=== PATIENT | female | born 1975 | race Caucasian/White ===

== ENCOUNTER 2021-08-09 13:20 | Outpatient (REF) | payer OTHER, SELFPAY ==
--- NOTE | ~2021-08-09 | XR_ITS ---
EXAMINATION: XR HAND/WRIST, RIGHT CLINICAL INFORMATION: Pain. COMPARISON: None TECHNIQUE: 4 views of the right hand and wrist. FINDINGS: Bone alignment is normal. No fracture or dislocation is seen. The joint spaces are normal. Soft tissues are normal. XR/XR hand wrist RT IMPRESSION: Unremarkable exam.
== END 2021-08-09 13:21 | disposition home or self-care (01) ==
LOC: HO.XRAY 13:20
PROVIDERS: PCP Hospitalist; Visit Provider Psychiatry & Neurology Neurology
DX: M79.641 Pain in right hand (principal)
CPT/HCPCS: 73110; 73130

== ENCOUNTER 2022-10-08 11:28 | Emergency (ER) | payer OTHER, SELFPAY ==
--- NOTE | ~2022-10-08 | CT_ITS ---
EXAMINATION: CT LUMBAR SPINE WITHOUT CONTRAST CLINICAL INFORMATION: Metastatic disease. Difficulty walking. COMPARISON: Lumbar spine radiographs from 10/08/2022. TECHNIQUE: Multidetector helical imaging of the lumbar spine was obtained without intravenous contrast. Multiple axial reformats and coronal/sagittal reconstructions were created the technologist workstation for review. This CT examination was performed using dose optimization techniques as appropriate, variously including the following: *Automated exposure control. *Adjustment of mA and/or kV according to patient size (this includes techniques or standardized protocols for targeted exams where dose is matched to indication/reason for exam; i.e. extremities or head). *Use of iterative reconstruction technique. DLP: 710 mGy-cm FINDINGS: Mild degenerative retrolisthesis of L2 on L3. Otherwise, normal anatomic alignment. No evidence of acute fracture or traumatic subluxation. The vertebral body heights are maintained. Moderate degenerative disc disease at L2-L3. Mild degenerative disc disease at all additional lumbar levels. No suspicious lytic or sclerotic osseous lesions. Changes of L3 laminectomy. No significant abnormalities of the paraspinal musculature. Changes of prior sleeve gastrectomy. There is moderate dilation of the proximal duodenum. Otherwise, limited evaluation of the intra-abdominal structures without significant abnormalities. The abdominal aorta is of normal contour and caliber with mild calcific atherosclerotic disease. AXIAL SPINAL LEVELS: L1-L2: Normal annular contour. There is mild bilateral facet joint arthropathy. There is no neural foraminal stenosis. There is no demonstrated spinal canal stenosis. L2-L3: Moderate diffuse disc bulge with superimposed central disc extrusion with inferior migration. There is mild bilateral facet joint arthropathy. There is moderate diffuse disc bulge moderate to severe left and moderate right neural foraminal stenosis. Posterior decompression. L3-L4: Moderate diffuse disc bulge. There is moderate bilateral facet joint arthropathy. There is moderate left worse than right neural foraminal stenosis. Posterior decompression. L4-L5: Mild diffuse disc bulge. There is severe right and moderate left facet joint arthropathy. There is mild to moderate bilateral neural foraminal stenosis. There is stenoses of the subarticular zones with mild spinal canal stenosis centrally. L5-S1: Mild diffuse disc bulge with posterior osseous ridging. There is moderate bilateral facet joint arthropathy. There is mild bilateral neural foraminal stenosis. There is no demonstrated spinal canal stenosis. CT/CT lumbar spine wo IV con IMPRESSION: 1. No evidence of acute fracture or traumatic subluxation of the lumbar spine. No demonstrated suspicious lytic or sclerotic osseous lesions. 2. Moderate multilevel degenerative spondyloarthropathy of the lumbar spine as described in detail above. Most notably on this limited exam without intrathecal contrast, there appears to be mild spinal canal stenosis at L4-L5. Moderate to severe neural foraminal stenoses from L2-L5.
--- NOTE | ~2022-10-08 | CT_ITS ---
EXAMINATION: CT HIP WITHOUT CONTRAST, RIGHT CLINICAL INFORMATION: Evaluate for metastatic disease. History of breast cancer. COMPARISON: CT scan lumbar sacral spine performed same day. X-ray lumbar sacral spine performed same day TECHNIQUE: CT scan of the right hip is performed with reconstruction imaging performed at the acquisition workstation. This CT examination was performed using dose optimization techniques as appropriate, variously including the following: *Automated exposure control *Adjustment of mA and/or kV according to patient size (this includes techniques or standardized protocols for targeted exams where dose is matched to indication/reason for exam; i.e. extremities or head) *Use of iterative reconstruction technique DLP: 710 mGy-cm FINDINGS: There is a small os acetabuli anteriorly superiorly. Hip joint space is normal. No marginal osteophytes or evidence for arthrosis of. No effusion. No fracture. No bone lesion. Partially visualized right sacroiliac joint normal. No lymphadenopathy. Surrounding muscles and tendons unremarkable. Intrapelvic soft tissues unremarkable. Subcutaneous soft tissues: Minimal stranding compatible with minimal edema CT/CT hip RT wo IV con IMPRESSION: 1. No evidence for metastatic disease. 2. Small os acetabuli. 3. No acute abnormality detected
--- NOTE | ~2022-10-08 | XR_ITS ---
EXAMINATION: XR LUMBOSACRAL SPINE CLINICAL INFORMATION: Back pain. History of breast cancer. COMPARISON: None available. TECHNIQUE: Three views of the lumbosacral spine. FINDINGS: Bone alignment is normal. No fracture or dislocation. No focal bone lesion seen. Degenerative disc disease and spondylosis at L2-L3. Lower lumbar spine facet arthritis. XR/XR lumbar spine 2-3V IMPRESSION: Degenerative changes.
[2022-10-08 11:35] VITALS: BP 116/97; PULSE 95; RESP 16; TEMP 36.7; O2SAT 98; BMI 27.4
--- NOTE | 2022-10-08 11:49 | ED.GENADULT ---
HPI - General Adult General Chief complaint: Back Pain/Injury <JOSSE Cavazos - Last Filed: 10/08/22 20:38> Stated complaint: back pain <JOSSE Cavazos - Last Filed: 10/08/22 20:38> Time Seen by Provider: 10/08/22 12:10 <JOSSE Cavazos - Last Filed: 10/08/22 20:38> Source: patient and family <Shiloh Garg NP - Last Filed: 10/08/22 18:08> Mode of arrival: wheelchair <Shiloh Garg NP - Last Filed: 10/08/22 18:08> Limitations: no limitations <Shiloh Garg NP - Last Filed: 10/08/22 18:08> History of Present Illness HPI narrative: This is a 47-year-old female who has a history of breast cancer status post chemo and radiation who completed treatment in 2020 but is currently on tamoxifen oral, history of herniated discs requiring surgery in [address], urinary incontinence since 2016 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 Patient reports since having her back surgery she has had intermittent pain for many years. Typically it is mild. Since yesterday her pain has been much more severe right-sided with radiation down her right leg. Patient also reports some numbness and tingling in her right leg. No weakness in the left. No bowel incontinence, fevers, saddle anesthesia. Patient reports urinary incontinence which she has had for many years. This is not worsened. This usually occurs after coughing and sneezing. It has been recommended that she have Botox injections done but patient did not want to do this due to concern for pain. Patient reports she has taken oxycodone at home, tramadol, gabapentin with continued pain. Patient required wheelchair into the ER due to difficulty with ambulating due to pain <Shiloh Garg NP - Last Filed: 10/08/22 18:08> Related Data Allergies/adverse reactions: Allergies Allergy/AdvReac Type Severity Reaction Status Date / Time hydrocodone Allergy Swelling Verified 10/08/22 11:46 ibuprofen Allergy Swelling Verified 10/08/22 11:46 <Phi Galdamez PA - Last Filed: 10/08/22 20:38> Review of Systems Review of Systems: Yes all other systems are reviewed and are negative <Shiloh Garg NP - Last Filed: 10/08/22 18:08> Constitutional: Constitutional: Reports no additional constitutional complaints, Denies body ache(s), Denies chills, Denies fever(s), Denies headache(s) and Denies weakness <Shiloh Garg NP - Last Filed: 10/08/22 18:08> Eyes: Eyes: Reports no additional eye complaints and Denies change in vision <Shiloh Garg NP - Last Filed: 10/08/22 18:08> ENT: Reports system reviewed and no additional complaints, except as documented, Denies dizziness, Denies headache(s), Denies nasal congestion, Denies nasal discharge and Denies neck pain <Shiloh Garg NP - Last Filed: 10/08/22 18:08> Cardiovascular: Cardiovascular: Reports no additional cardiovascular complaints, Denies chest pain, Denies leg edema and Denies dyspnea <Shiloh Garg NP - Last Filed: 10/08/22 18:08> Respiratory: Respiratory: Reports no additional respiratory complaints, Denies cough and Denies dyspnea <Shiloh Garg NP - Last Filed: 10/08/22 18:08> Gastrointestinal: Gastrointestinal: Reports no additional gastrointestinal complaints, Denies abdominal pain, Denies diarrhea, Denies nausea and Denies vomiting <Shiloh Garg NP - Last Filed: 10/08/22 18:08> Genitourinary: Genitourinary: Reports no additional female genitourinary complaints and Denies urinary incontinence <Shiloh Garg NP - Last Filed: 10/08/22 18:08> Musculoskeletal: Musculoskeletal: Reports no additional musculoskeletal complaints, Reports back pain, Reports arthralgias, Denies joint swelling, Denies neck pain, Denies numbness and Denies tingling <Shiloh Garg NP - Last Filed: 10/08/22 18:08> Integumentary/Breasts: Skin/Breast: Reports system reviewed and no additional complaints, except as docu and Denies rash <Shiloh Garg NP - Last Filed: 10/08/22 18:08> Neurologic: Reports system reviewed and no additional complaints, except as documented, Denies dizziness, Denies headache(s), Denies numbness, Denies tingling and Denies weakness <Shiloh Garg NP - Last Filed: 10/08/22 18:08> [facility] Past Medical History Attestation statement: The following information was validated with the patient. <Shiloh Garg NP - Last Filed: 10/08/22 18:08> Source: old records reviewed and nursing notes reviewed <Shiloh Garg NP - Last Filed: 10/08/22 18:08> Social History Social History: Social History Advance Directives: No Advance Directives Information Provided: No <JOSSE Cavazos - Last Filed: 10/08/22 20:38> Physical Exam ED Vital Signs: Vital Signs - 24 hr 10/08/22 11:35 10/08/22 12:18 10/08/22 15:30 Temperature 98.1 F 97.8 F 97.8 F Pulse Rate 95 83 78 Respiratory Rate 16 18 14 Blood Pressure 116/97 H 101/69 117/71 Pulse Oximetry 98 97 99 Oxygen Delivery Method Room Air Room Air Room Air BMI result Body Mass Index 27.4 <JOSSE Cavazos - Last Filed: 10/08/22 20:38> Vital Signs - 24 hr 10/08/22 11:35 10/08/22 12:18 10/08/22 15:30 Temperature 98.1 F 97.8 F 97.8 F Pulse Rate 95 83 78 Respiratory Rate 16 18 14 Blood Pressure 116/97 H 101/69 117/71 Pulse Oximetry 98 97 99 Oxygen Delivery Method Room Air Room Air Room Air BMI result Body Mass Index 27.4 <Micah Morataya MD - Last Filed: 10/08/22 13:56> Vital Signs - 24 hr 10/08/22 11:35 10/08/22 12:18 10/08/22 15:30 Temperature 98.1 F 97.8 F 97.8 F Pulse Rate 95 83 78 Respiratory Rate 16 18 14 Blood Pressure 116/97 H 101/69 117/71 Pulse Oximetry 98 97 99 Oxygen Delivery Method Room Air Room Air Room Air BMI result Body Mass Index 27.4 <Shiloh Garg NP - Last Filed: 10/08/22 18:08> Const General: cooperative, healthy appearing, comfortable and no acute distress <Shiloh Garg [employer] HOUSE OPERATOR - Last Filed: 10/08/22 18:08> Orientation/consciousness: patient oriented x3 <Shiloh Garg [employer] HOUSE OPERATOR - Last Filed: 10/08/22 18:08> Limitations: no limitations <Shiloh Garg [employer] HOUSE OPERATOR - Last Filed: 10/08/22 18:08> HENMT Head: Yes normal to inspection <Shiloh Garg [employer] HOUSE OPERATOR - Last Filed: 10/08/22 18:08> Ears: hearing grossly normal bilaterally <Shiloh Garg [employer] HOUSE OPERATOR - Last Filed: 10/08/22 18:08> Eyes General: appearance normal, both eyes and all related structures <Shiloh Garg [employer] HOUSE OPERATOR - Last Filed: 10/08/22 18:08> Pupils: Equal, round and reactive pupils present <Shiloh Garg [employer] HOUSE OPERATOR - Last Filed: 10/08/22 18:08> Neck Neck: Yes normal visual inspection and Yes full ROM <Shiloh Garg [employer] HOUSE OPERATOR - Last Filed: 10/08/22 18:08> Chest Chest palpation & inspection: normal inspection of the chest <Shiloh Garg NP - Last Filed: 10/08/22 18:08> Resp Effort & Inspection: normal respiratory effort <Shiloh Garg [employer] HOUSE OPERATOR - Last Filed: 10/08/22 18:08> Auscultation: clear to auscultation bilaterally <Shiloh Garg NP - Last Filed: 10/08/22 18:08> Cardio Rate: regular rate <Shiloh Garg NP - Last Filed: 10/08/22 18:08> Rhythm: regular rhythm <Shiloh Garg NP - Last Filed: 10/08/22 18:08> Peripheral pulses: Peripheral pulses 2+ throughout <Shiloh Garg [employer] HOUSE OPERATOR - Last Filed: 10/08/22 18:08> Back/Spine/Pelvis Other: There is no tenderness of the lumbar spine. There is tenderness over the right SI joint on compression and over the right lateral hip. Patient has pain with abduction, adduction, rotation of the hip and is guarding the hip. Pain is worsened with right straight leg raise <Shiloh Garg [employer] HOUSE OPERATOR - Last Filed: 10/08/22 18:08> Thoracic/Lumbar Spine: thoracic and lumbar spine normal to inspection <Shiloh Garg [employer] HOUSE OPERATOR - Last Filed: 10/08/22 18:08> Neuro General: patient oriented x3, moves all extremities and Unable to assess gait <Shiloh Garg [employer] HOUSE OPERATOR - Last Filed: 10/08/22 18:08> Cranial nerves: Yes CN's II-XII intact bilaterally, Yes Equal, round and reactive pupils present, Yes Bilaterally intact EOM present, Yes Nystagmus not present, Yes Normal facial strength present and Yes Midline tongue present <Shiloh Garg [employer] HOUSE OPERATOR - Last Filed: 10/08/22 18:08> Cognition (Neuro): normal cognition <Shiloh Garg [employer] HOUSE OPERATOR - Last Filed: 10/08/22 18:08> Gait exam (Neuro): Unable to assess gait <Shiloh Garg [employer] HOUSE OPERATOR - Last Filed: 10/08/22 18:08> Motor exam (neuro): 5/5 motor strength present throughout <Shiloh Garg [employer]IL[employer] HOUSE OPERATOR - Last Filed: 10/08/22 18:08> Sensory Exam: Normal double simultaneous stimulation for sensation <Shiloh Garg [employer] HOUSE OPERATOR - Last Filed: 10/08/22 18:08> Extrem General: Yes normal to inspection, Yes no pedal edema and Yes no calf tenderness <Shiloh Garg [employer] HOUSE OPERATOR - Last Filed: 10/08/22 18:08> Course Course Course Narrative: RME: 47 yold female with pmh of Right Breast CA Ductal Cariconima presents to the ED for lower back pain radating spine with Urinary incontience. patient is due for Bladder Botox. Patient receiving chemo and radiation at the [facility]. Patient has range of motion on of lower extermites in wheel chair. Nurse Ariana made aware of case for patient to be brought into main ED when bed available. <JOSSE Cavazos - Last Filed: 10/08/22 20:38> Reevaluation(s) Reevaluation #1: Discussed history, physical and plan with JOSSE Matamoros <Micah Morataya MD - Last Filed: 10/08/22 13:56> Time: 13:56 <Micah Morataya MD - Last Filed: 10/08/22 13:56> Reevaluation #2: 1800-patient had to leave prior to her CT scan results being complete. Patient is aware that we are doing the CT scan to rule out bony mets. She says her pain is feeling improved. She would like to go home. She is aware that her recommendations would be to stay to wait for her CT scan resolved. She has an emergency home and needs to leave. Will leave AMA <Shiloh Garg NP - Last Filed: 10/08/22 18:08> Medications Administered Discontinued Medications Generic Name Dose Route Start Last Admin Trade Name Freq PRN Reason Stop Dose Admin Acetaminophen 975 mg 10/08/22 16:34 10/08/22 16:53 Acetaminophen 325 Mg Tablet PO 10/08/22 16:35 975 mg ONCE ONE Administration Diazepam 2 mg 10/08/22 13:26 10/08/22 13:41 Diazepam 2 Mg Tablet PO 10/08/22 13:27 2 mg ONCE ONE Administration Morphine Sulfate 4 mg 10/08/22 13:26 10/08/22 14:12 Morphine Sulfate 4 Mg/Ml Cartridge IVPUSH 10/08/22 13:27 4 mg ONCE ONE Administration Protocol Ondansetron HCl 4 mg 10/08/22 16:34 10/08/22 16:55 Ondansetron Hcl 4 Mg/2 Ml Vial IVPUSH 10/08/22 16:35 4 mg ONCE ONE Administration Oxycodone HCl 5 mg 10/08/22 16:34 10/08/22 16:54 Oxycodone Hcl Immed Release 5 Mg Tablet PO 10/08/22 16:35 5 mg ONCE ONE Administration <JOSSE Cavazos - Last Filed: 10/08/22 20:38> Medications Administered Discontinued Medications Generic Name Dose Route Start Last Admin Trade Name Freq PRN Reason Stop Dose Admin Acetaminophen 975 mg 10/08/22 16:34 10/08/22 16:53 Acetaminophen 325 Mg Tablet PO 10/08/22 16:35 975 mg ONCE ONE Administration Diazepam 2 mg 10/08/22 13:26 10/08/22 13:41 Diazepam 2 Mg Tablet PO 10/08/22 13:27 2 mg ONCE ONE Administration Morphine Sulfate 4 mg 10/08/22 13:26 10/08/22 14:12 Morphine Sulfate 4 Mg/Ml Cartridge IVPUSH 10/08/22 13:27 4 mg ONCE ONE Administration Protocol Ondansetron HCl 4 mg 10/08/22 16:34 10/08/22 16:55 Ondansetron Hcl 4 Mg/2 Ml Vial IVPUSH 10/08/22 16:35 4 mg ONCE ONE Administration Oxycodone HCl 5 mg 10/08/22 16:34 10/08/22 16:54 Oxycodone Hcl Immed Release 5 Mg Tablet PO 10/08/22 16:35 5 mg ONCE ONE Administration <Micah Morataya MD - Last Filed: 10/08/22 13:56> Medications Administered Discontinued Medications Generic Name Dose Route Start Last Admin Trade Name Sumanq PRN Reason Stop Dose Admin Acetaminophen 975 mg 10/08/22 16:34 10/08/22 16:53 Acetaminophen 325 Mg Tablet PO 10/08/22 16:35 975 mg ONCE ONE Administration Diazepam 2 mg 10/08/22 13:26 10/08/22 13:41 Diazepam 2 Mg Tablet PO 10/08/22 13:27 2 mg ONCE ONE Administration Morphine Sulfate 4 mg 10/08/22 13:26 10/08/22 14:12 Morphine Sulfate 4 Mg/Ml Cartridge IVPUSH 10/08/22 13:27 4 mg ONCE ONE Administration Protocol Ondansetron HCl 4 mg 10/08/22 16:34 10/08/22 16:55 Ondansetron Hcl 4 Mg/2 Ml Vial IVPUSH 10/08/22 16:35 4 mg ONCE ONE Administration Oxycodone HCl 5 mg 10/08/22 16:34 10/08/22 16:54 Oxycodone Hcl Immed Release 5 Mg Tablet PO 10/08/22 16:35 5 mg ONCE ONE Administration <Shiloh Garg NP - Last Filed: 10/08/22 18:08> Medical Decision Making Medical Decision Making [facility] Narrative: 47-year-old female with a history of breast cancer who received chemo and radiation and now is currently on oral tamoxifen, history of herniated disc with surgery in the past with intermittent chronic back pain since then, urinary incontinence for many years who presents to the ER with complaints of acute on chronic right lower back pain with radiation down the right leg since yesterday with no known injury or trauma. Patient also reports difficulty with ambulating due to pain, some numbness and tingling over the right thigh area with no reports of weakness, saddle anesthesia, fever, bowel incontinence. Her pain is been unrelieved with home oxycodone, tramadol and gabapentin On exam patient has tenderness over the right SI joint and right lateral hip which is worsened with any passive range of motion of the hip. She did require a wheelchair to arriving to the ER. She has no tenderness over the lumbar spine. She does have pain with right straight leg raise but her motor function and sensation are normal in the right side. Will obtain labs, UA, advanced imaging of right hip <Shiloh Garg NP - Last Filed: 10/08/22 18:08> Differential Diagnosis Differential Diagnoses: The differential diagnosis associated with the presentation includes <Shiloh Garg NP - Last Filed: 10/08/22 18:08> bony mets low concern for cord compression, caude equina, fracture, epidural abscess <Shiloh Garg NP - Last Filed: 10/08/22 18:08> Lab Data [facility] Lab Attestation statement: I reviewed the patient's lab results. <Shiloh Garg NP - Last Filed: 10/08/22 18:08> Result Diagrams: 10/08/22 12:12 10/08/22 12:12 <JOSSE Cavazos - Last Filed: 10/08/22 20:38> Labs: Lab Results 10/08/22 10/08/22 10/08/22 Range/Units 12:12 12:12 12:12 WBC 6.6 (4.8-10.8) X10*3/uL RBC 4.98 (4.20-5.50) X10*6/uL Hgb 14.3 (12.0-16.0) g/dl Hct 44.3 (37.0-47.0) % MCV 89.0 (80.0-98.0) fL MCH 28.7 (27.0-33.0) pg MCHC 32.3 (31.0-35.0) g/dl RDW 12.9 (11.0-16.0) % Plt Count 219 (160-400) X10*3/uL MPV 9.8 (9.4-12.3) fL Immature Gran % (Auto) 0.2 (0.0-0.4) % Neut % (Auto) 57.2 (45-73) % Lymph % (Auto) 33.2 (20-40) % Desha % (Auto) 7.0 (2-11) % Eos % (Auto) 1.8 (0-4) % Baso % (Auto) 0.6 (0-2) % Lymph # (Auto) 2.2 (1.2-4.9) X10*3/uL Desha # (Auto) 0.5 (0.1-1.2) X10*3/uL Eos # (Auto) 0.1 (0.0-0.4) X10*3/uL Baso # (Auto) 0.0 (0.0-0.2) X10*3/uL Abs Immat Gran (auto) 0.01 (0.00-0.03) X10*3/uL Absolute Neuts (auto) 3.8 (2.0-8.3) x10*3/uL Absolute Nucleated RBC 0.000 (0.0-0.012) X10*3/uL Nucleated RBC % (auto) 0.0 (0.0-0.2) /100WBC ESR (0-20) MM/HR PT 11.7 (10.0-13.1) SEC INR 1.0 (0.9-1.1) APTT 31.9 (26.0-36.4) SEC Sodium 143 (135-145) mmol/L Potassium 4.5 (3.3-5.1) mmol/L Chloride 109 H (96-108) mmol/L Carbon Dioxide 27 (22-29) mmol/L Anion Gap 12 (12-20) BUN 16 (9-16) mg/dL Creatinine 0.78 (0.5-1.4) mg/dL Estim Creat Clear Calc 85.2 Estimated GFR > 60 Random Glucose 87 (60-115) mg/dL Lactic Acid (0.5-2.0) mmol/L Calcium 9.7 (8.4-10.2) mg/dL Total Bilirubin 0.4 (0.0-1.0) mg/dL AST 34 H (5-31) U/L ALT 45 H (0-31) U/L Alkaline Phosphatase 73 (39-117) U/L C-Reactive Protein (< or = 0.50) mg/dL Total Protein 7.4 (6.5-8.0) g/dL Albumin 4.0 (3.5-5.0) g/dL Urine Color Urine Appearance Urine pH (5.0-9.0) Ur Specific [place] (1.005-1.025) Urine Protein (Neg-Trace) mg/dL Urine Glucose (UA) (Negative) mg/dL Urine Ketones (Negative) mg/dL Urine Blood (Negative) Urine Nitrite (Negative) Ur Leukocyte Esterase (Negative) Urine RBC (0-2) /HPF Urine WBC (0-5) /HPF Ur Squamous Epith Cells (0-2) /HPF Urine Bacteria (None Seen) Hyaline Casts (0-2) /LPF 10/08/22 10/08/22 10/08/22 Range/Units 14:08 14:08 14:08 WBC (4.8-10.8) X10*3/uL RBC (4.20-5.50) X10*6/uL Hgb (12.0-16.0) g/dl Hct (37.0-47.0) % MCV (80.0-98.0) fL MCH (27.0-33.0) pg MCHC (31.0-35.0) g/dl RDW (11.0-16.0) % Plt Count (160-400) X10*3/uL MPV (9.4-12.3) fL Immature Gran % (Auto) (0.0-0.4) % Neut % (Auto) (45-73) % Lymph % (Auto) (20-40) % Desha % (Auto) (2-11) % Eos % (Auto) (0-4) % Baso % (Auto) (0-2) % Lymph # (Auto) (1.2-4.9) X10*3/uL Desha # (Auto) (0.1-1.2) X10*3/uL Eos # (Auto) (0.0-0.4) X10*3/uL Baso # (Auto) (0.0-0.2) X10*3/uL Abs Immat Gran (auto) (0.00-0.03) X10*3/uL Absolute Neuts (auto) (2.0-8.3) x10*3/uL Absolute Nucleated RBC (0.0-0.012) X10*3/uL Nucleated RBC % (auto) (0.0-0.2) /100WBC ESR 10 (0-20) MM/HR PT (10.0-13.1) SEC INR (0.9-1.1) APTT (26.0-36.4) SEC Sodium (135-145) mmol/L Potassium (3.3-5.1) mmol/L Chloride (96-108) mmol/L Carbon Dioxide (22-29) mmol/L Anion Gap (12-20) BUN (9-16) mg/dL Creatinine (0.5-1.4) mg/dL Estim Creat Clear Calc Estimated GFR Random Glucose (60-115) mg/dL Lactic Acid 0.9 (0.5-2.0) mmol/L Calcium (8.4-10.2) mg/dL Total Bilirubin (0.0-1.0) mg/dL AST (5-31) U/L ALT (0-31) U/L Alkaline Phosphatase (39-117) U/L C-Reactive Protein 0.18 (< or = 0.50) mg/dL Total Protein (6.5-8.0) g/dL Albumin (3.5-5.0) g/dL Urine Color Urine Appearance Urine pH (5.0-9.0) Ur Specific [place] (1.005-1.025) Urine Protein (Neg-Trace) mg/dL Urine Glucose (UA) (Negative) mg/dL Urine Ketones (Negative) mg/dL Urine Blood (Negative) Urine Nitrite (Negative) Ur Leukocyte Esterase (Negative) Urine RBC (0-2) /HPF Urine WBC (0-5) /HPF Ur Squamous Epith Cells (0-2) /HPF Urine Bacteria (None Seen) Hyaline Casts (0-2) /LPF 10/08/22 Range/Units 16:21 WBC (4.8-10.8) X10*3/uL RBC (4.20-5.50) X10*6/uL Hgb (12.0-16.0) g/dl Hct (37.0-47.0) % MCV (80.0-98.0) fL MCH (27.0-33.0) pg MCHC (31.0-35.0) g/dl RDW (11.0-16.0) % Plt Count (160-400) X10*3/uL MPV (9.4-12.3) fL Immature Gran % (Auto) (0.0-0.4) % Neut % (Auto) (45-73) % Lymph % (Auto) (20-40) % Desha % (Auto) (2-11) % Eos % (Auto) (0-4) % Baso % (Auto) (0-2) % Lymph # (Auto) (1.2-4.9) X10*3/uL Desha # (Auto) (0.1-1.2) X10*3/uL Eos # (Auto) (0.0-0.4) X10*3/uL Baso # (Auto) (0.0-0.2) X10*3/uL Abs Immat Gran (auto) (0.00-0.03) X10*3/uL Absolute Neuts (auto) (2.0-8.3) x10*3/uL Absolute Nucleated RBC (0.0-0.012) X10*3/uL Nucleated RBC % (auto) (0.0-0.2) /100WBC ESR (0-20) MM/HR PT (10.0-13.1) SEC INR (0.9-1.1) APTT (26.0-36.4) SEC Sodium (135-145) mmol/L Potassium (3.3-5.1) mmol/L Chloride (96-108) mmol/L Carbon Dioxide (22-29) mmol/L Anion Gap (12-20) BUN (9-16) mg/dL Creatinine (0.5-1.4) mg/dL Estim Creat Clear Calc Estimated GFR Random Glucose (60-115) mg/dL Lactic Acid (0.5-2.0) mmol/L Calcium (8.4-10.2) mg/dL Total Bilirubin (0.0-1.0) mg/dL AST (5-31) U/L ALT (0-31) U/L Alkaline Phosphatase (39-117) U/L C-Reactive Protein (< or = 0.50) mg/dL Total Protein (6.5-8.0) g/dL Albumin (3.5-5.0) g/dL Urine Color Yellow Urine Appearance Clear Urine pH 6.0 (5.0-9.0) Ur Specific [place] 1.020 (1.005-1.025) Urine Protein Negative (Neg-Trace) mg/dL Urine Glucose (UA) Negative (Negative) mg/dL Urine Ketones Negative (Negative) mg/dL Urine Blood Negative (Negative) Urine Nitrite Negative (Negative) Ur Leukocyte Esterase Trace H (Negative) Urine RBC 0-2 (0-2) /HPF Urine WBC 0-5 (0-5) /HPF Ur Squamous Epith Cells 3-5 (0-2) /HPF Urine Bacteria None Seen (None Seen) Hyaline Casts 0-2 (0-2) /LPF <JOSSE Cavazos - Last Filed: 10/08/22 20:38> Lab Results 10/08/22 10/08/22 10/08/22 Range/Units 12:12 12:12 12:12 WBC 6.6 (4.8-10.8) X10*3/uL RBC 4.98 (4.20-5.50) X10*6/uL Hgb 14.3 (12.0-16.0) g/dl Hct 44.3 (37.0-47.0) % MCV 89.0 (80.0-98.0) fL MCH 28.7 (27.0-33.0) pg MCHC 32.3 (31.0-35.0) g/dl RDW 12.9 (11.0-16.0) % Plt Count 219 (160-400) X10*3/uL MPV 9.8 (9.4-12.3) fL Immature Gran % (Auto) 0.2 (0.0-0.4) % Neut % (Auto) 57.2 (45-73) % Lymph % (Auto) 33.2 (20-40) % Desha % (Auto) 7.0 (2-11) % Eos % (Auto) 1.8 (0-4) % Baso % (Auto) 0.6 (0-2) % Lymph # (Auto) 2.2 (1.2-4.9) X10*3/uL Desha # (Auto) 0.5 (0.1-1.2) X10*3/uL Eos # (Auto) 0.1 (0.0-0.4) X10*3/uL Baso # (Auto) 0.0 (0.0-0.2) X10*3/uL Abs Immat Gran (auto) 0.01 (0.00-0.03) X10*3/uL Absolute Neuts (auto) 3.8 (2.0-8.3) x10*3/uL Absolute Nucleated RBC 0.000 (0.0-0.012) X10*3/uL Nucleated RBC % (auto) 0.0 (0.0-0.2) /100WBC ESR (0-20) MM/HR PT 11.7 (10.0-13.1) SEC INR 1.0 (0.9-1.1) APTT 31.9 (26.0-36.4) SEC Sodium 143 (135-145) mmol/L Potassium 4.5 (3.3-5.1) mmol/L Chloride 109 H (96-108) mmol/L Carbon Dioxide 27 (22-29) mmol/L Anion Gap 12 (12-20) BUN 16 (9-16) mg/dL Creatinine 0.78 (0.5-1.4) mg/dL Estim Creat Clear Calc 85.2 Estimated GFR > 60 Random Glucose 87 (60-115) mg/dL Lactic Acid (0.5-2.0) mmol/L Calcium 9.7 (8.4-10.2) mg/dL Total Bilirubin 0.4 (0.0-1.0) mg/dL AST 34 H (5-31) U/L ALT 45 H (0-31) U/L Alkaline Phosphatase 73 (39-117) U/L C-Reactive Protein (< or = 0.50) mg/dL Total Protein 7.4 (6.5-8.0) g/dL Albumin 4.0 (3.5-5.0) g/dL Urine Color Urine Appearance Urine pH (5.0-9.0) Ur Specific [place] (1.005-1.025) Urine Protein (Neg-Trace) mg/dL Urine Glucose (UA) (Negative) mg/dL Urine Ketones (Negative) mg/dL Urine Blood (Negative) Urine Nitrite (Negative) Ur Leukocyte Esterase (Negative) Urine RBC (0-2) /HPF Urine WBC (0-5) /HPF Ur Squamous Epith Cells (0-2) /HPF Urine Bacteria (None Seen) Hyaline Casts (0-2) /LPF 10/08/22 10/08/22 10/08/22 Range/Units 14:08 14:08 14:08 WBC (4.8-10.8) X10*3/uL RBC (4.20-5.50) X10*6/uL Hgb (12.0-16.0) g/dl Hct (37.0-47.0) % MCV (80.0-98.0) fL MCH (27.0-33.0) pg MCHC (31.0-35.0) g/dl RDW (11.0-16.0) % Plt Count (160-400) X10*3/uL MPV (9.4-12.3) fL Immature Gran % (Auto) (0.0-0.4) % Neut % (Auto) (45-73) % Lymph % (Auto) (20-40) % Desha % (Auto) (2-11) % Eos % (Auto) (0-4) % Baso % (Auto) (0-2) % Lymph # (Auto) (1.2-4.9) X10*3/uL Desha # (Auto) (0.1-1.2) X10*3/uL Eos # (Auto) (0.0-0.4) X10*3/uL Baso # (Auto) (0.0-0.2) X10*3/uL Abs Immat Gran (auto) (0.00-0.03) X10*3/uL Absolute Neuts (auto) (2.0-8.3) x10*3/uL Absolute Nucleated RBC (0.0-0.012) X10*3/uL Nucleated RBC % (auto) (0.0-0.2) /100WBC ESR 10 (0-20) MM/HR PT (10.0-13.1) SEC INR (0.9-1.1) APTT (26.0-36.4) SEC Sodium (135-145) mmol/L Potassium (3.3-5.1) mmol/L Chloride (96-108) mmol/L Carbon Dioxide (22-29) mmol/L Anion Gap (12-20) BUN (9-16) mg/dL Creatinine (0.5-1.4) mg/dL Estim Creat Clear Calc Estimated GFR Random Glucose (60-115) mg/dL Lactic Acid 0.9 (0.5-2.0) mmol/L Calcium (8.4-10.2) mg/dL Total Bilirubin (0.0-1.0) mg/dL AST (5-31) U/L ALT (0-31) U/L Alkaline Phosphatase (39-117) U/L C-Reactive Protein 0.18 (< or = 0.50) mg/dL Total Protein (6.5-8.0) g/dL Albumin (3.5-5.0) g/dL Urine Color Urine Appearance Urine pH (5.0-9.0) Ur Specific [place] (1.005-1.025) Urine Protein (Neg-Trace) mg/dL Urine Glucose (UA) (Negative) mg/dL Urine Ketones (Negative) mg/dL Urine Blood (Negative) Urine Nitrite (Negative) Ur Leukocyte Esterase (Negative) Urine RBC (0-2) /HPF Urine WBC (0-5) /HPF Ur Squamous Epith Cells (0-2) /HPF Urine Bacteria (None Seen) Hyaline Casts (0-2) /LPF 10/08/22 Range/Units 16:21 WBC (4.8-10.8) X10*3/uL RBC (4.20-5.50) X10*6/uL Hgb (12.0-16.0) g/dl Hct (37.0-47.0) % MCV (80.0-98.0) fL MCH (27.0-33.0) pg MCHC (31.0-35.0) g/dl RDW (11.0-16.0) % Plt Count (160-400) X10*3/uL MPV (9.4-12.3) fL Immature Gran % (Auto) (0.0-0.4) % Neut % (Auto) (45-73) % Lymph % (Auto) (20-40) % Desha % (Auto) (2-11) % Eos % (Auto) (0-4) % Baso % (Auto) (0-2) % Lymph # (Auto) (1.2-4.9) X10*3/uL Desha # (Auto) (0.1-1.2) X10*3/uL Eos # (Auto) (0.0-0.4) X10*3/uL Baso # (Auto) (0.0-0.2) X10*3/uL Abs Immat Gran (auto) (0.00-0.03) X10*3/uL Absolute Neuts (auto) (2.0-8.3) x10*3/uL Absolute Nucleated RBC (0.0-0.012) X10*3/uL Nucleated RBC % (auto) (0.0-0.2) /100WBC ESR (0-20) MM/HR PT (10.0-13.1) SEC INR (0.9-1.1) APTT (26.0-36.4) SEC Sodium (135-145) mmol/L Potassium (3.3-5.1) mmol/L Chloride (96-108) mmol/L Carbon Dioxide (22-29) mmol/L Anion Gap (12-20) BUN (9-16) mg/dL Creatinine (0.5-1.4) mg/dL Estim Creat Clear Calc Estimated GFR Random Glucose (60-115) mg/dL Lactic Acid (0.5-2.0) mmol/L Calcium (8.4-10.2) mg/dL Total Bilirubin (0.0-1.0) mg/dL AST (5-31) U/L ALT (0-31) U/L Alkaline Phosphatase (39-117) U/L C-Reactive Protein (< or = 0.50) mg/dL Total Protein (6.5-8.0) g/dL Albumin (3.5-5.0) g/dL Urine Color Yellow Urine Appearance Clear Urine pH 6.0 (5.0-9.0) Ur Specific [place] 1.020 (1.005-1.025) Urine Protein Negative (Neg-Trace) mg/dL Urine Glucose (UA) Negative (Negative) mg/dL Urine Ketones Negative (Negative) mg/dL Urine Blood Negative (Negative) Urine Nitrite Negative (Negative) Ur Leukocyte Esterase Trace H (Negative) Urine RBC 0-2 (0-2) /HPF Urine WBC 0-5 (0-5) /HPF Ur Squamous Epith Cells 3-5 (0-2) /HPF Urine Bacteria None Seen (None Seen) Hyaline Casts 0-2 (0-2) /LPF <Micah Morataya MD - Last Filed: 10/08/22 13:56> Lab Results 10/08/22 10/08/22 10/08/22 Range/Units 12:12 12:12 12:12 WBC 6.6 (4.8-10.8) X10*3/uL RBC 4.98 (4.20-5.50) X10*6/uL Hgb 14.3 (12.0-16.0) g/dl Hct 44.3 (37.0-47.0) % MCV 89.0 (80.0-98.0) fL MCH 28.7 (27.0-33.0) pg MCHC 32.3 (31.0-35.0) g/dl RDW 12.9 (11.0-16.0) % Plt Count 219 (160-400) X10*3/uL MPV 9.8 (9.4-12.3) fL Immature Gran % (Auto) 0.2 (0.0-0.4) % Neut % (Auto) 57.2 (45-73) % Lymph % (Auto) 33.2 (20-40) % Desha % (Auto) 7.0 (2-11) % Eos % (Auto) 1.8 (0-4) % Baso % (Auto) 0.6 (0-2) % Lymph # (Auto) 2.2 (1.2-4.9) X10*3/uL Desha # (Auto) 0.5 (0.1-1.2) X10*3/uL Eos # (Auto) 0.1 (0.0-0.4) X10*3/uL Baso # (Auto) 0.0 (0.0-0.2) X10*3/uL Abs Immat Gran (auto) 0.01 (0.00-0.03) X10*3/uL Absolute Neuts (auto) 3.8 (2.0-8.3) x10*3/uL Absolute Nucleated RBC 0.000 (0.0-0.012) X10*3/uL Nucleated RBC % (auto) 0.0 (0.0-0.2) /100WBC ESR (0-20) MM/HR PT 11.7 (10.0-13.1) SEC INR 1.0 (0.9-1.1) APTT 31.9 (26.0-36.4) SEC Sodium 143 (135-145) mmol/L Potassium 4.5 (3.3-5.1) mmol/L Chloride 109 H (96-108) mmol/L Carbon Dioxide 27 (22-29) mmol/L Anion Gap 12 (12-20) BUN 16 (9-16) mg/dL Creatinine 0.78 (0.5-1.4) mg/dL Estim Creat Clear Calc 85.2 Estimated GFR > 60 Random Glucose 87 (60-115) mg/dL Lactic Acid (0.5-2.0) mmol/L Calcium 9.7 (8.4-10.2) mg/dL Total Bilirubin 0.4 (0.0-1.0) mg/dL AST 34 H (5-31) U/L ALT 45 H (0-31) U/L Alkaline Phosphatase 73 (39-117) U/L C-Reactive Protein (< or = 0.50) mg/dL Total Protein 7.4 (6.5-8.0) g/dL Albumin 4.0 (3.5-5.0) g/dL Urine Color Urine Appearance Urine pH (5.0-9.0) Ur Specific [place] (1.005-1.025) Urine Protein (Neg-Trace) mg/dL Urine Glucose (UA) (Negative) mg/dL Urine Ketones (Negative) mg/dL Urine Blood (Negative) Urine Nitrite (Negative) Ur Leukocyte Esterase (Negative) Urine RBC (0-2) /HPF Urine WBC (0-5) /HPF Ur Squamous Epith Cells (0-2) /HPF Urine Bacteria (None Seen) Hyaline Casts (0-2) /LPF 10/08/22 10/08/22 10/08/22 Range/Units 14:08 14:08 14:08 WBC (4.8-10.8) X10*3/uL RBC (4.20-5.50) X10*6/uL Hgb (12.0-16.0) g/dl Hct (37.0-47.0) % MCV (80.0-98.0) fL MCH (27.0-33.0) pg MCHC (31.0-35.0) g/dl RDW (11.0-16.0) % Plt Count (160-400) X10*3/uL MPV (9.4-12.3) fL Immature Gran % (Auto) (0.0-0.4) % Neut % (Auto) (45-73) % Lymph % (Auto) (20-40) % Desha % (Auto) (2-11) % Eos % (Auto) (0-4) % Baso % (Auto) (0-2) % Lymph # (Auto) (1.2-4.9) X10*3/uL Desha # (Auto) (0.1-1.2) X10*3/uL Eos # (Auto) (0.0-0.4) X10*3/uL Baso # (Auto) (0.0-0.2) X10*3/uL Abs Immat Gran (auto) (0.00-0.03) X10*3/uL Absolute Neuts (auto) (2.0-8.3) x10*3/uL Absolute Nucleated RBC (0.0-0.012) X10*3/uL Nucleated RBC % (auto) (0.0-0.2) /100WBC ESR 10 (0-20) MM/HR PT (10.0-13.1) SEC INR (0.9-1.1) APTT (26.0-36.4) SEC Sodium (135-145) mmol/L Potassium (3.3-5.1) mmol/L Chloride (96-108) mmol/L Carbon Dioxide (22-29) mmol/L Anion Gap (12-20) BUN (9-16) mg/dL Creatinine (0.5-1.4) mg/dL Estim Creat Clear Calc Estimated GFR Random Glucose (60-115) mg/dL Lactic Acid 0.9 (0.5-2.0) mmol/L Calcium (8.4-10.2) mg/dL Total Bilirubin (0.0-1.0) mg/dL AST (5-31) U/L ALT (0-31) U/L Alkaline Phosphatase (39-117) U/L C-Reactive Protein 0.18 (< or = 0.50) mg/dL Total Protein (6.5-8.0) g/dL Albumin (3.5-5.0) g/dL Urine Color Urine Appearance Urine pH (5.0-9.0) Ur Specific [place] (1.005-1.025) Urine Protein (Neg-Trace) mg/dL Urine Glucose (UA) (Negative) mg/dL Urine Ketones (Negative) mg/dL Urine Blood (Negative) Urine Nitrite (Negative) Ur Leukocyte Esterase (Negative) Urine RBC (0-2) /HPF Urine WBC (0-5) /HPF Ur Squamous Epith Cells (0-2) /HPF Urine Bacteria (None Seen) Hyaline Casts (0-2) /LPF 10/08/22 Range/Units 16:21 WBC (4.8-10.8) X10*3/uL RBC (4.20-5.50) X10*6/uL Hgb (12.0-16.0) g/dl Hct (37.0-47.0) % MCV (80.0-98.0) fL MCH (27.0-33.0) pg MCHC (31.0-35.0) g/dl RDW (11.0-16.0) % Plt Count (160-400) X10*3/uL MPV (9.4-12.3) fL Immature Gran % (Auto) (0.0-0.4) % Neut % (Auto) (45-73) % Lymph % (Auto) (20-40) % Desha % (Auto) (2-11) % Eos % (Auto) (0-4) % Baso % (Auto) (0-2) % Lymph # (Auto) (1.2-4.9) X10*3/uL Desha # (Auto) (0.1-1.2) X10*3/uL Eos # (Auto) (0.0-0.4) X10*3/uL Baso # (Auto) (0.0-0.2) X10*3/uL Abs Immat Gran (auto) (0.00-0.03) X10*3/uL Absolute Neuts (auto) (2.0-8.3) x10*3/uL Absolute Nucleated RBC (0.0-0.012) X10*3/uL Nucleated RBC % (auto) (0.0-0.2) /100WBC ESR (0-20) MM/HR PT (10.0-13.1) SEC INR (0.9-1.1) APTT (26.0-36.4) SEC Sodium (135-145) mmol/L Potassium (3.3-5.1) mmol/L Chloride (96-108) mmol/L Carbon Dioxide (22-29) mmol/L Anion Gap (12-20) BUN (9-16) mg/dL Creatinine (0.5-1.4) mg/dL Estim Creat Clear Calc Estimated GFR Random Glucose (60-115) mg/dL Lactic Acid (0.5-2.0) mmol/L Calcium (8.4-10.2) mg/dL Total Bilirubin (0.0-1.0) mg/dL AST (5-31) U/L ALT (0-31) U/L Alkaline Phosphatase (39-117) U/L C-Reactive Protein (< or = 0.50) mg/dL Total Protein (6.5-8.0) g/dL Albumin (3.5-5.0) g/dL Urine Color Yellow Urine Appearance Clear Urine pH 6.0 (5.0-9.0) Ur Specific [place] 1.020 (1.005-1.025) Urine Protein Negative (Neg-Trace) mg/dL Urine Glucose (UA) Negative (Negative) mg/dL Urine Ketones Negative (Negative) mg/dL Urine Blood Negative (Negative) Urine Nitrite Negative (Negative) Ur Leukocyte Esterase Trace H (Negative) Urine RBC 0-2 (0-2) /HPF Urine WBC 0-5 (0-5) /HPF Ur Squamous Epith Cells 3-5 (0-2) /HPF Urine Bacteria None Seen (None Seen) Hyaline Casts 0-2 (0-2) /LPF <Shiloh Garg NP - Last Filed: 10/08/22 18:08> Independent Interpretation I performed an independent interpretation of an: Plain X-Ray and CT Scan <Shiloh Garg NP - Last Filed: 10/08/22 18:08> Interpretation: I independently reviewed the lumbar x-ray and agree with radiologist's report I indepedentely reviewed the CT scan of the right hip and agree with the radiologist's report <Shiloh Garg NP - Last Filed: 10/08/22 18:08> Radiology Impression Discussion of test interpretation with radiology: I have reviewed the radiologist's reading. <ANNETTE Lake Last Filed: 10/08/22 18:08> Radiologist Impression: FINDINGS: There is a small os acetabuli anteriorly superiorly. Hip joint space is normal. No marginal osteophytes or evidence for arthrosis of. No effusion. No fracture. No bone lesion. Partially visualized right sacroiliac joint normal. No lymphadenopathy. Surrounding muscles and tendons unremarkable. Intrapelvic soft tissues unremarkable. Subcutaneous soft tissues: Minimal stranding compatible with minimal edema ? CT/CT hip RT wo IV con IMPRESSION: 1.? No evidence for metastatic disease. 2.? Small os acetabuli. 3. ? No acute abnormality detected ? <Shiloh Garg NP - Last Filed: 10/08/22 18:08> Discharge Plan Discharge Clinical Impression: Sacroiliitis <JOSSE Cavazos - Last Filed: 10/08/22 20:38> Patient Disposition: Left Against Medical Advice <JOSSE Cavazos - Last Filed: 10/08/22 20:38> Instructions: Sacroiliitis (ED) <JOSSE Cavazos - Last Filed: 10/08/22 20:38> Additional Instructions: Unfortunately we do not have the results of your CT scan. We did this CT scan to make there are no bony abnormalities such as cancer within the hip or back. Unfortunately we do not have these results and you wanted to leave before they are back. Please be aware that if there is an abnormality that you may need further testing and or to see a specialist. Take your home medications No heavy lifting or bending Heat or ice to the area <JOSSE Cavazos - Last Filed: 10/08/22 20:38> Referrals: Anh Johnson MD [Primary Care Provider] - 10 days (for continued symptoms ) <JOSSE Cavazos - Last Filed: 10/08/22 20:38> Stand Alone Forms: Against Medical Advice <JOSSE Cavazos - Last Filed: 10/08/22 20:38> Interventions: ED Discharge Assessment Last Done: 10/08/22 18:17 <JOSSE Cavazos - Last Filed: 10/08/22 20:38> Discharge Date/Time: 10/08/22 18:18 <JOSSE Cavazos - Last Filed: 10/08/22 20:38>
[2022-10-08 12:15] LABS: MANUAL DIFF FLAG NO
[2022-10-08 12:17] LABS: Basophils Percent Auto 0.6 % (0-2); Eosinophils Absolute Auto 0.1 X10*3/uL (0.0-0.4); Eosinophils Percent Auto 1.8 % (0-4); Hematocrit 44.3 % (37.0-47.0); Hemoglobin 14.3 g/dl (12.0-16.0); Imm Gran Abs Auto 0.01 X10*3/uL (0.00-0.03); Imm Gran Pct Auto 0.2 % (0.0-0.4); Lymphocytes Absolute Auto 2.2 X10*3/uL (1.2-4.9); Lymphocytes Percent Auto 33.2 % (20-40); Mean Corpuscular HGB Conc 32.3 g/dl (31.0-35.0); Mean Corpuscular Hemoglobin 28.7 pg (27.0-33.0); Mean Platelet Volume 9.8 fL (9.4-12.3); Monocytes Absolute Auto 0.5 X10*3/uL (0.1-1.2); Neutrophils Absolute Auto 3.8 x10*3/uL (2.0-8.3); Neutrophils Percent Auto 57.2 % (45-73); Platelet Count 219 X10*3/uL (160-400); Red Blood Count 4.98 X10*6/uL (4.20-5.50); Red Cell Distribution Width 12.9 % (11.0-16.0); White Blood Count 6.6 X10*3/uL (4.8-10.8)
[2022-10-08 12:18] VITALS: BP 101/69; PULSE 83; RESP 18; TEMP 36.6; O2SAT 97
[2022-10-08 12:23] LABS: Prothrombin Time 11.7 SEC (10.0-13.1)
[2022-10-08 12:25] LABS: Partial Thromboplastin Time 31.9 SEC (26.0-36.4)
[2022-10-08 12:30] LABS: Alanine Aminotransferase 45 U/L (0-31); Alkaline Phosphatase 73 U/L (39-117); Anion Gap 12 (12-20); Aspartate Amino Transferase 34 U/L (5-31); Bilirubin Total 0.4 mg/dL (0.0-1.0); Blood Urea Nitrogen 16 mg/dL (9-16); Calcium 9.7 mg/dL (8.4-10.2); Carbon Dioxide 27 mmol/L (22-29); Chloride 109 mmol/L (96-108); Creatinine Clr Calc Pharmacy 85.2; Estimated Glomerular Filt Rate > 60; Glucose Random 87 mg/dL (60-115); Potassium 4.5 mmol/L (3.3-5.1); Sodium 143 mmol/L (135-145); Total Protein 7.4 g/dL (6.5-8.0)
[2022-10-08] MEDS: diazePAM 2 MG TABLET PO (13:41)
[2022-10-08] MEDS: Morphine Sulfate 4 MG/ML CARTRIDGE IVPUSH (14:12)
[2022-10-08 14:29] LABS: Lactic Acid 0.9 mmol/L (0.5-2.0)
[2022-10-08 14:35] LABS: C Reactive Protein 0.18 mg/dL (< or = 0.50)
[2022-10-08 15:30] VITALS: BP 117/71; PULSE 78; RESP 14; TEMP 36.6; O2SAT 99
[2022-10-08] MEDS: Acetaminophen 325 MG TABLET 975 MG PO (16:53)
[2022-10-08] MEDS: oxyCODONE HCl Immed Release 5 MG TABLET PO (16:54)
[2022-10-08] MEDS: ondansetron HCL 4 MG/2 ML VIAL IVPUSH (16:55)
[2022-10-08 16:58] LABS: Erythrocyte Sedimentation Rate 10 MM/HR (0-20)
[2022-10-08 17:01] LABS: Appearance Urine Clear; Color Urine Yellow; Glucose Urine UA Negative (Negative); Leukocyte Esterase Urine Trace (Negative); Nitrite Urine Negative (Negative); UMIC TRIGGER UACC YES; Urine Blood Negative (Negative); Urine Ketones Negative (Negative); Urine Protein Negative (Neg-Trace)
[2022-10-08 17:06] LABS: Bacteria Urine None Seen (None Seen); Hyaline Casts Urine 0-2 /LPF (0-2); RBC Urine 0-2 /HPF (0-2); WBC Urine 0-5 /HPF (0-5)
== END 2022-10-08 18:18 | disposition left against medical advice (07) ==
PROVIDERS: Nurse Practitioner Family; Physician Assistant; Emergency Provider Emergency Medicine; PCP Hospitalist
DX: M46.1 Sacroiliitis, not elsewhere classified (principal); M54.50 Low back pain, unspecified; R26.2 Difficulty in walking, not elsewhere classified; Z79.899 Other long term (current) drug therapy
CPT/HCPCS: 36415; 72100; 72131; 73700; 80053; 81001; 81003; 83605; 85025; 85610; 85652; 85730; 86140; 87040; 96374; 96375; 99283; 99284; J2270; J2405

== ENCOUNTER 2023-03-12 13:28 | Outpatient (REF) | payer OTHER, SELFPAY ==
[2023-03-12 14:49] LABS: Hematocrit 41.1 % (37.0-47.0); Hemoglobin 13.6 g/dl (12.0-16.0); Mean Corpuscular HGB Conc 33.1 g/dl (31.0-35.0); Mean Corpuscular Hemoglobin 28.8 pg (27.0-33.0); Mean Corpuscular Volume 87.1 fL (80.0-98.0); Mean Platelet Volume 10.2 fL (9.4-12.3); Platelet Count 222 X10*3/uL (160-400); Red Blood Count 4.72 X10*6/uL (4.20-5.50); Red Cell Distribution Width 12.7 % (11.0-16.0); White Blood Count 7.4 X10*3/uL (4.8-10.8)
[2023-03-12 15:05] LABS: INTERNATIONAL NORM RATIO 1.1 (0.9-1.1); Prothrombin Time 12.8 SEC (11.1-13.3)
[2023-03-12 15:24] LABS: Alanine Aminotransferase 50 U/L (0-31); Albumin Level 4.2 g/dL (3.5-5.0); Alkaline Phosphatase 92 U/L (39-117); Anion Gap 10 (12-20); Aspartate Amino Transferase 39 U/L (5-31); Bilirubin Total 0.3 mg/dL (0.0-1.0); Blood Urea Nitrogen 14 mg/dL (9-16); Calcium 9.6 mg/dL (8.4-10.2); Carbon Dioxide 26 mmol/L (22-29); Chloride 109 mmol/L (96-108); Estimated Glomerular Filt Rate > 60; Glucose Random 87 mg/dL (60-115); Sodium 141 mmol/L (135-145); Total Protein 7.9 g/dL (6.5-8.0)
[2023-03-13 04:11] LABS: HBS Num1 14.65 mIU/mL (0-7.99); HBc Num1 0.09 S/CO (0.00-0.79); HBsAGNum1 0.32 S/CO (0.00-0.99); HIV AB/AG Nonreactive (Nonreactive); HIV Num 1 0.05 S/CO (0.00-0.99); Hepatitis B Core Antibody Nonreactive (Nonreactive); Hepatitis B Surface Antigen Negative (Negative); ~Hepatitis B Surface Antibody REACTIVE (Nonreactive)
[2023-03-13 04:23] LABS: Hepatitis A Antibody IgG REACTIVE (Nonreactive); ~Hepatitis A Antibody IgG 5.36 S/CO (0.00-0.99)
[2023-03-13 14:28] LABS: Hepatitis B Viral DNA Qn - cp NOT DETECTED Log IU/mL (NOT DETECTED); Hepatitis B Viral DNA Qn-IU/mL NOT DETECTED (NOT DETECTED)
[2023-03-13 17:24] LABS: HCV RNA PCR Qn 5.75 Log IU/mL (NOT DETECTED); HCV RNA PCR Qn 559000 IU/mL (NOT DETECTED)
[2023-03-18 00:42] LABS: FIB-ALT 44 U/L (6-29); FIB-Alpha-2-Macroglobulin 267 mg/dL (106-279); FIB-Apolipoprotein A1 125 mg/dL (101-198); FIB-GGT 21 U/L (3-55); FIB-Haptoglobin 68 mg/dL (43-212); FIB-Total Bilirubin 0.2 mg/dL (0.2-1.2); Liver Fibrosis Score 0.23; Liver Fibrosis Stage F0-F1; Nec Inflam Act Grade A0-A1; Nec Inflam Act Score 0.23
[2023-03-20 20:22] LABS: HCV Genotype LiPA 4
== END 2023-03-12 13:29 | disposition home or self-care (01) ==
LOC: HO.LAB 13:28
PROVIDERS: PCP Hospitalist; Visit Provider Internal Medicine
DX: Z11.4 Encounter for screening for human immunodeficiency virus [HIV] (principal); B19.20 Unspecified viral hepatitis C without hepatic coma
CPT/HCPCS: 36415; 80053; 81596; 85027; 85610; 86704; 86706; 86708; 87340; 87389; 87517; 87522; 87902; 99202

== ENCOUNTER 2023-03-12 13:28 | Outpatient (AMB) | payer OTHER, SELFPAY ==
--- NOTE | 2023-03-12 13:30 | A.OFFVIS_ITS ---
Intake Vital Signs 03/12/23 13:32 Height 5 ft 4 in Weight 158 lb 11.725 oz BMI 27.2 BP 105/67 Blood Pressure Location Lt brachial Position Sitting Pulse 87 Intake Visit Reasons: HEP C Intake Note: Sander presents in the office as a new patient for Hep C. CC: She states that she is very nauseous today. In general she is okay. Brilliandeer Looper Required: Yes Brilliandeer Looper Name: Son Allergies hydrocodone Allergy (Verified 03/12/23 13:32) Swelling ibuprofen Allergy (Verified 03/12/23 13:32) Swelling HPI HPI Comments History of Present Illness Details 47 y.o F with PMH of chronic HCV, hx of breast ca (unknown type - sees Dr Gill) who is here for second opinion. Pt is slovenian speaking - accompanied by her son who also helps interpret. Reports getting diagnosed with HCV initially in 2020 on routine screening per her report. Does not report any hx of IVDU, blood transfusions, fam hx of liver disease. Has a few tattoos which she got within the past 5 years. Since 2020 has undergone treatment twice, both through Dr Yang per their report. Most recently was on Vosevi x 12 weeks from September to December however most recent labs checked by PCP to document SVR 12 showed persistent viral load. Reports having an upcoming visit with Dr Yang to discuss further treatment with injection - ?? vosevi+ riba being considered. Information not available re genotype, coinfection, most recent labs and u nderlying liver function. Pt does report getting an EGD last month in [facility] but says it was for acid reflux and not related to liver/variceal screening. PFSH Medical History (Updated 03/12/23 @ 13:53 by Violeta Truong MD) HX: breast cancer Surgical History (Updated 03/12/23 @ 13:33 by STAN Betancourt) Hx of bariatric surgery Hx of eye surgery History of esophagogastroduodenoscopy (EGD) Social History (Updated 03/12/23 @ 13:34 by STAN Betancourt) Household Members: Family Alcohol intake: current Alcohol intake frequency: does not drink Patient Tobacco Use Status: Never used Tobacco Review of Systems Const All systems reviewed & are unremarkable except as noted in HPI and below Physical Exam Vital Signs: Last Vital Signs Pulse 87 03/12/23 13:32 BP 105/67 03/12/23 13:32 BMI result Body Mass Index 27.2 Gen appear: NAD HEENT: nonicteric, no cervical lymphadenopathy Chest: CTA CVS: Regular S1/S2 Abd: soft, nontender, nondistended, bowel sounds + Ext: no peripheral edema Neuro: A/Ox3, noted to move all extremities spontaneously Psych: interacting appropriately Assessment & Plan Assessment & Plan (1) Hepatitis C: Code(s): B19.20 - Unspecified viral hepatitis C without hepatic coma Plan Chronic HCV - Treatment experienced. Genotype and VL unknown. Conifection status unknown Underlying liver function unknown Plan: - Labs ordered as below - US Abd - Records release signed for [facility] as well as Dr Yang - Based on pt's description, appears being considered for vosevi+ribavirin tx through Dr Yang but will await records. Follow up in 3 weeks. Orders: Orders Hepatitis A IgG Today B19.20 - Unspecified viral hepatitis C without hepatic coma Hepatitis B Core Antibody Today B19.20 - Unspecified viral hepatitis C without hepatic coma Hepatitis B Surface Antibody Today B19.20 - Unspecified viral hepatitis C without hepatic coma Hepatitis B Viral DNA Qn Today B19.20 - Unspecified viral hepatitis C without hepatic coma Liver Fibrosis Pnl Today B19.20 - Unspecified viral hepatitis C without hepatic coma Complete Blood Count no Diff Today B19.20 - Unspecified viral hepatitis C without hepatic coma Hepatitis B Surface Antigen Today B19.20 - Unspecified viral hepatitis C without hepatic coma HCV RNA QN PROG TO GENOTYPE Today B19.20 - Unspecified viral hepatitis C without hepatic coma HIV Ab/Ag Today B19.20 - Unspecified viral hepatitis C without hepatic coma Comprehensive Met. Panel Today B19.20 - Unspecified viral hepatitis C without hepatic coma Prothrombin Time INR Today B19.20 - Unspecified viral hepatitis C without hepatic coma US abdomen complete Today B19.20 - Unspecified viral hepatitis C without hepatic coma Coding Level of Care Code New Pt Level 4 (44414) Diagnoses Hepatitis C B19.20
[2023-03-12 13:32] VITALS: BP 105/67; PULSE 87; BMI 27.2
== END 2023-03-12 14:12 | disposition home or self-care (01) ==
PROVIDERS: PCP Hospitalist; Visit Provider Internal Medicine
DX: B19.20 Unspecified viral hepatitis C without hepatic coma (principal)
CPT/HCPCS: 99204

== ENCOUNTER 2023-03-27 13:49 | Outpatient (REF) | payer OTHER, SELFPAY ==
--- NOTE | ~2023-03-27 | US_ITS ---
EXAMINATION: US ABDOMEN COMPLETE CLINICAL INFORMATION: Unspecified viral hepatitis C without hepatic coma. COMPARISON: CT lumbar spine 10/08/2022. TECHNIQUE: Real-time imaging of the abdominal viscera. FINDINGS: PANCREAS: Normal. ABDOMINAL AORTA: The proximal, mid, and distal segments are normal in caliber. INFERIOR VENA CAVA: Visualized portions are normal. LIVER: Normal. The liver is normal in size. The liver contour is normal. Parenchymal echogenicity is normal. No focal hepatic lesion. There is no intrahepatic biliary duct dilatation seen. GALLBLADDER: Normal. The gallbladder is physiologically distended without evidence of stones, sludge, polyps, wall thickening or pericholecystic fluid. COMMON BILE DUCT: Normal in caliber measuring 0.6 cm in diameter. RIGHT KIDNEY: Normal. No hydronephrosis. No renal calculi or focal parenchymal lesions. The kidney measures 11.6 cm in maximum dimension. LEFT KIDNEY: Tiny angiomyolipoma measuring 1.1 cm in the mid kidney which can be seen in retrospect on CT lumbar spine 10/08/2022 where it clearly measures macroscopic fat density. No follow-up imaging is recommended. No hydronephrosis. No renal calculi or focal parenchymal lesions. The kidney measures 11.2 cm in maximum dimension. SPLEEN: Normal. The spleen measures 9.0 cm in maximum dimension. FREE FLUID: None. US/US abdomen complete IMPRESSION: No morphologic cirrhosis. No discrete liver mass. Normal size spleen. No ascites.
== END 2023-03-27 13:50 | disposition home or self-care (01) ==
LOC: HO.US 13:49
PROVIDERS: PCP Hospitalist; Visit Provider Internal Medicine
DX: B19.20 Unspecified viral hepatitis C without hepatic coma (principal)
CPT/HCPCS: 76700

== ENCOUNTER 2023-04-02 10:39 | Outpatient (AMB) | payer OTHER, SELFPAY ==
--- NOTE | 2023-04-02 10:39 | MHC.OFFVIS ---
Intake Vital Signs 04/02/23 10:40 Height 5 ft 4 in Weight 158 lb 11.725 oz BMI 27.2 BP 80/52 L Blood Pressure Location Lt radial Position Sitting Pulse 93 Intake Visit Reasons: 3 week follow up Intake Note: Sander presents in the office as a 3 week follow up. CC: She states that she is not having any new concerns but she states that she is getting nausea, weak, headache. She feels like her whole body is tired. Manpower Development Advisor Required: Yes Manpower Development Advisor Name: [id number] Andre Allergies hydrocodone Allergy (Verified 04/02/23 10:48) Swelling ibuprofen Allergy (Verified 04/02/23 10:48) Swelling HPI HPI Comments History of Present Illness Details 47 y.o F with PMH of chronic HCV, hx of breast ca (unknown type - sees Dr Gill) who is here for follow up. 03/12/23: Reports getting diagnosed with HCV initially in 2020 on routine screening per her report. Does not report any hx of IVDU, blood transfusions, fam hx of liver disease. Has a few tattoos which she got within the past 5 years. Since 2020 has undergone treatment twice, both through Dr Yang per their report. Most recently was on Vosevi x 12 weeks from September to December however most recent labs checked by PCP to document SVR 12 showed persistent viral load. Reports having an upcoming visit with Dr Yang to discuss further treatment with injection - ?? vosevi+ riba being considered. Information not available re genotype, coinfection, most recent labs and underlying liver function. Pt does report getting an EGD last month in [facility] but says it was for acid reflux and not related to liver/variceal screening. 03/29/23 Addendum: Records from [facility] and Dr Yang's office reviewed: Was referred to Dr Yang by Kashmir Chan for HCV genotype 4 s/p failure of Epclusa and Vosevi. 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 Plan for Peg-INF 180mg S/C qw and Ribavirin 1000mg/day tx x [address] Yang's office. Pt has also had an EGD through [facility] (Dr Blue) 8/30/23: Mild erythema and G-J anastomosis, esophagitis. Path: H Pylori + . There is also plan for colo once her HCV tx is complete 04/02/23: Pt here for follow up with her uncle. Seen with [facility] sleeve baster. Labs and US results reviewed. Also reviewed records from ID and GI. Plan for Peg-INF +/- Ribavirin as above as pt unable to tolerate any PO tx and has poor gastric acidity for absorption after her RYGB surgery. PFSH Medical History (Updated 04/02/23 @ 11:16 by Violeta Truong MD) HX: breast cancer Surgical History (Updated 03/12/23 @ 13:33 by STAN Betancourt) Hx of bariatric surgery Hx of eye surgery History of esophagogastroduodenoscopy (EGD) Social History (Updated 03/12/23 @ 13:34 by STAN Betancourt) Household Members: Family Alcohol intake: current Alcohol intake frequency: does not drink Patient Tobacco Use Status: Never used Tobacco Review of Systems Const All systems reviewed & are unremarkable except as noted in HPI and below Physical Exam Vital Signs: Last Vital Signs Pulse 93 04/02/23 10:40 BP 80/52 L 04/02/23 10:40 BMI result Body Mass Index 27.2 Gen appear: NAD HEENT: nonicteric, no cervical lymphadenopathy Chest: CTA CVS: Regular S1/S2 Abd: soft, nontender, nondistended, bowel sounds + Ext: no peripheral edema Neuro: A/Ox3, noted to move all extremities spontaneously, using walker to ambulate Psych: interacting appropriately Results Reviewed Results Reviewed: Laboratory Tests 03/12/23 14:36 Total Bilirubin 0.3 AST 39 H ALT 50 H Alkaline Phosphatase 92 Liver Fibrosis Stage F0-F1 Necroinflammator Grade A0-A1 HCV RNA Genotype LiPA 4 HCV RNA (PCR) IUs/ml [id number] H HCV RNA PCR log IUs/ml 5.75 H Assessment & Plan Assessment & Plan (1) Hepatitis C: Code(s): B19.20 - Unspecified viral hepatitis C without hepatic coma (2) H. pylori infection: Code(s): A04.8 - Other specified bacterial intestinal infections Plan Chronic HCV genotype 4 - s/p failure of Epclusa and Vesovi No coinfection with HBV or HIV. As above, under care of Dr Yang and plan for S/C tx with PEG-INF and PO ribavirin x 48 weeks to bypass PO intolerance and poor absorption of DAAs. Other option could be mavyret based therapy which does not contain NS5A and therefore does not rely too much on gastric acidity for absorption. Pt was encouraged to cont follow up with her office for treatment as planned. She is also aware of H pylori gastritis and tells me tx is deferred as of now and will be pursued after HCV tx has been completed. She is also aware of pending colo this year through Dr Blue. Coding Level of Care Code Est Pt Level 4 (75383) Diagnoses Hepatitis C B19.20 H. pylori infection A04.8
[2023-04-02 10:40] VITALS: BP 80/52; PULSE 93; BMI 27.2
== END 2023-04-02 12:17 | disposition home or self-care (01) ==
PROVIDERS: PCP Hospitalist; Visit Provider Internal Medicine
DX: B19.20 Unspecified viral hepatitis C without hepatic coma (principal); A04.8 Other specified bacterial intestinal infections
CPT/HCPCS: 99214

== ENCOUNTER → 2023-04-02 10:39 | Outpatient (BNVA) | payer OTHER, SELFPAY | PROVIDERS: PCP Hospitalist; Visit Provider Internal Medicine | DX: A04.8 Other specified bacterial intestinal infections (principal); B18.2 Chronic viral hepatitis C | CPT/HCPCS: 99212 ==

== ENCOUNTER 2023-12-25 19:10 | Emergency (ER) | payer OTHER, SELFPAY ==
--- NOTE | 2023-12-25 | ECG_ITS ---
Test Reason : CP Blood Pressure : / mmHG Vent. Rate : 088 BPM Atrial Rate : 088 BPM P-R Int : 156 ms QRS Dur : 078 ms QT Int : 370 ms P-R-T Axes : 072 026 055 degrees QTc Int : 447 ms Normal sinus rhythm Normal ECG No previous ECGs available Referred By: Generic ED Physician Electronically Signed By:CHRIS MACHADO MD
--- NOTE | ~2023-12-25 | XR_ITS ---
EXAMINATION: XR CHEST CLINICAL INFORMATION: Left-sided chest pain COMPARISON: None available. TECHNIQUE: 2 views of the chest were obtained. FINDINGS: No significant abnormality is noted involving the heart, lungs, mediastinum, bony thorax or soft tissues. XR/XR chest 2V IMPRESSION: Unremarkable examination.
[2023-12-25 19:37] VITALS: BP 105/73; PULSE 83; RESP 16; TEMP 36.9; O2SAT 98; BMI 25.9
--- NOTE | 2023-12-25 19:40 | ED.CHESTPAIN ---
HPI - Chest Pain General Chief Complaint: Chest Pain Stated Complaint: Chest pain Time Seen by Provider: 12/25/23 22:46 Source: patient Mode of arrival: ambulatory Limitations: no limitations History of Present Illness ED Provider: wilfrido TARANGO narrative: Patient history of increased stress been having left-sided chest pain for last 3 months off and on specially for last [address] [facility] [place] workup was negative was seen at urgent care also was negative comes here for pain similar to that on Saturday is continuous pain no relation with movements or breathing or position change no fever no chills no upper respiratory symptoms no history of leg swelling or shortness a breath Related Data Home Medications ?Medication ?Instructions ?Recorded ?Confirmed acetaminophen 500 mg tablet (Pain mg PO 03/12/23 Relief Extra Strength (acetaminophen)) albuterol sulfate 90 mcg/actuation inhalation 03/12/23 aerosol inhaler (Ventolin HFA) bismuth subsalicylate 262 mg tab PO 03/12/23 chewable tablet cholecalciferol (vitamin D3) 25 25 mcg PO DAILY 03/12/23 mcg (1,000 unit) capsule (Vitamin D3) docusate sodium 100 mg capsule 100 mg PO DAILY 03/12/23 famotidine 20 mg tablet 20 mg PO DAILY 03/12/23 ketoconazole 2 % shampoo topical 03/12/23 melatonin 5 mg tablet mg PO 03/12/23 meloxicam 15 mg tablet 15 mg PO DAILY 03/12/23 miconazole nitrate 2 % topical 0 appl topical 03/12/23 cream ondansetron 4 mg disintegrating 4 mg PO DAILY 03/12/23 tablet oxybutynin chloride 10 mg 10 mg PO DAILY 03/12/23 tablet,extended release 24 hr pediatric multivitamin no.42 tab PO 03/12/23 (Children's Multivitamin chewable tablet) prazosin 2 mg capsule mg PO 03/12/23 prednisone 10 mg tablet 10 mg PO DAILY 03/12/23 pyridoxine (vitamin B6) 100 mg 100 mg PO DAILY 03/12/23 tablet (Vitamin B-6) simethicone 80 mg chewable tablet 160 mg PO BID 03/12/23 tamoxifen 20 mg tablet 20 mg PO DAILY 03/12/23 topiramate 50 mg tablet 50 mg PO BID 03/12/23 trazodone 100 mg tablet 200 mg PO BEDTIME PRN 03/12/23 venlafaxine 150 mg 300 mg PO DAILY 03/12/23 capsule,extended release 24 hr Previous Rx's ?Medication ?Instructions ?Recorded lorazepam 1 mg tablet (Ativan) 1 mg PO BEDTIME PRN anxiety/sleep 12/25/23 #14 tabs Allergies Allergy/AdvReac Type Severity Reaction Status Date / Time hydrocodone Allergy Swelling Verified 12/25/23 19:49 ibuprofen Allergy Swelling Verified 12/25/23 19:49 Review of Systems Review of Systems: Yes all other systems are reviewed and are negative [facility] Past Medical History Medical History HX: breast cancer Surgical History Hx of bariatric surgery Hx of eye surgery History of esophagogastroduodenoscopy (EGD) Social History Social History Household Members: Family Alcohol intake: current Alcohol intake frequency: does not drink Patient Tobacco Use Status: Never used Tobacco Smoked in Last 30 Days: No Use of substances other than those prescribed or required for medical reasons: No Advance Directives: No Advance Directives Information Provided: No Do you have a plan to hurt others: No Plan Patient : No Physical Exam Vital Signs: Vital Signs: Last Vital Signs Temp 98.2 F 12/25/23 23:08 Pulse 63 12/25/23 23:08 Resp 15 12/25/23 23:08 BP 115/80 12/25/23 23:08 Pulse Ox 98 12/25/23 23:08 O2 Del Method Room Air 12/25/23 23:08 BMI result Body Mass Index 25.9 Appearance: Alert. Oriented X3. No acute distress. Anxious Eyes: PERRLA, No Nystagmus ENT: Pharynx normal. Oral Mucosa moist Neck: Normal inspection. Neck supple. CVS: Normal heart rate and rhythm. Pulses normal. Respiratory: No respiratory distress. Equal air entry bilateral, no wheezing/rales/rhonchi Abdomen: Soft and nontender. Bowel sounds are present, no mass palpable, no CVA tenderness Skin: Skin warm and dry. Normal skin color. Normal skin turgor. Extremities: No lower extremity edema. No calf tenderness Neuro: Oriented X 3. No motor deficit. No sensory deficit.No cerebellar signs , cranial nerves II-XII intact Course Course Course Narrative: This is a Rapid Medical Examination (RME) performed by Opal Sim PA-C in triage. Full HPI, ROS, assessment and treatment plan per primary provider in the Main ED. 48 year old pashto speaking female w/ hx of right breast cancer requiring chemo/ radiation, currently on tamoxifen, presents to the ED today with left-sided chest pain x1 week. Pain is intermittent and lasts for seconds at a time. Worse with exertion. admits the pain takes her breath away. Pain radiates into left arm. reports assoc diaphoresis. Seen at urgent care on Saturday, given aspirin with relief. They told her my heart is okay but I need to follow up with vascular surgeon for my heart vessels . since this time reports worsening chest pain with more frequent episodes. she has not taken OTC meds for this at home. rrr. lungs cta b/l. no reproducible chest wall tenderness. Plan: labs, trop, cxr, ekg ordered Medications Administered Discontinued Medications Generic Name Dose Route Start Last Admin Trade Name Sumanq PRN Reason Stop Dose Admin Lorazepam 1 mg 12/25/23 22:54 12/25/23 23:02 Lorazepam 1 Mg Tablet PO 12/25/23 22:55 1 mg ONCE ONE Administration Medical Decision Making Medical Decision Making [facility] Narrative: Patient with atypical chest pain for last 4 days continuously high sensitive troponin negative was seen at [facility] [place] also with similar results pain is going on for last 3 months likely stress-induced pain/microvascular angina. 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 12/25/23 20:05 12/25/23 20:05 Labs: Lab Results 12/25/23 Range/Units 20:05 WBC 8.0 (4.8-10.8) X10*3/uL RBC 4.90 (4.20-5.50) X10*6/uL Hgb 14.2 (12.0-16.0) g/dl Hct 42.6 (37.0-47.0) % MCV 86.9 (80.0-98.0) fL MCH 29.0 (27.0-33.0) pg MCHC 33.3 (31.0-35.0) g/dl RDW 13.9 (11.0-16.0) % Plt Count 248 (160-400) X10*3/uL MPV 9.9 (9.4-12.3) fL Immature Gran % (Auto) 0.1 (0.0-0.4) % Neut % (Auto) 50.9 (45-73) % Lymph % (Auto) 39.0 (20-40) % Austin % (Auto) 7.4 (2-11) % Eos % (Auto) 2.1 (0-4) % Baso % (Auto) 0.5 (0-2) % Lymph # (Auto) 3.1 (1.2-4.9) X10*3/uL Austin # (Auto) 0.6 (0.1-1.2) X10*3/uL Eos # (Auto) 0.2 (0.0-0.4) X10*3/uL Baso # (Auto) 0.0 (0.0-0.2) X10*3/uL Abs Immat Gran (auto) 0.01 (0.00-0.03) X10*3/uL Absolute Neuts (auto) 4.1 (2.0-8.3) x10*3/uL Absolute Nucleated RBC 0.000 (0.0-0.012) X10*3/uL Nucleated RBC % (auto) 0.0 (0.0-0.2) /100WBC PT 11.6 (11.1-13.3) SEC INR 1.0 (0.9-1.1) D-Dimer High Sensitivty 240 NG/ML Sodium 140 (135-145) mmol/L Potassium 4.4 (3.3-5.1) mmol/L Chloride 109 H (96-108) mmol/L Carbon Dioxide 25 (22-29) mmol/L Anion Gap 10 L (12-20) BUN 12 (9-16) mg/dL Creatinine 0.72 (0.5-1.4) mg/dL Estim Creat Clear Calc 85.4 Estimated GFR > 60 Random Glucose 67 (60-115) mg/dL Calcium 9.3 (8.4-10.2) mg/dL Magnesium 2.2 (1.6-2.6) mg/dL Total Bilirubin 0.2 (0.0-1.0) mg/dL AST 30 (5-31) U/L ALT 32 H (0-31) U/L Alkaline Phosphatase 88 (39-117) U/L Troponin I High Sens < 2.7 (<3.5-17.0) ng/L Total Protein 8.2 H (6.5-8.0) g/dL Albumin 4.3 (3.5-5.0) g/dL Lipase 48 (8-78) U/L Independent Interpretation I performed an independent interpretation of an: EKG Interpretation: Normal sinus rhythm heart rate 88 beats per minute normal interval normal axis no acute ST T wave changes Discharge Plan Discharge Clinical Impression: Chest pain Patient Disposition: Home, Self-Care Instructions: Chest Pain (ED) Additional Instructions: Chest pain is unlikely from the heart Take medication to relax and sleep Chest pain could be anxiety-induced Follow with auto mechanics instructor Prescriptions: New lorazepam [Ativan] 1 mg tablet 1 mg PO BEDTIME PRN (Reason: anxiety/sleep) Qty: 14 0RF No Action Children's Multivitamin Tablet,Chewable PO albuterol sulfate [Ventolin HFA] 90 mcg/actuation HFA aerosol inhaler inhalation melatonin 5 mg tablet PO cholecalciferol (vitamin D3) [Vitamin D3] 25 mcg (1,000 unit) capsule 25 mcg PO DAILY prazosin 2 mg capsule PO tamoxifen 20 mg tablet 20 mg PO DAILY docusate sodium 100 mg capsule 100 mg PO DAILY ondansetron 4 mg tablet,disintegrating 4 mg PO DAILY topiramate 50 mg tablet 50 mg PO BID simethicone 80 mg tablet,chewable 160 mg PO BID famotidine 20 mg tablet 20 mg PO DAILY venlafaxine 150 mg capsule,extended release 24hr 300 mg PO DAILY ketoconazole 2 % shampoo topical miconazole nitrate 2 % cream 0 appl topical prednisone 10 mg tablet 10 mg PO DAILY bismuth subsalicylate 262 mg tablet,chewable PO oxybutynin chloride 10 mg tablet extended release 24hr 10 mg PO DAILY acetaminophen [Pain Relief ES (acetaminophen)] 500 mg tablet PO trazodone 100 mg tablet 200 mg PO BEDTIME PRN meloxicam 15 mg tablet 15 mg PO DAILY pyridoxine (vitamin B6) [Vitamin B-6] 100 mg tablet 100 mg PO DAILY Referrals: Levi Stiles MD [Physician] - 2 weeks Interventions: ED Discharge Assessment Last Done: 12/25/23 23:08 Discharge Date/Time: 12/25/23 23:09 Print Language: Sinhala
[2023-12-25 20:09] LABS: MANUAL DIFF FLAG NO
[2023-12-25 20:17] LABS: Basophils Percent Auto 0.5 % (0-2); Eosinophils Absolute Auto 0.2 X10*3/uL (0.0-0.4); Eosinophils Percent Auto 2.1 % (0-4); Hematocrit 42.6 % (37.0-47.0); Hemoglobin 14.2 g/dl (12.0-16.0); Imm Gran Abs Auto 0.01 X10*3/uL (0.00-0.03); Imm Gran Pct Auto 0.1 % (0.0-0.4); Lymphocytes Absolute Auto 3.1 X10*3/uL (1.2-4.9); Mean Corpuscular HGB Conc 33.3 g/dl (31.0-35.0); Mean Corpuscular Volume 86.9 fL (80.0-98.0); Mean Platelet Volume 9.9 fL (9.4-12.3); Monocytes Absolute Auto 0.6 X10*3/uL (0.1-1.2); Monocytes Percent Auto 7.4 % (2-11); Neutrophils Absolute Auto 4.1 x10*3/uL (2.0-8.3); Neutrophils Percent Auto 50.9 % (45-73); Platelet Count 248 X10*3/uL (160-400); Red Cell Distribution Width 13.9 % (11.0-16.0)
[2023-12-25 20:22] LABS: Prothrombin Time 11.6 SEC (11.1-13.3)
[2023-12-25 20:29] LABS: Alanine Aminotransferase 32 U/L (0-31); Albumin Level 4.3 g/dL (3.5-5.0); Alkaline Phosphatase 88 U/L (39-117); Anion Gap 10 (12-20); Aspartate Amino Transferase 30 U/L (5-31); Bilirubin Total 0.2 mg/dL (0.0-1.0); Blood Urea Nitrogen 12 mg/dL (9-16); Calcium 9.3 mg/dL (8.4-10.2); Carbon Dioxide 25 mmol/L (22-29); Chloride 109 mmol/L (96-108); Creatinine Clr Calc Pharmacy 85.4; Estimated Glomerular Filt Rate > 60; Glucose Random 67 mg/dL (60-115); Lipase 48 U/L (8-78); Magnesium 2.2 mg/dL (1.6-2.6); Potassium 4.4 mmol/L (3.3-5.1); Sodium 140 mmol/L (135-145); Total Protein 8.2 g/dL (6.5-8.0)
[2023-12-25 20:38] LABS: Troponin-I High Sensitivity < 2.7 ng/L (<3.5-17.0)
[2023-12-25 20:49] VITALS: BP 110/79; PULSE 62; RESP 19; TEMP 37.2; O2SAT 98
[2023-12-25 21:54] VITALS: BP 115/80; PULSE 63; RESP 15; TEMP 36.8; O2SAT 98
[2023-12-25] MEDS: LORazepam 1 MG TABLET PO (23:02)
[2023-12-25 23:04] LABS: D Dimer High Sensitivity 240 NG/ML
[2023-12-25 23:08] VITALS: BP 115/80; PULSE 63; RESP 15; TEMP 36.8; O2SAT 98
--- OUTSIDE RECORDS SUMMARY | 2023-12-26 08:37 | XMS_ITS | Continuity of Care Document ---
Author Organization [facility] Address [address] [place] [address]- Care Team Providers Care Secondary Set Up Man Name Role Phone Lakia Johnson MD Primary Care Physician Encounter [facility] Date(s): 08/02/23 - 09/01/23 [facility] [address] [place] [address] Allergies, Adverse Reactions, Alerts Substance Reaction Severity Status ibuprofen Rash, low heart rate Active hydrocortisone Low heart rate rash Active cortisone 1, 2 Rash, low heart rate Activ e SOLU-Medrol 3 Rash, low heart rate Persistent Severe A ctive 1Pt also stated with IV she gets swollen all over and HR goes low 2pt stated she can take the oral tablets, but when given IV gets itchy 3Patient with allergic reaction to medication today 12/02/2018 Immunizations Given and Recorded Vaccine Date Status Refusal Reason SARS-CoV-2 (COVID-19) mRNA BNT-162b2 vac 11/17/20 Recorded SARS-CoV-2 (COVID-19) mRNA BNT-162b2 vac 10/27/20 Recorded influenza virus vaccine, inactivated 03/21/17 Daniel rded influenza virus vaccine, inactivated 05/07/14 Daniel rded influenza virus vaccine, inactivated 10/13/13 Daniel rded pneumococcal 23-valent vaccine 06/25/14 Recorded pneumococcal 23-valent vaccine 05/20/14 Recorded Measles/Mumps/Rubella Virus Vaccine 02/17/14 Recor ded Measles/Mumps/Rubella Virus Vaccine 01/04/14 Recor ded hepatitis B adult vaccine 02/09/14 Recorded hepatitis B adult vaccine 01/04/14 Recorded hepatitis B adult vaccine 10/13/13 Recorded tetanus/diphtheria/pertussis, acel(Tdap) 02/09/14 Recorded tetanus/diphtheria/pertussis, acel(Tdap) 01/04/14 Recorded Medications acetaminophen 325 mg oral tablet 650 mg, 2, tablet, By Mouth, Every 6 hours, PRN, # 24 tablet, Refills 0, Tot. Refills 0, Maintenance, Pain , Moderate, 08/07/21 21:37:00 EST, Route to Pharmacy Electronically, [facility] - [place], [place] - [phone], Partial fill upon patient r... Start Date: 08/07/21 Status: Ordered baclofen 10 mg oral tablet 10 mg, 1, tablet, By Mouth, 2 times a day, Refills 0, Maintenance, 01/04/20 15:07:00 EDT Start Date: 01/04/20 Status: Ordered Melatonin 5 mg oral tablet 1 tablet = 5 mg, By Mouth, Daily at bedtime, PRN for insomnia, # 60 tablet, 0 Refills, Maintenance,01/12/21 16:01:00 EDT, Tablet, Partial fill upon patient request if the prescription is for a schedule II opioid drug. Start Date: 01/12/21 Status: Ordered montelukast 10 mg oral tablet 1, tablet, By Mouth, Daily, # 30 tablet, Refills 2, Maintenance, 03/25/22 19:20:00 EDT, Route to Pharmacy Electronically, [facility], 163, cm, 02/11/22 19:38:00 EDT, Height, 69.7, kg, 02/11/22 19:38:00 EDT, Dry Weight Start Date: 03/25/22 Status: Ordered Nizoral 2% topical shampoo See Instructions, Apply twice a week for 8 weeks, # 120 mL, 1 Refills, Soft Stop, 06/08/19 12:52:56EST, Apply twice a week for 8 weeks, 163, cm, 06/08/19 12:22:44 EST, Height, 94, kg, 05/13/19 16:32:18 EST, Dry Weight Start Date: 06/08/19 Status: Ordered omeprazole 20 mg oral enteric coated capsule 1 capsule = 20 mg, By Mouth, Daily, # 30 capsule, 0 Refills, Maintenance, 01/12/21 16:01:00 EDT, ECCapsule, Partial fill upon patient request if the prescription is for a schedule II opioid drug. Start Date: 01/12/21 Status: Ordered omeprazole 40 mg oral enteric coated capsule 1 capsule = 40 mg, By Mouth, Daily, # 30 capsule, 0 Refills, Maintenance, 04/07/22 16:47:00 EDT, ECCapsule, [facility] [id number], Partial fill upon patient request if the prescription is for a schedule II opioid drug., 163,... Start Date: 04/07/22 Status: Ordered ondansetron 4 mg oral tablet, disintegrating 1 tablet = 4 mg, By Mouth, Every 8 hours, PRN as needed for nausea/vomiting, # 14 tablet, 0 Refills, Maintenance, 08/07/21 21:37:00 EST, DIS Tablet, [facility] [id number], Partial fill upon patient request if the prescription... Start Date: 08/07/21 Status: Ordered oxyCODONE 5 mg oral tablet 10 mg, 2, tablet, By Mouth, Every 6 hours, PRN, Refills 0, Tot. Refills 0, Maintenance, Pain , Moderate, 01/12/21 16:01:00 EDT, Partial fill upon patient request if the prescription is for a scheduleII opioid drug. Start Date: 01/12/21 Status: Ordered prazosin 1 mg oral capsule 1 mg, 1, capsule, By Mouth, 3 times a day, Refills 0, Maintenance, 04/30/19 13:39:06 EDT Start Date: 04/30/19 Status: Ordered predniSONE 20 mg oral tablet 2 tablet = 40 mg, By Mouth, 2 times a day, # 10 tablet, 0 Refills, Acute 09/27/23 1:33:00 EDT, 08/29/23 1:32:00 EST, Tablet, [facility] [id number], Partial fill upon patient request if the prescription is for a schedule II opi... Start Date: 08/29/23 Stop Date: 09/27/23 Status: Ordered predniSONE 50 mg oral tablet 1 tablet = 50 mg, By Mouth, Daily, # 5 tablet, 0 Refills, Maintenance, 08/23/21 3:53:00 EST, [facility] [id number], Partial fill upon patient request if the prescription is for a schedule II opioid drug., 160, cm, 08/23/21 1:3... Start Date: 08/23/21 Stop Date: 08/28/21 Status: Ordered ProAir HFA 90 mcg/inh inhalation aerosol with adapter 2, puffs, Inhalation, 4 times a day, PRN, # 8.5 Gm, Refills 0, Tot. Refills 0, Maintenance, 01/26/22 22:54:00 EDT, Aerosol, Route to Pharmacy Electronically, [id number], [place], [place] - [phone], 163, cm... Start Date: 01/26/22 Status: Ordered pyridoxine 100 mg oral tablet TAKE ONE TABLET BY MOUTH DAILY Start Date: 01/04/20 Status: Ordered Spiriva HandiHaler 18 mcg Inhalation Capsule = 18 mcg, Inhalation, Daily, 0 Refills, Maintenance, 04/30/19 13:38:16 EDT Start Date: 04/30/19 Status: Ordered Symbicort 160mcg/4.5mcg Inhaler 2, puffs, Inhalation, 2 times a day, # 10.2 Gm, Refills 2, Route to Pharmacy Electronically, [id number], [facility], 160, cm, 05/08/21 12:35:00 EST, Height, 81, kg, 05/08/21 12:35:00 EST, Dry Weight Start Date: 06/26/21 Status: Ordered tamoxifen 20 mg oral tablet 1 tablet = 20 mg, By Mouth, 2 times a day, # 60 tablet, 0 Refills, Maintenance, 01/17/20 11:54:00 EDT, Tablet, [place], [place] -, 163, cm, 12/31/19 11:31:00 EDT, Height, 94, kg, 05/13/19 16:32:00 EST, Dry Weight Start Date: 01/17/20 Stop Date: 02/16/20 Status: Ordered Theophylline 300 mg tablet SR 1 tablet = 300 mg, By Mouth, Every 12 hours, # 60 tablet, 6 Refills, Maintenance, 08/30/17 13:39:00, ER Tablet Start Date: 08/30/17 Stop Date: 03/28/18 Status: Ordered topiramate 25 mg oral tablet 1 tablet = 25 mg, By Mouth, 2 times a day, 0 Refills, Maintenance, 04/30/19 13:38:48 EDT Start Date: 04/30/19 Status: Ordered traZODone 100 mg oral tablet 100 mg, 1, tablet, By Mouth, Daily at bedtime, Refills 0, Maintenance, 04/30/19 12:29:11 EDT Start Date: 04/30/19 Status: Ordered venlafaxine 150 mg oral capsule, extended release 150 mg, 1, capsule, By Mouth, Daily, # 30 capsule, Refills 2, Tot. Refills 2, Maintenance, 01/16/2011:54:00 EDT, Route to Pharmacy Electronically, [place], [place] -, 163, cm, 12/31/19 11:31:00 EDT, Height, 94, kg, 05/13/19 16:32:00... Start Date: 01/17/20 Stop Date: 04/16/20 Status: Ordered Ventolin HFA 108 mcg/inh inhalation aerosol with adapter 2 puffs, Inhalation, Every 4 hours, PRN for wheezing, # 2 each, 6 Refills, Maintenance, 01/17/20 11:54:00 EDT, Aerosol, [place], [place] - , 163, cm, 12/31/19 11:31:00 EDT, Height, 94, kg, 05/13/19 16:32:00 EST, Dry Weight Start Date: 01/17/20 Stop Date: 08/14/20 Status: Ordered Vosevi oral tablet 1 tablet, By Mouth, Daily, with food, # 28 tablet, 0 Refills, Maintenance, 08/28/23 19:08:00 EST, Tablet, Partial fill upon patient request if the prescription is for a schedule II opioid drug. Start Date: 08/28/23 Stop Date: 11/20/23 Status: Ordered Zofran 4 mg oral tablet 1 tablet = 4 mg, By Mouth, Every 8 hours, PRN as needed for nausea/vomiting, # 6 tablet, 0 Refills,Maintenance, 03/06/19 19:02:44 EDT, Tablet Start Date: 03/06/19 Status: Ordered zolpidem 10 mg oral tablet 1 tablet = 10 mg, By Mouth, Daily at bedtime, PRN as needed for insomnia, 0 Refills, Maintenance, 01/04/20 15:06:00 EDT, Tablet Start Date: 01/04/20 Status: Ordered Problem List Condition Confirmation Course Effective Dates Status H ealth Status Informant Asthma Confirmed Active BMI 39.0-39.9,adult Confirmed Active Chronic back pain Confirmed Active COVID-19 1 Confirmed 01/31/22 Active Depression Confirmed Active Elevated BP without diagnosis of hypertension Confirmed Active GERD (gastroesophageal reflux disease) Confirmed 10/06/15 Active Infiltrating ductal carcinoma of right breast Confirmed Active Low back pain Confirmed Active Missed Confirmed Active Polyarthralgia Confirmed Active Seborrheic dermatitis of scalp Confirmed Active Asthma, severe persistent Confirmed Active 1Problem added by Discern Expert Social History Social History Type Response Tobacco Use: pt denies. Sex Patient Care team information Care Team Personnel Name: Ida Majano Position: [facility] Onco RN Member Role: Primary Care Nurse Name: Lakia Johnson MD Position: [facility] Physician - Primary Care Member Role: PCP Address: Address: [address] [place] [id number]- Care Team Related Persons Name: ZANE MORRISON Name: LITO BAKER Address: home [address] [place] [address] Name: JANES DUMONT Address: home [address] [place] [id number]
--- OUTSIDE RECORDS SUMMARY | 2023-12-26 08:37 | XMS_ITS | Continuity of Care Document ---
Author Organization [facility] Address [address] [place] [address]- Care Team Providers Care Counter Weigher Name Role Phone Jeimy Ortiz MD Primary Care Physician Encounter [facility] Date(s): 03/28/20 - 04/27/20 [facility] [address] [place] [address]- [facility] Allergies, Adverse Reactions, Alerts Substance Reaction Severity Status ibuprofen Active hydrocortisone rash Active SOLU-Medrol 1 Persistent Severe Active 1Patient with allergic reaction to medication today 12/02/2018 Medications baclofen 10 mg oral tablet 10 mg, 1, tablet, By Mouth, 2 times a day, Refills 0, Maintenance, 01/04/20 15:07:00 EDT Start Date: 01/04/20 Status: Ordered Compression Stockings Maintenance, 04/30/19 12:29:40 EDT, Compound Start Date: 04/30/19 Status: Ordered epinephrine 0.3 mg injectable solution Intramuscular, Once, 0 Refills, Maintenance, 04/30/19 12:30:00 EDT Start Date: 04/30/19 Status: Ordered Herceptin = 2 mg/kg, IV Infusion, Chemo To Be Scheduled, 0 Refills, Maintenance, 02/28/19 22:05:14 EDT Start Date: 02/28/19 Status: Ordered Lidoderm 5% film 1 patch, Topically, Daily, remove patches after 12 hours and leave off for 12 hours before replacing. You may apply 1-2 patches to the area., # 7 patch, 0 Refills, Maintenance, 02/28/19 23:13:50 EDT Start Date: 02/28/19 Stop Date: 03/07/19 Status: Ordered montelukast 10 mg oral tablet 10 mg, 1, tablet, By Mouth, Daily, # 30 tablet, Refills 2, Tot. Refills 2, Maintenance, 01/17/20 11:54:00 EDT, Route to Pharmacy Electronically, [place], [place] -, 163, cm, 12/30/2010:31:00 EDT, Height, 94, kg, 05/13/19 16:32:00 EST... Start Date: 01/17/20 Stop Date: 04/16/20 Status: Ordered Nizoral 2% topical shampoo See Instructions, Apply twice a week for 8 weeks, # 120 mL, 1 Refills, Soft Stop, 06/08/19 12:52:56EST, Apply twice a week for 8 weeks, 163, cm, 06/08/19 12:22:44 EST, Height, 94, kg, 05/13/19 16:32:18 EST, Dry Weight Start Date: 06/08/19 Status: Ordered prazosin 1 mg oral capsule 1 mg, 1, capsule, By Mouth, 3 times a day, Refills 0, Maintenance, 04/30/19 13:39:06 EDT Start Date: 04/30/19 Status: Ordered pyridoxine 100 mg oral tablet TAKE ONE TABLET BY MOUTH DAILY Start Date: 01/04/20 Status: Ordered Spiriva HandiHaler 18 mcg Inhalation Capsule = 18 mcg, Inhalation, Daily, 0 Refills, Maintenance, 04/30/19 13:38:16 EDT Start Date: 04/30/19 Status: Ordered Symbicort 160mcg/4.5mcg Inhaler 2, puffs, Inhalation, 2 times a day, # 1 each, Refills 6, Tot. Refills 6, Maintenance, 02/25/20 17:53:00 EDT, Aerosol, Route to Pharmacy Electronically, [id number], [place], [place] - [phone], 163, cm, ... Start Date: 02/25/20 Stop Date: 09/22/20 Status: Ordered tamoxifen 20 mg oral tablet 1 tablet = 20 mg, By Mouth, 2 times a day, # 60 tablet, 0 Refills, Maintenance, 01/17/20 11:54:00 EDT, Tablet, [place], [place] -, 163, cm, 12/31/19 11:31:00 EDT, [...] Maintenance, 01/16/2011:54:00 EDT, Route to Pharmacy Electronically, [place], [place] -, 163, cm, 12/31/19 11:31:00 EDT, Height, 94, kg, 05/13/19 16:32:00... Start Date: 01/17/20 Stop Date: 04/16/20 Status: Ordered Ventolin HFA 108 mcg/inh inhalation aerosol with adapter 2 puffs, Inhalation, Every 4 hours, PRN for wheezing, # 2 each, 6 Refills, Maintenance, 01/17/20 11:54:00 EDT, Aerosol, [place], [place] - , 163, cm, 12/31/19 11:31:00 EDT, Height, 94, kg, 05/13/19 16:32:00 EST, Dry Weight Start Date: 01/17/20 Stop Date: 08/14/20 Status: Ordered Zofran 4 mg oral tablet [...] Date: 01/04/20 Status: Ordered Problem List Condition Effective Dates Status Health Status Inform ant Chronic back pain(Confirmed) Active Depression(Confirmed) Active GERD (gastroesophageal reflu x disease)(Confirmed) 10/06/15 Active Infiltrating ductal carcinom a of right breast(Confirmed) Active Low back pain(Confirmed) Active Missed (Confirmed) Active Seborrheic dermatitis of scalp(Confirmed) Active Asthma, severe persistent(Confirmed) Active Social History Social History Type Response Smoking Status Former smoker, quit more than 30 days ago; Use: Quit 4 months ago; Other: 11/2018; entered on: 12/31/19 Sex
--- OUTSIDE RECORDS SUMMARY | 2023-12-26 08:37 | XMS_ITS | Continuity of Care Document ---
Author Organization [facility] ter Address [address] [place] [id number]- Care Team Providers Care Marketing Professional Name Role Phone Lakia Johnson MD Primary Care Physician Encounter [facility] [place] Date(s): 03/20/22 - 05/25/[address] [id number] Attending Physician: Edilson Arias MD Admitting Physician: Edilson Arias MD Allergies, Adverse Reactions, Alerts Substance Reaction Severity Status ibuprofen Active hydrocortisone rash Active cortisone 1, 2 Active SOLU-Medrol 3 Persistent Severe Active 1Pt also stated with IV she gets [...] 08/07/21 21:37:00 EST, Route to Pharmacy Electronically, [facility] - [place], [place] - [id number], Partial fill upon patient r... Start Date: [...] 03/25/22 19:20:00 EDT, Route to Pharmacy Electronically, [facility], 163, cm, 02/11/22 19:38:00 EDT, Height, [...] 0 Refills, Maintenance, 04/07/22 16:47:00 EDT, ECCapsule, [facility] [id number], Partial fill upon patient request if the prescription is for a schedule II opioid drug., 163,... Start Date: 04/07/22 Status: Ordered ondansetron 4 mg oral tablet, disintegrating 1 tablet = 4 mg, By Mouth, Every 8 hours, PRN as needed for nausea/vomiting, # 14 tablet, 0 Refills, Maintenance, 08/07/21 21:37:00 EST, DIS Tablet, [facility] [id number], Partial fill upon patient request if the [...] EDT Start Date: 04/30/19 Status: Ordered predniSONE 50 mg oral tablet 1 tablet = 50 mg, By Mouth, Daily, # 5 tablet, 0 Refills, Maintenance, 08/23/21 3:53:00 EST, [facility] [id number], Partial fill upon patient request if the prescription is for a schedule II opioid drug., 160, cm, 08/23/21 1:3... Start Date: 08/23/21 Stop Date: 08/28/21 Status: Ordered ProAir HFA 90 mcg/inh inhalation aerosol with adapter 2, puffs, Inhalation, 4 times a day, PRN, # 8.5 Gm, Refills 0, Tot. Refills 0, Maintenance, 01/26/22 22:54:00 EDT, Aerosol, Route to Pharmacy Electronically, [id number], [place], [place] - [id number], 163, cm... Start Date: 01/26/22 Status: Ordered [...] Gm, Refills 2, Route to Pharmacy Electronically, [id number], [facility], 160, cm, 05/08/21 12:35:00 EST, Height, 81, kg, 05/08/21 12:35:00 EST, Dry Weight Start Date: 06/26/21 Status: Ordered tamoxifen 20 mg oral tablet 1 tablet = 20 mg, By Mouth, 2 times a day, # 60 tablet, 0 Refills, Maintenance, 01/17/20 11:54:00 EDT, Tablet, [place], [place] -, 163, cm, 12/31/19 11:31:00 EDT, [...] Maintenance, 01/16/2011:54:00 EDT, Route to Pharmacy Electronically, [place], [place] -, 163, cm, 12/31/19 11:31:00 EDT, Height, 94, kg, 05/13/19 16:32:00... Start Date: 01/17/20 Stop Date: 04/16/20 Status: Ordered Ventolin HFA 108 mcg/inh inhalation aerosol with adapter 2 puffs, Inhalation, Every 4 hours, PRN for wheezing, # 2 each, 6 Refills, Maintenance, 01/17/20 11:54:00 EDT, Aerosol, [place], [place] - , 163, cm, 12/31/19 11:31:00 [...] Care Team Personnel Name: Ida Majano Position: [facility] Onco RN Member Role: Primary Care Nurse Name: Lakia Johnson MD Position: [facility] Physician (General Medicine) Member Role: PCP Address: Address: [address] [place] [address]- Care Team Related Persons Name: ZANE MORRISON Name: LITO BAKER Address: home [address] [place] [address] Name: JANES DUMONT Address: home [address] [place] [id number]
--- OUTSIDE RECORDS SUMMARY | 2023-12-26 08:37 | XMS_ITS | Patient Health Record ---
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 Name Role Phone PRATIBHA BARROW Primary Care Provider Miya Comer Unavailable [phone] ALLERGIES Allergen (clinical drug ingredient) Drug/Non Drug Allergy documented on EMR Reaction Allergy Type Onset Date Status cortisone Cortisone Unknown Drug Allergy Active hydrocortisone Hydrocortisone swelling Drug Allergy Active RESULTS Component Value Reference Range Notes ALBUMIN Reviewed date:12/28/2022 11:52:06 AM Interpretation: Performing Lab: Notes/Report: ALBUMIN 3.5 3.2-5.0 G/dL BUN Reviewed date:12/28/2022 11:51:39 AM Interpretation: Performing Lab: Notes/Report: BUN 14 5-25 mg/dL CBC Reviewed date:12/28/2022 11:51:28 AM Interpretation: Performing Lab: Notes/Report: WBC 7.5 4.8-10.8 x10-3/uL RBC 4.9 3.8-4.8 x10-6/uL HEMOGLOBIN 14.3 11.5-16.0 g/dL HEMATOCRIT 43.3 35-47 % MCV 89.3 79-98 fL MCH 29.5 27-32 pg MCHC 33.0 32-37 g/dL RDW 12.9 11-15 % PLT COUNT 218 130-400 x10-3/uL MEAN PLATELET VOLUME 10.2 7-11 fL NRBC % AUTO 0.0 <1 % NRBC # AUTO 0.00 <0.1 x10-3/uL CREATININE WITH GFR Reviewed date:12/28/2022 11:51:52 AM Interpretation: Performing Lab: Notes/Report: CREAT 0.70 0.5-1.1 mg/dL GLOMERULAR FILTRATION RATE 106 >60 This eGFR result was calculated using the CKD-EPI 2020 Creatinine Equation ELECTROLYTES Reviewed date:12/28/2022 11:52:03 AM Interpretation: Performing Lab: Notes/Report: SODIUM 142 135-145 mEq/L POTASSIUM 4.0 3.5-5.5 mmol/L CHLORIDE 110 96-110 mmol/L CO2 27 21-32 mmol/L ANION GAP 5 3-11 PT/INR Reviewed date:12/28/2022 11:51:35 AM Interpretation: Performing Lab: Notes/Report: PATIENT - N/A PROTHROMBIN TIME 11.6 10.6-13.9 SEC INR 0.94 TYPE AND SCREEN Reviewed date:12/28/2022 12:01:14 PM Interpretation: Performing Lab: Notes/Report: URINALYSIS Reviewed date:12/28/2022 11:52:22 AM Interpretation: Performing Lab: Notes/Report: GLUCOSE, (UA) NEGATIVE NEGATIVE mg/dL BILIRUBIN, URINE NEGATIVE NEGATIVE KETONE, URINE NEGATIVE NEGATIVE mg/dL SPECIFIC GRAVITY, URINE 1.023 1.003-1.030 BLOOD, URINE NEGATIVE NEGATIVE PH, URINE 6.0 5.0-8.0 PROTEIN, URINE NEGATIVE <= TRACE mg/dl UROBILINOGEN, URINE 0.2 0.2-1.0 E.U./dL NITRITE, URINE NEGATIVE NEGATIVE LEUKOCYTE ESTERASE, URINE TRACE NEGATIVE RBC, URINE 4 0-4 /HPF WBC, URINE 3 0-4 /HPF EPITH CELLS, URINE 8 0-60 /LPF BACTERIA, URINE NEGATIVE NEGATIVE CBC WITH AUTO DIFF Reviewed date:01/22/2023 02:50:21 PM Interpretation: Performing Lab: Notes/Report: WBC 7.0 4.8-10.8 x10-3/uL RBC 4.8 3.8-4.8 x10-6/uL HEMOGLOBIN 14.0 11.5-16.0 g/dL HEMATOCRIT 42.8 35-47 % MCV 89.7 79-98 fL MCH 29.4 27-32 pg MCHC 32.7 32-37 g/dL RDW 13.4 11-15 % PLT COUNT 288 130-400 x10-3/uL MEAN PLATELET VOLUME 10.5 7-11 fL NRBC % AUTO 0.0 <1 % NEUT % 60.1 LYMPH % 30.4 MONO % 7.3 EOS % 1.8 BASO % 0.3 IMMATURE GRANULOCYTES % 0.1 NRBC # AUTO 0.00 <0.1 x10-3/uL ABSOLUTE NEUT 4.22 1.5-7.0 x10-3/uL LYMPH # 2.14 1-5.0 x10-3/uL MONO # 0.51 0.2-1.0 x10-3/uL EOS # 0.13 0-0.5 x10-3/uL BASO # 0.02 0-0.2 x10-3/uL IMMATURE GRANULOCYTES # 0.01 0-0.03 x10-3/uL CREATININE WITH GFR Reviewed date:01/22/2023 04:59:16 PM Interpretation: Performing Lab: Notes/Report: CREAT 0.76 0.5-1.1 mg/dL GLOMERULAR FILTRATION RATE 96 >60 This eGFR result was calculated using the CKD-EPI 2020 Creatinine Equation HCV VIRAL LOAD Reviewed date:01/23/2023 11:59:03 AM Interpretation: Performing Lab: Notes/Report: HCV VIRAL LOAD QUAL DETECTED NOT DETECT. HCV VIRAL LOAD QUANT 072353 <12 HCV VIRAL LOAD LOG 5.28 <1.08 LIVER PANEL Reviewed date:01/22/2023 04:59:18 PM Interpretation: Performing Lab: Notes/Report: TOTAL PROTEIN 8.0 6.0-8.0 G/dL ALBUMIN 3.8 3.2-5.0 G/dL BILI,TOTAL 0.5 0.0-1.4 mg/dL BILI,DIRECT 0.1 0.0-0.3 mg/dL BILI,INDIRECT 0.4 0.0-1.1 mg/dL SGOT 23 10-42 U/L SGPT 20 10-60 U/L ALK PHOS 89 42-121 U/L SGPT Reviewed date:01/28/2023 07:48:34 PM Interpretation: Performing Lab: Notes/Report: SGPT 55 10-60 U/L SGOT Reviewed date:01/28/2023 07:48:30 PM Interpretation: Performing Lab: Notes/Report: SGOT 42 10-42 U/L VITAMIN B12 Reviewed date:01/28/2023 07:49:30 PM Interpretation: Performing Lab: Notes/Report: VITAMIN B12 572 250-900 pg/mL CBC WITH AUTO DIFF Reviewed date:01/28/2023 03:22:48 PM Interpretation: Performing Lab: Notes/Report: WBC 6.5 4.8-10.8 x10-3/uL RBC 4.8 3.8-4.8 x10-6/uL HEMOGLOBIN 14.0 11.5-16.0 g/dL HEMATOCRIT 43.1 35-47 % MCV 89.2 79-98 fL MCH 29.0 27-32 pg MCHC 32.5 32-37 g/dL RDW 13.3 11-15 % PLT COUNT 249 130-400 x10-3/uL MEAN PLATELET VOLUME 10.7 7-11 fL NRBC % AUTO 0.0 <1 % NEUT % 50.7 LYMPH % 38.2 MONO % 7.4 EOS % 2.9 BASO % 0.5 IMMATURE GRANULOCYTES % 0.3 NRBC # AUTO 0.00 <0.1 x10-3/uL ABSOLUTE NEUT 3.30 1.5-7.0 x10-3/uL LYMPH # 2.48 1-5.0 x10-3/uL MONO # 0.48 0.2-1.0 x10-3/uL EOS # 0.19 0-0.5 x10-3/uL BASO # 0.03 0-0.2 x10-3/uL IMMATURE GRANULOCYTES # 0.02 0-0.03 x10-3/uL CREATININE WITH GFR Reviewed date:01/28/2023 07:48:25 PM Interpretation: Performing Lab: Notes/Report: CREAT 0.72 0.5-1.1 mg/dL GLOMERULAR FILTRATION RATE 102 >60 This eGFR result was calculated using the CKD-EPI 2020 Creatinine Equation HCV VIRAL LOAD Reviewed date:01/30/2023 01:06:09 PM Interpretation: Performing Lab: Notes/Report: HCV VIRAL LOAD QUAL DETECTED NOT DETECT. HCV VIRAL LOAD QUANT 309953 <12 HCV VIRAL LOAD LOG 5.59 <1.08 TOTAL IRON BINDING CAPACITY Reviewed date:01/28/2023 07:48:38 PM Interpretation: Performing Lab: Notes/Report: TOTAL IRON BINDING CAPACITY 404 250-450 ug/dL IRON (FE) 144 40-150 ug/dL % FE SATURATION 36 15-50 % COMPREHENSIVE METABOLIC PANE L Reviewed date:02/18/2023 05:11:30 PM Interpretation: Performing Lab: Notes/Report: GLUCOSE 85 70-100 mg/dL Reference range applicable to fasting specimens only BUN 11 5-25 mg/dL CREAT 0.71 0.5-1.1 mg/dL GLOMERULAR FILTRATION RATE 104 >60 This eGFR result was calculated using the CKD-EPI 2021 Creatinine Equation SODIUM 141 135-145 mEq/L POTASSIUM 3.8 3.5-5.5 mmol/L CHLORIDE 110 96-110 mmol/L CO2 28 21-32 mmol/L ANION GAP 3 3-11 CALCIUM 9.1 8.5-10.5 mg/dL TOTAL PROTEIN 7.4 6.0-8.0 G/dL ALBUMIN 3.7 3.2-5.0 G/dL BILI,TOTAL 0.3 0.0-1.4 mg/dL SGOT 37 10-42 U/L SGPT 51 10-60 U/L ALK PHOS 92 42-121 U/L ALBUMIN Reviewed date:04/05/2023 07:12:37 PM Interpretation: Performing Lab: Notes/Report: ALBUMIN 3.6 3.2-5.0 G/dL VITAMIN B12 Reviewed date:04/05/2023 07:13:39 PM Interpretation: Performing Lab: Notes/Report: VITAMIN B12 568 250-900 pg/mL BASIC METABOLIC PANEL (BMP) Reviewed date:04/05/2023 07:12:32 PM Interpretation: Performing Lab: Notes/Report: GLUCOSE 80 70-100 mg/dL Reference range applicable to fasting specimens only BUN 13 5-25 mg/dL CREAT 0.80 0.5-1.1 mg/dL GLOMERULAR FILTRATION RATE 90 >60 This eGFR result was calculated using the CKD-EPI 2021 Creatinine Equation SODIUM 140 135-145 mEq/L POTASSIUM 4.0 3.5-5.5 mmol/L CHLORIDE 110 96-110 mmol/L CO2 25 21-32 mmol/L ANION GAP 5 3-11 CALCIUM 9.2 8.5-10.5 mg/dL COPPER, SERUM Reviewed date:04/11/2023 10:31:40 AM Interpretation: Performing Lab: Notes/Report: COPPER LEVEL 4831 415-5617 ug/L Copper values may be elevated to twice the normal levels in . Elevated results may be due to sample collected in a non-certified trace element-free tube. This test was developed and the performance characteristics determined by [facility]. It has not been cleared or approved by the FDA. The laboratory is regulated under CLIA as qualified to perform high-complexity testing. This test is used for patient testing purposes. It should not be regarded as investigational or for research. Test performed at [facility], [address], [place] [address] Rosa M Llanes MD, PhD - Severity Of Illness Coordinator FOLATE Reviewed date:04/05/2023 07:13:32 PM Interpretation: Performing Lab: Notes/Report: FOLATE 10.8 2.8-17.0 ng/ml SELENIUM LEVEL,WHOLE BLOOD Reviewed date:04/11/2023 10:31:35 AM Interpretation: Performing Lab: Notes/Report: SELENIUM LEVEL,WHOLE BLOOD 113 63-160 mcg/L This test was developed and its analytical performance characteristics have been determined by [facility]. It has not been cleared or approved by the FDA. This assay has been validated pursuant to the CLIA regulations and is used for clinical purposes. TEST PERFORMED AT: [facility] [address] [address] EFE TEAGUE MD TOTAL IRON BINDING CAPACITY Reviewed date:04/05/2023 07:12:43 PM Interpretation: Performing Lab: Notes/Report: TOTAL IRON BINDING CAPACITY 422 250-450 ug/dL IRON (FE) 150 40-150 ug/dL % FE SATURATION 36 15-50 % VITAMIN A RETINOL Reviewed date:04/11/2023 10:31:47 AM Interpretation: Performing Lab: Notes/Report: VITAMIN A LEVEL (RETINOL) 37 38-106 ug/dL This test was developed and the performance characteristics determined by [facility]. It has not been cleared or approved by the FDA. The laboratory is regulated under CLIA as qualified to perform high-complexity testing. This test is used for patient testing purposes. It should not be regarded as investigational or for research. Test performed at [facility], [address] , [place] [address] Rosa M Llanes MD, PhD - Severity Of Illness Coordinator VITAMIN D, 25-HYDROXY Reviewed date:04/05/2023 07:12:52 PM Interpretation: Performing Lab: Notes/Report: VITAMIN D, 25-HYDROXY 18 30-80 ng/mL VITAMIN B1 PLASMA Reviewed date:04/11/2023 10:31:37 AM Interpretation: Performing Lab: Notes/Report: VITAMIN B1 LEVEL 47 38-122 ug/L This test was developed and the performance characteristics determined by [facility]. It has not been cleared or approved by the FDA. The laboratory is regulated under CLIA as qualified to perform high-complexity testing. This test is used for patient testing purposes. It should not be regarded as investigational or for research. Test performed at [facility], [address] [place] [address] Rosa M Llanes MD, PhD - Severity Of Illness Coordinator VITAMIN B6 LEVEL Reviewed date:04/11/2023 10:31:43 AM Interpretation: Performing Lab: Notes/Report: VITAMIN B6 LEVEL 9 5-50 ug/L This test was developed and the performance characteristics determined by [facility]. It has not been cleared or approved by the FDA. The laboratory is regulated under CLIA as qualified to perform high-complexity testing. This test is used for patient testing purposes. It should not be regarded as investigational or for research. Test performed at [facility], [address] [place] [address] Rosa M Llanes MD, PhD - Severity Of Illness Coordinator ZINC, PLASMA OR SERUM Reviewed date:04/11/2023 10:31:53 AM Interpretation: Performing Lab: Notes/Report: ZINC, PLASMA 66 60-130 ug/dL Elevated results may be due to sample collected in a non-certified trace element-free tube. This test was developed and the performance characteristics determined by [facility]. It has not been cleared or approved by the FDA. The laboratory is regulated under CLIA as qualified to perform high-complexity testing. This test is used for patient testing purposes. It should not be regarded as investigational or for research. Test performed at [facility], [address] [place] [address] Rosa M Llanes MD, PhD - Severity Of Illness Coordinator CA 27.29 BREAST TUMOR MARKER Reviewed date:05/05/2023 09:05:58 AM Interpretation: Performing Lab: Notes/Report: CA 27.29 <17.5 <38.6 U/mL The Siemens AdvPlanspotaur [id number] Chemiluminescent Immunoassay is used. Results obtained with different assay methods or kits cannot be used interchangeably. Results cannot be interpreted as absolute evidence of the presence or absence of malignant disease. Test performed at [facility], [address] , [place] [address] Rosa M Llanes MD, PhD - Severity Of Illness Coordinator CBC WITH AUTO DIFF Reviewed date:2023 05:12:00 PM Interpretation: Performing Lab: Notes/Report: WBC 6.8 4.8-10.8 x10-3/uL RBC 5.2 3.8-4.8 x10-6/uL HEMOGLOBIN 14.6 11.5-16.0 g/dL HEMATOCRIT 45.9 35-47 % MCV 89.1 79-98 fL MCH 28.3 27-32 pg MCHC 31.8 32-37 g/dL RDW 13.8 11-15 % PLT COUNT 245 130-400 x10-3/uL MEAN PLATELET VOLUME 10.6 7-11 fL NRBC % AUTO 0.0 <1 % NEUT % 48.6 LYMPH % 39.5 MONO % 7.8 EOS % 3.1 BASO % 0.7 IMMATURE GRANULOCYTES % 0.3 NRBC # AUTO 0.00 <0.1 x10-3/uL ABSOLUTE NEUT 3.29 1.5-7.0 x10-3/uL LYMPH # 2.68 1-5.0 x10-3/uL MONO # 0.53 0.2-1.0 x10-3/uL EOS # 0.21 0-0.5 x10-3/uL BASO # 0.05 0-0.2 x10-3/uL IMMATURE GRANULOCYTES # 0.02 0-0.03 x10-3/uL COMPREHENSIVE METABOLIC PANE L Reviewed date:2023 05:26:10 PM Interpretation: Performing Lab: Notes/Report: GLUCOSE 85 70-100 mg/dL Reference range applicable to fasting specimens only BUN 12 5-25 mg/dL CREAT 0.70 0.5-1.1 mg/dL GLOMERULAR FILTRATION RATE 105 >60 This eGFR result was calculated using the CKD-EPI 2020 Creatinine Equation SODIUM 144 135-145 mEq/L POTASSIUM 4.2 3.5-5.5 mmol/L CHLORIDE 110 96-110 mmol/L CO2 29 21-32 mmol/L ANION GAP 5 3-11 CALCIUM 9.4 8.5-10.5 mg/dL TOTAL PROTEIN 7.7 6.0-8.0 G/dL ALBUMIN 3.7 3.2-5.0 G/dL BILI,TOTAL 0.3 0.0-1.4 mg/dL SGOT 41 10-42 U/L SGPT 42 10-60 U/L ALK PHOS 106 42-121 U/L VITAMIN B12 Reviewed date:05/09/2023 04:52:06 PM Interpretation: Performing Lab: Notes/Report: VITAMIN B12 531 250-900 pg/mL COMPREHENSIVE METABOLIC PANE L Reviewed date:05/09/2023 04:52:13 PM Interpretation: Performing Lab: Notes/Report: GLUCOSE 87 70-100 mg/dL Reference range applicable to fasting specimens only BUN 11 5-25 mg/dL CREAT 0.79 0.5-1.1 mg/dL GLOMERULAR FILTRATION RATE 91 >60 This eGFR result was calculated using the CKD-EPI 2020 Creatinine Equation SODIUM 141 135-145 mEq/L POTASSIUM 4.2 3.5-5.5 mmol/L CHLORIDE 108 96-110 mmol/L CO2 28 21-32 mmol/L ANION GAP 5 3-11 CALCIUM 9.5 8.5-10.5 mg/dL TOTAL PROTEIN 8.0 6.0-8.0 G/dL ALBUMIN 3.8 3.2-5.0 G/dL BILI,TOTAL 0.4 0.0-1.4 mg/dL SGOT 34 10-42 U/L SGPT 46 10-60 U/L ALK PHOS 105 42-121 U/L FOLATE Reviewed date:05/09/2023 04:52:09 PM Interpretation: Performing Lab: Notes/Report: FOLATE 11.3 2.8-17.0 ng/ml SELENIUM LEVEL,WHOLE BLOOD Reviewed date:05/19/2023 07:28:28 AM Interpretation: Performing Lab: Notes/Report: SELENIUM LEVEL,WHOLE BLOOD 122 63-160 mcg/L This test was developed and its analytical performance characteristics have been determined by [facility]. It has not been cleared or approved by the FDA. This assay has been validated pursuant to the CLIA regulations and is used for clinical purposes. TEST PERFORMED AT: [facility] [address] [place] [address] EEF TEAGUE MD TOTAL IRON BINDING CAPACITY Reviewed date:05/09/2023 04:52:11 PM Interpretation: Performing Lab: Notes/Report: TOTAL IRON BINDING CAPACITY 422 250-450 ug/dL IRON (FE) 157 40-150 ug/dL % FE SATURATION 37 15-50 % VITAMIN D, 25-HYDROXY Reviewed date:05/09/2023 04:52:03 PM Interpretation: Performing Lab: Notes/Report: VITAMIN D, 25-HYDROXY 14 30-80 ng/mL VITAMIN B1 PLASMA Reviewed date:05/19/2023 07:28:54 AM Interpretation: Performing Lab: Notes/Report: VITAMIN B1 LEVEL 49 38-122 ug/L This test was developed and the performance characteristics determined by [facility]. It has not been cleared or approved by the FDA. The laboratory is regulated under CLIA as qualified to perform high-complexity testing. This test is used for patient testing purposes. It should not be regarded as investigational or for research. Test performed at [facility], [address] [place] [address] Rosa M Llanes MD, PhD - Severity Of Illness Coordinator VITAMIN B6 LEVEL Reviewed date:05/19/2023 07:28:32 AM Interpretation: Performing Lab: Notes/Report: VITAMIN B6 LEVEL 8 5-50 ug/L This test was developed and the performance characteristics determined by [facility]. It has not been cleared or approved by the FDA. The laboratory is regulated under CLIA as qualified to perform high-complexity testing. This test is used for patient testing purposes. It should not be regarded as investigational or for research. Test performed at [facility], [address] [place] [address] Rosa M Llanes MD, PhD - Severity Of Illness Coordinator ZINC, PLASMA OR SERUM Reviewed date:05/19/2023 07:29:03 AM Interpretation: Performing Lab: Notes/Report: ZINC, PLASMA 94 60-130 ug/dL Elevated results may be due to sample collected in a non-certified trace element-free tube. This test was developed and the performance characteristics determined by [facility]. It has not been cleared or approved by the FDA. The laboratory is regulated under CLIA as qualified to perform high-complexity testing. This test is used for patient testing purposes. It should not be regarded as investigational or for research. Test performed at [facility], [address] [place] [address] Rosa M Llanes MD, PhD - Severity Of Illness Coordinator ALBUMIN Reviewed date:08/27/2023 04:55:18 PM Interpretation: Performing Lab: Notes/Report: ALBUMIN 3.5 3.2-5.0 G/dL VITAMIN B12 Reviewed date:08/27/2023 04:55:05 PM Interpretation: Performing Lab: Notes/Report: VITAMIN B12 517 250-900 pg/mL COPPER, SERUM Reviewed date:09/04/2023 07:50:00 AM Interpretation: Performing Lab: Notes/Report: COPPER LEVEL 0227 585-8053 ug/L Copper values may be elevated to twice the normal levels in . Elevated results may be due to sample collected in a non-certified trace element-free tube. This test was developed and the performance characteristics determined by [facility]. It has not been cleared or approved by the FDA. The laboratory is regulated under CLIA as qualified to perform high-complexity testing. This test is used for patient testing purposes. It should not be regarded as investigational or for research. Test performed at [facility], [address] [place] [address] Rosa M Llanes MD, PhD - Severity Of Illness Coordinator FOLATE Reviewed date:08/27/2023 04:55:08 PM Interpretation: Performing Lab: Notes/Report: FOLATE > 20.0 2.8-17.0 ng/ml MAGNESIUM Reviewed date:08/27/2023 04:55:21 PM Interpretation: Performing Lab: Notes/Report: MAGNESIUM 2.1 1.9-2.6 mg/dL SELENIUM LEVEL,WHOLE BLOOD Reviewed date:09/04/2023 07:49:49 AM Interpretation: Performing Lab: Notes/Report: SELENIUM LEVEL,WHOLE BLOOD 103 63-160 mcg/L This test was developed and its analytical performance characteristics have been determined by [facility]. It has not been cleared or approved by the FDA. This assay has been validated pursuant to the CLIA regulations and is used for clinical purposes. TEST PERFORMED AT: [facility] [address] [place] [address] EFE TEAGUE MD TOTAL IRON BINDING CAPACITY Reviewed date:08/27/2023 04:55:12 PM Interpretation: Performing Lab: Notes/Report: TOTAL IRON BINDING CAPACITY 437 250-450 ug/dL IRON (FE) 137 40-150 ug/dL % FE SATURATION 31 15-50 % VITAMIN A RETINOL Reviewed date:09/04/2023 07:49:56 AM Interpretation: Performing Lab: Notes/Report: VITAMIN A LEVEL (RETINOL) 36 38-106 ug/dL This test was developed and the performance characteristics determined by [facility]. It has not been cleared or approved by the FDA. The laboratory is regulated under CLIA as qualified to perform high-complexity testing. This test is used for patient testing purposes. It should not be regarded as investigational or for research. Test performed at [facility], [address] [place] [address] Rosa M Llanes MD, PhD - Severity Of Illness Coordinator VITAMIN D, 25-HYDROXY Reviewed date:08/27/2023 04:55:14 PM Interpretation: Performing Lab: Notes/Report: VITAMIN D, 25-HYDROXY 19 30-80 ng/mL VITAMIN B1 PLASMA Reviewed date:09/04/2023 07:49:52 AM Interpretation: Performing Lab: Notes/Report: VITAMIN B1 LEVEL 66 38-122 ug/L This test was developed and the performance characteristics determined by [facility]. It has not been cleared or approved by the FDA. The laboratory is regulated under CLIA as qualified to perform high-complexity testing. This test is used for patient testing purposes. It should not be regarded as investigational or for research. Test performed at [facility], [address] [place] [address] Rosa M Llanes MD, PhD - Severity Of Illness Coordinator ZINC, PLASMA OR SERUM Reviewed date:09/04/2023 07:50:06 AM Interpretation: Performing Lab: Notes/Report: ZINC, PLASMA 65 60-130 ug/dL Elevated results may be due to sample collected in a non-certified trace element-free tube. This test was developed and the performance characteristics determined by [facility]. It has not been cleared or approved by the FDA. The laboratory is regulated under CLIA as qualified to perform high-complexity testing. This test is used for patient testing purposes. It should not be regarded as investigational or for research. Test performed at [facility], [address] , [place] [address] Rosa M Llanes MD, PhD - Severity Of Illness Coordinator ALBUMIN Reviewed date:11/27/2023 07:54:41 AM Interpretation: Performing Lab: Notes/Report: ALBUMIN 3.9 3.2-5.0 G/dL VITAMIN A RETINOL Reviewed date:12/02/2023 07:50:44 AM Interpretation: Performing Lab: Notes/Report: VITAMIN A LEVEL (RETINOL) 45 38-106 ug/dL This test was developed and the performance characteristics determined by [facility]. It has not been cleared or approved by the FDA. The laboratory is regulated under CLIA as qualified to perform high-complexity testing. This test is used for patient testing purposes. It should not be regarded as investigational or for research. Test performed at [facility], [address] , [place] [address] Rosa M Llanes MD, PhD - Severity Of Illness Coordinator VITAMIN D, 25-HYDROXY Reviewed date:11/27/2023 07:54:38 AM Interpretation: Performing Lab: Notes/Report: VITAMIN D, 25-HYDROXY 17 30-80 ng/mL [facility] Reviewed date:12/24/2023 07:37:36 AM Interpretation: Performing Lab: Notes/Report: Original Ordering Provider: PRATIBHA BARROW MD [facility] REASON FOR REFERRAL Reason hepatitis C carrier Dr. Violeta Romeo Diagnosis 1 Hepatitis C carrier (B18.2) Referral Organization [facility] Referring Provider First Name PRATIBHA Referring Provider Last Name PUSHPA Referring Provider Speciality Internal M edicine Referred Provider Specialty Gastroentero logy General Notes Referral sent to [facility] Gastro Dept-Dr. Dr. Violeta Truong fax#[phone] phone#[phone]., Sterling Deshpande 02/18/2023 03:46:48 PM > Clinical Notes called [facility] Gastro Dept. pt. is scheduled on 03/12/2023 10am at [address] [place] [address] Dr [place], [place] [address] [address] Spoke to pt. and pt. is aware., Sterling Deshpande 02/26/2023 11:08:50 AM > Referral Priority Routine Reason Paronychia Dr. Dawson [facility] Diagnosis 1 Cellulitis of right finger (L03.011) Referral Organization [facility] Referring Provider First Name PRATIBHA Referring Provider Last Name PUSHPA Referring Provider Speciality Internal M edicine Referred Provider Specialty Hand Surgery General Notes [facility] From & Refe rral sent to [facility] phone# [phone]., Sterling Deshpande 02/18/2023 03:27:02 PM > Clinical Notes received a fax from [facility]. A message was sent to their Clinical staff for review, Once reviewed a clinical member will reach out to the pt. to schedule., Sterling Deshpande 02/21/2023 10:57:29 AM >, pt son calling questioning the status of this appt, Jemima Howell 02/25/2023 04:31:09 PM >, called [facility] was advised on recent notes on 02/21/2023. Dr. Martinez do not see pt. with this diagnosis, recommended Urgent care or ER same recommendation from [facility]. Spoke to pt. provided recommendations of Providers and will try to go to an Urgent care Clinic., Sterling Deshpande 02/26/2023 10:54:50 AM > Referral Priority Routine MEDICATIONS Medication SIG (Take, Route, Frequency, Duration) Notes Start Date End Date Status Ketoconazole 2 % APPLY TO THE AFFECTE D AREA TOPICALLY TWICE A WEEK. APPLY TO damp SKIN, lather, LEAVE ON 5 MINUTES AND RINSE for 30 Active Famotidine 40 MG 1 tablet at bedtime Orally Once a day for 30 days 08/05/2023 Active Polyethylene Glycol 3350 17 GM/SCOOP DISSOLVE 1 capful (17gm) powder IN 8ounces OF IN FLUID AND DRINK ONCE A DAY for 30 Active D3-1000 25 MCG (1000 UT) TAKE ONE CAPSUL E BY MOUTH ONCE A DAY for 30 Active Ventolin HFA 108 (90 Base) MCG/ACT 1 puff as needed Inhalation every 4 hrs for 30 days Active Acetaminophen 325 MG 2 capsules as neede d Orally every 6 hrs Active Lyrica 25 MG 1 capsule Orally BID for 30 days 07/20/2021 Active oxyBUTYnin Chloride ER 10 mg TAKE 1 TABLET BY MOUTH ONCE DAILY for 30 Active Docusate Sodium 100 mg TAKE 1 CAPSULE BY MOUTH ONCE A DAY NEEDED for 30 Active Ondansetron [address] 1 TABLET UNDER THE TONGUE TO DISSOLVE EVERY 6 HOURS NEEDED for 30 Active Symbicort 160-4.5 MCG/ACT 2 puffs Inhala tion Twice a day Active Vosevi 400-100-100 MG 1 tablet with food Orally Once a day Active Theophylline ER 300 MG 1 tablet Orally e very 12 hrs Active Tamoxifen Citrate 20 MG 1 tablet Orally Once a day Active Topiramate 50 mg TAKE 1 TABLET BY MALENA TH two (2) times a day for 30 days Active traZODone HCl 100 MG 1 tablet at bedtime Orally Once a day Active Hydrocortisone 2.5 % 1 application Externally Twice a day for 30 days 08/05/2023 Not-Taking Spiriva HandiHaler 18 MCG 1 capsule by i nhaling the contents of the capsule using the HandiHaler device Inhalation Once a day Active Protonix 20 MG 1 tablet Orally Once a day for 30 days 08/05/2023 Active Zolpidem Tartrate 10 MG 1 tablet at bedt chandrika as needed Orally Once a day Active Baclofen 10 MG 1 tablet as needed Orally Twice a day Active Venlafaxine HCl ER 150 MG 1 capsule with food Orally Once a day Active Pyridoxine HCl 100 MG 1 tablet Orally On ce a day Active Prazosin HCl 1 MG 1 capsule Orally thr ee times a day Active GNP Vitamin B-6 100 mg TAKE ONE TABLET B Y MOUTH DAILY for 30 Active Montelukast Sodium 10 mg TAKE 1 TABLET B Y MOUTH ONCE DAILY AT BEDTIME for 90 Active IMMUNIZATIONS Vaccine Route Administration Date Status Comme nts Tdap Unknown 01/04/2014 Administered Tdap Unknown 02/09/2014 Administered Pneumococcal polysaccharide PPV23 Unknown 05/20/2014 Ad ministered MMR Unknown 01/04/2014 Administered MMR Unknown 02/17/2014 Administered Hep B, adult dosage, for intramuscular use Unknown 10/13/2013 Administered Hep B, adult dosage, for intramuscular use Unknown 01/04/2014 Administered Hep B, adult dosage, for intramuscular use Unknown 02/09/2014 Administered COVID 19 Pfizer Unknown 10/27/2020 Administered COVID 19 Pfizer Unknown 11/17/2020 Administered SOCIAL HISTORY Tobacco Use: Social History Observation Description Date Details (start date - stop date) Former Smoker NA - NA Sex Assigned At : Social History Observation Description Sex Assigned At Unknown Tobacco Use/Smoking Question Answer Notes Are you a former smoker How long has it been since you last smoked? 1-5 years Alcohol Screen (Audit-C) Question Answer Notes Did you have a drink containing alcohol in the p ast year? No Points 0 Interpretation Negative Tobacco use other than smoking: Question Answer Notes Are you an other tobacco user? s he vapes 4-5 puffs a day PROBLEMS Problem Type ICD Code Onset Dates Problem Status W/U Status Risk SNOMED Code Notes Problem Nicotine dependence, cigarettes, uncomplicated (F17.210) Active confirmed Tobacco user (904019918) Problem Major depressive disorder, recurrent, mild (F33.0) Active confirmed Mild recurrent major depression (32486461) Problem Generalized anxiety disorder (F41.1) Active confirmed Generalized anxiety disorder (36566412) Problem Obstructive sleep apnea (adult) (pediatric) (G47.33) Active confirmed Obstructive sle ep apnea syndrome (disorder) (84725754) Problem Polyneuropathy, unspecified (G62.9) Active confirmed Polyneuropathy (46551536) Problem Unspecified amblyopia, unspecified eye (H53.009) Active confirmed Amblyopia (988620282) Problem Chronic obstructive pulmonary disease, unspecified (J44.9) Active confirmed Chronic obstructive pulmonary disease (24994217) Problem Moderate persistent asthma, uncomplicated (J45.40) Active confirmed Uncomplicated moderate persistent asthma (782058366) Problem Gastro-esophageal reflux disease without esophagitis (K21.9) Active confirmed Gastro-esophage al reflux disease without esophagitis (432774260) Problem Constipation, unspecified (K59.00) Active confirmed Constipation (64802795) Problem Other intervertebral disc degeneration, 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) Active confirmed Degeneration of thoracolumbar intervertebral disc (98808718) Problem Overactive bladder (N32.81) Active confirmed Overactive bladder (653041515) Problem Personal history of malignant neoplasm of breast (Z85.3) Active confirmed Personal hist ory of primary malignant neoplasm of breast (844472791) Problem Bariatric surgery status (Z98.84) Active confirmed History of bariatric surgical procedure (747200783) Problem Hepatitis C carrier (B18.2) Active confirmed Hepatitis C carrier (787300992) VITAL SIGNS Heart Rate 78 /min 12/25/2023 Temperature 97.6 degrees Fahrenheit 12/25/2023 Oximetry 99 % 12/25/2023 Blood pressure diastolic 76` mm Hg 12/25/2023 Height 62 in 12/25/2023 Blood pressure systolic 100 mm Hg 12/25/2023 Weight 146.1 lbs 12/25/2023 BMI 26.72 kg/m2 12/25/2023 Encounters Encounter Location Date Provider Diagnosis [address] [place] [address] 07/03/[address] [place] [address] 07/25/[address] [place] [address] 12/25/2023 Ghadeer Mazloum Atypical chest pain R07.89 and Shortness of breath R06.[address] [place] [address] 12/31/2022 [facility] Lower abdominal pain , unspecified R10.[address] [place] [address] 02/18/2023 [facility] Hepatitis C carrier B18.2 ; Bariatric surgery status Z98.84 ; Other intervertebral disc degeneration, thoracolumbar region M51.35 and Chronic obstructive pulmonary disease, unspecified J44.[address] [place] [address] 04/03/2023 [facility] Hepatitis C carrier B18.2 ; Generalized anxiety disorder F41.1 ; Major depressive disorder, recurrent, mild F33.0 and Chronic obstructive pulmonary disease, unspecified J44.[address] [address] 08/05/2023 [facility]TI[facility] BARROW Gastro-esophageal reflux disease without esophagitis K21.9 ; Bariatric surgery status Z98.84 ; Hepatitis C carrier B18.2 ; Obstructive sleep apnea (adult) (pediatric) G47.33 ; Chronic obstructive pulmonary disease, unspecified J44.9 and Dermatitis, unspecified L30.[address] [place] [address] 12/31/[address] [place] [address] 03/01/[address] [place] [address] 03/12/[address] [place] [address] 04/03/[address] [place] [address] 10/01/[address] [place] [address] 10/24/[address] [place] [address] 11/15/[address] [place] [address] 12/25/2023 [facility] Encounter Date Diagnosis Assessment Notes Treatment Notes Treatment Clinical Notes 12/31/2022 Lower abdominal pain , unspecified (ICD-10 - R10.30) 02/18/2023 Bariatric surgery status (ICD-10 - Z98.84) 02/18/2023 Hepatitis C carrier (ICD-10 - B18.2) 04/03/2023 Hepatitis C carrier (ICD-10 - B18.2) 08/05/2023 Gastro-esophageal reflux disease without esophagitis (ICD-10 - K21.9) 08/05/2023 Bariatric surgery status (ICD-10 - Z98.84) 12/25/2023 Shortness of breath (ICD-10 - R06.02) 12/25/2023 Atypical chest pain (ICD-10 - R07.89) 08/05/2023 Hepatitis C carrier (ICD-10 - B18.2) 04/03/2023 Generalized anxiety disorder (ICD-10 - F41.1) 02/18/2023 Other intervertebral disc degeneration, thoracolumbar region (ICD-10 - M51.35) 04/03/2023 Major depressive disorder, recurrent, mild (ICD-10 - F33.0) 02/18/2023 Chronic obstructive pulmonary disease, unspecified (ICD-10 - J44.9) 08/05/2023 Obstructive sleep apnea (adult) (pediatric) (ICD-10 - G47.33) 08/05/2023 Chronic obstructive pulmonary disease, unspecified (ICD-10 - J44.9) 04/03/2023 Chronic obstructive pulmonary disease, unspecified (ICD-10 - J44.9) 08/05/2023 Dermatitis, unspecified (ICD-10 - L30.9) PLAN OF TREATMENT Pending Test Test Name Order Date Echocardiogram 12/25/2023 GGTP 10/10/2022 Next Appt Details Provider Name:PRATIBHA BARROW , 02/03/2024 01:00:00 PM, [address] [place] [address], [phone], Insurance Providers Payer Name Payer Address Payer Phone Subscriber Number Group Number Insured Name Patient Relationship to Insured Coverage Start Date Coverage End Date [facility] [address] [place] [address] [id number] Sander Morris Self - patient is the insured MEDICAL (GENERAL) HISTORY Medical History History ICD Code right-sided breast cancer, s /p chemo, radiation and lumpectomy to remove lymphadenopathy by Dr. Jarvis at [facility] Severe persistent asthma and she follows up with Dr. 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 Hensley recurrent UTIs abdominal pain/discomfort nausea anxiety and depression and sees Dr. Chetna sauceda COPD and see Dr Kim trigger finger third and fourth right di gits glaucoma hepatitis C, goes to [facility] KE[facility] Personal history of COVID-19 Surgical History Surgery Date(Month/Year) benign lumpectomy, left breast 2019 back surgery 1998 bariatric surgery, Dr. Barnes 12/2020 glaucoma surgery hiatal hernia repair, Dr. Barnes 12/2022
--- OUTSIDE RECORDS SUMMARY | 2023-12-26 08:37 | XMS_ITS | Continuity of Care Document ---
Author Organization 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 Start Date: [...] 03/25/22 19:20:00 EDT, Route to Pharmacy Electronically, [facility], 163, cm, 02/11/22 19:38:00 EDT, Height, 69.7, [...] 0 Refills, Maintenance, 04/07/22 16:47:00 EDT, ECCapsule, [facility] [phone], Partial fill upon patient request if the prescription is for a schedule II opioid drug., 163,... Start Date: 04/07/22 Status: Ordered ondansetron 4 mg oral tablet, disintegrating 1 tablet = 4 mg, By Mouth, Every 8 hours, PRN as needed for nausea/vomiting, # 14 tablet, 0 Refills, Maintenance, 08/07/21 21:37:00 EST, DIS Tablet, [facility] [phone], Partial fill upon patient request if the [...] tablet, 0 Refills, Maintenance, 08/23/21 3:53:00 EST, [facility] [id number], Partial fill upon patient request if the prescription is for a schedule II opioid drug., 160, cm, 08/23/21 1:3... Start Date: 08/23/21 Stop Date: 08/28/21 Status: Ordered ProAir HFA 90 mcg/inh inhalation aerosol with adapter 2, puffs, Inhalation, 4 times a day, PRN, # 8.5 Gm, Refills 0, Tot. Refills 0, Maintenance, 01/26/22 22:54:00 EDT, Aerosol, Route to Pharmacy Electronically, [id number], [place], [place] - [phone], 163, cm... Start Date: 01/26/22 Status: Ordered [...] Gm, Refills 2, Route to Pharmacy Electronically, [id number], [facility], 160, cm, 05/08/21 12:35:00 EST, Height, 81, kg, 05/08/21 12:35:00 EST, Dry Weight Start Date: 06/26/21 Status: Ordered tamoxifen 20 mg oral tablet 1 tablet = 20 mg, By Mouth, 2 times a day, # 60 tablet, 0 Refills, Maintenance, 01/17/20 11:54:00 EDT, Tablet, [place], [place] -, 163, cm, 12/31/19 11:31:00 EDT, [...] Maintenance, 01/16/2011:54:00 EDT, Route to Pharmacy Electronically, [place], [place] -, 163, cm, 12/31/19 11:31:00 EDT, Height, 94, kg, 05/13/19 16:32:00... Start Date: 01/17/20 Stop Date: 04/16/20 Status: Ordered Ventolin HFA 108 mcg/inh inhalation aerosol with adapter 2 puffs, Inhalation, Every 4 hours, PRN for wheezing, # 2 each, 6 Refills, Maintenance, 01/17/20 11:54:00 EDT, Aerosol, [place], [place] - , 163, cm, 12/31/19 11:31:00 [...] Care Team Personnel Name: Ida Majano Position: [facility] Onco RN Member Role: Primary Care Nurse Name: Lakia Johnson MD Position: [facility] Physician - Primary Care Member Role: PCP Address: Address: [address] [place] [address]- Care Team Related Persons Name: ZANE MORRISON Name: LITO BAKER Address: home [address] [place] [address] Name: JANES DUMONT Address: home [address] [place] [id number]
== END 2023-12-25 23:09 | disposition home or self-care (01) ==
PROVIDERS: Physician Assistant Medical; Emergency Provider Internal Medicine; PCP Hospitalist
DX: R07.9 Chest pain, unspecified (principal); C50.919 Malignant neoplasm of unspecified site of unspecified female breast; Z79.60 Long term (current) use of unspecified immunomodulators and immunosuppressants
CPT/HCPCS: 36415; 71046; 80053; 83690; 83735; 84484; 85025; 85379; 85610; 93005; 99283; 99285

== ENCOUNTER → 2023-12-25 19:14 | Outpatient (BNV) | payer OTHER, SELFPAY | PROVIDERS: Emergency Provider Internal Medicine; PCP Hospitalist; Visit Provider Internal Medicine Cardiovascular Disease | DX: R07.9 Chest pain, unspecified (principal) | CPT/HCPCS: 93010 ==

== ENCOUNTER 2024-03-03 08:25 | Outpatient (REF) | payer OTHER, SELFPAY ==
--- NOTE | ~2024-03-03 | XR_ITS ---
EXAMINATION: XR SHOULDER, LEFT CLINICAL INFORMATION: Left shoulder pain. COMPARISON: None available. TECHNIQUE: AP external rotation, Grashey, scapular Y, and axillary views of the left shoulder. FINDINGS: No acute fracture or dislocation. Moderate acromioclavicular osteoarthritis. Moderate glenohumeral joint space narrowing with small marginal osteophytes. Calcification adjacent to the infraspinatus tendon insertion measuring up to 0.5 cm as well as the subscapularis tendon insertion measuring up to 1.0 cm, consistent with calcific tendinitis. No concerning lytic or blastic osseous lesion. XR/XR shoulder LT min 2V IMPRESSION: 1. Moderate acromioclavicular and mild glenohumeral osteoarthritis. 2. Calcific tendinitis at the subscapularis and infraspinatus tendons insertion. Electronically signed by: Ravi Cuellar MD 03/09/2024 09:29 PM EDT
== END 2024-03-03 08:26 | disposition home or self-care (01) ==
LOC: HO.HOSX 08:25
PROVIDERS: PCP Hospitalist
DX: M25.512 Pain in left shoulder (principal); M75.42 Impingement syndrome of left shoulder; M19.012 Primary osteoarthritis, left shoulder
CPT/HCPCS: 73030; 99202

== ENCOUNTER 2024-03-03 14:37 | Outpatient (AMB) | payer OTHER, SELFPAY ==
--- NOTE | 2024-03-03 14:52 | MHC.OFFVIS ---
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 Patient reports this has been going on for several years and each year it increases in pain and worsens. She expresses different kinds of pain such as sharp, burning, stabbing, it is always different. She has constant pain daily, difficulty with raising her arms above head, reaching behind her back. At night there has been a few times her pains made her wake up. She has tried Tylenol and oxycodone but does not find much relief, the oxycodone made her feel more sick. She has a history of injections in left shoulder, her last being about a month and week ago. She has tried PT but says this did not benefit her. 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 The patient reports that her pain has increased with time. Patient reports pain has several different qualities, including stabbing, aching, burning, and throbbing. The patient also reports significant limitations to her shoulder range of motion, and subsequent loss of functional capacity. The patient does report that she previously had an MRI performed at [facility], although she is unsure of the results. Patient reports that she has tried physical therapy, with minimal relief. Patient denies any numbness or tingling in the left upper extremity. No other acute complaints or concerns at this time. [facility] Medical History HX: breast cancer Surgical History Hx of bariatric surgery Hx of eye surgery History of esophagogastroduodenoscopy (EGD) Social History (Updated 03/03/24 @ 15:26 by CLARISSE Arreaga) Household Members: Family Alcohol intake: never Patient Tobacco Use Status: Never used Tobacco Current occupational status: unemployed Physical Exam Vital Signs: BMI result Body Mass Index 26.6 Extrem Other: On inspection, there is no visible deformity of the left shoulder No erythema, edema, ecchymosis noted No lacerations, abrasions, open areas No evidence of infection Patient reports diffuse tenderness to palpation to the left shoulder, worst on the anterior aspect Patient is able to forward flex the left shoulder to 90 degrees with encouragement, but experiences significant discomfort with this motion Patient is able to externally rotate the left shoulder to approximately 40 degrees, and again experiences significant discomfort with this Negative empty can Negative belly press Negative lift-off Positive Wu on the left Distal sensation intact Capillary refill brisk Results Reviewed Results Reviewed: MRI taken at [facility] and independently reviewed by me, Matt Oconnor PA-C, as well as Dr. Cortez, demonstrates bony changes of the left acromion consistent with impingement syndrome. No fracture or acute bony abnormality noted. No rotator cuff tear noted. Assessment & Plan Assessment & Plan (1) Impingement syndrome of left shoulder: Code(s): M75.42 - Impingement syndrome of left shoulder Category: Medical Plan 1. Impingement syndrome of left shoulder Ongoing for many years Patient was discussed with Dr. Cortez, who was not available to see the patient in clinic with me today, and a collaborative treatment plan was formed: Patient is educated about this condition Patient is educated about the typical recovery course At this time, the patient will be referred to Dr. Cortez for discussion of treatment options for impingement syndrome of left shoulder, namely shoulder arthroscopy Patient is amenable to this plan In the meantime, the patient is advised to continue with conservative pain management measures, such as rest, ice, elevation, and [id number] pain medication as needed Patient will follow-up Dr. Cortez for follow-up of impingement of left shoulder, sooner with any acute concerns Orders: Orders XR shoulder LT min 2V 03/03/24 M25.512 - Pain in left shoulder Coding Level of Care Code New Pt Level 3 (16922) Diagnoses Impingement syndrome of left shoulder M75.42
[2024-03-03 15:21] VITALS: BMI 26.6
== END 2024-03-03 16:07 | disposition home or self-care (01) ==
PROVIDERS: PCP Hospitalist
DX: M75.42 Impingement syndrome of left shoulder (principal)
CPT/HCPCS: 99203

== ENCOUNTER 2024-04-01 14:24 | Outpatient (AMB) | payer OTHER, SELFPAY ==
[2024-04-01 14:25] VITALS: BMI 26.6
--- NOTE | 2024-04-01 14:25 | MHC.OFFVIS ---
Vital Signs 04/01/24 14:25 Height 5 ft 3 in Weight 150 lb BMI 26.6 Intake Visit Reasons: OV-left shoulder pain-Follow up Intake Note: Sander is a 48 year old female who presents with complaints of progressively worsening left shoulder pain as well as neck pain which radiates down her left arm. The patient did have an MRI of her left shoulder at [facility]. The patient states that she also had an MRI of her cervical spine but she is not sure at which facility. The patient describes her neck pain as sharp in nature. At times her pain will radiate down to her left hand. She also reports intermittent weakness in her left arm. She describes her shoulder pain as sharp in nature. Her shoulder pain and neck pain have gotten worse over the last year in spite of continued non operative treatments. She has taken Tylenol, anti-inflammatory medicines and oxycodone which gave her minimal relief. She has also done physical therapy exercises which aggravated her pain. Allergies hydrocodone Allergy (Verified 04/01/24 14:26) Swelling ibuprofen Allergy (Verified 04/01/24 14:26) Swelling Medication List - Last Reconciled 04/01/24 by Dilan Cortez MD acetaminophen (Pain Relief Extra Strength (acetaminophen)) mg PO albuterol sulfate 90 mcg/actuation (Ventolin HFA) inhalation bismuth subsalicylate tabs PO cholecalciferol (vitamin D3) (Vitamin D3) 25 mcg PO DAILY ketoconazole 2% topical lorazepam (Ativan) 1 mg PO BEDTIME PRN melatonin mg PO meloxicam 15 mg PO DAILY ondansetron 4 mg PO DAILY oxybutynin chloride ER 10 mg PO DAILY pediatric multivitamin no.42 (Children's Multivitamin chewable tablet) tabs PO prazosin mg PO prednisone 10 mg PO DAILY simethicone 160 mg PO BID tamoxifen 20 mg PO DAILY topiramate 50 mg PO BID trazodone 200 mg PO BEDTIME PRN venlafaxine ER 300 mg PO DAILY PFSH Medical History HX: breast cancer Surgical History Hx of bariatric surgery Hx of eye surgery History of esophagogastroduodenoscopy (EGD) Social History (Updated 03/03/24 @ 15:26 by CLARISSE Arreaga) Household Members: Family Alcohol intake: never Patient Tobacco Use Status: Never used Tobacco Current occupational status: unemployed Physical Exam Vital Signs: BMI result Body Mass Index 26.6 Const Other: Well-nourished well-developed very friendly female awake alert and oriented x3 in no acute distress Extrem Other: Bilateral upper extremity examination shows good capillary refill, no skin lesions noted, normal sensation light touch Left shoulder examination shows decreased active and passive range of motion when compared to her right shoulder, 4+ out of 5 strength with supraspinatus testing, positive impingement signs, tenderness over her acromioclavicular joint, no instability Results Reviewed Results Reviewed: MRI of the patient's left shoulder show severe acromioclavicular joint narrowing, a type 2 acromion, signal change within the supraspinatus tendon most likely due to adhesive capsulitis Assessment & Plan Assessment & Plan (1) Impingement syndrome of left shoulder: Code(s): M75.42 - Impingement syndrome of left shoulder Category: Medical Plan Ms. Morris presents with progressively worsening neck pain which radiates down her left arm most likely due to cervical stenosis. She also has progressively worsening left shoulder pain due to impingement syndrome, acromioclavicular joint arthritis and adhesive capsulitis. I would like for the patient to get the results of her cervical spine MRI for my review. If she does have significant stenosis or a disc herniation I will refer her to the neurosurgery department for further evaluation. Following that appointment we will further discuss the treatment options for her left shoulder. She will continue with the [id number] exercises in the meantime to prevent stiffness. Feel free to call me at any time should questions regarding her orthopedic management arise. I spent 22 minutes in reviewing the patient's records and imaging studies, seeing the patient and documenting in the medical record. Coding Level of Care Code Est Pt Level 3 (08681) Complex EM visit Add On G2211 Diagnoses Impingement syndrome of left shoulder M75.42
== END 2024-04-01 14:48 | disposition home or self-care (01) ==
PROVIDERS: PCP Hospitalist; Visit Provider Orthopaedic Surgery
DX: M75.42 Impingement syndrome of left shoulder (principal)
CPT/HCPCS: 99213; G2211

== ENCOUNTER → 2024-04-01 14:24 | Outpatient (BNVA) | payer OTHER, SELFPAY | PROVIDERS: PCP Hospitalist; Visit Provider Orthopaedic Surgery | DX: M75.42 Impingement syndrome of left shoulder (principal) | CPT/HCPCS: 99212 ==

== ENCOUNTER 2025-01-27 16:29 | Emergency (ER) | payer OTHER, SELFPAY ==
--- NOTE | ~2025-01-27 | XR_ITS ---
CLINICAL HISTORY: pain Abdomen X-ray, 1 View COMPARISON: None provided FINDINGS: Nonobstructive bowel gas pattern. No visible free air. No acute fracture. IMPRESSION: No acute findings. This document has been electronically signed by: Tolu Lundberg MD on 01/27/2025 20:58:36
--- NOTE | ~2025-01-27 | US_ITS ---
CLINICAL HISTORY: RUQ pain --- Additional Notes or Special Instructions: GB and CBD please US Abdomen Limited, Right Upper Quadrant COMPARISON: None provided FINDINGS: Contracted gallbladder. No cholelithiasis. No gallbladder wall thickening. No pericholecystic fluid. No bile duct dilation. Common bile duct measures 4 mm in diameter. IMPRESSION: No acute findings. This document has been electronically signed by: Tolu Lundberg MD on 01/27/2025 19:13:02
--- NOTE | ~2025-01-27 | XR_ITS ---
CLINICAL HISTORY: cough Chest X-ray, 2 Views COMPARISON: None provided FINDINGS: No consolidation. Mild right lower lung atelectasis. No pleural effusion. No pneumothorax. No cardiomegaly. No acute fracture. IMPRESSION: No acute findings. This document has been electronically signed by: Tolu Lundberg MD on 01/27/2025 18:52:56
[2025-01-27 17:25] VITALS: BP 116/68; PULSE 77; RESP 16; TEMP 36.7; O2SAT 99; BMI 26.7
--- NOTE | 2025-01-27 17:25 | ED.GENADULT ---
HPI - General Adult General Chief complaint: Abdominal Pain Stated complaint: sick for 2 days, unable to eat/drink Time Seen by Provider: 01/27/25 19:55 Source: patient Limitations: language barrier History of Present Illness ED Provider: Vanessa Wayne PA-C HPI narrative: 49-year-old female with a history of prior H pylori, hepatitis-C, presents with right upper quadrant pain nausea vomiting x2 days. Denies sick contacts with similar symptoms. Denies postprandial symptoms. She states she has been unable to tolerate any oral intake, including water. No fevers. No diarrhea. Related Data Home Medications ?Medication ?Instructions ?Recorded ?Confirmed acetaminophen 500 mg tablet (Pain mg PO 03/12/23 04/01/24 Relief Extra Strength (acetaminophen)) albuterol sulfate 90 mcg/actuation inhalation 03/12/23 04/01/24 aerosol inhaler (Ventolin HFA) bismuth subsalicylate 262 mg tab PO 03/12/23 04/01/24 chewable tablet cholecalciferol (vitamin D3) 25 25 mcg PO DAILY 03/12/23 04/01/24 mcg (1,000 unit) capsule (Vitamin D3) ketoconazole 2 % shampoo topical 03/12/23 04/01/24 melatonin 5 mg tablet mg PO 03/12/23 04/01/24 meloxicam 15 mg tablet 15 mg PO DAILY 03/12/23 04/01/24 ondansetron 4 mg disintegrating 4 mg PO DAILY 03/12/23 04/01/24 tablet oxybutynin chloride 10 mg 10 mg PO DAILY 03/12/23 04/01/24 tablet,extended release 24 hr pediatric multivitamin no.42 tab PO 03/12/23 04/01/24 (Children's Multivitamin chewable tablet) prazosin 2 mg capsule mg PO 03/12/23 04/01/24 prednisone 10 mg tablet 10 mg PO DAILY 03/12/23 04/01/24 simethicone 80 mg chewable tablet 160 mg PO BID 03/12/23 04/01/24 tamoxifen 20 mg tablet 20 mg PO DAILY 03/12/23 04/01/24 topiramate 50 mg tablet 50 mg PO BID 03/12/23 04/01/24 trazodone 100 mg tablet 200 mg PO BEDTIME PRN 03/12/23 04/01/24 venlafaxine 150 mg 300 mg PO DAILY 03/12/23 04/01/24 capsule,extended release 24 hr Previous Rx's ?Medication ?Instructions ?Recorded lorazepam 1 mg tablet (Ativan) 1 mg PO BEDTIME PRN anxiety/sleep 12/25/23 #14 tabs sucralfate 100 mg/mL oral 10 ml PO QID PRN dyspepsia #300 mL 01/27/25 suspension (Carafate) Allergies Allergy/AdvReac Type Severity Reaction Status Date / Time hydrocodone Allergy Swelling Verified 01/27/25 17:30 ibuprofen Allergy Swelling Verified 01/27/25 17:30 Review of Systems Review of Systems: Yes all other systems are reviewed and are negative Constitutional: Constitutional: Denies fatigue and Denies fever(s) Cardiovascular: Cardiovascular: Denies chest pain and Denies dyspnea Respiratory: Respiratory: Denies dyspnea Gastrointestinal: Gastrointestinal: Reports abdominal pain, Denies diarrhea, Reports nausea and Reports vomiting Endocrine: Endocrine: Denies fatigue PMF Past Medical History Attestation statement: The following information was validated with the patient. Medical History HX: breast cancer Surgical History Hx of bariatric surgery Hx of eye surgery History of esophagogastroduodenoscopy (EGD) Social History Social History (Updated 03/03/24 @ 15:26 by CLARISSE Arreaga) Household Members: Family Alcohol intake: never Patient Tobacco Use Status: Never used Tobacco Advance Directives: No Advance Directives Information Provided: Yes Current occupational status: unemployed Physical Exam ED Vital Signs: Vital Signs - 24 hr 01/27/25 17:25 01/27/25 19:38 Temperature 98.1 F 98.3 F Pulse Rate 77 63 Respiratory Rate 16 16 Blood Pressure 116/68 100/66 Pulse Oximetry 99 99 Oxygen Delivery Method Room Air Room Air BMI result Body Mass Index 26.7 Const Other: Alert well-appearing, sitting up in bed eating chips Orientation/consciousness: patient oriented x3 Resp Effort & Inspection: normal respiratory effort Cardio Other: Normal peripheral perfusion GI Other: With distraction, abdomen is soft, nontender no guarding nondistended Skin Other: Warm dry no rash Neuro General: patient oriented x3, gait normal, no focal motor deficits and CN's II-XI intact bilaterally Psych Other: Cooperative Course Course Course Narrative: RME, this is a rapid medical exam performed by Kyaw Corbett please refer to primary provider for complete H&P- 49 year old female presents for evaluation of right upper abdominal pain, cough, weakness, and comiting for the last 2 days. She reports a history of hepatitis c. She also complains of shortness of breath and palpitations. Plan for labs, viral swabs, ultrasound of the gallbladder and chest x-ray Medications Administered Discontinued Medications Generic Name Dose Route Start Last Admin Trade Name Freq PRN Reason Stop Dose Admin Sodium Chloride 1,000 mls @ 999 mls/hr 01/27/25 22:00 01/27/25 22:16 Ns IV 01/27/25 23:00 Not Given .Q1H1M KIA Ondansetron HCl 4 mg 01/27/25 21:46 01/27/25 22:15 Ondansetron Hcl 4 Mg/2 Ml Vial IVPUSH 01/27/25 21:47 Not Given ONCE ONE Sucralfate 1 gm 01/27/25 21:46 01/27/25 22:13 Sucralfate Oral Suspension 1 Gm/10 Ml Oral.Susp PO 01/27/25 21:47 1 gm ONCE ONE Administration Medical Decision Making Medical Decision Making [facility] Narrative: 49-year-old female with a history of prior H pylori, hepatitis-C, presents with right upper quadrant pain nausea vomiting x2 days. Denies sick contacts with similar symptoms. Denies postprandial symptoms. She states she has been unable to tolerate any oral intake, including water. No fevers. No diarrhea. Is ago problem: Hep C, H pylori History: Per patient I have considered the following differential diagnoses: Biliary colic, cholecystitis, gastritis, recurrence of H pylori, viral gastroenteritis Plan: Screening labs including an ultrasound of the right upper quadrant were already obtained from triage, everything is negative. I had ordered a KUB, that was normal as well there was no constipation. When I walked into the exam room, the patient was actively eating a bag of chips. I told her I guess her symptoms had improved, she still insists that she is having discomfort and cannot tolerate oral intake. I reviewed all findings with the patient, I again brought up the fact that she is actively eating, and that her assessment was essentially negative. I also discussed with her that she may have recurrence of her H pylori, that this can happen, that she may require additional diagnostics by her box feeder, and further medications. The patient now relays that she has a follow up appointment this morning with her box feeder. I am discharging now. I have independently reviewed the following tests: Labs: No leukocytosis, not anemic, no electrolyte abnormality, not KUB: FINDINGS: Nonobstructive bowel gas pattern. No visible free air. No acute fracture. IMPRESSION: No acute findings. Ultrasound right upper quadrant:FINDINGS: Contracted gallbladder. No cholelithiasis. No gallbladder wall thickening. No pericholecystic fluid. No bile duct dilation. Common bile duct measures 4 mm in diameter. IMPRESSION: No acute findings. Lab Data 01/27/25 17:50 01/27/25 17:50 Labs: Lab Results 01/27/25 01/27/25 Range/Units 17:50 18:37 WBC 7.6 (4.8-10.8) X10*3/uL RBC 4.50 (4.20-5.50) X10*6/uL Hgb 12.2 (12.0-16.0) g/dl Hct 36.8 L (37.0-47.0) % MCV 81.8 (80.0-98.0) fL MCH 27.1 (27.0-33.0) pg MCHC 33.2 (31.0-35.0) g/dl RDW 13.9 (11.0-16.0) % Plt Count 224 (160-400) X10*3/uL MPV 9.8 (9.4-12.3) fL Immature Gran % (Auto) 0.1 (0.0-0.4) % Neut % (Auto) 48.4 (45-73) % Lymph % (Auto) 40.1 H (20-40) % [place] % (Auto) 6.5 (2-11) % Eos % (Auto) 4.5 H (0-4) % Baso % (Auto) 0.4 (0-2) % Lymph # (Auto) 3.0 (1.2-4.9) X10*3/uL [place] # (Auto) 0.5 (0.1-1.2) X10*3/uL Eos # (Auto) 0.3 (0.0-0.4) X10*3/uL Baso # (Auto) 0.0 (0.0-0.2) X10*3/uL Abs Immat Gran (auto) 0.01 (0.00-0.03) X10*3/uL Absolute Neuts (auto) 3.7 (2.0-8.3) x10*3/uL Absolute Nucleated RBC 0.000 (0.0-0.012) X10*3/uL Nucleated RBC % (auto) 0.0 (0.0-0.2) /100WBC Sodium 141 (135-145) mmol/L Potassium 4.3 (3.3-5.1) mmol/L Chloride 109 H (96-108) mmol/L Carbon Dioxide 25 (22-29) mmol/L Anion Gap 11 L (12-20) BUN 14 (9-16) mg/dL Creatinine 0.69 (0.5-1.4) mg/dL Estim Creat Clear Calc 89.4 Estimated GFR > 60 Random Glucose 98 (60-115) mg/dL Calcium 8.9 (8.4-10.2) mg/dL Total Bilirubin 0.1 (0.0-1.0) mg/dL AST 21 (5-31) U/L ALT 17 (0-31) U/L Alkaline Phosphatase 117 (39-117) U/L Total Protein 7.4 (6.5-8.0) g/dL Albumin 4.0 (3.5-5.0) g/dL Lipase 59 (8-78) U/L Beta HCG, Quant < 2 mIU/mL Urine Color Yellow Urine Appearance Clear Urine pH 7.5 (5.0-9.0) Ur Specific Notus 1.020 (1.005-1.025) Urine Protein Negative (Neg-Trace) mg/dL Urine Glucose (UA) Negative (Negative) mg/dL Urine Ketones Negative (Negative) mg/dL Urine Blood Negative (Negative) Urine Nitrite Negative (Negative) Ur Leukocyte Esterase Negative (Negative) Urine RBC 0-2 (0-2) /HPF Urine WBC 0-5 (0-5) /HPF Ur Squamous Epith Cells 0-2 (0-2) /HPF Urine Bacteria None Seen (None Seen) Hyaline Casts 0-2 (0-2) /LPF Influenza Type A (PCR) NEGATIVE (Negative) Influenza Type B (PCR) NEGATIVE (Negative) RSV RNA Qual (PCR) NEGATIVE (Negative) SARS-CoV-2 RNA (RT-PCR) NEGATIVE (Negative) S. pyogenes GrpA ALYCE Negative (Negative) Discharge Plan Discharge Clinical Impression: Acute epigastric pain Patient Disposition: Home, Self-Care Instructions: GERD (Gastroesophageal Reflux Disease) (ED), Epigastric Pain (ED) Additional Instructions: All of your screening labs were completely normal. The ultrasound of your upper abdomen was normal as well. There were no acute findings on the x-ray. Keep your pending follow up with your box feeder for tomorrow. Use the Carafate as needed for upper abdominal discomfort. Prescriptions: New sucralfate [Carafate] 100 mg/mL suspension 10 ml PO QID PRN (Reason: dyspepsia) Qty: 300 0RF Rx Instructions: swish in mouth and swallow; use after food/drink No Action lorazepam [Ativan] 1 mg tablet 1 mg PO BEDTIME PRN (Reason: anxiety/sleep) Qty: 14 0RF Children's Multivitamin Tablet,Chewable PO albuterol sulfate [Ventolin HFA] 90 mcg/actuation HFA aerosol inhaler inhalation melatonin 5 mg tablet PO cholecalciferol (vitamin D3) [Vitamin D3] 25 mcg (1,000 unit) capsule 25 mcg PO DAILY prazosin 2 mg capsule PO tamoxifen 20 mg tablet 20 mg PO DAILY ondansetron 4 mg tablet,disintegrating 4 mg PO DAILY topiramate 50 mg tablet 50 mg PO BID simethicone 80 mg tablet,chewable 160 mg PO BID venlafaxine 150 mg capsule,extended release 24hr 300 mg PO DAILY ketoconazole 2 % shampoo topical prednisone 10 mg tablet 10 mg PO DAILY bismuth subsalicylate 262 mg tablet,chewable PO oxybutynin chloride 10 mg tablet extended release 24hr 10 mg PO DAILY acetaminophen [Pain Relief ES (acetaminophen)] 500 mg tablet PO trazodone 100 mg tablet 200 mg PO BEDTIME PRN meloxicam 15 mg tablet 15 mg PO DAILY Interventions: ED Discharge Assessment Last Done: 01/27/25 22:28 Discharge Date/Time: 01/27/25 22:29 Print Language: Setswana
--- NOTE | 2025-01-27 17:28 | ECG_ITS ---
Test Reason : palpitations Blood Pressure : */* mmHG Vent. Rate : 70 BPM Atrial Rate : 70 BPM P-R Int : 150 ms QRS Dur : 74 ms QT Int : 390 ms P-R-T Axes : 60 38 52 degrees QTcB Int : 421 ms Normal sinus rhythm Normal ECG When compared with ECG of 25-Dec-2023 19:14, No significant change was found Referred By: Todd Corbett Electronically Signed By: CHRIS MACHADO MD
[2025-01-27 17:55] LABS: Hematocrit 36.8 % (37.0-47.0); Hemoglobin 12.2 g/dl (12.0-16.0); Imm Gran Abs Auto 0.01 X10*3/uL (0.00-0.03); Imm Gran Pct Auto 0.1 % (0.0-0.4); Lymphocytes Absolute Auto 3.0 X10*3/uL (1.2-4.9); MANUAL DIFF FLAG NO; Mean Corpuscular HGB Conc 33.2 g/dl (31.0-35.0); Mean Corpuscular Hemoglobin 27.1 pg (27.0-33.0); Mean Corpuscular Volume 81.8 fL (80.0-98.0); NRBC Abs Auto 0.000 X10*3/uL (0.0-0.012); NRBC Pct Auto 0.0 /100WBC (0.0-0.2); Platelet Count 224 X10*3/uL (160-400); Red Blood Count 4.50 X10*6/uL (4.20-5.50); White Blood Count 7.6 X10*3/uL (4.8-10.8)
[2025-01-27 18:03] LABS: IDNOW Serial# 55D5AD1C; Strep A Nucleic Acid Negative (Negative)
[2025-01-27 18:15] LABS: Alanine Aminotransferase 17 U/L (0-31); Albumin Level 4.0 g/dL (3.5-5.0); Alkaline Phosphatase 117 U/L (39-117); Anion Gap 11 (12-20); Aspartate Amino Transferase 21 U/L (5-31); Blood Urea Nitrogen 14 mg/dL (9-16); Calcium 8.9 mg/dL (8.4-10.2); Carbon Dioxide 25 mmol/L (22-29); Chloride 109 mmol/L (96-108); Creatinine Clr Calc Pharmacy 89.4; Estimated Glomerular Filt Rate > 60; Lipase 59 U/L (8-78); Potassium 4.3 mmol/L (3.3-5.1); Sodium 141 mmol/L (135-145); Total Protein 7.4 g/dL (6.5-8.0)
--- OUTSIDE RECORDS SUMMARY | 2025-01-27 18:18 | XMS_ITS | Clinical Summary ---
Author Organization [facility] Address [address] [place] [phone] Phone Care Team Providers Care Metal Painter Name Role Phone Self-Referred, Patient Unavailable Unavailab Elma Perez MD, MPH Unavailable [phone] Carmella Pizarro MD Unavailable Rafita Henson PATIENT COORDINATOR FRONT DESK Unavailable Lakia Johnson MD Primary Care Provider Allergies Active Allergy Reactions Criticality Noted Date Comments Cortisone Unknown 02/12/2023 Pt also stated with IV she gets swollen all over and HR goes lowpt stated she can take the oral tablets, but when given IV gets itchy Hydrocortisone Rash,Swelling Low 02/12/2023 Ibuprofen Shortness Of Breath High 04/30/2019 Methylprednisolone Rash,Itching Medium 01/14/2017 Allergy to injected solumedrol. Allergy to injected solumedrol. Allergy to injected solumedrol. Patient with allergic reaction to medication today 12/02/2018 Nsaids (Non-Steroidal Anti-Inflammatory Drug) 03/17/2014 Voltaren, per pt rec this med, and got significantly worse requiring hospitalization Voltaren, per pt rec this med, and got significantly worse requiring hospitalization Medications PROAIR HFA 90 mcg/actuation inhaler Inhale 2 puffs into the lungs every 4 (four) hours as needed. 5 04/21/2019 Active gabapentin (NEURONTIN) 300 MG capsule Take 300-600 mg by mouth 3 (three) times a day. 2 04/27/2019 Active meloxicam (MOBIC) 7.5 MG tablet Take 7.5 mg by mouth daily. 1 03/17/2019 Active montelukast (SINGULAIR) 10 mg tablet Take 10 mg by mouth nightly at bedtime. 5 04/27/2019 Active prazosin (MINIPRESS) 1 MG capsule Take 1 mg by mouth nightly at bedtime. 1 03/31/2019 Active theophylline (THEODUR) 300 mg 12 hr tablet Take 300 mg by mouth 2 (two) times a day. 2 04/21/2019 Active topiramate (TOPAMAX) 25 MG tablet Take 25 mg by mouth 2 (two) times a day. 2 04/27/2019 Active traZODone (DESYREL) 100 MG tablet Take 100 mg by mouth nightly at bedtime. 1 03/31/2019 Active venlafaxine (EFFEXOR-XR) 150 MG 24 hr capsule Take 150 mg by mouth daily. 1 03/31/2019 Active budesonide-form oterol (SYMBICORT) 80-4.5 mcg/actuation inhaler Inhale 2 puffs into the lungs 2 (two) times a day. Active tiotropium (SPIRIVA HANDIHALER) 18 mcg inhalation capsule Inhale 18 mcg into the lungs daily. Active tamoxifen (NOLVADEX) 20 MG tablet Take 20 mg by mouth 2 (two) times a day. Active zolpidem (AMBIEN) 10 mg tablet Take 10 mg by mouth nightly at bedtime as needed for sleep. Active ondansetron (ZOFRAN) 4 MG tablet Take 4 mg by mouth every 8 (eight) hours as needed for nausea. Active acetaminophen (TYLENOL) 500 MG tablet Take 500 mg by mouth every 6 (six) hours as needed for pain (specific location in comments). Active pantoprazole (PROTONIX) 40 MG tablet Take 40 mg by mouth daily. Active predniSONE (DELTASONE) 10 MG tablet Take 10 mg by mouth daily with breakfast. Active sucralfate (CARAFATE) 1 gram tablet 1 g 4 (four) times a day. Active simethicone (MYLICON) 80 mg chewable tablet Take 80 mg by mouth every 6 (six) hours as needed for flatulence. Active VITAMIN D3 25 mcg (1,000 unit) capsule Take 1 capsule by mouth every morning. 11/28/2022 Active oxyBUTYnin (DITROPAN-XL) 10 MG 24 hr tablet Take 1 tablet by mouth every morning. 01/16/2023 Active oxyCODONE HCl 10 mg Tab Take 1 tablet by mouth every morning. 01/31/2023 Active polyethylene glycol (MIRALAX) 17 gram packet 01/04/2023 Active ursodioL (ACTIGALL) 300 mg capsule Take 600 mg by mouth daily. 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 Not on justina e 10/26/2022 Are you concerned about learning? Not on file 10/26/2022 No 10/26/2022 No 10/26/2022 Digital Access Answer Date Recorded No 11/24/2022 No 11/24/2022 Reliable internet access at home? Not on file 11/24/2022 Device with a working camera? Not on file Comments Unknown Sex and Gender Information Value Date Recorded Sex Assigned at Not on file Legal Sex Female 5:14 PM EDT Gender Identity Not on file Sexual Orientation Not on file Last Filed Vital Signs Vital Sign Reading Time Taken Comments Blood Pressure 104/70 02/12/2023 1:30 PM EDT Pulse 82 02/12/2023 1:30 PM EDT Temperature 37.3 C (99.1 F) 05/18/2020 1:48 PM EST Respiratory Rate 16 05/18/2020 1:48 PM EST Oxygen Saturation 96% 05/18/2020 1:48 PM EST Inhaled Oxygen Concentration - - Weight 74 kg (163 lb 3.2 oz) 02/12/2023 1:30 PM EDT Height 156.2 cm (5' 1.5 ) 02/12/2023 1:30 PM EDT Body Mass Index 30.34 02/12/2023 1:30 PM EDT Plan of Treatment Health Maintenance Due Date Last Done Comments LIPID PANEL 1973 DEPRESSION SCREENING 1985 SMOKING Hx and SMOKELESS TOBACCO SCREENING 1986 HEPATITIS C SCREENING 1991 HIV ONE-TIME SCREENING (18-65 YEARS) 1991 ZOSTER VACCINES (1 of 2) 1992 PAP SMEAR 1994 SCREENING FOR DIABETES 2008 PNEUMOCOCCAL VACCINES (50+ years) (3 of 3 - PCV) 06/25/2015 06/25/2014, 05/20/2014 COLOGUARD 2018 COLONOSCOPY 2018 COLORECTAL CANCER SCREENING 2018 FIT TEST 2018 FOBT 2018 SIGMOIDOSCOPY 2018 VIRTUAL COLONOSCOPY 2018 MAMMOGRAM 07/28/2021 07/28/2019, 05/03, 04/29/2018, Additional history exists Adult Td,Tdap Booster 02/10/2024 02/09/2014, 014 COVID-19 VACCINE ( season) 2024 11/17/2020, 10/27/2020 HEPATITIS A VACCINES Aged Out No long er eligible based on patient's age to complete this topic HIB VACCINES Aged Out No longer eligi ble based on patient's age to complete this topic MENINGOCOCCAL VACCINES (ACWY) Aged Out No longer eligible based on patient's age to complete this topic MENINGOCOCCAL VACCINES (B) Aged Out N o longer eligible based on patient's age to complete this topic Medical Devices Not on file Procedures Procedure Name Priority Date/Time Associated Diagnosis Comments BI MAMMOGRAM OUTSIDE (NO INTERPRETATION) Routine 05/30/2018 12:00 AM EST from Last 3 Months or Most Recently Relevant to Health Maintenance Results * Mammogram Outside (No Interpretation) (05/30/2018 12:00 AM EST) Other Narrative ABBY - 04/29/2019 4:25 PM EDT This study is for PACS storage only and not for interpretation. us Elma Kim MD, MPH IMG OUTSIDE IMAGING W/OUT I NTERPRETATION Final Result ROJAS_TOANH from Last 3 Months or Most Recently Relevant to Health Maintenance Insurance [employer] [facility] [employer]HER [employer] [place] [address] [place] [address] MCO Care Teams Metal Painter Relationship Specialty Start Date End Date Lakia Johnson MD [address] [place] [phone] PCP - General Internal Medicine 02/12/23 Self-Referred, Patient 03/10/19 Elma Kim MD, MPH [address] [place] [address] [email or web address] 04/29/19 Carmella Pizarro MD [address] [place] [id number] [email or web address] Medicine 04/30/19 Rafita Henson NP [address] [place] [phone] [email or web address] Oncology 05/18/20 Additional Source Comments The information contained in this document represents components of the legal health record. It is not the complete legal health record.[facility]
--- OUTSIDE RECORDS SUMMARY | 2025-01-27 18:18 | XMS_ITS | Encounter Summary ---
Author Organization [facility] Address [address] [place] [address] Care Team Providers Care Manager Pricing Name Role Phone No, Pcp (Do Not Change Name) Primary Care Provid er Unavailable Encounter Details Date Type Department Care Team (Late st Contact Info) Description 12/28/2014 Transcribed Orders [facility] [address] [place], [place] [id number] Graham Gallardo MD [address] [place] [phone] Asthma, severe (Primary Dx) Social History Tobacco Use Types Packs/Day Years Used Date Smoking Tobacco: Former Cigarettes 1 20 0 12/28/1993 - 12/28/2013 Alcohol Use Standard Drinks/Week Comments Not Asked 0 (1 standard drink = 0.6 oz pur e alcohol) Comments Unknown Sex and Gender Information Value Date Recorded Sex Assigned at Not on file Legal Sex Female 1:10 PM EDT Gender Identity Not on file Sexual Orientation Not on file documented as of this encounter Plan of Treatment Not on file documented as of this encounter Results * ANCA screen, with reflex to titer (GH Q YH) (12/28/2014 4:39 PM EDT) ANCA Screen Negative Negative [facility] Comment: ANCA Screen includes evaluation for p-ANCA, c-ANCA, and atypical p-ANCA. Blood specimen (specimen) 12/28/2014 4:39 PM EDT us Graham Gallardo MD LAB BLOOD ORDERABLES Final R esult [facility] [address] [place] [phone] documented in this encounter Visit Diagnoses Diagnosis Asthma, severe (HC CODE)- Primary Unspecified asthma documented in this encounter Care Teams Manager Pricing Relationship Specialty Start Date End Date No, Pcp (Do Not Change Name) PCP - General 04/12/17 documented as of this encounter
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
--- OUTSIDE RECORDS SUMMARY | 2025-01-27 18:18 | XMS_ITS | Clinical Summary ---
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 HEMETOLOGY METHOD 12/08/2024 2:15 PM EDT [facility] Hematocrit 38.9 35.0 - 47.0 % LAB HEMETOLOGY METHOD 12/08/2024 2:15 PM EDT [facility] MCV 86.3 79.0 - 98.0 FL LAB HEMETOLOGY METHOD 12/08/2024 2:15 PM T [facility] MCH 27.1 27.0 - 32.0 pcg LAB HEMETOLOGY METHOD 12/08/2024 2:15 PM [facility] MCHC 31.4(L) 32.0 - 37.0 g/dL LAB HEMETOLOGY METHOD 12/08/2024 2:15 PM [facility] RDW 14.6 11.0 - 15.0 % LAB HEMETOLOGY METHOD 12/08/2024 2:15 PM [facility] Platelets 235 130 - 400 K/mcL LAB HEMETOLOGY METHOD 12/08/2024 2:15 PM [facility] MPV 10.9 7.0 - 11.0 FL LAB HEMETOLOGY METHOD 12/08/2024 2:15 PM [facility] NRBC 0.0 <1.0 % LAB HEMETOLOGY METHOD 12/08/2024 2:15 PM T [facility] NRBC Absolute 0.00 <0.10 K/mcL LAB HEMETOLOGY METHOD 12/08/2024 2:15 PM [facility] Neutrophils Relative 41.0 % LAB HEMETOLOGY METHOD 12/08/2024 2:15 PM [facility] Lymphocytes Relative 45.4 % LAB HEMETOLOGY METHOD 12/08/2024 2:15 PM [facility] Monocytes Relative 8.1 % LAB HEMETOLOGY METHOD 12/08/2024 2:15 PM EDT [facility] Eosinophils Relative 4.8 % LAB HEMETOLOGY METHOD 12/08/2024 2:15 PM EDT [facility] Basophils Relative 0.5 % LAB HEMETOLOGY METHOD 12/08/2024 2:15 PM EDT [facility] Immature Granulocytes Relative 0.2 % LAB HEMETOLOGY METHOD 12/08/2024 2:15 PM EDT [facility] Neutrophils Absolute 2.29 1.50 - 7.00 K/mcL LAB HEMETOLOGY METHOD 12/08/2024 2:15 PM EDT [facility] Lymphocytes Absolute 2.54 1.00 - 5.00 K/mcL LAB HEMETOLOGY METHOD 12/08/2024 2:15 PM EDT [facility] Monocytes Absolute 0.45 0.20 - 1.00 K/mcL LAB HEMETOLOGY METHOD 12/08/2024 2:15 PM EDT [facility] Eosinophils Absolute 0.27 0.00 - 0.50 K/mcL LAB HEMETOLOGY METHOD 12/08/2024 2:15 PM EDT [facility] Basophils Absolute 0.03 0.00 - 0.20 K/mcL LAB HEMETOLOGY METHOD 12/08/2024 2:15 PM EDT [facility] Immature Granulocytes Absolute 0.01 0.00 - 0.03 K/mcL LAB HEMETOLOGY METHOD 12/08/2024 2:15 PM EDT [facility] Blood Venous blood specimen / Unknown Venipuncture / Unknown 12/08/2024 1:01 PM EDT 12/08/2024 1:01 PM EDT us Soco Yang MD LAB BLOOD ORDERABLES Dinah winn Result [facility] [address] [place] [address], * Copper, serum (12/03/2024 2:13 PM EDT) Copper 1395 810 - 1990 ug/L 12/08/2024 1:49 PM EDT [facility] Comment: Copper values may be elevated to twice the normal levels in . Elevated results may be due to sample collected in a non-certified trace element-free tube. This test was developed and the performance characteristics determined by [facility]. It has not been cleared or approved by the FDA. The laboratory is regulated under CLIA as qualified to perform high-complexity testing. This test is used for patient testing purposes. It should not be regarded as investigational or for research. Test performed at [facility], [address] , [place] [address] Rosa M Llanes MD, PhD - Auto Striper Blood Venous blood specimen / Unknown Venipuncture / Unknown 12/03/2024 2:13 PM EDT 12/03/2024 2:13 PM EDT Shahla Barnes MD LAB BLOOD ORDERABLES Final R esult [facility] [address], [place] [phone] * (ABNORMAL) Zinc (12/03/2024 2:13 PM EDT) Zinc 53(L) 60 - 130 ug/dL 12/07/2024 10:42 AM EDT [facility] Comment: Elevated results may be due to sample collected in a non-certified trace element-free tube. This test was developed and the performance characteristics determined by [facility]. It has not been cleared or approved by the FDA. The laboratory is regulated under CLIA as qualified to perform high-complexity testing. This test is used for patient testing purposes. It should not be regarded as investigational or for research. Test performed at [facility], [address] , [place], [place] [id number] Rosa M Llanes MD, PhD - Auto Striper Blood Venous blood specimen / Unknown Venipuncture / Unknown 12/03/2024 2:13 PM EDT 12/03/2024 2:13 PM EDT Shahla Barnes MD LAB BLOOD ORDERABLES Final R esult Performing Organization Address [facility] Co de Phone Number [facility] [address] [place] [address] * Vitamin A (12/03/2024 2:13 PM EDT) Vitamin A 38 38 - 106 ug/dL 12/09/2024 6:18 AM EDT [facility] Comment: This test was developed and the performance characteristics determined by [facility]. It has not been cleared or approved by the FDA. The laboratory is regulated under CLIA as qualified to perform high-complexity testing. This test is used for patient testing purposes. It should not be regarded as investigational or for research. Test performed at [facility], [address] , [place] [address] Rosa M Llanes MD, PhD - Auto Striper Blood Venous blood specimen / Unknown Venipuncture / Unknown 12/03/2024 2:13 PM EDT 12/03/2024 2:13 PM EDT Shahla Barnes MD LAB BLOOD ORDERABLES Final R esult Performing Organization Address [facility] Co de Phone Number [facility] [address] [place] [address] * Selenium serum (12/03/2024 2:13 PM EDT) Selenium 118 63 - 160 mcg/L 12/09/2024 8:22 PM EDT [facility] Comment: This test was developed and its analytical performance characteristics have been determined by [facility] [place], [place]. It has not been cleared or approved by the U.S. Food and Drug Administration. This assay has been validated pursuant to the CLIA regulations and is used for clinical purposes. Test Performed by [facility], [address] [place], [place] Reilly Martinez M.D., Ph.D., Director of Laboratories , CLIA [id number] Blood Venous blood specimen / Unknown Venipuncture / Unknown 12/03/2024 2:13 PM EDT 12/03/2024 2:13 PM EDT us Shahla Barnes MD LAB BLOOD ORDERABLES Final R esult [facility] [address] [place] [address] * Vitamin B1 (12/03/2024 2:13 PM EDT) Vitamin B1 Whole Blood 48 38 - 122 ug/L 12/09/2024 12:02 PM EDT [facility] Comment: This test was developed and the performance characteristics determined by [facility]. It has not been cleared or approved by the FDA. The laboratory is regulated under CLIA as qualified to perform high-complexity testing. This test is used for patient testing purposes. It should not be regarded as investigational or for research. Test performed at [facility], [address] [place] [address] Rosa M Llanes MD, PhD - Auto Striper Blood Venous blood specimen / Unknown Venipuncture / Unknown 12/03/2024 2:13 PM EDT 12/03/2024 2:13 PM EDT us Shahla Barnes MD LAB BLOOD ORDERABLES Final R esult [facility] [address] [place] [address] * Vitamin B6 (12/03/2024 2:13 PM EDT) Vitamin B6 (Pyridoxine) Level 7 5 - 50 ug/L 12/08/2024 12:15 PM EDT [facility] Comment: This test was developed and the performance characteristics determined by [facility]. It has not been cleared or approved by the FDA. The laboratory is regulated under CLIA as qualified to perform high-complexity testing. This test is used for patient testing purposes. It should not be regarded as investigational or for research. Test performed at [facility], [address] , [place] [address] Rosa M Llanes MD, PhD - Auto Striper Blood Venous blood specimen / Unknown Venipuncture / Unknown 12/03/2024 2:13 PM EDT 12/03/2024 2:13 PM EDT Shahla Barnes MD LAB BLOOD ORDERABLES Final R esult Performing Organization Address City/[facility]/ZIP Co de Phone Number [facility] [address] [place] [address] * Parathyroid hormone intact (12/03/2024 2:13 PM EDT) PTH 63.0 18.5 - 88.0 pcg/mL LAB CHEMISTRY METHOD 12/03/2024 7:20 PM EDT [facility] Blood Venous blood specimen / Unknown Venipuncture / Unknown 12/03/2024 2:13 PM EDT 12/03/2024 2:13 PM EDT Shahla Barnes MD LAB BLOOD ORDERABLES Final R esult [facility] [address] [place] [address], * Calcium (12/03/2024 2:13 PM EDT) Calcium 8.7 8.5 - 10.5 mg/dL LAB CHEMISTRY METHOD 12/03/2024 6:56 PM EDT [facility] Blood Venous blood specimen / Unknown Venipuncture / Unknown 12/03/2024 2:13 PM EDT 12/03/2024 2:13 PM EDT Shahla Barnes MD LAB BLOOD ORDERABLES Final R esult [facility] [address] [place] [address], [place] [phone] * AST, ALT, Bilirubin ELR state reportables (11/24/2024 10:36 AM EDT) ALT (SGPT) 11/26/2024 8:15 AM EDT [facility] Comment:No results available Blood Venous blood specimen / Unknown Venipuncture / Unknown 11/24/2024 10:36 AM EDT 11/24/2024 10:36 AM EDT Soco Yang MD LAB BLOOD ORDERABLES Dinah l Result Performing Organization Address [facility] Co de Phone Number [facility] [address] [place] [address], [place] [phone] * Thyroid stimulating hormone with reflex to free t4 and free t3 (11/24/2024 10:36 AM EDT) Only the most recent of2 resultswithin the time period is included. TSH 2.64 0.40 - 4.00 mcIU/mL LAB CHEMISTRY METHOD 11/24/2024 5:28 PM EDT [facility] Blood Venous blood specimen / Unknown Venipuncture / Unknown 11/24/2024 10:36 AM EDT 11/24/2024 10:36 AM EDT Miya LOAIZA LAB BLOOD ORDERABLES Final Result Performing Organization Address City/[facility]/ZIP Co de Phone Number [facility] [address] [place] [address], [place] [phone] * (ABNORMAL) Liver fibrosis, fibrotest-actitest panel (11/24/2024 10:36 AM EDT) Fibrosis Score 0.30 12/02/2024 4:35 PM EDT [facility] Fibrosis Stage F1 12/02/2024 4:35 PM EDT [facility] Fibrosis Interpretation SEE NOTE 12/02/2024 4:35 PM EDT [facility] Comment: minimal fibrosis Fibro Test Score (f) Metavir Score f>=0 and f<=0.21 : F0 (no fibrosis) f>0.21 and f<=0.27 : F0-F1 (no fibrosis) f>0.27 and f<=0.31 : F1 (minimal fibrosis) f>0.31 and f<=0.48 : F1-F2 (minimal fibrosis) f>0.48 and f<=0.58 : F2 (moderate fibrosis) f>0.58 and f<=0.72 : F3 (advanced fibrosis) f>0.72 and f<=0.74 : F3-F4 (advanced fibrosis) f>0.74 and f<=1.00 : F4 (severe fibrosis) Necroinflammat Activity Score 0.03 12/02/2024 4:35 PM EDT [facility] Necroinflammat Activity Grade A0 12/02/2024 4:35 PM EDT [facility] Necroinflammat Interpretation SEE NOTE 12/02/2024 4:35 PM EDT [facility] Comment: no activity ActiTest Score (a) Metavir Score a>=0 and a<=0.17 : A0 (no activity) a>0.17 and a<=0.29 : A0-A1 (no activity) a>0.29 and a<=0.36 : A1 (minimal activity) a>0.36 and a<=0.52 : A1-A2 (minimal activity) a>0.52 and a<=0.60 : A2 (significant activity) a>0.60 and a<=0.62 : A2-A3 (significant activity) a>0.62 and a<=1.00 : A3 (severe activity) Bilirubin Total 0.3 0.2 - 1.2 mg/dL 12/02/2024 4:35 PM EDT [facility] Gamma Glutamyl Transferase (GGT) 22 3 - 70 U/L 12/02/2024 4:35 PM EDT [facility] Alanine Aminotransferase (ALT) 10 6 - 29 U/L 12/02/2024 4:35 PM EDT [facility] Mayiq-8-Lsoloplngqxo n 310(H) 106 - 279 mg/dL 12/02/2024 4:35 PM EDT [facility] Haptoglobin 78 43 - 212 mg/dL 12/02/2024 4:35 PM EDT [facility] Apolipoprotein A1 143 101 - 198 mg/dL 12/02/2024 4:35 PM EDT [facility] Reference ID [id number] 12/02/2024 4:35 PM EDT [facility] Footnote SEE NOTE 12/02/2024 4:35 PM EDT [facility] Comment: The reliability of results is dependent on compliance with the preanalytical and analytical conditions recommended by [employer]. The tests have to be deferred for: acute hemolysis, acute hepatitis, acute inflammation, extra hepatic cholestasis. The advice of a specialist should be sought for interpretation in chronic hemolysis and Gilbert's syndrome. The test interpretation is not validated in liver transplant patients. Isolated extreme values of one of the components should lead to caution in interpreting the results. In case of discordance between a biopsy result and a test, it is recommended to seek the advice of a specialist. The causes of these discordances could be due to a flaw of the test or to a flaw in the biopsy: i.e. a liver biopsy has a 33% variability rate for one fibrosis stage. FibroTest is interpretable for chronic hepatitis B and C, alcoholic and non alcoholic steatosis. ActiTest is interpretable for chronic hepatitis B and C. The performance characteristics have been determined by [facility] [place]. It has not been cleared or approved by the U.S. Food and Drug Administration. Performance characteristics refer to the analytical performance of the test. [employer], the associated logo, [employer] and all associated [employer] are the registered trademarks of [employer]. All third constitution party pérez - (R) and (TM) - are the property of their respective owners. (C) [id number] [employer]. All rights reserved. Test Performed at: [facility] [id number] [place] [address] Alie Gomez MD, PhD, JAMES Blood Venous blood specimen / Unknown Venipuncture / Unknown 11/24/2024 10:36 AM EDT 11/24/2024 10:36 AM EDT Soco Yang MD LAB BLOOD ORDERABLES Dinah l Result [facility] [address] [place] [address] * Cyclic citrullinated peptide, IgG and IgA (11/24/2024 10:36 AM EDT) [facility] CCP AB Quant 8 <20 Units LAB CHEMISTRY METHOD 12/01/2024 12:45 PM EDT [facility] Cyclic Citrullinated Peptide (CCP) Antibody Negative Negative LAB CHEMISTRY METHOD 12/01/2024 12:45 PM EDT [facility] Blood Venous blood specimen / Unknown Venipuncture / Unknown 11/24/2024 10:36 AM EDT 11/24/2024 10:36 AM EDT Miya LOAIZA LAB BLOOD ORDERABLES Final Result Performing Organization Address [facility] de Phone Number [facility] [address] [place] [address], * (ABNORMAL) RAOUL IFA with titer and pattern (11/24/2024 10:36 AM EDT) Pathologist [facility] RAOUL Positive(A) Negative 11/25/2024 2:32 PM EDT [facility] RAOUL Pattern Nuclear Membrane(A) (none) 11/25/2024 2:32 PM EDT [facility] Comment:May be associated wi th chronic hepatitis, vasculitis, thrombocytopenia, Raynaud's phenomenon, with some features of SLE. Titer >=1:2560(A) <1:160 11/25/2024 2:32 PM EDT [facility] Blood Venous blood specimen / Unknown Venipuncture / Unknown 11/24/2024 10:36 AM EDT 11/24/2024 10:36 AM EDT Miya LOAIZA LAB BLOOD ORDERABLES Final Result Performing Organization Address [facility] de Phone Number [facility] [address] [place] [address], * Borrelia burgdorferi antibody (11/24/2024 10:36 AM EDT) Lyme Ab Negative Negative LAB CHEMISTRY METHOD 11/25/2024 11:33 AM EDT [facility] Comment: No laboratory evidence of infection with B. burgdorferi (Lyme disease). Negative results may occur in patients recently infected (<=14 days) with B. burgdorferi. If recent infection is suspected, repeat testing on a new sample collected in 7- 14 days is recommended. Blood Venous blood specimen / Unknown Venipuncture / Unknown 11/24/2024 10:36 AM EDT 11/24/2024 10:36 AM EDT Miya LOAIZA LAB BLOOD ORDERABLES Final Result Performing Organization Address [facility]/ZIP Co de Phone Number [facility] [address] [place] [address], [place] [phone] * DNA antibody, double-stranded (11/24/2024 10:36 AM EDT) Anti-DNA Double Stranded Antibody Negative Negative LAB CHEMISTRY METHOD 11/29/2024 10:20 AM EDT [facility] ds DNA Ab 26 <=200 I Unit/mL LAB CHEMISTRY METHOD 11/29/2024 10:20 AM EDT [facility] Blood Venous blood specimen / Unknown Venipuncture / Unknown 11/24/2024 10:36 AM EDT 11/24/2024 10:36 AM EDT Miya LOAIZA LAB BLOOD ORDERABLES Final Result Performing Organization Address [facility] de Phone Number [facility] [address] [place] [address], * Creatinine (11/24/2024 10:36 AM EDT) Creatinine 0.68 0.50 - 1.10 mg/dL LAB CHEMISTRY METHOD 11/24/2024 2:54 PM EDT [facility] eGFR 106 >=60 mL/min/1. 73m2 LAB CHEMISTRY METHOD 11/24/2024 2:54 PM EDT [facility] Comment:Calculation based on the Chronic Kidney Disease Epidemiology Collaboration (CKD-EPI) equation refit without adjustment for race. Blood Venous blood specimen / Unknown Venipuncture / Unknown 11/24/2024 10:36 AM EDT 11/24/2024 10:36 AM EDT Soco Yang MD LAB BLOOD ORDERABLES Dinah l Result Performing Organization Address [facility] Co de Phone Number [facility] [address] [place] [address], * Sedimentation rate (11/24/2024 10:36 AM EDT) Sed Rate 29 0 - 30 mm/hr LAB HEMETOLOGY METHOD 11/24/2024 2:24 PM EDT [facility] Blood Venous blood specimen / Unknown Venipuncture / Unknown 11/24/2024 10:36 AM EDT 11/24/2024 10:36 AM EDT Miya LOAIZA LAB BLOOD ORDERABLES Final Result [facility] [address] [place] [address], [place] [phone] * Rheumatoid factor (11/24/2024 10:36 AM EDT) Pathologist [facility] Rheumatoid Factor <10.0 <15.0 I Unit/mL LAB CHEMISTRY METHOD 11/24/2024 2:54 PM EDT [facility] Blood Venous blood specimen / Unknown Venipuncture / Unknown 11/24/2024 10:36 AM EDT 11/24/2024 10:36 AM EDT Miya LOAIZA LAB BLOOD ORDERABLES Final Result Performing Organization Address City/[facility]/ZIP Co de Phone Number [facility] [address] [place] [address], [place] [phone] * C-reactive protein (11/24/2024 10:36 AM EDT) [facility] C-Reactive Protein <0.29 <=0.50 mg/dL LAB CHEMISTRY METHOD 11/24/2024 2:54 PM EDT [facility] Blood Venous blood specimen / Unknown Venipuncture / Unknown 11/24/2024 10:36 AM EDT 11/24/2024 10:36 AM EDT Miya LOAIZA LAB BLOOD ORDERABLES Final Result [facility] [address] [place] [address], * (ABNORMAL) Ferritin (11/24/2024 10:36 AM EDT) Only the most recent of2 resultswithin the time period is included. [facility] Ferritin 7(L) 8 - 252 ng/mL LAB CHEMISTRY METHOD 11/24/2024 3:00 PM EDT [facility] Blood Venous blood specimen / Unknown Venipuncture / Unknown 11/24/2024 10:36 AM EDT 11/24/2024 10:36 AM EDT Soco Yang MD LAB BLOOD ORDERABLES Dinah l Result Performing Organization Address [facility]/ZIP Co de Phone Number [facility] [address] [place] [address], [place] [phone] * Creatine kinase (11/24/2024 10:36 AM EDT) Pathologist [facility] Total CK 69 22 - 269 unit/L LAB CHEMISTRY METHOD 11/24/2024 2:58 PM EDT [facility] Blood Venous blood specimen / Unknown Venipuncture / Unknown 11/24/2024 10:36 AM EDT 11/24/2024 10:36 AM EDT Miya LOAIZA LAB BLOOD ORDERABLES Final Result Performing Organization Address [facility] de Phone Number [facility] [address] [place] [address], [place] [phone] * Methylmalonic acid, serum (11/16/2024 10:18 AM EDT) Pathologist [facility] Methylmalonic Acid 0.10 <0.40 umol/L 11/20/2024 7:23 AM EDT [facility] Comment: If applicable, any drug confirmation testing reported here was developed and the performance characteristics determined by [facility]. This confirmation testing has not been cleared or approved by the FDA. The laboratory is regulated under CLIA as qualified to perform high-complexity testing. This test is used for patient testing purposes. It should not be regarded as investigational or for research. Test performed at [facility], [address], [place] [address] Rosa M Llanes MD, PhD - Auto Striper Blood Venous blood specimen / Unknown Venipuncture / Unknown 11/16/2024 10:18 AM EDT 11/16/2024 10:18 AM EDT Miya LOAIZA LAB BLOOD ORDERABLES Final Result [facility] [address] [place] [address] * (ABNORMAL) Iron and TIBC (11/16/2024 10:18 AM EDT) Iron 74 40 - 150 mcg/dL LAB CHEMISTRY METHOD 11/16/2024 2:59 PM EDT [facility] TIBC 452(H) 250 - 450 mcg/dL LAB CHEMISTRY METHOD 11/16/2024 2:59 PM EDT [facility] Iron Saturation 16 15 - 50 % LAB CHEMISTRY METHOD 11/16/2024 2:59 PM EDT [facility] Blood Venous blood specimen / Unknown Venipuncture / Unknown 11/16/2024 10:18 AM EDT 11/16/2024 10:18 AM EDT Miya LOAIZA LAB BLOOD ORDERABLES Final Result [facility] [address] [place] [address], * (ABNORMAL) Vitamin D 25 hydroxy (11/16/2024 10:18 AM EDT) Vit D, 25-Hydroxy 6.6(L) 30.0 - 80.0 ng/mL LAB CHEMISTRY METHOD 11/16/2024 4:30 PM EDT [facility] Blood Venous blood specimen / Unknown Venipuncture / Unknown 11/16/2024 10:18 AM EDT 11/16/2024 10:18 AM EDT Miya LOAIZA LAB BLOOD ORDERABLES Final Result Performing Organization Address [facility]/ZIP Co de Phone Number [facility] [address] [place] [address], [place] [phone] * Homocysteine, total (11/16/2024 10:18 AM EDT) Pathologist [facility] Homocysteine 8.2 3.2 - 10.7 mcmol/L LAB CHEMISTRY METHOD 11/16/2024 3:32 PM EDT [facility] Blood Venous blood specimen / Unknown Venipuncture / Unknown 11/16/2024 10:18 AM EDT 11/16/2024 10:18 AM EDT Miya LOAIZA LAB BLOOD ORDERABLES Final Result Performing Organization Address [facility] Co de Phone Number [facility] [address] [place] [address], [place] [phone] * Vitamin B12 (11/16/2024 10:18 AM EDT) [facility] Vitamin B-12 652 250 - 900 pcg/mL LAB CHEMISTRY METHOD 11/16/2024 3:32 PM EDT [facility] Blood Venous blood specimen / Unknown Venipuncture / Unknown 11/16/2024 10:18 AM EDT 11/16/2024 10:18 AM EDT Miya LOAIZA LAB BLOOD ORDERABLES Final Result Performing Organization Address [facility]/ZIP Co de Phone Number [facility] [address] [place] [address], [place] [phone] * COLONOSCOPY Anesthesia - MAC; [facility] ENDOSCOPY (07/31/2024 12:24 PM EST) Anatomical Region Laterality Modality Endoscopy 07/31/2024 12:0 3 PM EST Impressions 07/31/2024 12:29 PM EST - Internal hemorrhoids. - The examination was otherwise normal. - No specimens collected. Recommendation: - Discharge patient to home. - Repeat colonoscopy in 10 years for screening purposes. Narrative 07/31/2024 12:29 PM EST [facility] GI Patient Name: Jonas Morris Procedure Date: 07/31/2024 12:03 PM Date of : 1975 Age: 49 Gender: Female Note Status: Finalized Attending MD: Nicola Blue MD, Procedure Date No Time: 07/31/2024 Procedure: Colonoscopy Indications: Screening for colorectal malignant neoplasm Providers: Nicola Blue MD Referring MD: Nicola Blue MD Medicines: Monitored Anesthesia Care Complications: No immediate complications. Estimated Blood Loss: Estimated blood loss: none. Procedure: Pre-Anesthesia Assessment: - Prior to the procedure, a History and Physical was performed, and patient medications and allergies were reviewed. The patient is competent. The risks and benefits of the procedure and the sedation options and risks were discussed with the patient. All questions were answered and informed consent was obtained. Patient identification and proposed procedure were verified by the physician, the nurse, the superintendent production and the environmental field services technician in the pre-procedure area in the endoscopy suite. Mental Status Examination: alert and oriented. Airway Examination: normal oropharyngeal airway and neck mobility. Respiratory Examination: clear to auscultation. CV Examination: normal. Prophylactic Antibiotics: The patient does not require prophylactic antibiotics. Prior Anticoagulants: The patient has taken no anticoagulant or antiplatelet agents. ASA Grade Assessment: II - A patient with mild systemic disease. After reviewing the risks and benefits, the patient was deemed in satisfactory condition to undergo the procedure. The anesthesia plan was to use monitored anesthesia care (MAC). Immediately prior to administration of medications, the patient was re-assessed for adequacy to receive sedatives. The heart rate, respiratory rate, oxygen saturations, blood pressure, adequacy of pulmonary ventilation, and response to care were monitored throughout the procedure. The physical status of the patient was re-assessed after the procedure. After I obtained informed consent, the scope was passed under direct vision. Throughout the procedure, the patient's blood pressure, pulse, and oxygen saturations were monitored continuously.The Colonoscope was introduced through the anus and advanced to the cecum, identified by appendiceal orifice and ileocecal valve. The colonoscopy was performed without difficulty. The patient tolerated the procedure well. The quality of the bowel preparation was good. Findings: The perianal and digital rectal examinations were normal. Internal hemorrhoids were found during retroflexion. The hemorrhoids were Grade I (internal hemorrhoids that do not prolapse) and Grade II (internal hemorrhoids that prolapse but reduce spontaneously). The exam was otherwise without abnormality. Procedure Code(s): --- Professional --- G0121, Colorectal cancer screening; colonoscopy on individual not meeting criteria for high risk Diagnosis Code(s): --- Professional --- Z12.11, Encounter for screening for malignant neoplasm of colon CPT copyright 2020 [employer]. All rights reserved. The codes documented in this report are preliminary and upon rn surgical pcu review may be revised to meet current compliance requirements. Nicola Blue MD 07/31/2024 12:29:40 PM This report has been signed electronically.Nicola Blue MD Number of Addenda: 0 Note Initiated On: 07/31/2024 12:03 PM Scope Withdrawal Time: 0 hours 6 minutes 8 seconds Scope In: 12:08:11 PM Scope Out: 12:16:52 PM Endoscopy Department at [facility] - [address] [place] [id number] Procedure Note Nicola Blue MD - 07/31/2024 [facility] GI Patient Name: Jonas Morris Procedure Date: 07/31/2024 12:03 PM Date of : 1975 Age: 49 Gender: Female Note Status: Finalized Attending MD: Nicola Blue MD, Procedure Date No Time: 07/31/2024 Procedure: Colonoscopy Indications: Screening for colorectal malignant neoplasm Providers: Nicola Blue MD Referring MD: Nicola Blue MD Medicines: Monitored Anesthesia Care Complications: No immediate complications. Estimated Blood Loss: Estimated blood loss: none. Procedure: Pre-Anesthesia Assessment: - Prior to the procedure, a History and Physicalwas performed, and patient medications and allergieswere reviewed. The patient is competent. The risks and benefits of the procedure and the sedation optionsand risks were discussed with the patient. Allquestions were answered and informed consent was obtained. Patient identification and proposed procedure were verified by the physician, the nurse, theanesthetist and the environmental field services technician in the pre-procedure area in the endoscopy suite. Mental Status Examination: alertand oriented. Airway Examination: normal oropharyngeal airway and neck mobility. Respiratory Examination: clear to auscultation. CV Examination: normal. Prophylactic Antibiotics: The patient does notrequire prophylactic antibiotics. Prior Anticoagulants: The patient has taken no anticoagulant or antiplatelet agents. ASA Grade Assessment: II - A patient withmild systemic disease. After reviewing the risks and benefits, the patient was deemed in satisfactory condition to undergo the procedure. The anesthesia plan was to use monitored anesthesia care (MAC). Immediately prior to administration of medications, the patient was re-assessed for adequacy to receive sedatives. The heart rate, respiratory rate, oxygen saturations, blood pressure, adequacy of pulmonary ventilation, and response to care were monitored throughout the procedure. The physical status ofthe patient was re-assessed after the procedure. After I obtained informed consent, the scope was passed under direct vision. Throughout theprocedure, the patient's blood pressure, pulse, and oxygen saturations were monitored continuously.The Colonoscope was introduced through the anus and advanced to the cecum, identified by appendiceal orifice and ileocecal valve. The colonoscopy was performed without difficulty. The patient tolerated the procedure well. The quality of the bowel preparation was good. Findings: The perianal and digital rectal examinations were normal. Internal hemorrhoids were found duringretroflexion. The hemorrhoids were Grade I (internal hemorrhoids that do not prolapse) and Grade II (internal hemorrhoids that prolapse but reducespontaneously). The exam was otherwise without abnormality. Procedure Code(s): --- Professional --- G0121, Colorectal cancer screening; colonoscopy on individual not meeting criteria for high risk Diagnosis Code(s): --- Professional --- Z12.11, Encounter for screening for malignantneoplasm of colon CPT copyright 2020 [employer]. All rights reserved. The codes documented in this report are preliminary and upon rn surgical pcu reviewmay be revised to meet current compliance requirements. Nicola Blue MD 07/31/2024 12:29:40 PM This report has been signed electronically.Nicola Blue MD Number of Addenda: 0 Note Initiated On: 07/31/2024 12:03 PM Scope Withdrawal Time: 0 hours 6 minutes 8 seconds Scope In: 12:08:11 PM Scope Out: 12:16:52 PM Endoscopy Department at [address] [id number] IMPRESSION: - Internal hemorrhoids. - The examination was otherwise normal. - No specimens collected. Recommendation: - Discharge patient to home. - Repeat colonoscopy in 10 years for screening purposes. us Nicola Blue MD GI~PROCEDURE ORDERABLES Fin al Result * MG Mammo Digital Diagnostic w Kaden bilat (07/16/2024 2:14 PM EST) Anatomical Region Laterality Modality Breast Bilateral Mammography 07/16/2024 1:33 PM EST Impressions 07/16/2024 1:38 PM EST No mammographic evidence of new or recurrent malignancy. No suspicious interval change. A negative mammogram in the presence of a clinically suspicious palpable abnormality does not preclude the possibility of malignancy or alter the indications for biopsy. Ultrasound was not performed, since the patient was unable to localize any areas of symptoms or palpable concern ASSESSMENT: BI-RADS 2: BENIGN RECOMMENDATION(S): 1: Clinical correlation recommended LEFT Continue annual mammographic screening -------- FINAL REPORT -------- Dictated By: Teo Maher Dictated Date: 07/16/2024 13:33 ET Assigned Physician: Teo Maher Reviewed and Electronically Signed By: Teo Maher Signed Date: 07/16/2024 13:38 ET Workstation ID: [id number] Transcribed By: Self Edit Transcribed Date: 07/16/2024 13:33 ET Narrative 07/16/2024 1:38 PM EST EXAM: DIAGNOSTIC MAMMOGRAPHY, BILATERAL HISTORY: Personal history of right breast cancer. Patient reports generalized lumpiness in left breast. Right lumpectomy 2018. The patient is unable to palpate a suspicious finding. The patient was unable to localize any symptoms or areas of palpable concern on the day of the exam COMPARISON: 12/23/2023, 03/19/2022, 04/28/2021, 11/09/2020, 07/28/2019 TECHNIQUE: Synthesized CC and MLO projections of each breast. Tomosynthesis of each breast in the CC and MLO projections. ADDITIONAL IMAGING: None Computer-aided detection was employed with the [employer] AI 3-D. TISSUE DENSITY: There are scattered areas of fibroglandular density. (BI-RADS category B) FINDINGS: RIGHT BREAST: The right breast is smaller than the left. Evidence of remote right lumpectomy. There is a clip in the right upper breast close to the chest wall. No additional suspicious right breast findings LEFT BREAST: There is no nipple retraction. There is a stable global asymmetry in the upper outer left breast. There is no suspicious mass. There is no change in the breast architecture. There are no suspicious calcifications. The patient is unable to localize any areas of palpable concern Procedure Note Teo Maher MD - 07/16/2024 EXAM: DIAGNOSTIC MAMMOGRAPHY, BILATERAL HISTORY: Personal history of right breast cancer. Patient reportsgeneralized lumpiness in left breast. Right lumpectomy 2018. The patient is unable to palpate a suspicious finding. The patient wasunable to localize any symptoms or areas of palpable concern on the day ofthe exam COMPARISON: 12/23/2023, 03/19/2022, 04/28/2021, 11/09/2020, 07/28/2019 TECHNIQUE: Synthesized CC and MLO projections of each breast.Tomosynthesis of each breast in the CC and MLO projections. ADDITIONAL IMAGING: None Computer-aided detection was employed with the [employer]ig AI 3-D. TISSUE DENSITY: There are scattered areas of fibroglandular density.(BI-RADS category B) FINDINGS: RIGHT BREAST: The right breast is smaller than the left. Evidence of remote rightlumpectomy. There is a clip in the right upper breast close to the chestwall. No additional suspicious right breast findings LEFT BREAST: There is no nipple retraction. There is a stable global asymmetry in the upper outer left breast. There is no suspicious mass. There is no change in the breastarchitecture. There are no suspicious calcifications. The patient isunable to localize any areas of palpable concern IMPRESSION: No mammographic evidence of new or recurrent malignancy. No suspicious interval change. A negative mammogram in the presence of a clinically suspicious palpableabnormality does not preclude the possibility of malignancy or alter theindications for biopsy. Ultrasound was not performed, since the patient was unable to localize anyareas of symptoms or palpable concern ASSESSMENT: BI-RADS 2: BENIGN RECOMMENDATION(S): 1: Clinical correlation recommended LEFT Continue annual mammographic screening -------- FINAL REPORT -------- Dictated By: Teo Maher Dictated Date: 07/16/2024 13:33 ET Assigned Physician: Teo Maher Reviewed and Electronically Signed By: Teo Maher Signed Date: 07/16/2024 13:38 ET Workstation ID: [id number] Transcribed By: Self Edit Transcribed Date: 07/16/2024 13:33 ET Jasmin Gill MD IMG BI PROCEDURES Final Resu lt from Last 3 Months or Most Recently Relevant to Health Maintenance Insurance [facility] [employer] Care Teams Director Product Safety Relationship Specialty Start Date End Date Lakia Johnson MD [address] [place] [id number] PCP - General Internal Medicine 03/20/21
--- OUTSIDE RECORDS SUMMARY | 2025-01-27 18:18 | XMS_ITS | Patient Health Record ---
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 Name Role Phone PRATIBHA BARROW Primary Care Provider Miya Comer Unavailable [phone] Allergies Allergen (clinical drug ingredient) Drug/Non Drug Allergy documented on EMR Reaction Allergy Type Onset Date Status cortisone Cortisone Unknown Drug Allergy Active hydrocortisone Hydrocortisone swelling Drug Allergy Active Results Component Value Reference Range Notes HEPATIC FUNCTION PANEL Reviewed date:07/24/2024 07:45:31 AM Interpretation: Performing Lab: Notes/Report: Total Protein 7.5 6.0-8.0 g/dL Albumin 3.7 3.2-5.0 g/dL Total Bilirubin 0.2 0.0-1.4 mg/dL Bilirubin, Direct <0.1 0.0-0.3 mg/dL Bilirubin, Indirect See Report Unable t o calculate Indirect Bilirubin. ALT (SGPT) 82 10-60 unit/L AST (SGOT) 57 10-42 unit/L Alkaline Phosphatase 112 42-121 unit/L HEPATITIS C VIRUS QUANTITATI VE MOLECULAR STUDY Reviewed date:01/21/2025 05:55:53 PM Interpretation: Performing Lab: Notes/Report: HCV Qual Interp Not Detected Not Detected HCV RNA not detected, unable to report quantitative results. HOMOCYSTEINE, TOTAL Reviewed date:11/16/2024 05:55:26 PM Interpretation: Performing Lab: Notes/Report: Homocysteine 8.2 3.2-10.7 mcmol/L METHYLMALONIC ACID, SERUM Reviewed date:11/20/2024 07:51:23 AM Interpretation: Performing Lab: Notes/Report: Methylmalonic Acid 0.10 <0.40 umol/L If applicable, any drug confirmation testing reported here was developed and the performance characteristics determined by [facility]. This confirmation testing has not been cleared or approved by the FDA. The laboratory is regulated under CLIA as qualified to perform high-complexity testing. This test is used for patient testing purposes. It should not be regarded as investigational or for research. Test performed at [facility], [address] , [place] [address] Rosa M Llanes MD, PhD - Refiner Operator CREATINE KINASE Reviewed date:11/24/2024 03:15:21 PM Interpretation: Performing Lab: Notes/Report: Total CK 69 22-269 unit/L CBC WITH AUTO DIFFERENTIAL Reviewed date:07/24/2024 07:45:39 AM Interpretation: Performing Lab: Notes/Report: WBC 6.6 4.8-10.8 K/mcL RBC 4.60 3.80-4.80 M/mcL Hemoglobin 13.0 11.5-16.0 g/dL Hematocrit 41.6 35.0-47.0 % MCV 90.2 79.0-98.0 FL MCH 28.2 27.0-32.0 pcg MCHC 31.3 32.0-37.0 g/dL RDW 13.7 11.0-15.0 % Platelets 233 130-400 K/mcL MPV 10.7 7.0-11.0 FL NRBC 0.0 <1.0 % NRBC Absolute 0.00 <0.10 K/mcL Neutrophils Relative 51.1 Lymphocytes Relative 38.5 Monocytes Relative 7.1 Eosinophils Relative 2.4 Basophils Relative 0.6 Immature Granulocytes Relative 0.3 Neutrophils Absolute 3.38 1.50-7.00 K/mcL Lymphocytes Absolute 2.55 1.00-5.00 K/mcL Monocytes Absolute 0.47 0.20-1.00 K/mcL Eosinophils Absolute 0.16 0.00-0.50 K/mcL Basophils Absolute 0.04 0.00-0.20 K/mcL Immature Granulocytes Absolute 0.02 0.00-0.03 K/mcL RHEUMATOID FACTOR Reviewed date:11/24/2024 03:15:28 PM Interpretation: Performing Lab: Notes/Report: Rheumatoid Factor <10.0 <15.0 I Unit/mL RAOUL IFA WITH TITER AND CONRAD DEL RIO Reviewed date:11/25/2024 04:59:29 PM Interpretation: Performing Lab: Notes/Report: May be associated with chronic hepatitis, vasculitis, thrombocytopenia, Raynaud's phenomenon, with some features of SLE. RAOUL Positive Negative RAOUL Pattern Nuclear Membrane (none) Titer >=1:2560 <1:160 BORRELIA BURGDORFERI ANTIBOD Y Reviewed date:11/25/2024 12:09:05 PM Interpretation: Performing Lab: Notes/Report: Lyme Ab Negative Negative Negative results may occur in patients recently infected (<=14 days) with B. burgdorferi. If recent infection is suspected, repeat testing on a new sample collected in 7-14 days is recommended. No laboratory evidence of infection with B. burgdorferi (Lyme disease). COPPER, SERUM Reviewed date:12/09/2024 09:02:58 AM Interpretation: Performing Lab: Notes/Report: Copper 9731 298-3573 ug/L Copper values may be elevated to twice the normal levels in . Elevated results may be due to sample collected in a non-certified trace element-free tube. This test was developed and the performance characteristics determined by [facility]. It has not been cleared or approved by the FDA. The laboratory is regulated under CLIA as qualified to perform high-complexity testing. This test is used for patient testing purposes. It should not be regarded as investigational or for research. Test performed at [facility], [facility] [place] [address] Rosa M Llanes MD, PhD - Refiner Operator VITAMIN B1 Reviewed date:12/15/2024 11:19:28 AM Interpretation: Performing Lab: Notes/Report: Vitamin B1 Whole Blood 48 38-122 ug/L This test was developed and the performance characteristics determined by [facility]. It has not been cleared or approved by the FDA. The laboratory is regulated under CLIA as qualified to perform high-complexity testing. This test is used for patient testing purposes. It should not be regarded as investigational or for research. Test performed at [facility], [facility] [place] [address] Rosa M Llanes MD, PhD - Refiner Operator VITAMIN B6 Reviewed date:12/09/2024 09:02:50 AM Interpretation: Performing Lab: Notes/Report: Vitamin B6 (Pyridoxine) Level 7 5-50 ug/L This test was developed and the performance characteristics determined by [facility]. It has not been cleared or approved by the FDA. The laboratory is regulated under CLIA as qualified to perform high-complexity testing. This test is used for patient testing purposes. It should not be regarded as investigational or for research. Test performed at [facility], [address] , [place] [address] Rosa M Llanes MD, PhD - Refiner Operator HEPATITIS C VIRUS QUANTITATI VE MOLECULAR STUDY Reviewed date:11/25/2024 07:55:07 AM Interpretation: Performing Lab: Notes/Report: HCV Qual Interp Detected Not Detected HCV RNA Quantitative <12 <12 I Unit/mL HCV RN A detected but below the limit of quantitation. Unable to report quantitative results <12 IU/mL. HCV RNA Quantitative Log <1.08 <1.08 Log IU/mL HEPATITIS C VIRUS QUANTITATI VE MOLECULAR STUDY Reviewed date:07/24/2024 10:51:17 AM Interpretation: Performing Lab: Notes/Report: HCV Qual Interp Detected Not Detected HCV RNA Quantitative [id number] <12 I Unit/mL HCV RNA Quantitative Log 5.51 <1.08 Log IU/mL AST, ALT, BILIRUBIN ELR STAT E REPORTABLES Reviewed date:07/24/2024 10:51:14 AM Interpretation: Performing Lab: Notes/Report: ALT (SGPT) 82 10-60 unit/L AST (SGOT) 57 10-42 unit/L Bilirubin, Direct <0.1 0.0-0.3 mg/dL Total Bilirubin 0.2 0.0-1.4 mg/dL AST, ALT, BILIRUBIN ELR STAT E REPORTABLES Reviewed date:11/26/2024 11:56:02 AM Interpretation: Performing Lab: Notes/Report: ALT (SGPT) See Report No results avai lable HEPATITIS A ANTIBODY TOTAL W ITH REFLEX IGM Reviewed date:07/27/2024 04:57:31 PM Interpretation: Performing Lab: Notes/Report: Over the counter supplements containing high doses of biotin may interfere with this assay. If interference is suspected, patients shoud be retested after refraining from biotin supplements for 72 hours. Hep A Total Ab Positive Negative HEPATITIS B SCREENING PANEL Reviewed date:07/27/2024 04:57:28 PM Interpretation: Performing Lab: Notes/Report: Hepatitis B Surface Ag Negative Negative Hep B Core Total Ab Negative Negative Hepatitis B Surface Ab Negative Negative SELENIUM SERUM Reviewed date:12/15/2024 11:19:35 AM Interpretation: Performing Lab: Notes/Report: Selenium 118 63-160 mcg/L This test was developed and its analytical performance characteristics have been determined by [facility] [place] [place]. It has not been cleared or approved by the U.S. Food and Drug Administration. This assay has been validated pursuant to the CLIA regulations and is used for clinical purposes. Test Performed by [facility], [facility] [employer] [facility], [address] [place] [address] Reilly Martinez M.D., Ph.D., Director of Laboratories , CLIA [id number] US ABDOMEN LIMITED Reviewed date:07/29/2024 12:15:36 PM Interpretation: Performing Lab: Notes/Report: Note See Note [facility], a member of [employer] Patient Name: JONAS MORRIS Date of : 1975 Reason for Exam: Elevated liver enzymes. Chronic Hepatitis C Exam Date: 07/29/2024 [id number] EST Report Status: Final Ordering Provider: TREMAINE BARR PCP: PRATIBHA BARROW EXAM: US ABDOMEN LIMITED TECHNIQUE: US Abdominal limited right upper quadrant. HISTORY: Elevated liver enzymes. Chronic Hepatitis C COMPARISON: Ultrasou nd on April 14, 2020 FINDINGS: Pancreas: Visualized portions of the pancreas appear unremarkable. Liver: Liver length of 15.8 cm. Homogeneous and unremarkable echogenicity. No focal lesions demonstrated. Main Portal Vein: Patent with normal direction of flow. Gallbladder: No gallstones or gallbladder wall thickening. Biliary: No biliary ductal dilatation. The common bile duct measures 0.4 cm. Right Kidney: Size: 11.6 cm. No renal stones or hydronephrosis. IVC: The visualized portion is unremarkable. IMPRESSION: 1. Mild hepatomegaly measuring 15.8 cm. 2. Unremarkable sonographic appearance of the liver parenchyma. -------- FINAL REPOR T -------- Dictated By: Erum Lester Dictated Date: 07/29/2024 11:04 ET Assigned Physician: Erum Lester Reviewed and Electronically Signed By: Erum Lester Signed Date: 07/29/2024 11:07 ET Workstation ID: [id number] Transcribed By: Self Edit Transcribed Date: 07/29/2024 11:04 ET PARATHYROID HORMONE INTACT Reviewed date:12/04/2024 07:54:04 AM Interpretation: Performing Lab: Notes/Report: PTH 63.0 18.5-88.0 pcg/mL HEPATITIS C GENOTYPE Reviewed date:08/03/2024 05:02:14 PM Interpretation: Performing Lab: Notes/Report: Hepatitis C Viral RNA, Genotype, LiPA 4 The method used in this test is RT-PCR and reverse hybridization (Line Probe) of the 5' UTR and core region of the HCV genome. The analytical performance characteristics of this assay have been determined by [facility] [employer]. The modifications have not been cleared or approved by the FDA. This assay has been validated pursuant to the CLIA regulations and is used for clinical purposes. For additional information, please refer to [email or web address].[facility] /faq/HCVGenotyping (This link id being provided for informational/ educational purposes only.) Test Performed at: [employer] [address] [address] Alie Gomez MD, PhD VITAMIN A Reviewed date:12/09/2024 09:02:41 AM Interpretation: Performing Lab: Notes/Report: Vitamin A 38 38-106 ug/dL This test was developed and the performance characteristics determined by [facility]. It has not been cleared or approved by the FDA. The laboratory is regulated under CLIA as qualified to perform high-complexity testing. This test is used for patient testing purposes. It should not be regarded as investigational or for research. Test performed at [facility], [facility] [address] , [place] [address] Rosa M Llanes MD, PhD - Refiner Operator LIVER FIBROSIS, FIBROTEST-AC TITEST PANEL Reviewed date:12/02/2024 05:16:04 PM Interpretation: Performing Lab: Notes/Report: Fibrosis Score 0.30 Fibrosis Stage F1 Fibrosis Interpretation SEE NOTE minimal fibrosis Fibro Test Score (f) Metavir [...] F4 (severe fibrosis) Necroinflammat Activity Score 0.03 Necroinflammat Activity Grade A0 Necroinflammat Interpretation SEE NOTE no activity ActiTest Score (a) Metavir Score a>=0 and a<=0.17 : A0 (no activity) a>0.17 and a<=0.29 : A0-A1 (no activity) a>0.29 and a<=0.36 : A1 (minimal activity) a>0.36 and a<=0.52 : A1-A2 (minimal activity) a>0.52 and a<=0.60 : A2 (significant activity) a>0.60 and a<=0.62 : A2-A3 (significant activity) a>0.62 and a<=1.00 : A3 (severe activity) Bilirubin Total 0.3 0.2-1.2 mg/dL Gamma Glutamyl Transferase (GGT) 22 3-70 U/L Alanine Aminotransferase (ALT) 10 6-29 U/L Mynvi-3-Tpbxryfgbigso 310 106-279 mg/dL Haptoglobin 78 43-212 mg/dL Apolipoprotein A1 143 101-198 mg/dL Reference ID [id number] Footnote SEE NOTE and non alcoholic steatosis. ActiTest is interpretable for chronic hepatitis B and C. The performance characteristics have been determined by [facility]. It has not been cleared or approved by the U.S. Food and Drug Administration. Performance characteristics refer to the analytical performance of the test. FRAMED, the associated logo, [employer] and all associated [employer] pérez are the registered trademarks of [employer]. All third constitution party pérez - (R) and (TM) - are the property of their respective owners. (C) 1855-2220 [employer]. All rights reserved. Test Performed at: [employer] [facility] [address] [place] [address] Alie Gomez MD, PhD, JAMES to seek the advice of a specialist. The causes of these discordances could be due to a flaw of the test or to a flaw in the biopsy: i.e. a liver biopsy has a 33% variability rate for one fibrosis stage. FibroTest is interpretable for chronic hepatitis B and C, alcoholic The reliability of results is dependent on compliance with the preanalytical and analytical conditions recommended by [employer]. The tests have to be deferred for: [...] result and a test, it is recommended LIVER FIBROSIS, FIBROTEST-AC TITEST PANEL Reviewed date:08/05/2024 07:59:13 AM Interpretation: Performing Lab: Notes/Report: Fibrosis Score 0.25 Fibrosis Stage F0-F1 Fibrosis Interpretation SEE NOTE no fibrosis Fibro Test Score (f) Metavir Score [...] : F4 (severe fibrosis) Necroinflammat Activity Score 0.23 Necroinflammat Activity Grade A0-A1 Necroinflammat Interpretation SEE NOTE no activity ActiTest Score (a) Metavir Score a>=0 and a<=0.17 : A0 (no activity) a>0.17 and a<=0.29 : A0-A1 (no activity) a>0.29 and a<=0.36 : A1 (minimal activity) a>0.36 and a<=0.52 : A1-A2 (minimal activity) a>0.52 and a<=0.60 : A2 (significant activity) a>0.60 and a<=0.62 : A2-A3 (significant activity) a>0.62 and a<=1.00 : A3 (severe activity) Bilirubin Total 0.2 0.2-1.2 mg/dL Gamma Glutamyl Transferase (GGT) 23 3-70 U/L Alanine Aminotransferase (ALT) 43 6-29 U/L Wusxg-8-Ixbxogzpdajtr 333 106-279 mg/dL Haptoglobin 76 43-212 mg/dL Apolipoprotein A1 151 101-198 mg/dL Reference ID [id number] Footnote SEE NOTE The reliability of results is dependent on compliance with the preanalytical and analytical conditions recommended by [employer]. The tests have to be deferred for: [...] The performance characteristics have been determined by [facility]. It has not been cleared or approved by the U.S. Food and Drug Administration. Performance characteristics refer to the analytical performance of the test. FRAMED, the associated logo, [employer] and all associated [employer] pérez are the registered trademarks of [employer]. All third constitution party pérez - (R) and (TM) - are the property of their respective owners. (C) 7219-7581 [employer]. All rights reserved. Test Performed at: [facility] [address] [place] [address] Alie Gomez MD, PhD, JAMES ANTI-DNA ANTIBODY, DOUBLE-ST RANDED Reviewed date:11/29/2024 11:37:16 AM Interpretation: Performing Lab: Notes/Report: Anti-DNA Double Stranded Antibody Negative Negative ds DNA Ab 26 <=200 I Unit/mL CYCLIC CITRULLINATED PEPTIDE , IGG AND IGA Reviewed date:12/01/2024 03:12:17 PM Interpretation: Performing Lab: Notes/Report: CCP AB Quant 8 <20 Units Cyclic Citrullinated Peptide (CCP) Antibody Negative Negative CALCIUM Reviewed date:12/04/2024 07:54:12 AM Interpretation: Performing Lab: Notes/Report: Calcium 8.7 8.5-10.5 mg/dL [id number] Reviewed date:02/05/2024 12:22:56 PM Interpretation: Performing Lab:[facility], [address] [facility], Phone - [phone], Director - MDJodry Notes/Report: GGT 19 0-60 IU/L Lipid Panel-[id number] Reviewed date:02/05/2024 07:56:30 AM Interpretation: Performing Lab:[facility], [address] [facility], Phone - [phone], Director - MDJodry Notes/Report: Cholesterol, Total 163 100-199 mg/dL Triglycerides 130 0-149 mg/dL HDL Cholesterol 39 >39 mg/dL VLDL Cholesterol Ankur 23 5-40 mg/dL LDL Chol Calc (NIH) 101 0-99 mg/dL Comp. Metabolic Panel (14)-3 [id number] Reviewed date:02/05/2024 07:56:23 AM Interpretation: Performing Lab:[facility], [address] [facility], Phone - [phone], Director - MDJodry Notes/Report: Glucose 85 70-99 mg/dL BUN 13 6-24 mg/dL Creatinine 0.74 0.57-1.00 mg/dL eGFR 99 >59 mL/min/1.73 BUN/Creatinine Ratio 18 9-23 Sodium 142 134-144 mmol/L Potassium 4.2 3.5-5.2 mmol/L Chloride 105 96-106 mmol/L Carbon Dioxide, Total 23 20-29 mmol/L Calcium 9.0 8.7-10.2 mg/dL Protein, Total 7.3 6.0-8.5 g/dL Albumin 4.1 3.9-4.9 g/dL Globulin, Total 3.2 1.5-4.5 g/dL Bilirubin, Total 0.2 0.0-1.2 mg/dL Alkaline Phosphatase 103 44-121 IU/L AST (SGOT) 35 0-40 IU/L ALT (SGPT) 39 0-32 IU/L CBC WITH AUTO DIFFERENTIAL Reviewed date:11/16/2024 05:55:44 PM Interpretation: Performing Lab: Notes/Report: WBC 6.2 4.8-10.8 K/mcL RBC 4.60 3.80-4.80 M/mcL Hemoglobin 12.4 11.5-16.0 g/dL Hematocrit 40.2 35.0-47.0 % MCV 87.2 79.0-98.0 FL MCH 26.9 27.0-32.0 pcg MCHC 30.8 32.0-37.0 g/dL RDW 15.6 11.0-15.0 % Platelets 201 130-400 K/mcL MPV 10.8 7.0-11.0 FL NRBC 0.0 <1.0 % NRBC Absolute 0.00 <0.10 K/mcL Neutrophils Relative 46.3 Lymphocytes Relative 40.3 Monocytes Relative 7.8 Eosinophils Relative 4.4 Basophils Relative 0.7 Immature Granulocytes Relative 0.5 Neutrophils Absolute 2.85 1.50-7.00 K/mcL Lymphocytes Absolute 2.48 1.00-5.00 K/mcL Monocytes Absolute 0.48 0.20-1.00 K/mcL Eosinophils Absolute 0.27 0.00-0.50 K/mcL Basophils Absolute 0.04 0.00-0.20 K/mcL Immature Granulocytes Absolute 0.03 0.00-0.03 K/mcL CBC WITH AUTO DIFFERENTIAL Reviewed date:12/09/2024 09:04:36 AM Interpretation: Performing Lab: Notes/Report: WBC 5.6 4.8-10.8 K/mcL RBC 4.50 3.80-4.80 M/mcL Hemoglobin 12.2 11.5-16.0 g/dL Hematocrit 38.9 35.0-47.0 % MCV 86.3 79.0-98.0 FL MCH 27.1 27.0-32.0 pcg MCHC 31.4 32.0-37.0 g/dL RDW 14.6 11.0-15.0 % Platelets 235 130-400 K/mcL MPV 10.9 7.0-11.0 FL NRBC 0.0 <1.0 % NRBC Absolute 0.00 <0.10 K/mcL Neutrophils Relative 41.0 Lymphocytes Relative 45.4 Monocytes Relative 8.1 Eosinophils Relative 4.8 Basophils Relative 0.5 Immature Granulocytes Relative 0.2 Neutrophils Absolute 2.29 1.50-7.00 K/mcL Lymphocytes Absolute 2.54 1.00-5.00 K/mcL Monocytes Absolute 0.45 0.20-1.00 K/mcL Eosinophils Absolute 0.27 0.00-0.50 K/mcL Basophils Absolute 0.03 0.00-0.20 K/mcL Immature Granulocytes Absolute 0.01 0.00-0.03 K/mcL CREATININE Reviewed date:11/24/2024 03:15:24 PM Interpretation: Performing Lab: Notes/Report: Creatinine 0.68 0.50-1.10 mg/dL eGFR 106 >=60 mL/min/1.73m2 Calculation based on the Chronic Kidney Disease Epidemiology Collaboration (CKD-EPI) equation refit without adjustment for race. VITAMIN B12 Reviewed date:11/16/2024 05:55:06 PM Interpretation: Performing Lab: Notes/Report: Vitamin B-12 652 250-900 pcg/mL FERRITIN Reviewed date:11/16/2024 05:55:35 PM Interpretation: Performing Lab: Notes/Report: Ferritin 8 8-252 ng/mL FERRITIN Reviewed date:11/24/2024 03:15:18 PM Interpretation: Performing Lab: Notes/Report: Ferritin 7 8-252 ng/mL PROTHROMBIN TIME WITH INR Reviewed date:07/27/2024 04:57:36 PM Interpretation: Performing Lab: Notes/Report: Protime 11.9 10.6-13.9 sec INR 1.0 VITAMIN D 25 HYDROXY Reviewed date:11/17/2024 11:42:49 AM Interpretation: Performing Lab: Notes/Report: Vit D, 25-Hydroxy 6.6 30.0-80.0 ng/mL THYROID STIMULATING HORMONE WITH REFLEX TO FREE T4 AND FREE T3 Reviewed date:11/16/2024 06:12:56 PM Interpretation: Performing Lab: Notes/Report: TSH 2.40 0.40-4.00 mcIU/mL THYROID STIMULATING HORMONE WITH REFLEX TO FREE T4 AND FREE T3 Reviewed date:11/25/2024 07:55:03 AM Interpretation: Performing Lab: Notes/Report: TSH 2.64 0.40-4.00 mcIU/mL IRON AND TIBC Reviewed date:11/16/2024 05:55:20 PM Interpretation: Performing Lab: Notes/Report: Iron 74 40-150 mcg/dL TIBC 452 250-450 mcg/dL Iron Saturation 16 15-50 % SEDIMENTATION RATE Reviewed date:11/24/2024 03:15:35 PM Interpretation: Performing Lab: Notes/Report: Sed Rate 29 0-30 mm/hr C-REACTIVE PROTEIN Reviewed date:11/24/2024 03:15:32 PM Interpretation: Performing Lab: Notes/Report: C-Reactive Protein <0.29 <=0.50 mg/dL MG MAMMO DIGITAL DIAGNOSTIC W MORENITA BILAT Reviewed date:07/16/2024 04:36:23 PM Interpretation: Performing Lab: Notes/Report: Note See Note [facility], a member of [employer] Patient Name: JONAS MORRIS Date of : 1975 Reason for Exam: Invasive breast cancer, stage I/II/III, initial workup Exam Date: 07/16/2024 [id number] EST Report Status: Final Ordering Provider: IRASEMA OLEARY PCP: PRATIBHA BARROW EXAM: DIAGNOSTIC MAMMOGRAPHY, BILATERAL HISTORY: Personal history of right breast cancer. Patient reports generalized lumpiness in left breast. Right lumpectomy 2018. The patient is unabl e to palpate a suspicious finding. The patient was unable to localize any symptoms or areas of palpable concern on the day of the exam COMPARISON: 12/23/2023, 03/19/2022, 04/28/2021, 11/09/2020, 07/28/2019 TECHNIQUE: Synthesiz ed CC and MLO projections of each breast. Tomosynthesis of each breast in the CC and MLO projections. ADDITIONAL IMAGING: None Computer-aided detection was employed with the iCAD profound AI 3-D. TISSUE DENSITY: Ther e are scattered areas of fibroglandular density. (BI-RADS [...] upper outer left breast. There is no suspicio us mass. There is no change in the breast architecture. There are no suspicious calcifications. The patient is unable to localize any areas of palpable concern IMPRESSION: No mammographic evidence of new or recurrent malignancy. No suspicious interv al change. A negative mammogram in the presence of a clinically suspicious palpable abnormality does not preclude the possibility of malignancy or alter the indications for biopsy. Ultrasound was not performed, since the patient was unable to localize any areas of symptoms or palpable concern ASSESSMENT: BI-RADS 2: BENIGN RECOMMENDATION(S): 1: Clinical correlation recommended LEFT Continue annual mammographic screening -------- FINAL REPOR T -------- Dictated By: Teo Galarza Dictated Date: 07/16/2024 13:33 ET Assigned Physician: Teo Maher Reviewed and Electronically Signed By: Teo Maher Signed Date: 07/16/2024 13:38 ET Workstation ID: [id number] Transcribed By: Self Edit Transcribed Date: 07/16/2024 13:33 ET ALPHA FETOPROTEIN TUMOR MICHELLE ER Reviewed date:07/27/2024 04:57:33 PM Interpretation: Performing Lab: Notes/Report: The Siemens Advia Centaur Chemiluminescent Immunoassay is used. Results obtained with different assay methods or kits cannot be used interchangeably. Results cannot be interpreted as absolute evidence of the presence or absence of malignant disease. AFP 5.1 0.0-8.0 ng/mL ZINC Reviewed date:12/07/2024 12:34:58 PM Interpretation: Performing Lab: Notes/Report: Zinc 53 60-130 ug/dL Elevated results may be due to sample collected in a non-certified trace element-free tube. This test was developed and the performance characteristics determined by [facility]. It has not been cleared or approved by the FDA. The laboratory is regulated under CLIA as qualified to perform high-complexity testing. This test is used for patient testing purposes. It should not be regarded as investigational or for research. Test performed at [facility], [address] , [place] [address] Rosa M Llanes MD, PhD - Refiner Operator Reason For Referral Reason Evaluation and manag ement Diagnosis 1 Encounter for screen ing for malignant neoplasm of colon (Z12.11) Referral Organization [facility] Referring Provider First Name MCKINNON Referring Provider Last Name [facility] Referring Provider Speciality Internal edicine Referred Provider Specialty Gastroentero logy General Notes Referral sent TO [facility] Gastroenterology - Dept will call patient for scheduling., Jenni Sherman 02/05/2024 08:47:43 AM > Referral Priority Routine Reason Evaluation and manag ement Diagnosis 1 Pain in left shoulde r (M25.512) Referral Organization [facility] Referring Provider First Name MCKINNON Referring Provider Last Name [facility] Referring Provider Speciality Internal edicine Referred Provider Specialty Orthopedic S urgery General Notes Referral sent [facility] Orthopedics - Dept will call patient for scheduling., Jenni Sherman 02/05/2024 11:20:36 AM > Referral Priority Routine Reason mild cognitive impai rment Referral Organization [facility] Referring Provider First Name MCKINNON Referring Provider Last Name [facility] Referring Provider Speciality Internal edicine Referred Provider Specialty Neurology Referral Priority Routine Reason Please evaluate and treat Diagnosis 1 Dermatitis (L30.9) Referral Organization [facility] Referring Provider First Name Miya Referring Provider Last Name Barber Referred Provider Specialty Dermatology General Notes Faxed referral. Referral Priority Routine Reason please evaluate and treat, MMSE 27 please evaluate and treat Diagnosis 1 Complaints of memory disturbance (R41.3) Referral Organization [facility] Referring Provider First Name Miya Referring Provider Last Name [facility] Referred Provider Specialty Neuropsychia try General Notes Referral was faxed t o [facility] behavioral health Neuropsychology. Please contact patient for scheduling., Izabel Garza 11/16/2024 02:45:00 PM > Referral Priority Routine Reason Hep- C- Dr Regino Mcfarlane inity Please evaluate and treat Diagnosis 1 Hepatitis C carrier (B18.2) Referral Organization [facility] Referring Provider First Name MCKINNON Referring Provider Last Name [facility] Referring Provider Speciality Internal edicine Referred Provider Specialty Gastroentero logy General Notes Please call the chris ent to schedule the appointment, Encounter created and SMS sent to the pt., Olga Mcbridein 01/22/2025 02:27:23 PM > Referral Priority Routine Medications Medication SIG (Take, Route, Frequency, Duration) Notes Start Date End Date Status Hydrocortisone 2.5 % 1 application Externally Twice a day; Duration: 30 days 08/05/2023 Not-Takin g Acetaminophen 325 MG 2 capsules as neede d Orally every 6 hrs Active D3-1000 25 MCG (1000 UT) TAKE ONE CAPSUL E BY MOUTH ONCE A DAY; Duration: 30 Active Polyethylene Glycol 3350 17 GM/SCOOP DISSOLVE 1 capful (17gm) powder IN 8ounces OF IN FLUID AND DRINK ONCE A DAY; Duration: 30 Active GNP Vitamin B-6 100 mg TAKE ONE TABLET B Y MOUTH DAILY; Duration: 30 Active Docusate Sodium 100 mg TAKE 1 CAPSULE BY MOUTH ONCE A DAY NEEDED; Duration: 30 Active Famotidine 40 MG 1 tablet at bedtime Orally Once a day; Duration: 30 days 08/05/2023 Active Montelukast Sodium 10 mg TAKE 1 TABLET B Y MOUTH ONCE DAILY AT BEDTIME; Duration: 90 Active Spiriva HandiHaler 18 MCG 1 capsule by i nhaling the contents of the capsule using the HandiHaler device Inhalation Once a day; Duration: 30 days Active Ondansetron [address] 1 TABLET UNDER THE TONGUE TO DISSOLVE EVERY 6 HOURS NEEDED; Duration: 30 Active Symbicort 160-4.5 MCG/ACT 2 puffs Inhala tion Twice a day; Duration: 30 days Active oxyBUTYnin Chloride ER 10 mg TAKE 1 TABLET BY MOUTH ONCE DAILY; Duration: 30 Active Ketoconazole 2 % APPLY TO THE AFFECTE D AREA TOPICALLY TWICE A WEEK. APPLY TO damp SKIN, lather, LEAVE ON 5 MINUTES AND RINSE; Duration: 30 Active Ribavirin 200 MG as directed Orally Twice a day Active Lyrica 25 MG 1 capsule Orally twi ce daily; Duration: 30 days 08/12/2024 Active Pantoprazole Sodium 20 mg TAKE 1 TABLET BY MOUTH ONCE DAILY; Duration: 30 Active Zolpidem Tartrate 10 MG 1 tablet at bedt chandrika as needed Orally Once a day Active Ventolin HFA 108 (90 Base) MCG/ACT 1 puff as needed Inhalation every 4 hrs; Duration: 30 days Active Vosevi 400-100-100 MG 1 tablet with food Orally Once a day Active Topiramate 50 mg TAKE 1 TABLET BY MALENA TH two (2) times a day; Duration: 30 days Active Pyridoxine HCl 100 MG 1 tablet Orally On ce a day Active Vitamin D (Ergocalciferol) 1.25 MG (25946 UT) 1 capsule Orally; Duration: 90 days 11/17/2024 Active traZODone HCl 100 MG 1 tablet at bedtime Orally Once a day Active Theophylline ER 300 mg TAKE 1 TABLET BY MOUTH EVERY TWELVE HOURS; Duration: 30 Active Baclofen 10 MG 1 tablet as needed Orally Twice a day Active Doxycycline Hyclate 100 MG 1 capsule Ora lly Twice a day; Duration: 7 days 02/03/2024 Not-Taking Prazosin HCl 1 MG 1 capsule Orally thr ee times a day Active Tamsulosin HCl 0.4 MG 1 capsule Orally O nce a day Not-Taking Tamoxifen Citrate 20 MG 1 tablet Orally Once a day Active Venlafaxine HCl ER 150 MG 1 capsule with food Orally Once a day Active Immunizations Vaccine Route Administration Date Status Comme nts COVID 19 Pfizer Unknown 10/27/2020 Administered COVID 19 Pfizer Unknown 11/17/2020 Administered Hep B, adult dosage, for intramuscular use Unknown 10/13/2013 Administered Hep B, adult dosage, for intramuscular use Unknown 01/04/2014 Administered Hep B, adult dosage, for intramuscular use Unknown 02/09/2014 Administered MMR Unknown 01/04/2014 Administered MMR Unknown 02/17/2014 Administered Pneumococcal polysaccharide PPV23 Unknown 05/20/2014 Ad ministered Tdap Unknown 01/04/2014 Administered Tdap Unknown 02/09/2014 Administered Social History Tobacco Use: Social History Observation Description Date Details (start date - stop date) Former Smoker NA - NA Tobacco Use/Smoking Question Answer Notes Are you [...] s he vapes 4-5 puffs a day Section Notes: smoker for 30 years smoker for 30 years smoker for 30 years smoker for 30 years smoker for 30 years smoker for 30 years smoker for 30 years smoker for 30 years smoker for 30 years smoker for 30 years smoker for 30 years smoker for 30 years smoker for 30 years smoker for 30 years smoker for 30 years smoker for 30 years Problems Problem Type SNOMED Code ICD Code Onset Dates Problem Status W/U Status Risk Notes Problem Tobacco user (169444173) Nicotine dependence, cigarettes, uncomplicated (F17.210) Active confirmed Problem Mild recurrent major depression (97141636) Major depressive disorder, recurrent, mild (F33.0) Active confirmed Problem Generalized anxiety disorder (61348500) Generalized anxiety disorder (F41.1) Active confirmed Problem Obstructive sleep apnea syndrome (disorder) (38706166) Obstructive sleep apnea (adult) (pediatric) (G47.33) Active confirmed Problem Polyneuropathy (26758249) Polyneuropathy, unspecified (G62.9) Active confirmed Problem Amblyopia (019430030) Unspecified amblyopia, unspecified eye (H53.009) Active confirmed Problem Chronic obstructive pulmonary disease (50984258) Chronic obstructive pulmonary disease, unspecified (J44.9) Active confirmed Problem Uncomplicated moderate persistent asthma (577941684) Moderate persistent asthma, uncomplicated (J45.40) Active confirmed Problem Gastro-esophageal reflux disease without esophagitis (008547507) Gastro-esophageal reflux disease without esophagitis (K21.9) Active confirmed Problem Constipation (22065055) Constipation, unspecified (K59.00) Active confirmed Problem Degeneration of thoracolumbar intervertebral disc (80329435) Other intervertebral disc degeneration, 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) Active confirmed Problem Cervical radiculopathy (67160112) Radiculopathy, cervical region (M54.12) Active confirmed Problem Overactive bladder (431235976) Overactive bladder (N32.81) Active confirmed Problem Personal history of primary malignant neoplasm of breast (939137169) Personal history of malignant neoplasm of breast (Z85.3) Active confirmed Problem History of bariatric surgical procedure (606589501) Bariatric surgery status (Z98.84) Active confirmed Problem Hepatitis C carrier (412137588) Hepatitis C carrier (B18.2) Active confirmed Problem Amnesia (01066433) Complaints of memory disturbance (R41.3) Active confirmed Problem Vitamin D deficiency (79691967) Vitamin D deficiency (E55.9) Active confirmed Problem Mild cognitive impairment (415796085) Mild cognitive impairment (G31.84) Active confirmed Vital Signs Heart Rate 101 /min 01/20/2025 Temperature 96.5 degrees Fahrenheit 01/20/2025 Oximetry 98 % 01/20/2025 Blood pressure diastolic 70 mm Hg 01/20/2025 Height 62 in 01/20/2025 Blood pressure systolic 110 mm Hg 01/20/2025 Weight 145.7 lbs 01/20/2025 BMI 26.65 kg/m2 01/20/2025 Encounters Encounter Location Date Provider Diagnosis [facility] [address] [place] [address] 03/10/2024 [facility] [address] [place] [address] 03/17/2024 [facility] [address] [place] [address] 05/22/2024 [facility] [address] [place] [address] 08/18/2024 [facility] [address] [place] [address] 09/02/2024 [facility] [address] [place] [address] 11/06/2024 [facility] [address] [place] [address] 11/17/2024 [facility] Vitamin D deficiency E55.9 [facility] [address] [place] [address] 11/18/2024 [facility] [address] [place] [address] 11/20/2024 [facility] [address] [place] [address] 11/20/2024 [facility] [address] [place] [address] 11/26/2024 [facility] Headache, unspecifie d R51.9 [address] [place] [address] 11/26/2024 [facility] [address] [place] [address] 01/04/2025 [facility] [place] [address] 01/22/2025 MCKINNON GUL [address] [place] [address] 02/03/2024 MCKINNON GUL Encounter for genera l adult medical examination without abnormal findings Z00.00 ; Generalized anxiety disorder F41.1 ; Chronic obstructive pulmonary disease, unspecified J44.9 ; Hepatitis C carrier B18.2 ; Overactive bladder N32.81 and Obstructive sleep apnea (adult) (pediatric) G47.[address] [place] [address] 07/24/2024 [facility] Fritzjanette Hepatitis C carrier B18.[address] [place] [address] 08/12/2024 Miya Comer Hepatitis C carrier B18.2 ; Gastro-esophageal reflux disease without esophagitis K21.9 ; Chronic obstructive pulmonary disease, unspecified J44.9 ; Generalized anxiety disorder F41.1 ; Nicotine dependence, cigarettes, uncomplicated F17.210 ; Overactive bladder N32.81 ; Obstructive sleep apnea (adult) (pediatric) G47.33 ; Polyneuropathy, unspecified G62.9 and Personal history of malignant neoplasm of breast Z85.[address] [place] [address] 01/20/2025 PRATIBHA BARROW Hepatitis C carrier B18.2 ; Generalized anxiety disorder F41.1 ; Obstructive sleep apnea (adult) (pediatric) G47.33 ; Chronic obstructive pulmonary disease, unspecified J44.9 and Gastro-esophageal reflux disease without esophagitis K21.[address] [place] [address] 11/12/2024 Ghadeer Mazloum Complaints of memory disturbance R41.3 [facility] [address] [place] [address] 11/20/2024 Ghadeer Mazloum Headache, unspecifie d R51.9 and Fatigue, unspecified type R53.83 [facility] [address] [place] [address] 05/27/2024 MCKINNON GUL Radiculopathy, cervical region M54.12 ; Hypotension, unspecified I95.9 and Mild cognitive impairment G31.84 Assessments Encounter Date Diagnosis (ICD Code) Assessment Notes Treatment Notes Treatment Clinical Notes Section Notes 05/27/2024 Hypotension, unspecified (ICD-10 - I95.9) Kashmir Gonzalezritesh CISNEROS, right-sided breast cancer followed by Dr. Jarvis at [facility], asthma/COPD followed by Dr. Kim, neuropathy, osteoarthritis followed by Dr. Hensley and anxiety/depression here complaining of neck pain. She also complains of left shoulder pain at this point. Plan is as follows: Hypotension. Blood pressure was low in the hospital but today her blood pressure is within reasonable limits. Most likely secondary to dehydration. Advised appropriate hydration. Radiculopathy. Encouraed stretching exercise. She will touchbase with Dr Hensley regarding her back pain. Mild cognitive impairment. We will give her a referral for a Neurologist. General health concerns discussed with patient. Scribe services used to formulate this note under HIPAA compliance and under [place] law mandated for scribe services. Patient aware of service. Verbal consent and written consent taken from the patient. Patient understands and verbalizes understanding of the scribes services and all questions answered regarding scribes services. Patient agrees to use of scribes services. 05/27/2024 Radiculopathy, cervical region (ICD-10 - M54.12) Kashmir Coonsriram CISNEROS, right-sided breast cancer followed by Dr. Jarvis at [facility], asthma/COPD followed by Dr. Kim, neuropathy, osteoarthritis followed by Dr. Hensley and anxiety/depression here complaining of neck pain. She also complains of left shoulder pain at this point. Plan is as follows: Hypotension. Blood pressure was low in the hospital but today her blood pressure is within reasonable limits. Most likely secondary to dehydration. Advised appropriate hydration. Radiculopathy. Encouraed stretching exercise. She will touchbase with Dr Hensley regarding her back pain. Mild cognitive impairment. We will give her a referral for a Neurologist. General health concerns discussed with patient. Scribe services used to formulate this note under HIPAA compliance and under [place] law mandated for scribe services. Patient aware of service. Verbal consent and written consent taken from the patient. Patient understands and verbalizes understanding of the scribes services and all questions answered regarding scribes services. Patient agrees to use of scribes services. 07/24/2024 Hepatitis C carrier (ICD-10 - B18.2) Mrs. Morris is a 49-year-old lady with hepatitis C and sees Kashmir Chan PA-C, right-sided breast cancer followed by Dr. Jarvis at [facility], asthma/COPD followed by Dr. Kim, neuropathy, osteoarthritis followed by Dr. Hensley and anxiety/depression here to discuss her recent Bloodwork. Plan as follows: Hep C carrier: - Recent Bloodwork shows abnormal Hep C panel. She is currently on DAA and persistent on discontinuing the medication. Advised against discontinuing the medication before consulting with her provider on further directions. Advised on contacting her provider to further discuss management and if she can be referred to a different practice for second opinion. Patient agrees with the plan. I have rendered the services for this patient under direct supervision of Dr. Barrow, who did not see the patient but was available upon request 08/12/2024 Hepatitis C carrier (ICD-10 - B18.2) Mrs. Morris is a 49-year-old lady with hepatitis C and sees Kashmir Chan PA-C, right-sided breast cancer followed by Dr. Jarvis at [facility], asthma/COPD followed by Dr. Kim, neuropathy, osteoarthritis followed by Dr. Hensley and anxiety/depression here for follow-up. Plan is as follows: Hepatitis C. - She follows Dr. Scoo Yang for her treatment. She is considering a consultation with different provider. Recent U/S of the liver showed hepatomegaly otherwise unremarkable. GERD. - Stable. Continue Protonix 20 MG along with Famotidine 40 MG at bedtime. Generalized anxiety/Major depressive disorder. -Mood stable on current regimen. Follows with Psychiatry COPD. -She uses her inhalers as directed. She sees Dr. Kim. Dermatitis. -Continue Hydrocortisone cream twice a day. Referred to Derm. significant osteoarthritis of the left shoulder joint and degenerative disc disease. - She sees physiatry for intra-articular injections. Nicotine dependence: - She continues to smoke. Different smoking cessation modalities have been discussed. Overactive bladder: - Stable. Continue same regimen. KELLY: - Stable on CPAP. History of malignant neoplasm of breast: - She is currently on Tamoxifen. Follows with heme/onc Screening blood work before next appointment. General health concerns discussed with patient. I have rendered the services for this patient under direct supervision of Dr. Barrow, who did not see the patient but was available upon request 11/12/2024 Complaints of memory disturbance (ICD-10 - R41.3) Mrs. Morris is a 49-year-old lady with hepatitis C and sees Kashmir Chan PA-C, right-sided breast cancer followed by Dr. Jarvis at [facility], asthma/COPD followed by Dr. Kim, neuropathy, osteoarthritis followed by Dr. Hensley and anxiety/depression follows with N is here for Memory testing. Plan As follows Complains of memory disturbance - MMSE score of 27. Patient is alert and oriented. No focal neuro deficit. We will check blood work for vitamin D, CBC, TSH B12 and folate especially with past medical history of bariatric surgery. I have also referred patient to neuropsychiatry. Advised on increasing activity for brain stimulation. General concerns have been discussed I have rendered the services for this patient under direct supervision of Dr. Barrow, who did not see the patient but was available upon request 11/17/2024 Vitamin D deficiency (ICD-10 - E55.9) 11/26/2024 Headache, unspecified (ICD-10 - R51.9) 08/12/2024 Gastro-esophageal reflux disease without esophagitis (ICD-10 - K21.9) Mrs. Morris is a 49-year-old lady with hepatitis C and sees Kashmir Chan PA-C, right-sided breast cancer followed by Dr. Jarvis at [facility], asthma/COPD followed by Dr. Kim, neuropathy, osteoarthritis followed by Dr. Hensley and anxiety/depression here for follow-up. Plan is as follows: Hepatitis C. - She follows Dr. Soco Yang for her treatment. She is considering a consultation with different provider. Recent U/S of the liver showed hepatomegaly otherwise unremarkable. GERD. - Stable. Continue Protonix 20 MG along with Famotidine 40 MG at bedtime. Generalized anxiety/Major depressive disorder. -Mood stable on current regimen. Follows with Psychiatry COPD. -She uses her inhalers as directed. She sees Dr. Kim. Dermatitis. -Continue Hydrocortisone cream twice a day. Referred to Derm. significant osteoarthritis of the left shoulder joint and degenerative disc disease. - She sees physiatry for intra-articular injections. Nicotine dependence: - She continues to smoke. Different smoking cessation modalities have been discussed. Overactive bladder: - Stable. Continue same regimen. KELLY: - Stable on CPAP. History of malignant neoplasm of breast: - She is currently on Tamoxifen. Follows with heme/onc Screening blood work before next appointment. General health concerns discussed with patient. I have rendered the services for this patient under direct supervision of Dr. Barrow, who did not see the patient but was available upon request 01/20/2025 Hepatitis C carrier (ICD-10 - B18.2) Mrs. Morris is a 49-year-old lady with hepatitis C and sees Kashmir Chan PA-C, right-sided breast cancer followed by Dr. Jarvis at [facility], asthma/COPD followed by Dr. Kim, neuropathy, osteoarthritis followed by Dr. Hensley and anxiety/depression follows with N is here Symptoms of fatigue. Fatigue/tiredness and abdominal pain. This is multifactorial considering her history of breast cancer, polypharmacy, anxiety/depression . Recently seen at [facility] and workup was negative. Advised to increase physical activity, inappropriate hydration. Hepatitis C. She had recent hepatitis C test done which was detectable. According to patient she completed antiviral therapy. She is given referral to Dr. Blue at [place] for further workup. She also follows up with infectious disease physician Dr. Wan. Acid reflux. She is on famotidine and her symptoms are well controlled. COPD. She is stable on current regimen. She has quit smoking but she is having passive smoking from her son. Obstructive sleep apnea. She uses CPAP machine on a regular basis Generalized anxiety disorder. She is on multiple medications and she is stable 11/20/2024 Headache, unspecified (ICD-10 - R51.9) Mrs. Morris is a 49-year-old lady with hepatitis C and sees Kashmir Chan PA-C, right-sided breast cancer followed by Dr. Jarvis at [facility], asthma/COPD followed by Dr. Kim, neuropathy, osteoarthritis followed by Dr. Hensley and anxiety/depression follows with N is here Symptoms of fatigue. Plan as follows Headache - Given ongoing headache, lightheadedness and memory disturbance. Given also history of breast cancer. We will get a CAT scan with and without contrast of the brain to rule out any metastasis at this point. She has finished the course of the tamoxifen therapy. Advised patient to discuss her symptoms as well with the oncologist. Fatigue - Her recent blood work did show a vitamin D deficiency with a level of 6.6. We have started her on vitamin D supplements 1 tablet once a week for 12 weeks and then we will repeat lab again to ensure that vitamin D has returned to its normal limit. B12 and folate, CBC are within normal limits. It is also possible secondary to her active hep C which she is also currently in treatment. I will still rule out other causes of CK, ESR, CRP, rheumatoid rule out any rheumatological factor. General concerns have been discussed I have rendered the services for this patient under direct supervision of Dr. Barrow, who did not see the patient but was available upon request 11/20/2024 Fatigue, unspecified type (ICD-10 - R53.83) Mrs. Morris is a 49-year-old lady with hepatitis C and sees Kashmir Chan PA-C, right-sided breast cancer followed by Dr. Matheus boss [facility], asthma/COPD followed by Dr. Kim, neuropathy, osteoarthritis followed by Dr. Hensley and anxiety/depression follows with [facility] is here Symptoms of fatigue. Plan as follows Headache - Given ongoing headache, lightheadedness and memory disturbance. Given also history of breast cancer. We will get a CAT scan with and without contrast of the brain to rule out any metastasis at this point. She has finished the course of the tamoxifen therapy. Advised patient to discuss her symptoms as well with the oncologist. Fatigue - Her recent blood work did show a vitamin D deficiency with a level of 6.6. We have started her on vitamin D supplements 1 tablet once a week for 12 weeks and then we will repeat lab again to ensure that vitamin D has returned to its normal limit. B12 and folate, CBC are within normal limits. It is also possible secondary to her active hep C which she is also currently in treatment. I will still rule out other causes of CK, ESR, CRP, rheumatoid rule out any rheumatological factor. General concerns have been discussed I have rendered the services for this patient under direct supervision of Dr. Barrow, who did not see the patient but was available upon request 02/03/2024 Encounter for general adult medical examination without abnormal findings (ICD-10 - Z00.00) Mrs. Morris is a 48-year-old lady with hepatitis C and sees Kashmir Chan PA-C, right-sided breast cancer followed by Dr. Jarvis at [facility], asthma/COPD followed by Dr. Kim, neuropathy, osteoarthritis followed by Dr. Hensley and anxiety/depression here for annual wellness visit. Plan is as follows: Hepatitis C. She sees Kashmir Chan PA-C. She recently saw Dr. Truong who recommended she follow up with Dr. Soco Yang for her treatment. GERD. Continue Protonix 20 MG along with Famotidine 40 MG at bedtime. Generalized anxiety/Major depressive disorder. Mood stable on current regimen. COPD. She uses her inhalers as directed. She sees Dr. Kim. Dermatitis. Continue Hydrocortisone cream twice a day. Left shoulder pain. Referred to [facility]. Chronic obstructive pulmonary disease. Start Doxycycline 100 MG BID for 7 days and continue inhalers and follow up with Dr. Kim EKG is normal sinus rhythm at [address]pm with no acute [address] or T wave changes, no bundle branch blocks, normal intervals. Left shoulder joint pain. Referral to [facility] she has multiple comorbidities and significant osteoarthritis of the left shoulder joint and degenerative disc disease. She sees physiatry for intra-articular injections. She needs help with activities of daily living like dressing, toileting, lifting, ambulation and she uses a cane or a walker to walk and transportation. Eye screening. She sees her bottling line attendant regularly. Dental screening. She sees dentist regularly. Breast cancer screening. She is up-to-date on her mammogram. Immunizations. Declines vaccinations. Screening blood work before next appointment. General health concerns discussed with patient. Scribe services used to formulate this note under HIPAA compliance and under [place] law mandated for scribe services. Patient aware of service. Verbal consent and written consent taken from the patient. Patient understands and verbalizes understanding of the scribes services and all questions answered regarding scribes services. Patient agrees to use of scribes services. 02/03/2024 Generalized anxiety disorder (ICD-10 - F41.1) Mrs. Morris is a 48-year-old lady with hepatitis C and sees Kashmir Chan PA-C, right-sided breast cancer followed by Dr. Jarvis at [facility], asthma/COPD followed by Dr. Kim, neuropathy, osteoarthritis followed by Dr. Hensley and anxiety/depression here for annual wellness visit. Plan is as follows: Hepatitis C. She sees Kashmir Chan PA-C. She recently saw Dr. Truong who recommended she follow up with Dr. Soco Yang for her treatment. GERD. Continue Protonix 20 MG along with Famotidine 40 MG at bedtime. Generalized anxiety/Major depressive disorder. Mood stable on current regimen. COPD. She uses her inhalers as directed. She sees Dr. Kim. Dermatitis. Continue Hydrocortisone cream twice a day. Left shoulder pain. Referred to [facility]. Chronic obstructive pulmonary disease. Start Doxycycline 100 MG BID for 7 days and continue inhalers and follow up with Dr. Kim EKG is normal sinus rhythm at 70 bpm with no acute ST or T wave changes, no bundle branch blocks, normal intervals. Left shoulder joint pain. Referral to [facility] she has multiple comorbidities and significant osteoarthritis of the left shoulder joint and degenerative disc disease. She sees physiatry for intra-articular injections. She needs help with activities of daily living like dressing, toileting, lifting, ambulation and she uses a cane or a walker to walk and transportation. Eye screening. She sees her bottling line attendant regularly. Dental screening. She sees dentist regularly. Breast cancer screening. She is up-to-date on her mammogram. Immunizations. Declines vaccinations. Screening blood work before next appointment. General health concerns discussed with patient. Scribe services used to formulate this note under HIPAA compliance and under [place] law mandated for scribe services. Patient aware of service. Verbal consent and written consent taken from the patient. Patient understands and verbalizes understanding of the scribes services and all questions answered regarding scribes services. Patient agrees to use of scribes services. 08/12/2024 Chronic obstructive pulmonary disease, unspecified (ICD-10 - J44.9) Mrs. Morris is a 49-year-old lady with hepatitis C and sees Kashmir Chan PA-C, right-sided breast cancer followed by Dr. Jarvis at [facility], asthma/COPD followed by Dr. Kim, neuropathy, osteoarthritis followed by Dr. Hensley and anxiety/depression here for follow-up. Plan is as follows: Hepatitis C. - She follows Dr. Soco Yang for her treatment. She is considering a consultation with different provider. Recent U/S of the liver showed hepatomegaly otherwise unremarkable. GERD. - Stable. Continue Protonix 20 MG along with Famotidine 40 MG at bedtime. Generalized anxiety/Major depressive disorder. -Mood stable on current regimen. Follows with Psychiatry COPD. -She uses her inhalers as directed. She sees Dr. Kim. Dermatitis. -Continue Hydrocortisone cream twice a day. Referred to Derm. significant osteoarthritis of the left shoulder joint and degenerative disc disease. - She sees physiatry for intra-articular injections. Nicotine dependence: - She continues to smoke. Different smoking cessation modalities have been discussed. Overactive bladder: - Stable. Continue same regimen. KELLY: - Stable on CPAP. History of malignant neoplasm of breast: - She is currently on Tamoxifen. Follows with heme/onc Screening blood work before next appointment. General health concerns discussed with patient. I have rendered the services for this patient under direct supervision of Dr. Barrow, who did not see the patient but was available upon request 01/20/2025 Generalized anxiety disorder (ICD-10 - F41.1) Mrs. Morris is a 49-year-old lady with hepatitis C and sees Kashmir Chan PA-C, right-sided breast cancer followed by Dr. Jarvis at [facility], asthma/COPD followed by Dr. Kim, neuropathy, osteoarthritis followed by Dr. Hensley and anxiety/depression follows with N is here Symptoms of fatigue. Fatigue/tiredness and abdominal pain. This is multifactorial considering her history of breast cancer, polypharmacy, anxiety/depression . Recently seen at [facility] and workup was negative. Advised to increase physical activity, inappropriate hydration. Hepatitis C. She had recent hepatitis C test done which was detectable. According to patient she completed antiviral therapy. She is given referral to Dr. Blue at [place] for further workup. She also follows up with infectious disease physician Dr. Wan. Acid reflux. She is on famotidine and her symptoms are well controlled. COPD. She is stable on current regimen. She has quit smoking but she is having passive smoking from her son. Obstructive sleep apnea. She uses CPAP machine on a regular basis Generalized anxiety disorder. She is on multiple medications and she is stable 05/27/2024 Mild cognitive impairment (ICD-10 - G31.84) Kashmir Chan PA-C, right-sided breast cancer followed by Dr. Jarvis at [facility], asthma/COPD followed by Dr. Kim, neuropathy, osteoarthritis followed by Dr. Hensley and anxiety/depression here complaining of neck pain. She also complains of left shoulder pain at this point. Plan is as follows: Hypotension. Blood pressure was low in the hospital but today her blood pressure is within reasonable limits. Most likely secondary to dehydration. Advised appropriate hydration. Radiculopathy. Encouraed stretching exercise. She will touchbase with Dr Hensley regarding her back pain. Mild cognitive impairment. We will give her a referral for a Neurologist. General health concerns discussed with patient. Scribe services used to formulate this note under HIPAA compliance and under [place] law mandated for scribe services. Patient aware of service. Verbal consent and written consent taken from the patient. Patient understands and verbalizes understanding of the scribes services and all questions answered regarding scribes services. Patient agrees to use of scribes services. 01/20/2025 Obstructive sleep apnea (adult) (pediatric) (ICD-10 - G47.33) Mrs. Morris is a 49-year-old lady with hepatitis C and sees Kashmir Chan PA-C, right-sided breast cancer followed by Dr. Jarvis at [facility], asthma/COPD followed by Dr. Kim, neuropathy, osteoarthritis followed by Dr. Hensley and anxiety/depression follows with N is here Symptoms of fatigue. Fatigue/tiredness and abdominal pain. This is multifactorial considering her history of breast cancer, polypharmacy, anxiety/depression . Recently seen at [facility] and workup was negative. Advised to increase physical activity, inappropriate hydration. Hepatitis C. She had recent hepatitis C test done which was detectable. According to patient she completed antiviral therapy. She is given referral to Dr. Blue at [place] for further workup. She also follows up with infectious disease physician Dr. Wan. Acid reflux. She is on famotidine and her symptoms are well controlled. COPD. She is stable on current regimen. She has quit smoking but she is having passive smoking from her son. Obstructive sleep apnea. She uses CPAP machine on a regular basis Generalized anxiety disorder. She is on multiple medications and she is stable 08/12/2024 Generalized anxiety disorder (ICD-10 - F41.1) Mrs. Morris is a 49-year-old lady with hepatitis C and sees Kashmir Chan PA-C, right-sided breast cancer followed by Dr. Jarvis at [facility], asthma/COPD followed by Dr. Kim, neuropathy, osteoarthritis followed by Dr. Hensley and anxiety/depression here for follow-up. Plan is as follows: Hepatitis C. - She follows Dr. Soco Yang for her treatment. She is considering a consultation with different provider. Recent U/S of the liver showed hepatomegaly otherwise unremarkable. GERD. - Stable. Continue Protonix 20 MG along with Famotidine 40 MG at bedtime. Generalized anxiety/Major depressive disorder. -Mood stable on current regimen. Follows with Psychiatry COPD. -She uses her inhalers as directed. She sees Dr. Kim. Dermatitis. -Continue Hydrocortisone cream twice a day. Referred to Derm. significant osteoarthritis of the left shoulder joint and degenerative disc disease. - She sees physiatry for intra-articular injections. Nicotine dependence: - She continues to smoke. Different smoking cessation modalities have been discussed. Overactive bladder: - Stable. Continue same regimen. KELLY: - Stable on CPAP. History of malignant neoplasm of breast: - She is currently on Tamoxifen. Follows with heme/onc Screening blood work before next appointment. General health concerns discussed with patient. I have rendered the services for this patient under direct supervision of Dr. Barrow, who did not see the patient but was available upon request 02/03/2024 Chronic obstructive pulmonary disease, unspecified (ICD-10 - J44.9) Mrs. Morris is a 48-year-old lady with hepatitis C and sees Kashmir Chan PA-C, right-sided breast cancer followed by Dr. Jarvis at [facility], asthma/COPD followed by Dr. Kim, neuropathy, osteoarthritis followed by Dr. Hensley and anxiety/depression here for annual wellness visit. Plan is as follows: Hepatitis C. She sees Kashmir Chan PA-C. She recently saw Dr. Truong who recommended she follow up with Dr. Soco Yang for her treatment. GERD. Continue Protonix 20 MG along with Famotidine 40 MG at bedtime. Generalized anxiety/Major depressive disorder. Mood stable on current regimen. COPD. She uses her inhalers as directed. She sees Dr. Kim. Dermatitis. Continue Hydrocortisone cream twice a day. Left shoulder pain. Referred to [facility]. Chronic obstructive pulmonary disease. Start Doxycycline 100 MG BID for 7 days and continue inhalers and follow up with Dr. Kim EKG is normal sinus rhythm at 70 bpm with no acute ST or T wave changes, no bundle branch blocks, normal intervals. Left shoulder joint pain. Referral to [facility] she has multiple comorbidities and significant osteoarthritis of the left shoulder joint and degenerative disc disease. She sees physiatry for intra-articular injections. She needs help with activities of daily living like dressing, toileting, lifting, ambulation and she uses a cane or a walker to walk and transportation. Eye screening. She sees her bottling line attendant regularly. Dental screening. She sees dentist regularly. Breast cancer screening. She is up-to-date on her mammogram. Immunizations. Declines vaccinations. Screening blood work before next appointment. General health concerns discussed with patient. Scribe services used to formulate this note under HIPAA compliance and under [place] law mandated for scribe services. Patient aware of service. Verbal consent and written consent taken from the patient. Patient understands and verbalizes understanding of the scribes services and all questions answered regarding scribes services. Patient agrees to use of scribes services. 02/03/2024 Hepatitis C carrier (ICD-10 - B18.2) Mrs. Morris is a 48-year-old lady with hepatitis C and sees Kashmir Chan PA-C, right-sided breast cancer followed by Dr. Jarvis at [facility], asthma/COPD followed by Dr. Kim, neuropathy, osteoarthritis followed by Dr. Hensley and anxiety/depression here for annual wellness visit. Plan is as follows: Hepatitis C. She sees Kashmir Chan PA-C. She recently saw Dr. Truong who recommended she follow up with Dr. Soco Yang for her treatment. GERD. Continue Protonix 20 MG along with Famotidine 40 MG at bedtime. Generalized anxiety/Major depressive disorder. Mood stable on current regimen. COPD. She uses her inhalers as directed. She sees Dr. Kim. Dermatitis. Continue Hydrocortisone cream twice a day. Left shoulder pain. Referred to [facility]. Chronic obstructive pulmonary disease. Start Doxycycline 100 MG BID for 7 days and continue inhalers and follow up with Dr. Kim EKG is normal sinus rhythm at 70 bpm with no acute ST or T wave changes, no bundle branch blocks, normal intervals. Left shoulder joint pain. Referral to [facility] she has multiple comorbidities and significant osteoarthritis of the left shoulder joint and degenerative disc disease. She sees physiatry for intra-articular injections. She needs help with activities of daily living like dressing, toileting, lifting, ambulation and she uses a cane or a walker to walk and transportation. Eye screening. She sees her bottling line attendant regularly. Dental screening. She sees dentist regularly. Breast cancer screening. She is up-to-date on her mammogram. Immunizations. Declines vaccinations. Screening blood work before next appointment. General health concerns discussed with patient. Scribe services used to formulate this note under HIPAA compliance and under [place] law mandated for scribe services. Patient aware of service. Verbal consent and written consent taken from the patient. Patient understands and verbalizes understanding of the scribes services and all questions answered regarding scribes services. Patient agrees to use of scribes services. 01/20/2025 Chronic obstructive pulmonary disease, unspecified (ICD-10 - J44.9) Mrs. Morris is a 49-year-old lady with hepatitis C and sees Kashmir Chan PA-C, right-sided breast cancer followed by Dr. Jarvis at [facility], asthma/COPD followed by Dr. Kim, neuropathy, osteoarthritis followed by Dr. Hensley and anxiety/depression follows with N is here Symptoms of fatigue. Fatigue/tiredness and abdominal pain. This is multifactorial considering her history of breast cancer, polypharmacy, anxiety/depression . Recently seen at [facility] and workup was negative. Advised to increase physical activity, inappropriate hydration. Hepatitis C. She had recent hepatitis C test done which was detectable. According to patient she completed antiviral therapy. She is given referral to Dr. Blue at [place] for further workup. She also follows up with infectious disease physician Dr. Wan. Acid reflux. She is on famotidine and her symptoms are well controlled. COPD. She is stable on current regimen. She has quit smoking but she is having passive smoking from her son. Obstructive sleep apnea. She uses CPAP machine on a regular basis Generalized anxiety disorder. She is on multiple medications and she is stable 08/12/2024 Nicotine dependence, cigarettes, uncomplicated (ICD-10 - F17.210) Mrs. Morris is a 49-year-old lady with hepatitis C and sees Kashmir Chan PA-C, right-sided breast cancer followed by Dr. Jarvis at [facility], asthma/COPD followed by Dr. Kim, neuropathy, osteoarthritis followed by Dr. Hensley and anxiety/depression here for follow-up. Plan is as follows: Hepatitis C. - She follows Dr. Soco Yang for her treatment. She is considering a consultation with different provider. Recent U/S of the liver showed hepatomegaly otherwise unremarkable. GERD. - Stable. Continue Protonix 20 MG along with Famotidine 40 MG at bedtime. Generalized anxiety/Major depressive disorder. -Mood stable on current regimen. Follows with Psychiatry COPD. -She uses her inhalers as directed. She sees Dr. Kim. Dermatitis. -Continue Hydrocortisone cream twice a day. Referred to Derm. significant osteoarthritis of the left shoulder joint and degenerative disc disease. - She sees physiatry for intra-articular injections. Nicotine dependence: - She continues to smoke. Different smoking cessation modalities have been discussed. Overactive bladder: - Stable. Continue same regimen. KELLY: - Stable on CPAP. History of malignant neoplasm of breast: - She is currently on Tamoxifen. Follows with heme/onc Screening blood work before next appointment. General health concerns discussed with patient. I have rendered the services for this patient under direct supervision of Dr. Barrow, who did not see the patient but was available upon request 01/20/2025 Gastro-esophageal reflux disease without esophagitis (ICD-10 - K21.9) Mrs. Morris is a 49-year-old lady with hepatitis C and sees Kashmir Chan PA-C, right-sided breast cancer followed by Dr. Jarvis at [facility], asthma/COPD followed by Dr. Kim, neuropathy, osteoarthritis followed by Dr. Hensley and anxiety/depression follows with N is here Symptoms of fatigue. Fatigue/tiredness and abdominal pain. This is multifactorial considering her history of breast cancer, polypharmacy, anxiety/depression . Recently seen at [facility] and workup was negative. Advised to increase physical activity, inappropriate hydration. Hepatitis C. She had recent hepatitis C test done which was detectable. According to patient she completed antiviral therapy. She is given referral to Dr. Blue at [place] for further workup. She also follows up with infectious disease physician Dr. Wan. Acid reflux. She is on famotidine and her symptoms are well controlled. COPD. She is stable on current regimen. She has quit smoking but she is having passive smoking from her son. Obstructive sleep apnea. She uses CPAP machine on a regular basis Generalized anxiety disorder. She is on multiple medications and she is stable 08/12/2024 Overactive bladder (ICD-10 - N32.81) Mrs. Morris is a 49-year-old lady with hepatitis C and sees Kashmir Chan PA-C, right-sided breast cancer followed by Dr. Jarvis at [facility], asthma/COPD followed by Dr. Kim, neuropathy, osteoarthritis followed by Dr. Hensley and anxiety/depression here for follow-up. Plan is as follows: Hepatitis C. - She follows Dr. Soco Yang for her treatment. She is considering a consultation with different provider. Recent U/S of the liver showed hepatomegaly otherwise unremarkable. GERD. - Stable. Continue Protonix 20 MG along with Famotidine 40 MG at bedtime. Generalized anxiety/Major depressive disorder. -Mood stable on current regimen. Follows with Psychiatry COPD. -She uses her inhalers as directed. She sees Dr. Kim. Dermatitis. -Continue Hydrocortisone cream twice a day. Referred to Derm. significant osteoarthritis of the left shoulder joint and degenerative disc disease. - She sees physiatry for intra-articular injections. Nicotine dependence: - She continues to smoke. Different smoking cessation modalities have been discussed. Overactive bladder: - Stable. Continue same regimen. KELLY: - Stable on CPAP. History of malignant neoplasm of breast: - She is currently on Tamoxifen. Follows with heme/onc Screening blood work before next appointment. General health concerns discussed with patient. I have rendered the services for this patient under direct supervision of Dr. Barorw, who did not see the patient but was available upon request 02/03/2024 Overactive bladder (ICD-10 - N32.81) Mrs. Morris is a 48-year-old lady with hepatitis C and sees Kashmir Chan PA-C, right-sided breast cancer followed by Dr. Jarvis at [facility], asthma/COPD followed by Dr. Kim, neuropathy, osteoarthritis followed by Dr. Hensley and anxiety/depression here for annual wellness visit. Plan is as follows: Hepatitis C. She sees Kashmir Chan PA-C. She recently saw Dr. Truong who recommended she follow up with Dr. Soco Yang for her treatment. GERD. Continue Protonix 20 MG along with Famotidine 40 MG at bedtime. Generalized anxiety/Major depressive disorder. Mood stable on current regimen. COPD. She uses her inhalers as directed. She sees Dr. Kim. Dermatitis. Continue Hydrocortisone cream twice a day. Left shoulder pain. Referred to [facility]. Chronic obstructive pulmonary disease. Start Doxycycline 100 MG BID for 7 days and continue inhalers and follow up with Dr. Kim EKG is normal sinus rhythm at 70 bpm with no acute ST or T wave changes, no bundle branch blocks, normal intervals. Left shoulder joint pain. Referral to [facility] she has multiple comorbidities and significant osteoarthritis of the left shoulder joint and degenerative disc disease. She sees physiatry for intra-articular injections. She needs help with activities of daily living like dressing, toileting, lifting, ambulation and she uses a cane or a walker to walk and transportation. Eye screening. She sees her bottling line attendant regularly. Dental screening. She sees dentist regularly. Breast cancer screening. She is up-to-date on her mammogram. Immunizations. Declines vaccinations. Screening blood work before next appointment. General health concerns discussed with patient. Scribe services used to formulate this note under HIPAA compliance and under [place] law mandated for scribe services. Patient aware of service. Verbal consent and written consent taken from the patient. Patient understands and verbalizes understanding of the scribes services and all questions answered regarding scribes services. Patient agrees to use of scribes services. 02/03/2024 Obstructive sleep apnea (adult) (pediatric) (ICD-10 - G47.33) Mrs. Morris is a 48-year-old lady with hepatitis C and sees Kashmir Chan PA-C, right-sided breast cancer followed by Dr. Jarvis at [facility], asthma/COPD followed by Dr. Kim, neuropathy, osteoarthritis followed by Dr. Hensley and anxiety/depression here for annual wellness visit. Plan is as follows: Hepatitis C. She sees Kashmir Chan PA-C. She recently saw Dr. Truong who recommended she follow up with Dr. Soco Yang for her treatment. GERD. Continue Protonix 20 MG along with Famotidine 40 MG at bedtime. Generalized anxiety/Major depressive disorder. Mood stable on current regimen. COPD. She uses her inhalers as directed. She sees Dr. Kim. Dermatitis. Continue Hydrocortisone cream twice a day. Left shoulder pain. Referred to [facility]. Chronic obstructive pulmonary disease. Start Doxycycline 100 MG BID for 7 days and continue inhalers and follow up with Dr. Kim EKG is normal sinus rhythm at 70 bpm with no acute ST or T wave changes, no bundle branch blocks, normal intervals. Left shoulder joint pain. Referral to [facility] she has multiple comorbidities and significant osteoarthritis of the left shoulder joint and degenerative disc disease. She sees physiatry for intra-articular injections. She needs help with activities of daily living like dressing, toileting, lifting, ambulation and she uses a cane or a walker to walk and transportation. Eye screening. She sees her bottling line attendant regularly. Dental screening. She sees dentist regularly. Breast cancer screening. She is up-to-date on her mammogram. Immunizations. Declines vaccinations. Screening blood work before next appointment. General health concerns discussed with patient. Scribe services used to formulate this note under HIPAA compliance and under [place] law mandated for scribe services. Patient aware of service. Verbal consent and written consent taken from the patient. Patient understands and verbalizes understanding of the scribes services and all questions answered regarding scribes services. Patient agrees to use of scribes services. 08/12/2024 Obstructive sleep apnea (adult) (pediatric) (ICD-10 - G47.33) Mrs. Morris is a 49-year-old lady with hepatitis C and sees Kashmir Chan PA-C, right-sided breast cancer followed by Dr. Jarvis at [facility], asthma/COPD followed by Dr. Kim, neuropathy, osteoarthritis followed by Dr. Hensley and anxiety/depression here for follow-up. Plan is as follows: Hepatitis C. - She follows Dr. Soco Yang for her treatment. She is considering a consultation with different provider. Recent U/S of the liver showed hepatomegaly otherwise unremarkable. GERD. - Stable. Continue Protonix 20 MG along with Famotidine 40 MG at bedtime. Generalized anxiety/Major depressive disorder. -Mood stable on current regimen. Follows with Psychiatry COPD. -She uses her inhalers as directed. She sees Dr. Kim. Dermatitis. -Continue Hydrocortisone cream twice a day. Referred to Derm. significant osteoarthritis of the left shoulder joint and degenerative disc disease. - She sees physiatry for intra-articular injections. Nicotine dependence: - She continues to smoke. Different smoking cessation modalities have been discussed. Overactive bladder: - Stable. Continue same regimen. KELYL: - Stable on CPAP. History of malignant neoplasm of breast: - She is currently on Tamoxifen. Follows with heme/onc Screening blood work before next appointment. General health concerns discussed with patient. I have rendered the services for this patient under direct supervision of Dr. Barrow, who did not see the patient but was available upon request 08/12/2024 Polyneuropathy, unspecified (ICD-10 - G62.9) Mrs. Morris is a 49-year-old lady with hepatitis C and sees Kashmir Chan PA-C, right-sided breast cancer followed by Dr. Jarvis at [facility], asthma/COPD followed by Dr. Kim, neuropathy, osteoarthritis followed by Dr. Hensley and anxiety/depression here for follow-up. Plan is as follows: Hepatitis C. - She follows Dr. Soco Yang for her treatment. She is considering a consultation with different provider. Recent U/S of the liver showed hepatomegaly otherwise unremarkable. GERD. - Stable. Continue Protonix 20 MG along with Famotidine 40 MG at bedtime. Generalized anxiety/Major depressive disorder. -Mood stable on current regimen. Follows with Psychiatry COPD. -She uses her inhalers as directed. She sees Dr. Kim. Dermatitis. -Continue Hydrocortisone cream twice a day. Referred to Derm. significant osteoarthritis of the left shoulder joint and degenerative disc disease. - She sees physiatry for intra-articular injections. Nicotine dependence: - She continues to smoke. Different smoking cessation modalities have been discussed. Overactive bladder: - Stable. Continue same regimen. KELLY: - Stable on CPAP. History of malignant neoplasm of breast: - She is currently on Tamoxifen. Follows with heme/onc Screening blood work before next appointment. General health concerns discussed with patient. I have rendered the services for this patient under direct supervision of Dr. Barrow, who did not see the patient but was available upon request 08/12/2024 Personal history of malignant neoplasm of breast (ICD-10 - Z85.3) Mrs. Morris is a 49-year-old lady with hepatitis C and sees Kashmir Chan PA-C, right-sided breast cancer followed by Dr. Jarvis at [facility], asthma/COPD followed by Dr. Kim, neuropathy, osteoarthritis followed by Dr. Hensley and anxiety/depression here for follow-up. Plan is as follows: Hepatitis C. - She follows Dr. Soco Yang for her treatment. She is considering a consultation with different provider. Recent U/S of the liver showed hepatomegaly otherwise unremarkable. GERD. - Stable. Continue Protonix 20 MG along with Famotidine 40 MG at bedtime. Generalized anxiety/Major depressive disorder. -Mood stable on current regimen. Follows with Psychiatry COPD. -She uses her inhalers as directed. She sees Dr. Kim. Dermatitis. -Continue Hydrocortisone cream twice a day. Referred to Derm. significant osteoarthritis of the left shoulder joint and degenerative disc disease. - She sees physiatry for intra-articular injections. Nicotine dependence: - She continues to smoke. Different smoking cessation modalities have been discussed. Overactive bladder: - Stable. Continue same regimen. KELLY: - Stable on CPAP. History of malignant neoplasm of breast: - She is currently on Tamoxifen. Follows with heme/onc Screening blood work before next appointment. General health concerns discussed with patient. I have rendered the services for this patient under direct supervision of Dr. Barrow, who did not see the patient but was available upon request Plan Of Treatment Pending Test Test Name Order Date Echocardiogram 12/25/2023 GGTP 10/10/2022 CT Brain W WO 11/20/2024 CT Brain WO 11/26/2024 Vitamin B12 and Folate-[id number] 11/12/2024 Iron and TIBC-793778 11/12/2024 Creatine Kinase,Total-670418 11/20/2024 Ferritin-[id number] 11/12/2024 CBC with Diff, Platelet, NLR-[id number] 10/29 Sedimentation Nbjr-Uaumhthxcb-[id number] Rheumatoid Factor (RF)-719202 11/20/2024 C-Reactive Protein, Quant-[id number] 025 Vitamin D, 35-Alcybnn-[id number] 11/12/2024 Vitamin D, 80-Yxjktrt-022184 11/17/2024 Anti-dsDNA Antibodies-[id number] 11/20/2024 Lyme (B. burgdorferi) PCR-[id number] Anti-CCP Ab, IgG/IgA-544524 11/20/2024 TSH+Free [id number] 11/20/2024 TSH+Free T4-880827 11/12/2024 RAOUL Profile 12 (RDL)-[id number] 11/20/2024 HCV RNA Qn (Graph) Rfx NS3/4A-993149 Methylmalonic Acid, Serum-494055 025 Homocyst(e)ine-792968 11/12/2024 Next Appt Details Provider Name:Myia james, 02/10/2025 01:00:00 PM, [address] [place] [address], [phone], Insurance Providers Payer Name Payer Address Payer Phone Subscriber Number Group Number Insured Name Patient Relationship to Insured Coverage Start Date Coverage End Date [facility] [address] [place] [phone] [id number] Jonas Morris Self - patient is the insured Medical (General) History Medical History History ICD Code right-sided breast cancer, s /p chemo, radiation and lumpectomy to remove lymphadenopathy by Dr. Jarvis at [facility] Severe persistent asthma and she follows up with Dr. 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 Hensley recurrent UTIs abdominal pain/discomfort nausea anxiety and depression and sees Dr. Caty marcos COPD and see Dr Kim trigger finger third and fourth right di gits glaucoma hepatitis C, goes to [facility], Kashmir Nuñez ppas PA-C KELLY Personal history of COVID-19 Surgical History Surgery Date(Month/Year) benign lumpectomy, left breast 2019 back surgery 1998 bariatric surgery, Dr. Barnes 12/2020 glaucoma surgery hiatal hernia repair, Dr. Barnes 12/2022
[2025-01-27 18:32] LABS: Resp Syncy Virus RNA Qual PCR NEGATIVE (Negative); SARS COV2 PCR INHOUSE NEGATIVE (Negative)
[2025-01-27 18:47] LABS: Appearance Urine Clear; Glucose Urine UA Negative (Negative); PH 7.5 (5.0-9.0); Specific Gravity - Urine 1.020 (1.005-1.025)
[2025-01-27 19:38] VITALS: BP 100/66; PULSE 63; RESP 16; TEMP 36.8; O2SAT 99
[2025-01-27] MEDS: Sucralfate Oral Suspension 1 GM/10 ML ORAL.SUSP PO (22:13)
--- NOTE | 2025-01-27 22:16 | PC.NURSE ---
Pt declined getting an IV for IVF and zofran, pt states why can't I just take zofran at home? I don't want an IV, I'd like to just leave. RN informed pt of benefits from recommended treatment, but pt is still requesting discharge. PA aware, awaiting dispo. Pt aaox4, ambulatory w/steady gait.
[2025-01-27 22:28] VITALS: BP 100/66; PULSE 63; RESP 16; TEMP 36.8; O2SAT 99
== END 2025-01-27 22:29 | disposition home or self-care (01) ==
PROVIDERS: Physician Assistant; Emergency Provider Emergency Medicine; PCP Hospitalist
DX: R10.13 Epigastric pain (principal); R10.11 Right upper quadrant pain; R11.2 Nausea with vomiting, unspecified
CPT/HCPCS: 71046; 74018; 76705; 80053; 81001; 83690; 84702; 85025; 87637; 87651; 93005; 99284

== ENCOUNTER → 2025-01-27 17:26 | Outpatient (BNV) | payer OTHER, SELFPAY | PROVIDERS: PCP Hospitalist; Visit Provider Radiology Diagnostic Radiology | DX: R10.11 Right upper quadrant pain (principal); J98.11 Atelectasis; R10.9 Unspecified abdominal pain | CPT/HCPCS: 71046; 74018; 76705 ==

== ENCOUNTER → 2025-01-27 17:28 | Outpatient (BNV) | payer OTHER, SELFPAY | PROVIDERS: Emergency Provider Emergency Medicine; PCP Hospitalist; Visit Provider Internal Medicine Cardiovascular Disease | DX: R00.2 Palpitations (principal) | CPT/HCPCS: 93010 ==

== ENCOUNTER 2025-03-30 11:08 | Outpatient (AMB) | payer OTHER, SELFPAY ==
--- NOTE | 2025-03-30 11:13 | A.OFFVIS_ITS ---
Vital Signs 03/30/25 11:26 Height 5 ft 3 in Weight 142 lb BMI 25.2 BP 118/82 Blood Pressure Location Lt brachial Position Sitting Respiration 16 Pulse 85 Pulse Oximetry (%) 100 Intake Visit Reasons: E-HOME AGENT: Ongoing headaches Aircraft Ordnance Technician Required: Yes Aircraft Ordnance Technician Services: Aircraft Ordnance Technician Present Aircraft Ordnance Technician Name: Himanshu ID [id number] Information Interpreted: non-clinical & clinical Accompanied by: Nephew or Niece Allergies hydrocodone Allergy (Verified 01/27/25 17:30) Swelling ibuprofen Allergy (Verified 01/27/25 17:30) Swelling Medication List - Last Reconciled 03/30/25 by Gerri Benjamin CNP acetaminophen (Pain Relief Extra Strength (acetaminophen)) mg PO albuterol sulfate 90 mcg/actuation (Ventolin HFA) inhalation bismuth subsalicylate tabs PO cholecalciferol (vitamin D3) (Vitamin D3) 25 mcg PO DAILY ketoconazole 2% topical lorazepam (Ativan) 1 mg PO BEDTIME PRN melatonin mg PO meloxicam 15 mg PO DAILY ondansetron 4 mg PO DAILY oxybutynin chloride ER 10 mg PO DAILY pediatric multivitamin no.42 (Children's Multivitamin chewable tablet) tabs PO prazosin mg PO prednisone 10 mg PO DAILY simethicone 160 mg PO BID sucralfate (Carafate) 10 mL PO QID PRN tamoxifen 20 mg PO DAILY trazodone 200 mg PO BEDTIME PRN venlafaxine ER 300 mg PO DAILY HPI Comments Details: Sander is a 49-year-old female patient with a past medical history of hepatitis- C, right-sided breast cancer, asthma, COPD, neuropathy, osteoarthritis, and anxiety/depression who is referred to neurology for ?ongoing headaches?. The patient today tells me that she has been experiencing headaches for 5-6 years. She has been recieving Botox therapy through a private headache clinic in [place] which was helpful though she notes that over time she is having less benefit from the injections. She is currently experiencing head pain 5 times per week lasting at least 12hours per day. Her pain is typically bitemporal, retroorbital, and bioccipital. She feels as though the pain is strong and as if her blood is boiling , and also has a pulsating sensation. Headaches tend to be worse in the morning. When she has a headache, she also experiences inability to concentrate, light sensitivity, nausea, vomiting, and sensitively to sound. LEading up to many of her headaches she has a feeling of double vision. This symptom resolves within an hour of onset. She is currently taking Tylenol as needed for acute therapy (1,000mg-2,000mg per dose). This can help minimally for acute measures. Caffeine intake can also provide some benefit. She did try topiramate for prevention which she had no benefit with. She cannot recall ever having tried other therapies for her headaches. She rells me that the provider she is seeing for Botox therapy is not a neur ologist but works with joints he has only been giving her botox therapy in the back of her head and along the back of her neck and trapzius muscles. Headache characteristics: Time of onset:5-6 years ago Location: Bitemporal, retroorbital, and bioccipital Radiation: Neck Positional component: No Character: The pain is strong and as if her blood is boiling , and also has a pulsating sensation Severity:Can reach 10/10 Duration:12hrs or more Frequency: 5-7 days per week Acute aggravating factors: Unable to identify Acute relieving factors: Unable to identify Associated symptoms: Inability to concentrate, light sensitivity, nausea, vomiting, and sensitively to sound Aura: No Headache triggers: Unknown Relation to menses: No longer has her menses. Other related background information: Sleep: Reports 4-5 hrs per day. She does not snore that she is aware of. Hydration:Drinks very little water Caffeine intake:Drinks exclusively coffee and caffinated tea Alcohol intake:No Substance use:No Tobacco use:No Last eye exam: 4-5 years ago Last dental visit: 6 months ago History of head injury:No Past medication trials: Riboflavin 200 mg daily-no benefit Venlafaxine 150 mg-taken for moods, no benefit with headaches Topiramate 50 mg twice daily- No benefit Prior workup: MRI brain without contrast performed at [facility] 02/17/2025 CONCLUSION: Scattered cerebral white matter changes, nonspecific but unusual in extent for age. Accelerated chronic microvascular ischemia to be chiefly considered, inflammatory white matter conditions not excludable, and traumatic sequela disfavored. Empty sella turcica. Although such pituitary morphology often a normal variant it is seen with higher frequency in idiopathic intracranial hypertension. Please correlate with nature of headaches and visual disturbance. [facility] Medical History (Updated 03/30/25 @ 12:28 by Gerri Benjamin CNP) GERD (gastroesophageal reflux disease) Chronic obstructive pulmonary disease Hepatitis C Headache HX: breast cancer Surgical History Hx of bariatric surgery Hx of eye surgery History of esophagogastroduodenoscopy (EGD) Social History (Updated 03/03/24 @ 15:26 by CLARISSE Arreaga) Household Members: Family Alcohol intake: never Patient Tobacco Use Status: Never used Tobacco Current occupational status: unemployed Review of Systems Const All systems reviewed & are unremarkable except as noted in HPI and below Physical Exam Const General: cooperative, healthy appearing, comfortable and no acute distress Nutritional Appearance: well nourished Orientation/consciousness: patient oriented x3 Limitations: no limitations HEENT Head: Yes normal to inspection and Yes normocephalic Eyes General: appearance normal, both eyes and all related structures Visual Petersen: normal visual petersen by confrontation Alignment and Position: alignment normal Periorbital: periorbital findings normal Eyelids: Yes eyelids normal Conjunctivae: conjunctivae normal Sclerae: sclerae normal Direct Ophthalmoscopy: other (Unable to clearly seen the back of the eye due to poor patient toleration) Back/Spine/Pelvis Other: Bilateral upper trapesius tightness and R>L trigger points to the lower trap ezius muscles. Some bi-temporal tenderness. Neuro General: patient oriented x3 and deep tendon reflexes 2+ bilaterally Cranial nerves: Yes CN's II-XII intact bilaterally and Yes Facial sensation intact/muscles of mastication intact Cognition (Neuro): normal cognition Gait exam (Neuro): Normal gait present Motor exam (neuro): 5/5 motor strength present throughout and no tremor noted Sensory Exam: double simultaneous stimulation for sensation normal Romberg Test: Negative Pupils: Normal pupillary reactivity/response: bilateral Psych Appearance: grossly normal Mental Status: mental status grossly normal Speech and movement: Normal speech and movement present and Clear speech present Affect: normal affect Attitude: cooperative Thought process: Normal thought process present Thought content: Normal thought content present Insight: Good insight present (Psych) Judgement: Good judgement present (Psych) Assessment & Plan Assessment & Plan (1) Headache, worsening: Onset Date: ~03/30/25 Code(s): R51.9 - Headache, unspecified Category: Medical (2) Chronic migraine without aura without status migrainosus, not intractable: Code(s): G43.709 - Chronic migraine without aura, not intractable, without status migrainosus Category: Medical Plan Sander is a 49-year-old female patient with a past medical history of hepatitis- C, right-sided breast cancer, asthma, COPD, neuropathy, osteoarthritis, and anxiety/depression who is referred to neurology for ?ongoing headaches?. Headaches are likely chronic migraine with component of chronic tension-type headache especially given findings of trigger points to trapezius areas. Given past medication trials and current medication list/comorbidities, I would like to try her on an anti CGRP therapy for the best safety and interaction profile. She has a strong aversion to needles therefore would like to try an oral agent. I will send for a trial of Qulipta 60 mg daily. We could also consider nightly Depakote for preventive. Because she does have some temporal tenderness I we will order inflammatory markers. MRI brain in January showing advanced white matter disease for age and an empty sella. R/o IIH. I had difficulty visualizing the back of the eye today. I will have her see Ophthalmology urgently for a dilated exam. If indicated, could perform a lumbar puncture. Overall however there was low suspicion for IIH. Medication overuse headache could certainly be a component provided her regular use of Tylenol at high doses as well as increased caffeine intake. She was counseled on reduction of caffeine intake and Tylenol intake and how medication overuse/caffeine overuse contributes to chronic headache. She verbally understands this. - urgent opthalmology exam - esr and crp - reduce caffine and tylenol intake- pt educated on MOH headaches - trial of qulipta 60mg daily for migriane prevention given favorable safety and interaction profile - also could consider depakote 250mg nightly for preventive - re-visit acute therapy once migraines are better controlled A total of 65 minutes was spent with this patient with use of a medical pathologist. We reviewed past history, imaging, performed a detailed physical exam, and I did an extensive amount of education with a medical pathologist. With Orders: Orders CRP High Sensitivity Today G43.709 - Chronic migraine without aura, not intractable, without status migrainosus, R51.9 - Headache, unspecified Erythrocyte Sedimentation Rate Today R51.9 - Headache, unspecified Referrals Ophthalmology Referral G43.709 - Chronic migraine without aura, not intractable, without status migrainosus, R51.9 - Headache, unspecified Medications: New atogepant (Qulipta) 60 mg PO DAILY 30 tabs 5RF Coding Level of Care Code New Pt Level 5 (41869) Diagnoses Headache, worsening R51.9 Chronic migraine without aura without status migrainosus, not intractable G43.708
[2025-03-30 11:26] VITALS: BP 118/82; PULSE 85; RESP 16; O2SAT 100; BMI 25.2
--- OUTSIDE RECORDS SUMMARY | 2025-03-30 12:35 | XMS_ITS | Clinical Summary ---
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 Relevant to Health Maintenance Insurance [facility] [employer] PLANS Care Teams Manager Net Relationship Specialty Start Date End Date Lakia Johnson MD [address] [place] [address] PCP - General Internal Medicine 03/20/21
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
--- OUTSIDE RECORDS SUMMARY | 2025-03-30 12:35 | XMS_ITS | Encounter Summary ---
Author Organization [facility] Address [address] [place] [address] Care Team Providers Care Bear Keeper Name Role Phone Xiomara Sanchez PA-C Primary Care Provider [phone] Encounter Details Date Type Department Care Team (Late st Contact Info) Description 06/15/2015 Interim Notes [facility] [address] [place] [address] Mila Viramontes [address] [place] [address] Social History Tobacco Use Types Packs/Day Years Used Date Smoking Tobacco: Former Cigarettes Q uit: 01/16/2014 Smokeless Tobacco: Never Alcohol Use Standard Drinks/Week Comments No 0 (1 standard drink = 0.6 oz pur e alcohol) Comments No Sex and Gender Information Value Date Recorded Sex Assigned at Female 04/19/2017 10:32 AM PDT Legal Sex Female 11:10 AM PDT Gender Identity Female 04/19/2017 10:32 AM PDT Sexual Orientation Straight 04/19/2017 10 :32 AM PDT documented as of this encounter Plan of Treatment Not on file documented as of this encounter Visit Diagnoses Not on filedocumented in this encounter Care Teams Bear Keeper Relationship Specialty Start Date End Date Xiomara Sanchez PA-C [facility] [place] [address] PCP - General Internal Medicine 01/13/19 documented as of this encounter
--- OUTSIDE RECORDS SUMMARY | 2025-03-30 12:35 | XMS_ITS | Clinical Summary ---
Author Organization [facility] Address [address] [place] [address] Phone Care Team Providers Care Superintendent Communications Name Role Phone Self-Referred, Patient Unavailable Unavailab Elma Perez MD, MPH Unavailable [phone] Carmella Pizarro MD Unavailable Rafita Henson ASSEMBLED WOOD PRODUCTS REPAIRER Unavailable Lakia Johnson MD Primary Care Provider [phone] Allergies Active Allergy Reactions Criticality Noted Date [...] exists Adult Td,Tdap Booster 02/10/2024 02/09/2014, 014 INFLUENZA VACCINE (#1) 2025 7, 05/07/2014, 10/13/2013 COVID-19 VACCINE ( season) 2025 11/17/2020, 10/27/2020 HEPATITIS A VACCINES Aged Out [...] PACS storage only and not for interpretation. Elma Kim MD, MPH IMG OUTSIDE IMAGING W/OUT I NTERPRETATION Final Result ROJAS_VIVIANA from Last 3 Months or Most Recently Relevant to Health Maintenance Insurance [employer] [facility] AlbireoSELECT [facility] TOGETHER MCO TOGETHER MCO TOGETHER MCO [place] [address] [place] [address] TOGETHER MCO MCO Care Teams Superintendent Communications Relationship Specialty Start Date End Date Lakia Johnson MD [address] [place] [address] PCP - General Internal Medicine 02/12/23 Self-Referred, Patient 03/10/19 Elma Kim MD, MPH [address] [place] [id number] [email or web address] Medical Oncology 04/29/19 Carmella Pizarro MD [address] [place] [id number] [email or web address] 04/30/19 Rafita Henson NP [address] [place] [address] [place] [address] [email or web address] Oncology 05/18/20 Additional Source Comments The information contained in this document represents components of the legal health record. It is not the complete legal health record.[facility]
--- OUTSIDE RECORDS SUMMARY | 2025-03-30 12:35 | XMS_ITS | Encounter Summary ---
Author Organization [facility] Address [address] [place] [address] Care Team Providers Care Senior Training Specialist Name Role Phone Xiomara Sanchez PA-C Primary Care Provider [phone] Encounter Details Date Type Department Care Team (Late st Contact Info) Description 10/22/2017 Interim Notes [facility] [address] [place] [phone] Michel Carballo MD [phone] [place] [phone] Social History Tobacco Use Types Packs/Day Years Used Date Smoking Tobacco: Former Cigarettes Q uit: 01/16/2014 Smokeless Tobacco: Never Comments:den Alcohol Use Standard Drinks/Week Comments No 0 (1 standard drink = 0.6 oz pur e alcohol) none Comments No Sex and Gender Information Value Date Recorded Sex Assigned at Female 04/19/2017 10:32 AM PDT Legal Sex Female 11:10 AM PDT Gender Identity Female 04/19/2017 10:32 AM PDT Sexual Orientation Straight 04/19/2017 10 :32 AM PDT documented as of this encounter Plan of Treatment Not on file documented as of this encounter Visit Diagnoses Not on filedocumented in this encounter Additional Health Concerns Assessment Noted Time PHQ-9 Depression Total Score: 24 017 7:00 AM PDT documented as of this encounter Care Teams Senior Training Specialist Relationship Specialty Start Date End Date Xiomara Sanchez PA-C [address] [place] [address] PCP - General Internal Medicine 01/13/19 documented as of this encounter
--- OUTSIDE RECORDS SUMMARY | 2025-03-30 12:35 | XMS_ITS | Encounter Summary ---
Author Organization [facility] Address [address] [place] [address] Care Team Providers Care Diamond Cleaver Name Role Phone Xiomara Sanchez PA-C Primary Care Provider [phone] Encounter Details Date Type Department Care Team (Late st Contact Info) Description 06/21/2015 Interim Notes [facility] [address] [place] [phone] Use, Do Not, [facility] [address] [place] [address] Social History Tobacco Use Types Packs/Day Years [...] on filedocumented in this encounter Care Teams Diamond Cleaver Relationship Specialty Start Date End Date Xiomara Sanchez PA-C [address] [place] [address] PCP - General Internal Medicine 01/13/19 documented as of this encounter
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
--- OUTSIDE RECORDS SUMMARY | 2025-03-30 12:36 | XMS_ITS | Clinical Summary ---
Author Organization [facility] [address] [address] Address [address] [place] [address] Care Team Providers Care Robotype Operator Name Role Phone No, Pcp (Do Not Change Name) Primary Care Provid er Unavailable Allergies Active Allergy Reactions Criticality Noted Date Comments Diclofenac Sodium Shortness Of Breath High 03/19/2014 Methylprednisolone Itching Low 01/14/2017 Allergy to injected solumedrol. Nsaids (Non-Steroidal Anti-Inflammatory Drug) 03/17/2014 [facility] pt rec this med, and got significantly worse requiring hospitalization Medications VITAMIN D3 2,000 unit Cap 0 5 Active EPIPEN 2-NORMAN 0.3 mg/0.3 mL (1:1,000) AtIn 0 5 Active fluticasone (FLONASE) 50 mcg/actuation nasal spray 1 spray daily. 0 5 Active ipratropium-alb uterol (DUO-NEB) 0.5 mg-3 mg(2.5 mg base)/3 mL nebulizer solution 0 5 Active ranitidine (ZANTAC) 150 MG tablet 0 5 Active oxyCODONE-aceta minophen (PERCOCET) 5-325 mg per tablet 0 5 Active inhalational spacing device (AEROCHAMBER PLUS FLOW-VU) inhaler Use with MDI. 4 Active nebulizer and compressor Lay Diagnosis 493.3 quantity: 1 for a lifetime. 5 Active nicotine (NICODERM CQ) [address] 1 patch onto the skin. 6 Active OMALIzumab (XOLAIR) 150 mg SolR Inject 375 mg under the skin. 5 Active citalopram (CELEXA) 10 MG tablet Take 10 mg by mouth nightly. 0 6 Active pantoprazole (PROTONIX) 40 MG tablet take 1 tablet by mouth once daily 1 6 Active buPROPion (WELLBUTRIN XL) 300 MG Tb24 Take 300 mg by mouth. Active calcium-vitamin D 250-100 mg-unit per tablet Take by mouth. 6 Active desogestrel-eth inyl estradiol (APRI) 0.15-0.03 mg per tablet Take by mouth. Acti ve Miscellaneous Medical Supply Misc by miscellaneous route nightly at bedtime. Wrist splint disp 2 life time needs cts bilat. G56.0 6 Active prazosin (MINIPRESS) 1 MG capsule Take 1 mg by mouth. Active ALPRAZolam (XANAX) 0.5 MG tablet take 1 tablet by mouth once daily if needed for anxiety for 10 days 0 6 Active HYDROcodone-jonathan taminophen (NORCO) 5-325 mg per tablet Take by mouth every 6 (six) hours as needed. for pain 0 6 Active gabapentin (NEURONTIN) 300 MG capsule Take 300 mg by mouth 2 (two) times daily with breakfast and dinner.. Active predniSONE (DELTASONE) 10 MG tablet Take 1 tablet (10 mg total) by mouth daily.. 70 tablet 7 Active predniSONE (DELTASONE) 10 MG tablet take 6 tablets by mouth daily for 3 days then 5 tablets daily for 3 days then 4 tablets daily for 3 days then 3 tablets daily for 3 days the 70 tablet 7 Active amitriptyline (ELAVIL) 10 MG tablet Take 10 mg by mouth.. 8 Active traZODone (DESYREL) 100 MG tablet Take 100 mg by mouth.. 8 Active albuterol (PROAIR HFA) 90 mcg/actuation HFA inhaler Inhale 2 puffs into the lungs every 4 (four) hours as needed for Wheezing.. 1 Inhaler 11 8 Active budesonide-form oterol (SYMBICORT) 160-4.5 mcg/actuation inhaler Inhale 2 puffs into the lungs 2 (two) times daily.. 1 Inhaler 8 Active omeprazole (PRILOSEC) 20 MG capsule Take 1 capsule (20 mg total) by mouth daily.. 60 capsule 8 Active theophylline (THEODUR) 300 MG 12 hr tablet Take 1 tablet (300 mg total) by mouth 2 (two) times daily.. 60 tablet 8 Active tiotropium (SPIRIVA WITH HANDIHALER) 18 mcg capsule for inhaler Inhale 1 capsule (18 mcg total) into the lungs daily.. 30 capsule 8 Active montelukast (SINGULAIR) 10 mg tablet Take 1 tablet (10 mg total) by mouth nightly.. 30 tablet 8 Active Active Problems Problem Noted Date Diagnosed Date Asthma, severe 12/28/2014 Social History Tobacco Use Types Packs/Day Years Used Date Smoking Tobacco: Every Day Cigarettes 1 20 Started: 12/28/1993; Last attempted to quit: 12/28/2013 Smokeless Tobacco: Current Alcohol Use Standard Drinks/Week Comments Not Asked 0 (1 standard drink = 0.6 oz pur e alcohol) Comments Unknown Sex and Gender Information Value Date Recorded Sex Assigned at Not on file Legal Sex Female 1:10 PM EDT Gender Identity Not on file Sexual Orientation Not on file Last Filed Vital Signs Vital Sign Reading Time Taken Comments Blood Pressure 111/76 07/29/2018 1:02 PM EST Pulse 98 07/29/2018 1:02 PM EST Temperature 36.4 C (97.6 F) 07/29/2018 1:02 PM EST Respiratory Rate 20 07/29/2018 1:02 PM EST Oxygen Saturation 98% 07/29/2018 1:02 PM EST ra Inhaled Oxygen Concentration - - Weight 92.8 kg (204 lb 8 oz) 07/29/2018 1:02 PM EST Height 161.4 cm (5' 3.54 ) 07/29/2018 1:02 PM ES T Body Mass Index 35.61 07/29/2018 1:02 PM EST Plan of Treatment Health Maintenance Due Date Last Done Comments Osteoporosis screening (bone density) 1973 Hepatitis C screening 1991 Cervical cancer screening 1994 Breast cancer screening 2013 Lipid disorder screening 2013 Colon cancer screening, Colonoscopy 2018 Diabetes screening 2018 Pneumococcal Vaccine (50+ years) (2 of 2 - PCV) 2023 06/25/2014, 05/20/2014 Shingles vaccine (Shingrix) (1 of 2 - Shingrix (RZV) 2 Dose Standard Series) 2023 Tetanus adult (Td q 10,TDAP once) 02/10/2024 02/09/2014, 01/04/2014 Influenza vaccine 01/29/2025 03/21/2017, 05/07/2014 Covid-19 vaccine series ( - season) 2025 RSV Immunization (1 - 1-dose 75+ series) 2048 Pneumococcal Vaccine (2 - 49 years) Discontinued 06/25/2014, 05/20/2014 HIV screening Completed 04/07/2018 Meningococcal B Vaccine Aged Out No l onger eligible based on patient's age to complete this topic Meningococcal Vaccine Aged Out No norbert kathy eligible based on patient's age to complete this topic Insurance [id number] MEDICAID [id number] MEDICAID [id number] MEDICAID [id number] MEDICAID Care Teams Robotype Operator Relationship Specialty Start Date End Date No, Pcp (Do Not Change Name) PCP - General 04/12/17
--- OUTSIDE RECORDS SUMMARY | 2025-03-30 12:36 | XMS_ITS | Encounter Summary ---
Author Organization [facility] Address [address] [place] [phone] Care Team Providers Care Options Trader Name Role Phone No, Pcp (Do Not Change Name) Primary Care Provid er Unavailable Reason for Referral * Consultation (Routine) - Closed Specialty Diagnoses / Procedures Referred By Contburke t Referred To Contact Pulmonary Disease Diagnoses Asthma Bernard Reed MD Phone: tel: fax: [facility] [address] [place] [address], 2nd floor [facility], [address] [place] [address] Phone: tel: fax: Referral ID Status Reason Start Date Expiration Date V isits Requested Visits Authorized [id number] Closed Specialty Services Required 11/04/2014 11/04/2015 1 1 Encounter Details Date Type Department Care Team (Latest Contact Info) Description 11/04/2014 Transcribed Orders Referral Link Providers [address] [place] [id number] Bernard Reed MD [address] [place] [phone] Asthma (Primary Dx) Social History Tobacco Use Types Packs/Day Years Used Date Smoking Tobacco: Never Assessed Comments Unknown Sex and Gender Information Value Date Recorded Sex Assigned at Not on file Legal Sex Female 1:10 PM EDT Gender Identity Not on file Sexual Orientation Not on file documented as of this encounter Plan of Treatment Scheduled Referrals Name Type Priority Associated Diagnoses Order Schedule Ambulatory referral to Pulmonology Outpatient Referral Routine Asthma Ordered: 11/04/2014 documented as of this encounter Visit Diagnoses Diagnosis Asthma- Primary Unspecified asthma documented in this encounter Care Teams Options Trader Relationship Specialty Start Date End Date No, Pcp (Do Not Change Name) PCP - General 04/12/17 documented as of this encounter
--- OUTSIDE RECORDS SUMMARY | 2025-03-30 12:36 | XMS_ITS | Encounter Summary ---
Author Organization [facility] Address [address] [place] [address] Care Team Providers Care Route Service Manager Name Role Phone No, Pcp (Do Not Change Name) Primary Care Provid er Unavailable Encounter Details Date Type Department Care Team (Late st Contact Info) Description 12/28/2014 Documentation [facility] Language Services [address] [place] [id number] Saba Bundy Social History Tobacco Use Types Packs/Day Years [...] on filedocumented in this encounter Care Teams Route Service Manager Relationship Specialty Start Date End Date No, Pcp (Do Not Change Name) PCP - General 04/12/17 documented as of this encounter
--- OUTSIDE RECORDS SUMMARY | 2025-03-30 12:36 | XMS_ITS | Encounter Summary ---
Author Organization [facility] Address [address] [place] [address] Care Team Providers Care Assembly Instructions Writer Name Role Phone No, Pcp (Do Not Change Name) Primary Care Provid er Unavailable Encounter Details Date Type Department Care Team (Late st Contact Info) Description 12/28/2014 Transcribed Orders [facility] [address] [place], [place] [id number] Graham Gallardo MD [address] [place] [phone] Asthma, severe (Primary Dx) Social History [...] 4:39 PM EDT) ANCA Screen Negative Negative [facility] Comment: ANCA Screen includes evaluation for p-ANCA, c-ANCA, and atypical p-ANCA. Blood specimen (specimen) 12/28/2014 4:39 PM EDT us Graham Gallardo MD LAB BLOOD ORDERABLES Final R esult [facility] [address] [place] [phone] documented in this encounter Visit Diagnoses Diagnosis Asthma, severe- Primary Unspecified asthma documented in this encounter Care Teams Assembly Instructions Writer Relationship Specialty Start Date End Date No, Pcp (Do Not Change Name) PCP - General 04/12/17 documented as of this encounter
--- OUTSIDE RECORDS SUMMARY | 2025-03-30 12:36 | XMS_ITS | Patient Health Record ---
Author Organization [email or web address] [facility] Address [address] [place] [address] Care Team Providers Care Food Service Assistant Name Role Phone PRATIBHA BARROW Primary Care Provider Miya Comer Unavailable [phone] Allergies Allergen (clinical drug ingredient) Drug/Non Drug [...] C VIRUS QUANTITATI VE MOLECULAR STUDY Reviewed date:03/25/2025 05:12:57 PM Interpretation: Performing Lab: Notes/Report: HCV Qual Interp Not Detected Not Detected HCV RNA not detected, unable to report quantitative results. ALANINE AMINOTRANSFERASE Reviewed date:03/26/2025 07:41:12 AM Interpretation: Performing Lab: Notes/Report: ALT (SGPT) 23 10-60 unit/L ASPARTATE AMINOTRANSFERASE Reviewed date:03/26/2025 07:41:19 AM Interpretation: Performing Lab: Notes/Report: AST (SGOT) 19 10-42 unit/L CBC WITH AUTO DIFFERENTIAL Reviewed date:07/24/2024 [...] K/mcL Immature Granulocytes Absolute 0.02 0.00-0.03 K/mcL CBC WITH AUTO DIFFERENTIAL Reviewed date:03/25/2025 05:13:04 PM Interpretation: Performing Lab: Notes/Report: WBC 6.1 4.8-10.8 K/mcL RBC 4.80 3.80-4.80 M/mcL Hemoglobin 12.2 11.5-16.0 g/dL Hematocrit 39.6 35.0-47.0 % MCV 83.0 79.0-98.0 FL MCH 25.6 27.0-32.0 pcg MCHC 30.8 32.0-37.0 g/dL RDW 14.7 11.0-15.0 % Platelets 226 130-400 K/mcL MPV 10.4 7.0-11.0 FL NRBC 0.0 <1.0 % NRBC Absolute 0.00 <0.10 K/mcL Neutrophils Relative 51.1 Lymphocytes Relative 38.1 Monocytes Relative 7.5 Eosinophils Relative 2.6 Basophils Relative 0.5 Immature Granulocytes Relative 0.2 Neutrophils Absolute 3.13 1.50-7.00 K/mcL Lymphocytes Absolute 2.33 1.00-5.00 K/mcL Monocytes Absolute 0.46 0.20-1.00 K/mcL Eosinophils Absolute 0.16 0.00-0.50 K/mcL Basophils Absolute 0.03 0.00-0.20 K/mcL Immature Granulocytes Absolute 0.01 0.00-0.03 K/mcL CREATININE (Not yet reviewed by provider) Interpretation: Performing Lab: Notes/Report: Creatinine 0.70 0.50-1.10 mg/dL eGFR 105 >=60 mL/min/1.73m2 Calculation based on the Chronic Kidney Disease Epidemiology Collaboration (CKD-EPI) equation refit without adjustment for race. VITAMIN D 25 HYDROXY Reviewed date:11/17/2024 11:42:49 [...] Lab: Notes/Report: C-Reactive Protein <0.29 <=0.50 mg/dL ZINC Reviewed date:12/07/2024 12:34:58 PM Interpretation: Performing Lab: Notes/Report: Zinc 53 60-130 ug/dL Elevated results may be due to sample collected in a non-certified trace element-free tube. This test was developed and the performance characteristics determined by [facility]. It has not been cleared or approved by the FDA. The laboratory is regulated under CLIA as qualified to perform high-complexity testing. This test is used for patient testing purposes. It should not be regarded as investigational or for research. Test performed at [facility], [address] , [place] [address] Rosa M Llanes MD, PhD - High Lift Driver ALPHA FETOPROTEIN TUMOR MICEHLLE ER Reviewed date:07/27/2024 04:57:33 PM Interpretation: Performing Lab: Notes/Report: The Siemens Advia Life With Lindaaur Chemiluminescent Immunoassay is used. Results obtained with different assay methods or kits cannot be used interchangeably. Results cannot be interpreted as absolute evidence of the presence or absence of malignant disease. AFP 5.1 0.0-8.0 ng/mL RHEUMATOID FACTOR Reviewed date:11/24/2024 03:15:28 PM Interpretation: Performing Lab: Notes/Report: Rheumatoid Factor <10.0 <15.0 I Unit/mL COPPER, SERUM Reviewed date:12/09/2024 09:02:58 AM Interpretation: Performing Lab: Notes/Report: Copper 9408 320-7217 ug/L Copper values may be elevated to twice the normal levels in . Elevated results may be due to sample collected in a non-certified trace element-free tube. This test was developed and the performance characteristics determined by [facility]. It has not been cleared or approved by the FDA. The laboratory is regulated under CLIA as qualified to perform high-complexity testing. This test is used for patient testing purposes. It should not be regarded as investigational or for research. Test performed at [facility], [address] , [place] [address] Rosa M Llanes MD, PhD - High Lift Driver VITAMIN B6 Reviewed date:12/09/2024 09:02:50 AM Interpretation: Performing Lab: Notes/Report: Vitamin B6 (Pyridoxine) Level 7 5-50 ug/L This test was developed and the performance characteristics determined by [facility]. It has not been cleared or approved by the FDA. The laboratory is regulated under CLIA as qualified to perform high-complexity testing. This test is used for patient testing purposes. It should not be regarded as investigational or for research. Test performed at [facility], [address], [place] [address] Rosa M Llanes MD, PhD - High Lift Driver HEPATITIS C VIRUS QUANTITATI VE MOLECULAR STUDY [...] Interp Detected Not Detected HCV RNA Quantitative 669949 <12 I Unit/mL HCV RNA Quantitative Log 5.51 <1.08 Log IU/mL AST, ALT, BILIRUBIN ELR STAT E REPORTABLES Reviewed date:07/24/2024 10:51:14 AM Interpretation: Performing Lab: Notes/Report: ALT (SGPT) 82 10-60 unit/L AST (SGOT) 57 10-42 unit/L Bilirubin, Direct <0.1 0.0-0.3 mg/dL Total Bilirubin 0.2 0.0-1.4 mg/dL HEPATITIS A ANTIBODY TOTAL W ITH REFLEX [...] Negative Hepatitis B Surface Ab Negative Negative US ABDOMEN LIMITED Reviewed date:07/29/2024 12:15:36 PM Interpretation: Performing Lab: Notes/Report: Note See Note [facility], a member of [employer] Patient Name: JONAS MORRIS Date of : 1975 Reason for Exam: Elevated liver enzymes. Chronic Hepatitis C Exam Date: 07/29/2024 [id number] EST Report Status: Final Ordering Provider: TREMAINE [...] Signed Date: 07/29/2024 11:07 ET Workstation ID: [id number] Transcribed By: Self Edit Transcribed Date: 07/29/2024 11:04 ET HEPATITIS C GENOTYPE Reviewed date:08/03/2024 05:02:14 PM Interpretation: Performing Lab: Notes/Report: Hepatitis C Viral RNA, Genotype, LiPA 4 The method used in this test is RT-PCR and reverse hybridization (Line Probe) of the 5' UTR and core region of the HCV genome. The analytical performance characteristics of this assay have been determined by [facility]. The modifications have not been cleared or approved by the FDA. This assay has been validated pursuant to the CLIA regulations and is used for clinical purposes. For additional information, please refer to http://[email or web address].VisTracks /faq/HCVGenotyping (This link id being provided for informational/ educational purposes only.) Test Performed at: [facility] [address] [id number] Alie Gomez MD, PhD LIVER FIBROSIS, FIBROTEST-AC TITEST PANEL Reviewed date:08/05/2024 [...] U/L Alanine Aminotransferase (ALT) 43 6-29 U/L Swnqa-6-Ltrudashphtep 333 106-279 mg/dL Haptoglobin 76 43-212 mg/dL Apolipoprotein A1 151 101-198 mg/dL Reference ID [id number] Footnote SEE NOTE The reliability of results is dependent on compliance with the preanalytical and analytical conditions recommended by [employer]. The tests have to be deferred for: [...] The performance characteristics have been determined by [facility]. It has not been cleared or approved by the U.S. Food and Drug Administration. Performance characteristics refer to the analytical performance of the test. [employer], the associated logo, [email or web address] and all associated [facility] p[employer]rez are the registered trademarks of [facility]. All third democrat pérez - (R) and (TM) - are the property of their respective owners. (C) [phone] [employer]. All rights reserved. Test Performed at: [facility] [address] [place] [id number] Alie Gomez MD, PhD, JAMES HOMOCYSTEINE, TOTAL Reviewed date:11/16/2024 05:55:26 PM Interpretation: Performing Lab: Notes/Report: Homocysteine 8.2 3.2-10.7 mcmol/L CREATINE KINASE Reviewed date:11/24/2024 03:15:21 PM Interpretation: Performing Lab: Notes/Report: Total CK 69 22-269 unit/L CBC WITH AUTO DIFFERENTIAL Reviewed date:11/16/2024 05:55:44 [...] K/mcL Immature Granulocytes Absolute 0.01 0.00-0.03 K/mcL CBC WITH AUTO DIFFERENTIAL Reviewed date:02/12/2025 10:15:10 AM Interpretation: Performing Lab: Notes/Report: WBC 7.9 4.8-10.8 K/mcL RBC 4.70 3.80-4.80 M/mcL Hemoglobin 12.4 11.5-16.0 g/dL Hematocrit 38.5 35.0-47.0 % MCV 82.6 79.0-98.0 FL MCH 26.6 27.0-32.0 pcg MCHC 32.2 32.0-37.0 g/dL RDW 13.9 11.0-15.0 % Platelets 254 130-400 K/mcL MPV 10.8 7.0-11.0 FL NRBC 0.0 <1.0 % NRBC Absolute 0.00 <0.10 K/mcL Neutrophils Relative 52.7 Lymphocytes Relative 36.6 Monocytes Relative 7.2 Eosinophils Relative 2.9 Basophils Relative 0.5 Immature Granulocytes Relative 0.1 Neutrophils Absolute 4.18 1.50-7.00 K/mcL Lymphocytes Absolute 2.91 1.00-5.00 K/mcL Monocytes Absolute 0.57 0.20-1.00 K/mcL Eosinophils Absolute 0.23 0.00-0.50 K/mcL Basophils Absolute 0.04 0.00-0.20 K/mcL Immature Granulocytes Absolute 0.01 0.00-0.03 [...] Performing Lab: Notes/Report: Ferritin 7 8-252 ng/mL COMPREHENSIVE METABOLIC PANE L Reviewed date:02/12/2025 10:15:00 AM Interpretation: Performing Lab: Notes/Report: Sodium 139 133-145 mmol/L Potassium 4.0 3.5-5.5 mmol/L Chloride 110 96-110 mmol/L CO2 25 21-32 mmol/L Anion Gap 4 3-11 Glucose 87 70-100 mg/dL BUN 18 5-25 mg/dL Creatinine 0.62 0.50-1.10 mg/dL eGFR 108 >=60 mL/min/1.73m2 Calculation based on the Chronic Kidney Disease Epidemiology Collaboration (CKD-EPI) equation refit without adjustment for race. BUN/Creatinine Ratio 29.0 Calcium 8.9 8.5-10.5 mg/dL AST (SGOT) 18 10-42 unit/L ALT (SGPT) 23 10-60 unit/L Alkaline Phosphatase 105 42-121 unit/L Total Protein 7.5 6.0-8.0 g/dL Albumin 3.8 3.2-5.0 g/dL Total Bilirubin 0.3 0.0-1.4 mg/dL PROTHROMBIN TIME WITH INR Reviewed date:07/27/2024 04:57:36 PM Interpretation: Performing Lab: Notes/Report: Protime 11.9 10.6-13.9 sec INR 1.0 MG MAMMO DIGITAL DIAGNOSTIC W MORENITA BILAT Reviewed date:07/16/2024 04:36:23 PM Interpretation: Performing Lab: Notes/Report: Note See Note [facility], a member of [employer] Patient Name: JONAS MORRIS Date of : 1975 Reason for Exam: Invasive breast cancer, stage I/II/III, initial workup Exam Date: 07/16/2024 [id number] EST Report Status: Final Ordering Provider: IRASEMA [...] Signed Date: 07/16/2024 13:38 ET Workstation ID: [id number] Transcribed By: Self Edit Transcribed Date: 07/16/2024 13:33 ET VITAMIN B1 Reviewed date:12/15/2024 11:19:28 AM Interpretation: Performing Lab: Notes/Report: Vitamin B1 Whole Blood 48 38-122 ug/L This test was developed and the performance characteristics determined by [facility]. It has not been cleared or approved by the FDA. The laboratory is regulated under CLIA as qualified to perform high-complexity testing. This test is used for patient testing purposes. It should not be regarded as investigational or for research. Test performed at [facility], [address] , [place] [address] Rosa M Llanes MD, PhD - High Lift Driver HEPATITIS C VIRUS QUANTITATI VE MOLECULAR STUDY Reviewed date:01/21/2025 05:55:53 PM Interpretation: Performing Lab: Notes/Report: HCV Qual Interp Not Detected Not Detected HCV RNA not detected, unable to report quantitative results. SELENIUM SERUM Reviewed date:12/15/2024 11:19:35 AM Interpretation: Performing Lab: Notes/Report: Selenium 118 63-160 mcg/L This test was developed and its analytical performance characteristics have been determined by [facility] [place], [place]. It has not been cleared or approved by the U.S. Food and Drug Administration. This assay has been validated pursuant to the CLIA regulations and is used for clinical purposes. Test Performed by [facility], [facility], [address] [place] [address] Reilly Martinez M.D., Ph.D., Director of Laboratories , CLIA [id number] VITAMIN A Reviewed date:12/09/2024 09:02:41 AM Interpretation: Performing Lab: Notes/Report: Vitamin A 38 38-106 ug/dL This test was developed and the performance characteristics determined by [facility]. It has not been cleared or approved by the FDA. The laboratory is regulated under CLIA as qualified to perform high-complexity testing. This test is used for patient testing purposes. It should not be regarded as investigational or for research. Test performed at [facility], [address] [place] [address] Rosa M Llanes MD, PhD - High Lift Driver XR ESOPHAGRAM Reviewed date:03/16/2025 05:24:52 PM Interpretation: Performing Lab: Notes/Report: Note See Note [facility], a member of [facility] Patient Name: JONAS MORRIS Date of : 1975 Reason for Exam: Dysphagia Exam Date: 03/16/2025 [id number] EST Report Status: Final Ordering Provider: DIMAS ROJAS PCP: PRATIBHA BARROW FINDINGS: Double contrast esophagram performed. COMPARISON: Portions of UGI Apr 03, 2023 HISTORY: Patient is a 49 yo F with history of dysphagia status post gastric sleeve converted to bypass 2022. Nephrology Social Worker radiographs: 1 view abdominal radiograph demonstrates nonobstructive bowel gas pattern. There is stool visualized within the colon. There are surgical suture chains noted in the left and right upper quadrants. Absence of the posterior elements in the region of L3. Effervescent crystal s were administered orally. Thick and thin barium [...] esophagram status post gastric bypass. -------- FINAL REPOR T -------- Dictated By: Hannah Hassan Dictated Date: 03/16/2025 12:29 ET Assigned Physician: Teo Maher Reviewed and Electronically Signed By: Teo Maher Signed Date: 03/16/2025 15:29 ET Workstation ID: [id number] Transcribed By: Self Edit Transcribed Date: 03/16/2025 12:37 ET Resident/PA/STEEL MELTER: Hannah Hassan ANTI-NEUTROPHILIC CYTOPLASMI C ANTIBODY Reviewed date:02/17/2025 05:27:18 PM Interpretation: Performing Lab: Notes/Report: Myeloperoxidase Ab Negative Negative Myeloperoxidase Ab, Quant 0 <=20 units Proteinase-3 Ab Negative Negative Proteinase-3 Ab Quant 3 <=20 units RAOUL IFA WITH TITER AND CONRAD DEL [...] of infection with B. burgdorferi (Lyme disease). AST, ALT, BILIRUBIN ELR STAT E REPORTABLES Reviewed date:11/26/2024 11:56:02 AM Interpretation: Performing Lab: Notes/Report: ALT (SGPT) See Report No results avai lable PARATHYROID HORMONE INTACT Reviewed date:12/04/2024 07:54:04 AM Interpretation: Performing Lab: Notes/Report: PTH 63.0 18.5-88.0 pcg/mL CALCIUM Reviewed date:12/04/2024 07:54:12 AM Interpretation: Performing Lab: Notes/Report: Calcium 8.7 8.5-10.5 mg/dL LIVER FIBROSIS, FIBROTEST-AC TITEST PANEL Reviewed date:12/02/2024 [...] U/L Alanine Aminotransferase (ALT) 10 6-29 U/L Evltb-5-Hfubxbxlzvihn 310 106-279 mg/dL Haptoglobin 78 43-212 mg/dL Apolipoprotein A1 143 101-198 mg/dL Reference ID [id number] Footnote SEE NOTE and non alcoholic steatosis. ActiTest is interpretable for chronic hepatitis B and C. The performance characteristics have been determined by [facility]. It has not been cleared or approved by the U.S. Food and Drug Administration. Performance characteristics refer to the analytical performance of the test. [employer], the associated logo, [email or web address] and all associated [facility] [employer] are the registered trademarks of [facility]. All third democrat pérez - (R) and (TM) - are the property of their respective owners. (C) 0719-0645 [employer]. All rights reserved. Test Performed at: [facility] [address] [place] [id number] I Jason MONTEIRO, PhD, JAMES to seek the advice of [...] the preanalytical and analytical conditions recommended by [employer]. The tests have to be deferred for: [...] result and a test, it is recommended METHYLMALONIC ACID, SERUM Reviewed date:11/20/2024 07:51:23 AM Interpretation: Performing Lab: Notes/Report: Methylmalonic Acid 0.10 <0.40 umol/L If applicable, any drug confirmation testing reported here was developed and the performance characteristics determined by [facility]. This confirmation testing has not been cleared or approved by the FDA. The laboratory is regulated under CLIA as qualified to perform high-complexity testing. This test is used for patient testing purposes. It should not be regarded as investigational or for research. Test performed at [facility], [address] , [place] [address] Rosa M Llanes MD, PhD - High Lift Driver ANTI-DNA ANTIBODY, DOUBLE-ST RAND Reviewed date:11/29/2024 11:37:16 AM Interpretation: Performing Lab: Notes/Report: Anti-DNA Double Stranded Antibody Negative Negative ds DNA Ab 26 <=200 I Unit/mL CYCLIC CITRULLINATED PEPTIDE , IGG AND IGA Reviewed date:12/01/2024 03:12:17 PM Interpretation: Performing Lab: Notes/Report: CCP AB Quant 8 <20 Units Cyclic Citrullinated Peptide (CCP) Antibody Negative Negative Reason For Referral Reason mild cognitive impai rment Referral Organization [facility] Referring Provider First Name [facility] Referring Provider Last Name [facility] Referring Provider Speciality Internal edicine Referred Provider Specialty Neurology Referral Priority Routine Reason Please evaluate and treat Diagnosis 1 Dermatitis (L30.9) Referral Organization [facility] Referring Provider First Name [facility] Referring Provider Last Name [facility] Referred Provider Specialty Dermatology General Notes Faxed referral. Referral Priority Routine Reason please evaluate and treat, MMSE 27 please evaluate and treat Diagnosis 1 Complaints of memory disturbance (R41.3) Referral Organization [facility] Referring Provider First Name [facility] Referring Provider Last Name [facility] Referred Provider Specialty Neuropsychia try General Notes Referral was faxed t [facility] Neuropsychology. Please contact patient for scheduling., Izabel Garza 11/16/2024 02:45:00 PM > Referral Priority Routine Reason [facility]- [facility]- [facility] Please evaluate and treat Diagnosis 1 Hepatitis C carrier (B18.2) Referral Organization [facility] Referring Provider First Name [facility] Referring Provider Last Name [facility] Referring Provider Speciality Internal edicine Referred Provider Specialty Gastroentero logy General Notes Please call the chris ent to schedule the appointment, Encounter created and SMS sent to the pt., Dali Mcbride 01/22/2025 02:27:23 PM > Referral Priority Routine Reason second opinion- [facility] Diagnosis 1 Hepatitis C carrier (B18.2) Referral Organization [facility] Referring Provider First Name Miya Referring Provider Last Name Souleymane Referred Provider Specialty Infectious D isease General Notes Faxed to [facility]. Please contact the patient to schedule., Concha Villatoroyla 02/18/2025 11:29:19 AM > Referral Priority Routine Reason Please evaluate and treat Please evaluate and treat Diagnosis 1 Hepatitis C carrier (B18.2) Referral Organization [facility] Referring Provider First Name Miya Referring Provider Last Name Souleymane Referred Provider Specialty Pain Medicin e General Notes Please call the chris ent to schedule the appointment, Encounter created and SMS sent to the pt., Dali Mcbride 02/12/2025 04:32:52 AM > Referral Priority Routine Reason Ongoing headache p lease evaluate and treat Diagnosis 1 Headache, unspecifie d (R51.9) Referral Organization [facility] Referring Provider First Name PRATIBHA Referring Provider Last Name PUSHPA Referring Provider Speciality Internal M edicine Referred Provider Specialty Neurology General Notes Referral [facility] fax[facility]. Please contact patient for scheduling., Izabel Garza 03/05/2025 09:02:51 AM > Referral Priority Routine Medications Medication SIG (Take, Route, Frequency, Duration) Notes Start Date End Date Status Gas-X Ultra Strength 180 MG 1 capsule after meals and at bedtime as needed Orally Twice a day; Duration: 30 days 03/19/2025 Active Symbicort 160-4.5 MCG/ACT 2 puffs Inhala tion Twice a day; Duration: 30 days Active Spiriva HandiHaler 18 MCG 1 capsule by i nhaling the contents of the capsule using the HandiHaler device Inhalation Once a day; Duration: 30 days Active oxyBUTYnin Chloride ER 10 mg TAKE 1 TABLET BY MOUTH ONCE DAILY; Duration: 30 Active Ketoconazole 2 % APPLY TO THE AFFECTE D AREA TOPICALLY TWICE A WEEK. APPLY TO damp SKIN, lather, LEAVE ON 5 MINUTES AND RINSE; Duration: 30 Active Ondansetron [address] 1 TABLET UNDER THE TONGUE TO DISSOLVE EVERY 6 HOURS NEEDED; Duration: 30 Active Famotidine 40 MG 1 tablet at bedtime Orally Once a day; Duration: 30 days 08/05/2023 Active traZODone HCl 100 MG 1 tablet at bedtime Orally Once a day Active Zolpidem Tartrate 10 MG 1 tablet at bedt chandrika as needed Orally Once a day Active Lyrica 25 MG 1 capsule Orally twi ce daily; Duration: 30 days 08/12/2024 Active Pantoprazole Sodium 20 mg TAKE 1 TABLET BY MOUTH ONCE DAILY; Duration: 30 Active Vosevi 400-100-100 MG 1 tablet with food Orally Once a day Not-Taking Ventolin HFA 108 (90 Base) MCG/ACT 1 puff as needed Inhalation every 4 hrs; Duration: 30 days Active Ribavirin 200 MG as directed Orally Twice a day Not-Taking Topiramate 50 mg TAKE 1 TABLET BY MALENA TH two (2) times a day; Duration: 30 days Active Baclofen 10 MG 1 tablet as needed Orally Twice a day Active Doxycycline Hyclate 100 MG 1 capsule Ora lly Twice a day; Duration: 7 days 02/03/2024 Not-Taking Prazosin HCl 1 MG 1 capsule Orally thr ee times a day Active Tamsulosin HCl 0.4 MG 1 capsule Orally O nce a day Not-Taking Acetaminophen 325 MG 2 capsules as neede d Orally every 6 hrs Active Venlafaxine HCl ER 150 MG 1 capsule with food Orally Once a day Active Hydrocortisone 2.5 % 1 application Externally Twice a day; Duration: 30 days 08/05/2023 Not-Takin g Theophylline ER 300 mg TAKE 1 TABLET BY MOUTH EVERY TWELVE HOURS; Duration: 30 Active Pyridoxine HCl 100 MG 1 tablet Orally On ce a day Active Tamoxifen Citrate 20 MG 1 tablet Orally Once a day Not-Taking Vitamin D (Ergocalciferol) 1.25 MG (12819 UT) 1 capsule Orally; Duration: 90 days 11/17/2024 Active Montelukast Sodium 10 mg TAKE 1 TABLET B Y MOUTH ONCE DAILY AT BEDTIME; Duration: 90 Active D3-1000 25 MCG (1000 UT) TAKE [...] ONCE A DAY NEEDED; Duration: 30 Active Immunizations Vaccine Route Administration Date Status [...] W/U Status Risk Notes Problem Tobacco user (651888862) Nicotine dependence, cigarettes, uncomplicated (F17.210) Active confirmed Problem Mild recurrent major depression (60819583) Major depressive disorder, recurrent, mild (F33.0) Active confirmed Problem Generalized anxiety disorder (35092996) Generalized anxiety disorder (F41.1) Active confirmed Problem Obstructive sleep apnea syndrome (disorder) (62607189) Obstructive sleep apnea (adult) (pediatric) (G47.33) Active confirmed Problem Polyneuropathy (64193568) Polyneuropathy, unspecified (G62.9) Active confirmed Problem Amblyopia (065027618) Unspecified amblyopia, unspecified eye (H53.009) Active confirmed Problem Chronic obstructive pulmonary disease (77569624) Chronic obstructive pulmonary disease, unspecified (J44.9) Active confirmed Problem Uncomplicated moderate persistent asthma (384789236) Moderate persistent asthma, uncomplicated (J45.40) Active confirmed Problem Gastro-esophageal reflux disease without esophagitis (293958731) Gastro-esophageal reflux disease without esophagitis (K21.9) Active confirmed Problem Constipation (24934373) Constipation, unspecified (K59.00) Active confirmed Problem Osteoarthritis (495904780) Polyosteoarthriti s, unspecified (M15.9) Active confirmed Problem Degeneration of thoracolumbar intervertebral disc (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, 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) Active confirmed Problem Cervical radiculopathy (52531541) Radiculopathy, cervical region (M54.12) Active confirmed Problem Overactive bladder (428507788) Overactive bladder (N32.81) Active confirmed Problem Personal history of primary malignant neoplasm of breast (402340712) Personal history of malignant neoplasm of breast (Z85.3) Active confirmed Problem History of bariatric surgical procedure (914094784) Bariatric surgery status (Z98.84) Active confirmed Problem Hepatitis C carrier (030666021) Hepatitis C carrier (B18.2) Active confirmed Problem Amnesia (43130653) Complaints of memory disturbance (R41.3) Active confirmed Problem Vitamin D deficiency (84702370) Vitamin D deficiency (E55.9) Active confirmed Problem Mild cognitive impairment (853526054) Mild cognitive impairment (G31.84) Active confirmed Vital Signs Heart Rate 86 /min 03/19/2025 Temperature 97.3 degrees Fahrenheit 03/19/2025 Oximetry 98 % 03/19/2025 Blood pressure diastolic 72 mm Hg 03/19/2025 Height 62 in 03/19/2025 Blood pressure systolic 110 mm Hg 03/19/2025 Weight 148.5 lbs 03/19/2025 BMI 27.16 kg/m2 03/19/2025 Encounters Encounter Location Date Provider Diagnosis [address] [place] [address] 05/27/2024 [facility] GUL Radiculopathy, cervi campos region M54.12 ; Hypotension, unspecified I95.9 and Mild cognitive impairment G31.[address] [place] [address] 07/24/2024 Miya Blandonum Hepatitis C carrier B18.[address] [place] [address] 08/12/2024 Clareer Fritzloum Hepatitis C carrier B18.2 ; Gastro-esophageal reflux disease without esophagitis K21.9 ; Chronic obstructive pulmonary disease, unspecified J44.9 ; Generalized anxiety disorder F41.1 ; Nicotine dependence, cigarettes, uncomplicated F17.210 ; Overactive bladder N32.81 ; Obstructive sleep apnea (adult) (pediatric) G47.33 ; Polyneuropathy, unspecified G62.9 and Personal history of malignant neoplasm of breast Z85.[address] [place] [address] 11/12/2024 Ghshayneer Fritzjanetteum Complaints of memory disturbance R41.[address] [place] [address] 11/20/2024 Ghadeer Fritzloum Headache, unspecifie d R51.9 and Fatigue, unspecified type R53.[address] [place] [address] 01/20/2025 PRATIBHA BARROW Hepatitis C carrier B18.2 ; Generalized anxiety disorder F41.1 ; Obstructive sleep apnea (adult) (pediatric) G47.33 ; Chronic obstructive pulmonary disease, unspecified J44.9 and Gastro-esophageal reflux disease without esophagitis K21.[address] [place] [address] 02/10/2025 Miya Balndonum Hepatitis C carrier B18.2 ; Generalized anxiety disorder F41.1 ; Obstructive sleep apnea (adult) (pediatric) G47.33 ; Chronic obstructive pulmonary disease, unspecified J44.9 ; Gastro-esophageal reflux disease without esophagitis K21.9 and Blood in the stool K92.[address] [place] [address] 03/19/2025 Barneyshayneevangelista Hujanetteum Hepatitis C carrier B18.2 ; Annual visit for general adult medical examination without abnormal findings Z00.00 ; Generalized anxiety disorder F41.1 ; Obstructive sleep apnea (adult) (pediatric) G47.33 ; Chronic obstructive pulmonary disease, unspecified J44.9 ; Gastro-esophageal reflux disease without esophagitis K21.9 ; Polyosteoarthritis, unspecified M15.9 ; Personal history of malignant neoplasm of breast Z85.3 and Overactive bladder N32.81 [facility] [address] [place] [address] 03/29/2025 [facility] [address] [place] [address] 05/22/2024 [facility] [address] [place] [address] 08/18/2024 [facility] [address] [place] [address] 09/02/2024 [facility] [address] [place] [address] 11/06/2024 [facility] [address] [place] [address] 11/17/2024 [facility] Vitamin D deficiency E55.9 [facility] [address] [place] [address] 11/18/2024 [facility] [address] [place] [address] 11/20/2024 [facility] [address] [place] [address] 11/20/2024 [facility] [address] [place] [address] 11/26/2024 [facility] Headache, unspecifie d R51.9 [facility] [address] [place] [address] 11/26/2024 [facility] [address] [place] [address] 01/04/[address] [place] [address] 01/22/[address] [place] [address] 02/10/2025 Miya Blandon Hepatitis C carrier B18.2 ; Other intervertebral disc degeneration, 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 Morris is a 49-year-old lady with hepatitis C and sees Kashmir Chan PA-C, right-sided breast cancer followed by Dr. Jarvis at [facility], asthma/COPD followed by Dr. Kim, neuropathy, [...] breast cancer followed by Dr. Jarvis at [facility], asthma/COPD followed by Dr. Kim, neuropathy, osteoarthritis followed by Dr. Hensley and anxiety/depression follows with [facility] is here for Memory testing. Plan As [...] 11/17/2024 Vitamin D deficiency (ICD-10 - E55.9) 11/20/2024 Headache, unspecified (ICD-10 - R51.9) Mrs. Morris is a 49-year-old lady with hepatitis C and sees Kashmir Chan PA-C, right-sided breast cancer followed by Dr. Jarvis at [facility], asthma/COPD followed by Dr. Kim, neuropathy, osteoarthritis followed by Dr. Hensley and anxiety/depression follows with [facility] is here Symptoms of fatigue. Plan as [...] breast cancer followed by Dr. Jarvis at [facility], asthma/COPD followed by Dr. Kim, neuropathy, [...] the patient but was available upon request 11/26/2024 Headache, unspecified (ICD-10 - R51.9) 01/20/2025 Hepatitis C carrier (ICD-10 - B18.2) Mrs. Morris is a 49-year-old lady with hepatitis C and sees Kashmir Chan PA-C, right-sided breast cancer followed by Dr. Jarvis at [facility], asthma/COPD followed by Dr. Kim, neuropathy, osteoarthritis followed by Dr. Hensley and anxiety/depression follows with [facility] is here Symptoms of fatigue. Fatigue/tiredness and abdominal pain. This is multifactorial considering her history of breast cancer, polypharmacy, anxiety/depression . Recently seen at [facility] and workup was negative. Advised to increase physical activity, inappropriate hydration. Hepatitis C. She had recent hepatitis C test done which was detectable. According to patient she completed antiviral therapy. She is given referral to Dr. Blue at [facility] for further workup. She also follows up [...] on multiple medications and she is stable 02/10/2025 Generalized anxiety disorder (ICD-10 - F41.1) Mrs. Morris is a 49-year-old lady with hepatitis C and sees Kashmir Chan PA-C, right-sided breast cancer followed by Dr. Jarvis at [facility], asthma/COPD followed by Dr. Kim, neuropathy, osteoarthritis followed by Dr. Hensley and anxiety/depression follows with N is here For follow-up. Plan as follows Fatigue/tiredness and abdominal pain. This is multifactorial considering her history of breast cancer, polypharmacy, anxiety/depression . Recently seen at [facility] and workup was negative. Advised to increase physical activity, inappropriate hydration. Hepatitis C. She had recent hepatitis C test done which Was not detectable.. According to patient she completed antiviral therapy. She is given referral to Dr. Blue at [facility] for further workup. She is no longer seeing infectious disease physician Dr. Wan, Does that she would like to be seen by a different ID specialist for consultation. I would refer patient and we will retest HCV. Acid reflux. She is on famotidine and her symptoms are well controlled. COPD. She is stable on current regimen. She has quit smoking but she is having passive smoking from her son. Obstructive sleep apnea. She uses CPAP machine on a regular basis Generalized anxiety disorder. She is on multiple medications and she is stable Blood in the stool. I will obtain a CBC, will also check for ANCA and Calprotectin, we will also obtain GI PCR and stool test. She does have a colonoscopy coming up in 2 weeks and also she has an appointment with the GI for initial consultation in March. I have advised patient that if her symptoms worsen or develop fever feels weak and should be seen at the ER immediately. General concerns have been discussed I have rendered the services for this patient under direct supervision of Dr. Barrow, who did not see the patient but was available upon request Content of this note has been dictated using voice recognition software. Despite multiple revisions, Errors may persist. 05/27/2024 Hypotension, unspecified (ICD-10 - I95.9) Kashmir LOAIZA-C, right-sided breast cancer followed by Dr. Jarvis at [facility], asthma/COPD followed by Dr. Kim, neuropathy, [...] this note under HIPAA compliance and under [place] law mandated for scribe services. Patient aware of service. Verbal consent and written consent taken from the patient. Patient understands and verbalizes understanding of the scribes services and all questions answered regarding scribes services. Patient agrees to use of scribes services. 05/27/2024 Radiculopathy, cervical region (ICD-10 - M54.12) Kashmir LOAIZA-C, right-sided breast cancer followed by Dr. Jarvis at [facility], asthma/COPD followed by Dr. Kim, neuropathy, [...] this note under HIPAA compliance and under [place] law mandated for scribe services. Patient aware of service. Verbal consent and written consent taken from the patient. Patient understands and verbalizes understanding of the scribes services and all questions answered regarding scribes services. Patient agrees to use of scribes services. 02/10/2025 Hepatitis C carrier (ICD-10 - B18.2) Mrs. Morris is a 49-year-old lady with hepatitis C and sees Kashmir Chan PA-C, right-sided breast cancer followed by Dr. Jarvis at [facility], asthma/COPD followed by Dr. Kim, neuropathy, osteoarthritis followed by Dr. Hensley and anxiety/depression follows with N is here For follow-up. Plan as follows Fatigue/tiredness and abdominal pain. This is multifactorial considering her history of breast cancer, polypharmacy, anxiety/depression . Recently seen at [facility] and workup was negative. Advised to increase physical activity, inappropriate hydration. Hepatitis C. She had recent hepatitis C test done which Was not detectable.. According to patient she completed antiviral therapy. She is given referral to Dr. Blue at [facility] for further workup. She is no longer seeing infectious disease physician Dr. Wan, Does that she would like to be seen by a different ID specialist for consultation. I would refer patient and we will retest HCV. Acid reflux. She is on famotidine and her symptoms are well controlled. COPD. She is stable on current regimen. She has quit smoking but she is having passive smoking from her son. Obstructive sleep apnea. She uses CPAP machine on a regular basis Generalized anxiety disorder. She is on multiple medications and she is stable Blood in the stool. I will obtain a CBC, will also check for ANCA and Calprotectin, we will also obtain GI PCR and stool test. She does have a colonoscopy coming up in 2 weeks and also she has an appointment with the GI for initial consultation in March. I have advised patient that if her symptoms worsen or develop fever feels weak and should be seen at the ER immediately. General concerns have been discussed I have rendered the services for this patient under direct supervision of Dr. Barrow, who did not see the patient but was available upon request Content of this note has been dictated using voice recognition software. Despite multiple revisions, Errors may persist. 03/19/2025 Hepatitis C carrier (ICD-10 - B18.2) Mrs. Morris is a 49-year-old lady with hepatitis C and sees Kashmir Chan PA-C, right-sided breast cancer followed by Dr. Jarvis at [facility], asthma/COPD followed by Dr. Kim, neuropathy, osteoarthritis followed by Dr. Hensley and anxiety/depression follows with [facility] is here For her annual physical examination. Plan as follows Fatigue/tiredness and abdominal pain. This is multifactorial considering her history of breast cancer, polypharmacy, anxiety/depression . Comprehensive workup is negative. Advised to increase physical activity, inappropriate hydration. Hepatitis C. Her levels are stable and recent LFTs are within normal limits. She does have a referral to [facility] for ID consultation. Acid reflux. She is on famotidine, Recently had barium swallow with unremarkable findings. She does have an upcoming endoscopy as well. She does follow with [facility]. COPD. She is stable on current regimen. She follows with Dr. Kim and she does get yearly LDCT. She has quit smoking About 20 years ago. EKG is done office today with a heart rate of 78 bpm, sinus rhythm. No ST elevation depression. No bundle branch block Obstructive sleep apnea. She uses CPAP machine on a regular basis Generalized anxiety disorder. She is on multiple medications and she is stable polyosteoarthritis . She follows with Dr. Hensley. She does articular injection however no improvement, she defers surgery at this point. Headaches. Recent MRI of the brain was unremarkable. No pathology was detected. The patient was referred to neurologist History of breast cancer. She is currently under surveillance, she has an appointment coming up with Dr. Oleary. Overactive bladder. Stable on the regimen Healthcare proxy is her son Amish, phone number is [phone], MOLST form is provided. She is up-to-date on age-specific screenings, declines vaccinations. She does use a walker to ambulate and she does have a [employer] as she does need help with ADLs and IADLs. General concerns have been discussed I have rendered the services for this patient under direct supervision of Dr. Barrow, who did not see the patient but was available upon request Content of this note has been dictated using voice recognition software. Despite multiple revisions, Errors may persist. 03/19/2025 Annual visit for general adult medical examination without abnormal findings (ICD-10 - Z00.00) Mrs. Morris is a 49-year-old lady with hepatitis C and sees Kashmir Chan PA-C, right-sided breast cancer followed by Dr. Jarvis at [facility], asthma/COPD followed by Dr. Kim, neuropathy, osteoarthritis followed by Dr. Hensley and anxiety/depression follows with [facility] is here For her annual physical examination. Plan as follows Fatigue/tiredness and abdominal pain. This is multifactorial considering her history of breast cancer, polypharmacy, anxiety/depression . Comprehensive workup is negative. Advised to increase physical activity, inappropriate hydration. Hepatitis C. Her levels are stable and recent LFTs are within normal limits. She does have a referral to [facility] for ID consultation. Acid reflux. She is on famotidine, Recently had barium swallow with unremarkable findings. She does have an upcoming endoscopy as well. She does follow with [facility]. COPD. She is stable on current regimen. She follows with Dr. Kim and she does get yearly LDCT. She has quit smoking About 20 years ago. EKG is done office today with a heart rate of 78 bpm, sinus rhythm. No ST elevation depression. No bundle branch block Obstructive sleep apnea. She uses CPAP machine on a regular basis Generalized anxiety disorder. She is on multiple medications and she is stable polyosteoarthritis . She follows with Dr. Hensley. She does articular injection however no improvement, she defers surgery at this point. Headaches. Recent MRI of the brain was unremarkable. No pathology was detected. The patient was referred to neurologist History of breast cancer. She is currently under surveillance, she has an appointment coming up with Dr. Oleary. Overactive bladder. Stable on the regimen Healthcare proxy is her son Amish, phone number is [phone], MOLST form is provided. She is up-to-date on age-specific screenings, declines vaccinations. She does use a walker to ambulate and she does have a [employer] as she does need help with ADLs and IADLs. General concerns have been discussed I have rendered the services for this patient under direct supervision of Dr. Barrow, who did not see the patient but was available upon request Content of this note has been dictated using voice recognition software. Despite multiple revisions, Errors may persist. 03/24/2025 Gastro-esophageal reflux disease without esophagitis (ICD-10 - K21.9) 02/10/2025 Other intervertebral disc degeneration, thoracolumbar region (ICD-10 - M51.35) 02/10/2025 Hepatitis C carrier (ICD-10 - B18.2) 08/12/2024 Hepatitis C carrier (ICD-10 - B18.2) Mrs. Morris is a 49-year-old lady with hepatitis C and sees Kashmir Chan PA-C, right-sided breast cancer followed by Dr. Jarvis at [facility], asthma/COPD followed by Dr. Kim, neuropathy, [...] patient but was available upon request 08/12/2024 Gastro-esophageal reflux disease without esophagitis (ICD-10 - K21.9) Mrs. Morris is a 49-year-old lady with hepatitis C and sees Kashmir Chan PA-C, right-sided breast cancer followed by Dr. Jarvis at [facility], asthma/COPD followed by Dr. Kim, neuropathy, [...] patient but was available upon request 08/12/2024 Chronic obstructive pulmonary disease, unspecified (ICD-10 - J44.9) Mrs. Morris is a 49-year-old lady with hepatitis C and sees Kashmir Chan PA-C, right-sided breast cancer followed by Dr. Jarvis at [facility], asthma/COPD followed by Dr. Kim, neuropathy, [...] the patient but was available upon request 03/19/2025 Generalized anxiety disorder (ICD-10 - F41.1) Mrs. Morris is a 49-year-old lady with hepatitis C and sees Kashmir Chan PA-C, right-sided breast cancer followed by Dr. Jarvis at [facility], asthma/COPD followed by Dr. Kim, neuropathy, osteoarthritis followed by Dr. Hensley and anxiety/depression follows with [facility] is here For her annual physical examination. Plan as follows Fatigue/tiredness and abdominal pain. This is multifactorial considering her history of breast cancer, polypharmacy, anxiety/depression . Comprehensive workup is negative. Advised to increase physical activity, inappropriate hydration. Hepatitis C. Her levels are stable and recent LFTs are within normal limits. She does have a referral to [facility] for ID consultation. Acid reflux. She is on famotidine, Recently had barium swallow with unremarkable findings. She does have an upcoming endoscopy as well. She does follow with [facility]. COPD. She is stable on current regimen. She follows with Dr. Kim and she does get yearly LDCT. She has quit smoking About 20 years ago. EKG is done office today with a heart rate of 78 bpm, sinus rhythm. No ST elevation depression. No bundle branch block Obstructive sleep apnea. She uses CPAP machine on a regular basis Generalized anxiety disorder. She is on multiple medications and she is stable polyosteoarthritis . She follows with Dr. Hensley. She does articular injection however no improvement, she defers surgery at this point. Headaches. Recent MRI of the brain was unremarkable. No pathology was detected. The patient was referred to neurologist History of breast cancer. She is currently under surveillance, she has an appointment coming up with Dr. Oleary. Overactive bladder. Stable on the regimen Healthcare proxy is her son Amish, phone number is [phone], MOLST form is provided. She is up-to-date on age-specific screenings, declines vaccinations. She does use a walker to ambulate and she does have a [employer] as she does need help with ADLs and IADLs. General concerns have been discussed I have rendered the services for this patient under direct supervision of Dr. Barrow, who did not see the patient but was available upon request Content of this note has been dictated using voice recognition software. Despite multiple revisions, Errors may persist. 05/27/2024 Mild cognitive impairment (ICD-10 - G31.84) Kashmir Rocio CISNEROS, right-sided breast cancer followed by Dr. Jarvis at [facility], asthma/COPD followed by Dr. Kim, neuropathy, [...] this note under HIPAA compliance and under [place] law mandated for scribe services. Patient aware of service. Verbal consent and written consent taken from the patient. Patient understands and verbalizes understanding of the scribes services and all questions answered regarding scribes services. Patient agrees to use of scribes services. 02/10/2025 Obstructive sleep apnea (adult) (pediatric) (ICD-10 - G47.33) Mrs. Morris is a 49-year-old lady with hepatitis C and sees Kashmir Chan PA-C, right-sided breast cancer followed by Dr. Jarvis at [facility], asthma/COPD followed by Dr. Kim, neuropathy, osteoarthritis followed by Dr. Hensley and anxiety/depression follows with N is here For follow-up. Plan as follows Fatigue/tiredness and abdominal pain. This is multifactorial considering her history of breast cancer, polypharmacy, anxiety/depression . Recently seen at [facility] and workup was negative. Advised to increase physical activity, inappropriate hydration. Hepatitis C. She had recent hepatitis C test done which Was not detectable.. According to patient she completed antiviral therapy. She is given referral to Dr. Blue at [facility] for further workup. She is no longer seeing infectious disease physician Dr. Wan, Does that she would like to be seen by a different ID specialist for consultation. I would refer patient and we will retest HCV. Acid reflux. She is on famotidine and her symptoms are well controlled. COPD. She is stable on current regimen. She has quit smoking but she is having passive smoking from her son. Obstructive sleep apnea. She uses CPAP machine on a regular basis Generalized anxiety disorder. She is on multiple medications and she is stable Blood in the stool. I will obtain a CBC, will also check for ANCA and Calprotectin, we will also obtain GI PCR and stool test. She does have a colonoscopy coming up in 2 weeks and also she has an appointment with the GI for initial consultation in March. I have advised patient that if her symptoms worsen or develop fever feels weak and should be seen at the ER immediately. General concerns have been discussed I have rendered the services for this patient under direct supervision of Dr. Barrow, who did not see the patient but was available upon request Content of this note has been dictated using voice recognition software. Despite multiple revisions, Errors may persist. 01/20/2025 Generalized anxiety disorder (ICD-10 - F41.1) Mrs. Morris is a 49-year-old lady with hepatitis C and sees Kashmir Chan PA-C, right-sided breast cancer followed by Dr. Jarvis at [facility], asthma/COPD followed by Dr. Kim, neuropathy, osteoarthritis followed by Dr. Hensley and anxiety/depression follows with [facility] is here Symptoms of fatigue. Fatigue/tiredness and abdominal pain. This is multifactorial considering her history of breast cancer, polypharmacy, anxiety/depression . Recently seen at [facility] and workup was negative. Advised to increase physical activity, inappropriate hydration. Hepatitis C. She had recent hepatitis C test done which was detectable. According to patient she completed antiviral therapy. She is given referral to Dr. Blue at [facility] for further workup. She also follows up [...] on multiple medications and she is stable 01/20/2025 Obstructive sleep apnea (adult) (pediatric) (ICD-10 - G47.33) Mrs. Morris is a 49-year-old lady with hepatitis C and sees Kashmir Chan PA-C, right-sided breast cancer followed by Dr. Jarvis at [facility], asthma/COPD followed by Dr. Kim, neuropathy, osteoarthritis followed by Dr. Hensley and anxiety/depression follows with [facility] is here Symptoms of fatigue. Fatigue/tiredness and abdominal pain. This is multifactorial considering her history of breast cancer, polypharmacy, anxiety/depression . Recently seen at [facility] and workup was negative. Advised to increase physical activity, inappropriate hydration. Hepatitis C. She had recent hepatitis C test done which was detectable. According to patient she completed antiviral therapy. She is given referral to Dr. Blue at [facility] for further workup. She also follows up [...] on multiple medications and she is stable 02/10/2025 Chronic obstructive pulmonary disease, unspecified (ICD-10 - J44.9) Mrs. Morris is a 49-year-old lady with hepatitis C and sees Kashmir Chan PA-C, right-sided breast cancer followed by Dr. Jarvis at [facility], asthma/COPD followed by Dr. Kim, neuropathy, osteoarthritis followed by Dr. Hensley and anxiety/depression follows with [facility] is here For follow-up. Plan as follows Fatigue/tiredness and abdominal pain. This is multifactorial considering her history of breast cancer, polypharmacy, anxiety/depression . Recently seen at [facility] and workup was negative. Advised to increase physical activity, inappropriate hydration. Hepatitis C. She had recent hepatitis C test done which Was not detectable.. According to patient she completed antiviral therapy. She is given referral to Dr. Blue at [facility] for further workup. She is no longer seeing infectious disease physician Dr. Wan, Does that she would like to be seen by a different ID specialist for consultation. I would refer patient and we will retest HCV. Acid reflux. She is on famotidine and her symptoms are well controlled. COPD. She is stable on current regimen. She has quit smoking but she is having passive smoking from her son. Obstructive sleep apnea. She uses CPAP machine on a regular basis Generalized anxiety disorder. She is on multiple medications and she is stable Blood in the stool. I will obtain a CBC, will also check for ANCA and Calprotectin, we will also obtain GI PCR and stool test. She does have a colonoscopy coming up in 2 weeks and also she has an appointment with the GI for initial consultation in March. I have advised patient that if her symptoms worsen or develop fever feels weak and should be seen at the ER immediately. General concerns have been discussed I have rendered the services for this patient under direct supervision of Dr. Barrow, who did not see the patient but was available upon request Content of this note has been dictated using voice recognition software. Despite multiple revisions, Errors may persist. 03/19/2025 Obstructive sleep apnea (adult) (pediatric) (ICD-10 - G47.33) Mrs. Morris is a 49-year-old lady with hepatitis C and sees Kashmir Chan PA-C, right-sided breast cancer followed by Dr. Jarvis at [facility], asthma/COPD followed by Dr. Kim, neuropathy, osteoarthritis followed by Dr. Hensley and anxiety/depression follows with [facility] is here For her annual physical examination. Plan as follows Fatigue/tiredness and abdominal pain. This is multifactorial considering her history of breast cancer, polypharmacy, anxiety/depression . Comprehensive workup is negative. Advised to increase physical activity, inappropriate hydration. Hepatitis C. Her levels are stable and recent LFTs are within normal limits. She does have a referral to [facility] for ID consultation. Acid reflux. She is on famotidine, Recently had barium swallow with unremarkable findings. She does have an upcoming endoscopy as well. She does follow with [facility]. COPD. She is stable on current regimen. She follows with Dr. Kim and she does get yearly LDCT. She has quit smoking About 20 years ago. EKG is done office today with a heart rate of 78 bpm, sinus rhythm. No ST elevation depression. No bundle branch block Obstructive sleep apnea. She uses CPAP machine on a regular basis Generalized anxiety disorder. She is on multiple medications and she is stable polyosteoarthritis . She follows with Dr. Hensley. She does articular injection however no improvement, she defers surgery at this point. Headaches. Recent MRI of the brain was unremarkable. No pathology was detected. The patient was referred to neurologist History of breast cancer. She is currently under surveillance, she has an appointment coming up with Dr. Oleary. Overactive bladder. Stable on the regimen Healthcare proxy is her son Amish, phone number is [phone], MOLST form is provided. She is up-to-date on age-specific screenings, declines vaccinations. She does use a walker to ambulate and she does have a [employer] as she does need help with ADLs and IADLs. General concerns have been discussed I have rendered the services for this patient under direct supervision of Dr. Barrow, who did not see the patient but was available upon request Content of this note has been dictated using voice recognition software. Despite multiple revisions, Errors may persist. 08/12/2024 Generalized anxiety disorder (ICD-10 - F41.1) Mrs. Morris is a 49-year-old lady with hepatitis C and sees Kashmir Chan PA-C, right-sided breast cancer followed by Dr. Jarvis at [facility], asthma/COPD followed by Dr. Kim, neuropathy, [...] the patient but was available upon request 02/10/2025 Headache, unspecified (ICD-10 - R51.9) 08/12/2024 Nicotine dependence, cigarettes, uncomplicated (ICD-10 - F17.210) Mrs. Morris is a 49-year-old lady with hepatitis C and sees Kashmir Chan PA-C, right-sided breast cancer followed by Dr. Jarvis at [facility], asthma/COPD followed by Dr. Kim, neuropathy, [...] the patient but was available upon request 03/19/2025 Chronic obstructive pulmonary disease, unspecified (ICD-10 - J44.9) Mrs. Morris is a 49-year-old lady with hepatitis C and sees Kashmir Chan PA-C, right-sided breast cancer followed by Dr. Jarvis at [facility], asthma/COPD followed by Dr. Kim, neuropathy, osteoarthritis followed by Dr. Hensley and anxiety/depression follows with [facility] is here For her annual physical examination. Plan as follows Fatigue/tiredness and abdominal pain. This is multifactorial considering her history of breast cancer, polypharmacy, anxiety/depression . Comprehensive workup is negative. Advised to increase physical activity, inappropriate hydration. Hepatitis C. Her levels are stable and recent LFTs are within normal limits. She does have a referral to [facility] for ID consultation. Acid reflux. She is on famotidine, Recently had barium swallow with unremarkable findings. She does have an upcoming endoscopy as well. She does follow with [facility]. COPD. She is stable on current regimen. She follows with Dr. Kim and she does get yearly LDCT. She has quit smoking About 20 years ago. EKG is done office today with a heart rate of 78 bpm, sinus rhythm. No ST elevation depression. No bundle branch block Obstructive sleep apnea. She uses CPAP machine on a regular basis Generalized anxiety disorder. She is on multiple medications and she is stable polyosteoarthritis . She follows with Dr. Hensley. She does articular injection however no improvement, she defers surgery at this point. Headaches. Recent MRI of the brain was unremarkable. No pathology was detected. The patient was referred to neurologist History of breast cancer. She is currently under surveillance, she has an appointment coming up with Dr. Oleary. Overactive bladder. Stable on the regimen Healthcare proxy is her son Amish, phone number is [phone], MOLST form is provided. She is up-to-date on age-specific screenings, declines vaccinations. She does use a walker to ambulate and she does have a [employer] as she does need help with ADLs and IADLs. General concerns have been discussed I have rendered the services for this patient under direct supervision of Dr. Barrow, who did not see the patient but was available upon request Content of this note has been dictated using voice recognition software. Despite multiple revisions, Errors may persist. 02/10/2025 Gastro-esophageal reflux disease without esophagitis (ICD-10 - K21.9) Mrs. Morris is a 49-year-old lady with hepatitis C and sees Kashmir Chan PA-C, right-sided breast cancer followed by Dr. Jarvis at [facility], asthma/COPD followed by Dr. Kim, neuropathy, osteoarthritis followed by Dr. Hensley and anxiety/depression follows with [facility] is here For follow-up. Plan as follows Fatigue/tiredness and abdominal pain. This is multifactorial considering her history of breast cancer, polypharmacy, anxiety/depression . Recently seen at [facility] and workup was negative. Advised to increase physical activity, inappropriate hydration. Hepatitis C. She had recent hepatitis C test done which Was not detectable.. According to patient she completed antiviral therapy. She is given referral to Dr. Blue at [facility] for further workup. She is no longer seeing infectious disease physician Dr. Wan, Does that she would like to be seen by a different ID specialist for consultation. I would refer patient and we will retest HCV. Acid reflux. She is on famotidine and her symptoms are well controlled. COPD. She is stable on current regimen. She has quit smoking but she is having passive smoking from her son. Obstructive sleep apnea. She uses CPAP machine on a regular basis Generalized anxiety disorder. She is on multiple medications and she is stable Blood in the stool. I will obtain a CBC, will also check for ANCA and Calprotectin, we will also obtain GI PCR and stool test. She does have a colonoscopy coming up in 2 weeks and also she has an appointment with the GI for initial consultation in March. I have advised patient that if her symptoms worsen or develop fever feels weak and should be seen at the ER immediately. General concerns have been discussed I have rendered the services for this patient under direct supervision of Dr. Barrow, who did not see the patient but was available upon request Content of this note has been dictated using voice recognition software. Despite multiple revisions, Errors may persist. 01/20/2025 Chronic obstructive pulmonary disease, unspecified (ICD-10 - J44.9) Mrs. Morris is a 49-year-old lady with hepatitis C and sees Kashmir Chan PA-C, right-sided breast cancer followed by Dr. Jarvis at [facility], asthma/COPD followed by Dr. Kim, neuropathy, osteoarthritis followed by Dr. Hensley and anxiety/depression follows with [facility] is here Symptoms of fatigue. Fatigue/tiredness and abdominal pain. This is multifactorial considering her history of breast cancer, polypharmacy, anxiety/depression . Recently seen at [facility] and workup was negative. Advised to increase physical activity, inappropriate hydration. Hepatitis C. She had recent hepatitis C test done which was detectable. According to patient she completed antiviral therapy. She is given referral to Dr. Blue at [facility] for further workup. She also follows up [...] on multiple medications and she is stable 01/20/2025 Gastro-esophageal reflux disease without esophagitis (ICD-10 - K21.9) Mrs. Morris is a 49-year-old lady with hepatitis C and sees Kashmir Chan PA-C, right-sided breast cancer followed by Dr. Jarvis at [facility], asthma/COPD followed by Dr. Kim, neuropathy, osteoarthritis followed by Dr. Hensley and anxiety/depression follows with [facility] is here Symptoms of fatigue. Fatigue/tiredness and abdominal pain. This is multifactorial considering her history of breast cancer, polypharmacy, anxiety/depression . Recently seen at [facility] and workup was negative. Advised to increase physical activity, inappropriate hydration. Hepatitis C. She had recent hepatitis C test done which was detectable. According to patient she completed antiviral therapy. She is given referral to Dr. Blue at [facility] for further workup. She also follows up [...] on multiple medications and she is stable 02/10/2025 Blood in the stool (ICD-10 - K92.1) Mrs. Morris is a 49-year-old lady with hepatitis C and sees Kashmir Chan PA-C, right-sided breast cancer followed by Dr. Jarvis at [facility], asthma/COPD followed by Dr. Kim, neuropathy, osteoarthritis followed by Dr. Hensley and anxiety/depression follows with [facility] is here For follow-up. Plan as follows Fatigue/tiredness and abdominal pain. This is multifactorial considering her history of breast cancer, polypharmacy, anxiety/depression . Recently seen at [facility] and workup was negative. Advised to increase physical activity, inappropriate hydration. Hepatitis C. She had recent hepatitis C test done which Was not detectable.. According to patient she completed antiviral therapy. She is given referral to Dr. Blue at [facility] for further workup. She is no longer seeing infectious disease physician Dr. Wan, Does that she would like to be seen by a different ID specialist for consultation. I would refer patient and we will retest HCV. Acid reflux. She is on famotidine and her symptoms are well controlled. COPD. She is stable on current regimen. She has quit smoking but she is having passive smoking from her son. Obstructive sleep apnea. She uses CPAP machine on a regular basis Generalized anxiety disorder. She is on multiple medications and she is stable Blood in the stool. I will obtain a CBC, will also check for ANCA and Calprotectin, we will also obtain GI PCR and stool test. She does have a colonoscopy coming up in 2 weeks and also she has an appointment with the GI for initial consultation in March. I have advised patient that if her symptoms worsen or develop fever feels weak and should be seen at the ER immediately. General concerns have been discussed I have rendered the services for this patient under direct supervision of Dr. Barrow, who did not see the patient but was available upon request Content of this note has been dictated using voice recognition software. Despite multiple revisions, Errors may persist. 03/19/2025 Gastro-esophageal reflux disease without esophagitis (ICD-10 - K21.9) Mrs. Morris is a 49-year-old lady with hepatitis C and sees Kashmir Chan PA-C, right-sided breast cancer followed by Dr. Jarvis at [facility], asthma/COPD followed by Dr. Kim, neuropathy, osteoarthritis followed by Dr. Hensley and anxiety/depression follows with [facility] is here For her annual physical examination. Plan as follows Fatigue/tiredness and abdominal pain. This is multifactorial considering her history of breast cancer, polypharmacy, anxiety/depression . Comprehensive workup is negative. Advised to increase physical activity, inappropriate hydration. Hepatitis C. Her levels are stable and recent LFTs are within normal limits. She does have a referral to [facility] for ID consultation. Acid reflux. She is on famotidine, Recently had barium swallow with unremarkable findings. She does have an upcoming endoscopy as well. She does follow with [facility]. COPD. She is stable on current regimen. She follows with Dr. Kim and she does get yearly LDCT. She has quit smoking About 20 years ago. EKG is done office today with a heart rate of 78 bpm, sinus rhythm. No ST elevation depression. No bundle branch block Obstructive sleep apnea. She uses CPAP machine on a regular basis Generalized anxiety disorder. She is on multiple medications and she is stable polyosteoarthritis . She follows with Dr. Hensley. She does articular injection however no improvement, she defers surgery at this point. Headaches. Recent MRI of the brain was unremarkable. No pathology was detected. The patient was referred to neurologist History of breast cancer. She is currently under surveillance, she has an appointment coming up with Dr. Oleary. Overactive bladder. Stable on the regimen Healthcare proxy is her son Amish, phone number is [phone], MOLST form is provided. She is up-to-date on age-specific screenings, declines vaccinations. She does use a walker to ambulate and she does have a [employer] as she does need help with ADLs and IADLs. General concerns have been discussed I have rendered the services for this patient under direct supervision of Dr. Barrow, who did not see the patient but was available upon request Content of this note has been dictated using voice recognition software. Despite multiple revisions, Errors may persist. 08/12/2024 Overactive bladder (ICD-10 - N32.81) Mrs. Morris is a 49-year-old lady with hepatitis C and sees Kashmir Chan PA-C, right-sided breast cancer followed by Dr. Jarvis at [facility], asthma/COPD followed by Dr. Kim, neuropathy, [...] patient but was available upon request 08/12/2024 Obstructive sleep apnea (adult) (pediatric) (ICD-10 - G47.33) Mrs. Morris is a 49-year-old lady with hepatitis C and sees Kashmir Chan PA-C, right-sided breast cancer followed by Dr. Jarvis at [facility], asthma/COPD followed by Dr. Kim, neuropathy, [...] the patient but was available upon request 03/19/2025 Polyosteoarthriti s, unspecified (ICD-10 - M15.9) Mrs. Morris is a 49-year-old lady with hepatitis C and sees Kashmir Chan PA-C, right-sided breast cancer followed by Dr. Jarvis at [facility], asthma/COPD followed by Dr. Kim, neuropathy, osteoarthritis followed by Dr. Hensley and anxiety/depression follows with [facility] is here For her annual physical examination. Plan as follows Fatigue/tiredness and abdominal pain. This is multifactorial considering her history of breast cancer, polypharmacy, anxiety/depression . Comprehensive workup is negative. Advised to increase physical activity, inappropriate hydration. Hepatitis C. Her levels are stable and recent LFTs are within normal limits. She does have a referral to [facility] for ID consultation. Acid reflux. She is on famotidine, Recently had barium swallow with unremarkable findings. She does have an upcoming endoscopy as well. She does follow with [facility]. COPD. She is stable on current regimen. She follows with Dr. Kim and she does get yearly LDCT. She has quit smoking About 20 years ago. EKG is done office today with a heart rate of 78 bpm, sinus rhythm. No ST elevation depression. No bundle branch block Obstructive sleep apnea. She uses CPAP machine on a regular basis Generalized anxiety disorder. She is on multiple medications and she is stable polyosteoarthritis . She follows with Dr. Hensley. She does articular injection however no improvement, she defers surgery at this point. Headaches. Recent MRI of the brain was unremarkable. No pathology was detected. The patient was referred to neurologist History of breast cancer. She is currently under surveillance, she has an appointment coming up with Dr. Oleary. Overactive bladder. Stable on the regimen Healthcare proxy is her son Amish, phone number is [phone], MOLST form is provided. She is up-to-date on age-specific screenings, declines vaccinations. She does use a walker to ambulate and she does have a [employer] as she does need help with ADLs and IADLs. General concerns have been discussed I have rendered the services for this patient under direct supervision of Dr. Barrow, who did not see the patient but was available upon request Content of this note has been dictated using voice recognition software. Despite multiple revisions, Errors may persist. 08/12/2024 Polyneuropathy, unspecified (ICD-10 - G62.9) Mrs. Morris is a 49-year-old lady with hepatitis C and sees Kashmir Chan PA-C, right-sided breast cancer followed by Dr. Jarvis at [facility], asthma/COPD followed by Dr. Kim, neuropathy, [...] the patient but was available upon request 03/19/2025 Personal history of malignant neoplasm of breast (ICD-10 - Z85.3) Mrs. Morris is a 49-year-old lady with hepatitis C and sees Kashmir Chan PA-C, right-sided breast cancer followed by Dr. Jarvis at [facility], asthma/COPD followed by Dr. Kim, neuropathy, osteoarthritis followed by Dr. Hensley and anxiety/depression follows with [facility] is here For her annual physical examination. Plan as follows Fatigue/tiredness and abdominal pain. This is multifactorial considering her history of breast cancer, polypharmacy, anxiety/depression . Comprehensive workup is negative. Advised to increase physical activity, inappropriate hydration. Hepatitis C. Her levels are stable and recent LFTs are within normal limits. She does have a referral to [facility] for ID consultation. Acid reflux. She is on famotidine, Recently had barium swallow with unremarkable findings. She does have an upcoming endoscopy as well. She does follow with [facility]. COPD. She is stable on current regimen. She follows with Dr. Kim and she does get yearly LDCT. She has quit smoking About 20 years ago. EKG is done office today with a heart rate of 78 bpm, sinus rhythm. No ST elevation depression. No bundle branch block Obstructive sleep apnea. She uses CPAP machine on a regular basis Generalized anxiety disorder. She is on multiple medications and she is stable polyosteoarthritis . She follows with Dr. Hensley. She does articular injection however no improvement, she defers surgery at this point. Headaches. Recent MRI of the brain was unremarkable. No pathology was detected. The patient was referred to neurologist History of breast cancer. She is currently under surveillance, she has an appointment coming up with Dr. Oleary. Overactive bladder. Stable on the regimen Healthcare proxy is her son Amish, phone number is [phone], MOLST form is provided. She is up-to-date on age-specific screenings, declines vaccinations. She does use a walker to ambulate and she does have a [employer] as she does need help with ADLs and IADLs. General concerns have been discussed I have rendered the services for this patient under direct supervision of Dr. Barrow, who did not see the patient but was available upon request Content of this note has been dictated using voice recognition software. Despite multiple revisions, Errors may persist. 08/12/2024 Personal history of malignant neoplasm of breast (ICD-10 - Z85.3) Mrs. Morris is a 49-year-old lady with hepatitis C and sees Kashmir Chan PA-C, right-sided breast cancer followed by Dr. Jarvis at [facility], asthma/COPD followed by Dr. Kim, neuropathy, [...] the patient but was available upon request 03/19/2025 Overactive bladder (ICD-10 - N32.81) Mrs. Morris is a 49-year-old lady with hepatitis C and sees Kashmir Chan PA-C, right-sided breast cancer followed by Dr. Jarvis at [facility], asthma/COPD followed by Dr. Kim, neuropathy, osteoarthritis followed by Dr. Hensley and anxiety/depression follows with [facility] is here For her annual physical examination. Plan as follows Fatigue/tiredness and abdominal pain. This is multifactorial considering her history of breast cancer, polypharmacy, anxiety/depression . Comprehensive workup is negative. Advised to increase physical activity, inappropriate hydration. Hepatitis C. Her levels are stable and recent LFTs are within normal limits. She [facility] [facility]. Acid reflux. She is on famotidine, Recently had barium swallow with unremarkable findings. She does have an upcoming endoscopy as well. She does follow with [facility]. COPD. She is stable on current regimen. She follows with Dr. Kim and she does get yearly LDCT. She has quit smoking About 20 years ago. EKG is done office today with a heart rate of 78 bpm, sinus rhythm. No ST elevation depression. No bundle branch block Obstructive sleep apnea. She uses CPAP machine on a regular basis Generalized anxiety disorder. She is on multiple medications and she is stable polyosteoarthritis . She follows with Dr. Hensley. She does articular injection however no improvement, she defers surgery at this point. Headaches. Recent MRI of the brain was unremarkable. No pathology was detected. The patient was referred to neurologist History of breast cancer. She is currently under surveillance, she has an appointment coming up with Dr. Oleary. Overactive bladder. Stable on the regimen Healthcare proxy is her son Amish, phone number is [phone], MOLST form is provided. She is up-to-date on age-specific screenings, declines vaccinations. She does use a walker to ambulate and she does have a [employer] as she does need help with ADLs and IADLs. General concerns have been discussed I have rendered the services for this patient under direct supervision of Dr. Barrow, who did not see the patient but was available upon request Content of this note has been dictated using voice recognition software. Despite multiple revisions, Errors may persist. Plan Of Treatment Pending Test Test Name Order Date Echocardiogram 12/25/2023 MRI : Brain without Contrast 02/10/2025 GGTP 10/10/2022 CT Brain W WO 11/20/2024 CT Brain WO 11/26/2024 Vitamin B12 and Folate-756679 11/12/2024 Iron and TIBC-102694 11/12/2024 Creatine Kinase,Total-082844 11/20/2024 Ferritin-101979 11/12/2024 CBC with Diff, Platelet, NLR-[id number] 10/29 CBC with Diff, Platelet, NLR-[id number] 01/29 WBC-088026 02/10/2025 Sedimentation Gxzy-Dkwcurlimb-786361 Rheumatoid Factor (RF)-945060 11/20/2024 C-Reactive Protein, Quant-166831 025 Vitamin D, 63-Jnrclhs-900496 11/12/2024 Vitamin D, 08-Lngzztf-882277 11/17/2024 Anti-dsDNA Antibodies-967492 11/20/2024 Lactoferrin, Fecal, Quant.-511761 2024 Calprotectin, Fecal-106591 02/10/2025 Lyme (B. burgdorferi) PCR-106700 025 Anti-CCP Ab, IgG/IgA-701175 11/20/2024 ColoFIT,Occult Blood,Fecal,IA-831856 GI Profile, Stool, PCR-990653 02/10/2025 TSH+Free T4-328446 11/20/2024 TSH+Free T4-800000 11/12/2024 Comp. Metabolic Panel (14)-[id number] 2024 ANCA Profile (RDL)-993018 02/10/2025 RAOUL Profile 12 (RDL)-749714 11/20/2024 HCV RNA Qn (Graph) Rfx NS3/4A-300381 HCV RealTime Ji-671277 02/10/2025 Methylmalonic Acid, Serum-518845 025 Homocyst(e)ine-765698 11/12/2024 CREATININE 03/25/2025 Insurance Providers Payer Name Payer Address Payer Phone Subscriber Number Group Number Insured Name Patient Relationship to Insured Coverage Start Date Coverage End Date [facility] [address] [place] [phone] [id number] Jonas Morris Self - patient is the insured Medical (General) History Medical History History ICD Code right-sided breast cancer, s /p chemo, radiation and lumpectomy to remove lymphadenopathy by Dr. Jarvis at [facility] Severe persistent asthma and she follows [...] 2019 back surgery 1998 bariatric surgery, Dr. Rojas 12/2020 glaucoma surgery hiatal hernia repair, Dr. Rojas 12/2022
--- OUTSIDE RECORDS SUMMARY | 2025-03-30 12:36 | XMS_ITS | Encounter Summary ---
Author Organization [facility] Address [address] [place] [address] Care Team Providers Care Technical Translator Name Role Phone No, Pcp (Do Not Change Name) Primary Care Provid er Unavailable Encounter Details Date Type Department Care Team (Late st Contact Info) Description 02/15/2015 Abstract [facility] [address] [place] [address], 2nd floor [facility], [address] [place], [place] [address] Graham Gallardo MD [address] [place] [phone] Social History Tobacco Use Types Packs/Day Years [...] on filedocumented in this encounter Care Teams Technical Translator Relationship Specialty Start Date End Date No, Pcp (Do Not Change Name) PCP - General 04/12/17 documented as of this encounter
--- OUTSIDE RECORDS SUMMARY | 2025-03-30 12:36 | XMS_ITS | Data Portability ---
Author Organization VALERIE STRICKLAND MD [facility], Main Office Address [address] [place] [address] Assessment Encounter Date Assessment Date Assessment LastModified by Organization Details LastModified Time 07/30/2024 07/30/2024 Telehealth. Audio pt w son who is aware of dx and helps with trasnlation. 25 min. [email or web address] Not available 07/30/2024 16:40:26 Plan of Treatment Reminders Order Date Submit Date Provider Last Modified By Organization Details Last Modified Time Details Appointments None recorded. Lab hepatitis C virus RNA, quant, PCR, serum or plasma 2024 025 [email or web address] [facility] (Centralized [facility] Ordering - All Locations), Patient Can Go To The Location Of Their Choice, 15:27:39 CBC w/ diff 2024 025 [email or web address] [facility] ([facility] Order[facility] - All Locations), Patient Can Go To The Location Of Their Choice, 15:27:39 ALT (alanine aminotran sferase), serum or plasma 2024 025 [email or web address] [facility] ([facility] Order[facility] - All Locations), Patient Can Go To The Location Of Their Choice, 15:27:39 AST/SGOT (aspartat e aminotran sferase), serum or plasma 2024 025 [email or web address] [facility] ([facility] Order[facility] - All Locations), Patient Can Go To The Location Of Their Choice, 15:27:39 creatinin e w/ estimated GFR (eGFR), serum or plasma 2024 025 [email or web address] [facility] ([facility] - All Locations), Patient Can Go To The Location Of Their Choice, 15:27:39 hepatitis C virus RNA, quant, PCR, serum or plasma 2024 025 [email or web address] [facility] ([facility] Order[facility] - All Locations), Patient Can Go To The Location Of Their Choice, 10:04:10 CBC w/ diff 2024 025 [email or web address] [facility] ([facility] Order[facility] - All Locations), Patient Can Go To The Location Of Their Choice, 10:04:10 ALT (alanine aminotran sferase), serum or plasma 2024 025 [email or web address] [facility] ([facility] Order[facility] - All Locations), Patient Can Go To The Location Of Their Choice, 10:04:10 AST/SGOT (aspartat e aminotran sferase), serum or plasma 2024 025 [email or web address] [facility] ([facility] Order[facility] - All Locations), Patient Can Go To The Location Of Their Choice, 10:04:10 creatinin e w/ estimated GFR (eGFR), serum or plasma 2024 025 [email or web address] [facility] ([facility] Order[facility] - All Locations), Patient Can Go To The Location Of Their Choice, 10:04:10 hepatitis C liver status biomarker panel, serum 2024 025 [email or web address] [facility] ([facility] Order[facility] - All Locations), Patient Can Go To The Location Of Their Choice, 10:04:10 hepatitis C virus RNA, quant, PCR, serum or plasma 2024 025 EDITH [facility] ([facility] Order[facility] - All Locations), Patient Can Go To The Location Of Their Choice, 03:03:28 hepatitis C liver status biomarker panel, serum 2023 024 [email or web address] [facility] ([facility] Order[facility] - All Locations), Patient Can Go To The Location Of Their Choice, 4 08:56:17 hepatitis C virus RNA, quant, PCR, serum or plasma 2023 024 [email or web address] [facility] ([facility] Order[facility] - All Locations), Patient Can Go To The Location Of Their Choice, 08:56:17 PT panel, coagulati on, platelet poor plasma 2023 [email or web address] [facility] ([facility] Order[facility] - All Locations), Patient Can Go To The Location Of Their Choice, 08:56:17 CBC w/ diff 2023 [email or web address] [facility] ([facility] Order[facility] - All Locations), Patient Can Go To The Location Of Their Choice, 08:56:17 ALT (alanine aminotran sferase), serum or plasma 2023 024 [email or web address] [facility] ([facility] Order[facility] - All Locations), Patient Can Go To The Location Of Their Choice, 08:56:18 AST/SGOT (aspartat e aminotran sferase), serum or plasma 2023 024 [email or web address] [facility] ([facility] Order[facility] - All Locations), Patient Can Go To The Location Of Their Choice, 08:56:18 creatinin e w/ estimated GFR (eGFR), serum or plasma 2023 024 [email or web address] [facility] ([facility] Order[facility] - All Locations), Patient Can Go To The Location Of Their Choice, 4 08:56:18 albumin, serum or plasma 2023 024 [email or web address] [facility] ([facility] Order[facility] - All Locations), Patient Can Go To The Location Of Their Choice, 08:56:18 bilirubin , total + direct, serum or plasma 2023 024 [email or web address] [facility] ([facility] Order[facility] - All Locations), Patient Can Go To The Location Of Their Choice, [id number] 4 08:56:18 amylase + lipase, serum 2023 024 [email or web address] [facility] ([facility] Order[facility] - All Locations), Patient Can Go To The Location Of Their Choice, [address] 4 08:56:19 unlisted lab - HCV genosure( R) NS3/4A 2023 024 [email or web address] [facility] ([facility] Order[facility] - All Locations), Patient Can Go To The Location Of Their Choice, [address] 4 08:56:19 fat panel, stool 2023 024 [email or web address] [facility] ([facility] Order[facility] - All Locations), Patient Can Go To The Location Of Their Choice, [address] 4 08:56:19 gastroint estinal pathogens panel, culture, stool 2023 024 [email or web address] [facility] ([facility] Order[facility] - All Locations), Patient Can Go To The Location Of Their Choice, [address] 4 08:56:19 unlisted lab - ova and parasite exam, fecal 2023 024 [email or web address] [facility] ([facility] Order[facility] - All Locations), Patient Can Go To The Location Of Their Choice, [address] 4 08:56:19 Referral None recorded. Procedures None recorded. Surgeries None recorded. Imaging US, abdomen, complete 2023 024 [facility], [address] [facility], [facility] [address], [place], [address], 4 16:33:56 Medication Orders Antivert 25 mg chewable tablet 2024 025 [facility], [address], [place], [id number], 5 17:57:39 Gas-X 250 mg capsule 2024 025 [facility], [place] - [id number], [address] [place] [address], [address], 5 18:08:30 omeprazol e 40 mg capsule,d elayed release 2024 025 [place], [place] - [id number], [address] [place], [address], 5 10:46:26 ondansetr on 8 mg disintegr ating tablet 2024 025 [facility], [address] [place] [address], [id number], 5 18:19:08 ondansetr on HCl 4 mg tablet 2024 025 [facility], [address] [place] [address], [id number], 5 12:43:53 ondansetr on HCl 4 mg tablet 2024 025 [facility], [address] [place] [address], [id number], 5 13:01:32 Zofran 4 mg tablet 2023 024 [facility], [address] [place] [address], [id number], 4 17:03:03 famotidin e 40 mg tablet 2023 024 [facility], [address] [place] [address], [id number], 4 11:22:45 Patient TargetsNo targets recorded. Patient InstructionsNo instructions recorded. Reason for Referral None Reported. Results Created Date Observation Date Name Description Value Unit Range Abnormal Flag Note LastModifiedBy Organization Detail LastModifiedTime 03/28/2003/29/2024 CBC/D /PLT W/ REFLE X CECIL TIN WBC 5.8 x10e3 /uL 3.4-10 .8 normal Not Available [facility] ([facility]) [address] [facility] [address], [place], [address], 04/06/2024 18:06:10 03/28/20 24 03/29/2024 CBC/D /PLT W/ REFLE X CECIL TIN RBC 4.64 x10e6 /uL 3.77-5 .28 normal Not Available [facility] ([facility]) [address] [facility] [address], [place], [address], 04/06/2024 18:06:10 03/28/20 24 03/29/2024 CBC/D /PLT W/ REFLE X CECIL TIN hemoglobin 13.3 g/dL 11.1-1 5.9 normal Not Available [facility] ([facility]) [address] [facility], [place], [address], 04/06/2024 18:06:10 03/28/20 24 03/29/2024 CBC/D /PLT W/ REFLE X CECIL TIN hematocrit 40.4 % 34.0-4 6.6 normal Not Available [facility] ([facility]) [address] [facility], [place], [address], 04/06/2024 18:06:10 03/28/20 24 03/29/2024 CBC/D /PLT W/ REFLE X CECIL TIN MCV 87 fL 79-97 normal Not Available [facility] ([facility]) [address] [facility] [address], [place], [address], 04/06/2024 18:06:10 03/28/20 24 03/29/2024 CBC/D /PLT W/ REFLE X CECIL TIN MCH 28.7 pg 26.6-3 3.0 normal Not Available [facility] ([facility]) [address] [place], [address], 04/06/2024 18:06:10 03/28/20 24 03/29/2024 CBC/D /PLT W/ REFLE X CECIL TIN MCHC 32.9 g/dL 31.5-3 5.7 normal Not Available [facility] ([facility]) [address] [facility], [place], [address], 04/06/2024 18:06:10 03/28/20 24 03/29/2024 CBC/D /PLT W/ REFLE X CECIL TIN RDW 12.6 % 11.7-1 5.4 Not Available [facility] ([facility]) [address] [facility], [place], [address], 04/06/2024 18:06:10 03/28/20 24 03/29/2024 CBC/D /PLT W/ REFLE X CECIL TIN platelets 217 x10e3 /uL 150-45 0 normal Not Available [facility] ([facility]) [address] [facility], [place], [address], 04/06/2024 18:06:10 03/28/20 24 03/29/2024 CBC/D /PLT W/ REFLE X CECIL TIN neutrophils 52 % not estab. normal Not Available [facility] ([facility]) [address] [facility], [place], [address], 04/06/2024 18:06:10 03/28/20 24 03/29/2024 CBC/D /PLT W/ REFLE X CECIL TIN lymphs 41 % not estab. normal Not Available [facility] ([facility]) [address] [facility], [place], [address], 04/06/2024 18:06:10 03/28/20 24 03/29/2024 CBC/D /PLT W/ REFLE X CECIL TIN monocytes 5 % not estab. normal Not Available [facility] ([facility]) [address] [facility], [place], [address], 04/06/2024 18:06:10 03/28/20 24 03/29/2024 CBC/D /PLT W/ REFLE X CECIL TIN eos 2 % not estab. normal Not Available [facility] ([facility]) [address] [facility], [place], [address], 04/06/2024 18:06:10 03/28/20 24 03/29/2024 CBC/D /PLT W/ REFLE X CECIL TIN basos 0 % not estab. normal Not Available [facility] ([facility]) [address] [facility], [place], [address], 04/06/2024 18:06:10 03/28/20 24 03/29/2024 CBC/D /PLT W/ REFLE X CECIL TIN immature cells OB/GYN NURSE Not Available [facility] ([facility]) [address] [facility] [address], [place], [address], 04/06/2024 18:06:10 03/28/20 24 03/29/2024 CBC/D /PLT W/ REFLE X CECIL TIN neutrophils (absolute) 3.0 x10e3 /uL 1.4-7. 0 normal Not Available [facility] ([facility]) [address] [facility], [place], [address], 04/06/2024 18:06:10 03/28/20 24 03/29/2024 CBC/D /PLT W/ REFLE X CECIL TIN lymphs (absolute) 2.3 x10e3 /uL 0.7-3. 1 normal Not Available [facility] ([facility]) [address] [place], [address], 04/06/2024 18:06:10 03/28/20 24 03/29/2024 CBC/D /PLT W/ REFLE X CECIL TIN monocytes(ab solute) 0.3 x10e3 /uL 0.1-0. 9 normal Not Available [facility] ([facility]) [address] [place], [address], 04/06/2024 18:06:10 03/28/20 24 03/29/2024 CBC/D /PLT W/ REFLE X CECIL TIN eos (absolute) 0.1 x10e3 /uL 0.0-0. 4 normal Not Available [facility] ([facility]) [address] [facility], [place], [address], 04/06/2024 18:06:10 03/28/20 24 03/29/2024 CBC/D /PLT W/ REFLE X CECIL TIN baso (absolute) 0.0 x10e3 /uL 0.0-0. 2 normal Not Available [facility] ([facility]) [address] [facility], [place], [address], 04/06/2024 18:06:10 03/28/20 24 03/29/2024 CBC/D /PLT W/ REFLE X CECIL TIN immature granulocytes 0 % not estab. Not Available [facility] ([facility]) [address] [facility], [place], [address], 04/06/2024 18:06:10 03/28/20 24 03/29/2024 CBC/D /PLT W/ REFLE X CECIL TIN immature grans (abs) 0.0 x10e3 /uL 0.0-0. 1 Not Available [facility] ([facility]) [address] [facility], [place], [address], 04/06/2024 18:06:10 03/28/20 24 03/29/2024 CBC/D /PLT W/ REFLE X CECIL TIN NRBC OB/GYN NURSE Not Available [facility] ([facility]) [address] [facility], [place], [address], 04/06/2024 18:06:10 03/28/20 24 03/29/2024 CBC/D /PLT W/ REFLE X CECIL TIN hematology comments: OB/GYN NURSE Not Available [facility] ([facility]) [address] [facility] [address], [place], [address], 04/06/2024 18:06:10 03/28/20 24 03/28/2024 HCV FIBRO SURE methodology: Commen t The jared meghann teste d are perfo rmed by Fibro Sure- Speci fic metho ds. Not inten ded for use with other diagn ostic consi derat ions. Not Available [facility] ([facility]) [address] [place], [address], 04/06/2024 18:06:10 03/28/20 24 03/28/2024 HCV FIBRO SURE interpretati ons: Commen t Quant itati ve resul ts of 6 bioch emica l tests are jared zed using a compu tatio nal algor ithm to provi de a quant itati ve surro gate marke r (0.0- 1.0) for liver fibro sis (META VIR F0-F4 ) and for necro infla mmato ry activ ity (META VIR A0-A3 ). Not Available [facility] ([facility]) [address] [place], [address], 04/06/2024 18:06:10 03/28/20 24 03/28/2024 HCV FIBRO SURE fibrosis scoring: Commen t <=0.2 1 = Stage F0 - No fibro sis 0.21 - 0.27 = Stage F0 - F1 0.27 - 0.31 = Stage F1 - Bakari l fibro sis 0.31 - 0.48 = Stage F1 - F2 0.48 - 0.58 = Stage F2 - Bridg ing fibro sis with few septa 0.58 - 0.72 = Stage F3 - Bridg ing fibro sis with many septa 0.72 - 0.74 = Stage F3 - F4 >0.74 = Stage F4 - Cirrh osis Not Available [facility] ([facility]) [address] [place], [address], 04/06/2024 18:06:10 03/28/20 24 03/28/2024 HCV FIBRO SURE necroinflamm activity scoring: Commen t <0.17 = Grade A0 - No Activ ity 0.17 - 0.29 = Grade A0 - A1 0.29 - 0.36 = Grade A1 - Minim al activ ity 0.36 - 0.52 = Grade A1 - A2 0.52 - 0.60 = Grade A2 - Moder ate activ ity 0.60 - 0.62 = Grade A2 - A3 >0.62 = Grade A3 - Sever e activ ity Not Available [facility] ([facility]) [address] [place], [address], 04/06/2024 18:06:10 03/28/20 24 03/28/2024 HCV FIBRO SURE comment: Commen t This test was devel oped and its perfo rmanc e ramses cteri stics deter mined by [facility]. It has not been clear ed or appro wanda by the Food and Drug Admin istra tion. The FDA has deter mined that such clear ance or appro becka is not neces ana cristina. For quest ions regar tramaine this repor t pleas e conta ct custo zari servi ce at [phone]. Not Available [facility] ([facility]) [address] [facility] [address], [place], [address], 04/06/2024 18:06:10 03/28/20 24 03/31/2024 HCV FIBRO SURE alpha 2-macroglobu myron, qn 342 mg/dL 110-27 6 above high normal Not Available [facility] ([facility]) [address] [place], [address], 04/06/2024 18:06:10 03/28/20 24 03/31/2024 HCV FIBRO SURE haptoglobin 57 mg/dL 42-296 Not Available [facility] ([facility]) [address] [place], [address], 04/06/2024 18:06:10 03/28/20 24 03/31/2024 HCV FIBRO SURE apolipoprote in A-1 129 mg/dL 116-20 9 Not Available [facility] ([facility]) [address] [place], [address], 04/06/2024 18:06:10 03/28/20 24 03/31/2024 HCV FIBRO SURE bilirubin, total 0.2 mg/dL 0.0-1. 2 Not Available [facility] ([facility]) [address] [place], [address], 04/06/2024 18:06:10 03/28/20 24 03/31/2024 HCV FIBRO SURE GGT 23 IU/L 0-60 Not Available [facility] ([facility]) [address] [place], [address], 04/06/2024 18:06:10 03/28/20 24 03/31/2024 HCV FIBRO SURE ALT (SGPT) p5p 59 IU/L 0-40 above high normal Not Available [facility] ([facility]) [address] [place], [address], 04/06/2024 18:06:10 03/28/20 24 04/01/2024 HCV FIBRO SURE fibrosis score 0.35 0.00-0 .21 above high normal Not Available [facility] ([facility]) [address] [place], [address], 04/06/2024 18:06:10 03/28/20 24 04/01/2024 HCV FIBRO SURE fibrosis stage F1-F2 Not Available [facility] ([facility]) [address] [place], [address], 04/06/2024 18:06:10 03/28/20 24 04/01/2024 HCV FIBRO SURE necroinflamm at activity score 0.37 0.00-0 .17 above high normal Not Available [facility] ([facility]) [address] [place], [address], 04/06/2024 18:06:10 03/28/20 24 04/01/2024 HCV FIBRO SURE necroinflamm at activity grade A1-A2 Not Available [facility] ([facility]) [address] [place], [address], 04/06/2024 18:06:10 03/28/20 24 04/01/2024 HCV FIBRO SURE limitations: Commen t The negat fran predi ctive value of a Fibro test score <0.31 (abse nce of clini tatum signi fican t fibro sis) was 85% when dev red to liver biops y in 1,270 HCV infec calderon patie nts with a 38% preva lence of signi fican t liver fibro sis (F2, 3 or 4). The posit fran predi ctive value of a Fibro - test score >0.48 (F2, 3, 4) was 61% in that same patie nt cohor t. HCV Fibro SURE is not recom tomeka d in patie nts with Gilbe rt Disea se, acute hemol ysis (e.g. HCV ribav irin thera py media calderon hemol ysis) acute hepa- titis of the liver , extra -hepa tic eze stasi s, trans plant patie nts, and/o r renal insuf ficie ncy patie nts. Any of these clini campos situa tions may lead to inacc urate quant itati ve predi ction s of fibro sis and necro infla mmato ry activ ity in the liver . Not Available [facility] ([facility]) [address] [place], [address], 04/06/2024 18:06:10 03/28/20 24 03/28/2024 HCV RNA BY PCR, QN RFX KETURAH test information: Commen t The quant itati ve range of this assay is 15 IU/mL to 100 sonja on IU/mL . Not Available [facility] ([facility]) [address] [place], [address], 04/06/2024 18:06:11 03/28/20 24 03/30/2024 HCV RNA BY PCR, QN RFX KETURAH hepatitis C quantitation [id number] IU/mL Not Available [facility] ([facility]) [address] [place], [address], 04/06/2024 18:06:11 03/28/20 24 03/30/2024 HCV RNA BY PCR, QN RFX KETURAH HCV log10 5.989 log10 _IU/m L Not Available [facility] ([facility]) [address] [facility] [address], [place], [address], 04/06/2024 18:06:11 03/28/20 24 03/30/2024 HCV RNA BY PCR, QN RFX KETURAH HCV genotype COMMEN T To be perfo rmed on this speci men. Not Available [facility] ([facility]) [address] [facility], [place], [address], 04/06/2024 18:06:11 03/28/20 24 04/01/2024 HCV RNA BY PCR, QN RFX KETURAH hepatitis C genotype 4 Not Available [facility] ([facility]) [address] [facility], [place], [address], 04/06/2024 18:06:11 03/28/20 24 04/06/2024 HCV GENOS URE(R ) NS3/4 A HCV genosure(R) NS3/4A pdf TNP Test not perfo rmed. Assay resul ts could not be obtai tiana on this sampl e due to an incor rect genot ype/s ubtyp e. This assay requi res an HCV genot ype of eithe r 1a or 1b. Not Available [facility] [address] [place] [address], [address], 04/06/2024 18:06:11 03/28/20 24 04/06/2024 HCV GENOS URE(R ) NS3/4 A HCV genosure(R) NS3/4A TNP Test not perfo rmed Not Available [facility] [address] [place], [address], 04/06/2024 18:06:11 03/28/20 24 04/06/2024 HCV GENOS URE(R ) NS3/4 A HCV genosure(R) NS3/4A interp OB/GYN NURSE Not Available [facility] [address] [place], [address], 04/06/2024 18:06:11 03/28/20 24 03/29/2024 BILIR UBIN, TOTAL /DIRE CT, SERUM bilirubin, total 0.3 mg/dL 0.0-1. 2 normal Not Available [facility] ([facility]) [address] [facility], [place], [address], 04/06/2024 18:06:12 03/28/20 24 03/29/2024 BILIR UBIN, TOTAL /DIRE CT, SERUM bilirubin, direct <0.10 mg/dL 0.00-0 .40 Travis ified by repea t jared sis Not Available [facility] ([facility]) [address] [place], [address], 04/06/2024 18:06:12 03/28/20 24 03/29/2024 BILIR UBIN, TOTAL /DIRE CT, SERUM bilirubin, indirect <.20 mg/dL 0.10-0 .80 Not Available [facility] ([facility]) [address] [facility], [place], [address], 04/06/2024 18:06:12 03/28/20 24 03/29/2024 PROTH ROMBI N TIME (PT) INR 1.0 0.9-1. 2 Refer ence inter becka is for non-a ntico agula calderon patie nts. Sugge sted INR thera peuti c range for Vitam in K antag onist thera py: Stand violeta Dose (mode rate inten sity thera peuti c range ): 2.0 - 3.0 Highe r inten sity thera peuti c range 2.5 - 3.5 Not Available [facility] ([facility]) [address] [place], [address], 04/06/2024 18:06:12 03/28/20 24 03/29/2024 PROTH ROMBI N TIME (PT) prothrombin time 11.4 sec 9.1-12 .0 normal Not Available [facility] ([facility]) [address] [facility] [place], [address], 04/06/2024 18:06:12 03/28/20 24 03/29/2024 SHARATH+L IPASE amylase 96 U/L 31-110 normal Not Available [facility] ([facility]) [address] [place], [address], 04/06/2024 18:06:13 03/28/20 24 03/29/2024 SHARATH+L IPASE lipase 64 U/L 14-72 normal Not Available [facility] ([facility]) [address] [place], [address], 04/06/2024 18:06:13 03/28/20 24 03/29/2024 GLOM FILT RATE, ESTIM ATED creatinine 0.78 mg/dL 0.57-1 .00 normal Not Available [facility] ([facility]) [address] [facility] [place], [address], 04/06/2024 18:06:13 03/28/20 24 03/29/2024 GLOM FILT RATE, ESTIM ATED eGFR 92 mL/mi n/1.7 3 >59 normal Not Available [facility] ([facility]) [address] [facility] [place], [address], 04/06/2024 18:06:13 03/28/20 24 03/29/2024 ALBUM IN albumin 4.1 g/dL 3.9-4. 9 normal Not Available [facility] ([facility]) [address] [facility] [place], [address], 04/06/2024 18:06:14 03/28/20 24 03/29/2024 AST (SGOT ) AST (SGOT) 50 IU/L 0-40 above high normal Not Available [facility] ([facility]) [address] [facility] [place], [address], 04/06/2024 18:06:14 03/28/20 24 03/29/2024 ALT (SGPT ) ALT (SGPT) 51 IU/L 0-32 above high normal Not Available [facility] ([facility]) [address] [facility], [place], [address], 04/06/2024 18:06:14 03/28/20 24 04/06/[address] PROBL EM request problem TNP Test not perfo rmed. Assay resul ts could not be obtai tiana on this sampl e due to an incor rect genot ype/s ubtyp e. This assay requi res an HCV genot ype of eithe r 1a or 1b. TEST: [id number] HCV GenoS ure(R ) NS3/4 A Not Available [facility] ([facility]) [address] [facility], [place], [address], 04/06/2024 18:06:15 11/25/19 25 11/24/2024 CREAT ININE creatinine 0.68 mg/dL 0.50-1 .10 Not Available [facility] [address] [place] [address], [address], 11/24/2024 14:55:12 11/25/19 25 11/24/2024 CREAT ININE eGFR 106 mL/mi n/1.7 3m2 >=60 Calcu latio n based on the Chron ic Kidne y Disea se Epide miolo gy Colla borat ion (CKD- EPI) equat ion refit witho ut adjus tment for race. Not Available [facility] [address] [place] [address], [address], 11/24/2024 14:55:12 11/25/19 25 11/24/2024 CREAT ININE note See Report [facility], [address] [place] [address], [place] [id number] Not Available [facility] [address] [place] [address], [address], 11/24/2024 14:55:12 11/25/19 25 11/24/2024 CECIL TIN ferritin 7 NG/mL 8-252 low Not Available [facility] [address] [place] [address] [place], [address], 11/24/2024 15:01:35 11/25/19 25 11/24/2024 CECIL TIN note See Report low [facility], [address] [facility], [place], [place] [id number] Not Available [facility] [address] [place], [address], 11/24/2024 15:01:35 11/25/19 25 11/24/2024 HEPAT ITIS C VIRUS QUANT ITATI VE MOLEC ULAR STUDY HCV qual interp Detect ed not detect ed abnormal Not Available [facility] [address] [place] [address], [address], 11/24/2024 16:22:09 11/25/19 25 11/24/2024 HEPAT ITIS C VIRUS QUANT ITATI VE MOLEC ULAR STUDY HCV RNA quantitative < I_uni t/mL <12 HCV RNA detec calderon but below the limit of quant itati on. Unabl e to repor t quant itati ve resul ts <12 IU/mL . Not Available [facility] [address] [place], [address], 11/24/2024 16:22:09 11/25/19 25 11/24/2024 HEPAT ITIS C VIRUS QUANT ITATI VE MOLEC ULAR STUDY HCV RNA quantitative log < log_I U/mL <1.08 Not Available [facility] [address] [place] [address], [address], 11/24/2024 16:22:09 11/25/19 25 11/24/2024 HEPAT ITIS C VIRUS QUANT ITATI VE MOLEC ULAR STUDY note See Report [facility], [address] [facility], [place], [facility] [place] [id number] Not Available [facility] [address] [place], [address], 11/24/2024 16:22:09 11/25/19 25 11/24/2024 AST, ALT, BILIR UBIN ELR STATE REPOR TABLE S ALT (SGPT) See Report No resul ts avail able Not Available [facility] [address] [place] [address] [place], [id number], 11/26/2024 08:16:19 11/25/1911/24/2024 AST, ALT, BILIR UBIN ELR STATE REPOR TABLE S note See Report [facility], [address] [facility], Clariin rommel d, [place] [id number] Not Available [facility] [address] [place] [address], [id number], 11/26/2024 08:16:19 11/25/1911/24/2024 LIVER FIBRO SIS, FIBRO TEST- ACTIT EST PANEL fibrosis score 0.30 Not Available [facility] [address] [place] [address], [id number], 12/02/2024 16:36:31 11/25/1911/24/2024 LIVER FIBRO SIS, FIBRO TEST- ACTIT EST PANEL fibrosis stage F1 Not Available [facility] [address] [place] [address], [id number], 12/02/2024 16:36:31 11/25/1911/24/2024 LIVER FIBRO SIS, FIBRO TEST- ACTIT EST PANEL fibrosis interpretati on SEE NOTE minim al fibro sis Fibro Test Score (f) Metav ir Score f>=0 and f<=0. 21 : F0 (no fibro sis) f>0.2 1 and f<=0. 27 : F0-F1 (no fibro sis) f>0.2 7 and f<=0. 31 : F1 (mini mal fibro sis) f>0.3 1 and f<=0. 48 : F1-F2 (mini mal fibro sis) f>0.4 8 and f<=0. 58 : F2 (mode rate fibro sis) f>0.5 8 and f<=0. 72 : F3 (adva nced fibro sis) f>0.7 2 and f<=0. 74 : F3-F4 (adva nced fibro sis) f>0.7 4 and f<=1. 00 : F4 (miriam re fibro sis) Not Available [facility] [address] [place] [address], [id number], 12/02/2024 16:36:31 11/25/19 25 11/24/2024 LIVER FIBRO SIS, FIBRO TEST- ACTIT EST PANEL necroinflamm at activity score 0.03 Not Available [facility] [address] [place], [address], 12/02/2024 16:36:31 11/25/19 25 11/24/2024 LIVER FIBRO SIS, FIBRO TEST- ACTIT EST PANEL necroinflamm at activity grade A0 Not Available [facility] [address] [place], [address], 12/02/2024 16:36:31 11/25/19 25 11/24/2024 LIVER FIBRO SIS, FIBRO TEST- ACTIT EST PANEL necroinflamm at interpretati on SEE NOTE no activ ity ActiT est Score (a) Metav ir Score a>=0 and a<=0. 17 : A0 (no activ ity) a>0.1 7 and a<=0. 29 : A0-A1 (no activ ity) a>0.2 9 and a<=0. 36 : A1 (mini mal activ ity) a>0.3 6 and a< =0.52 : A1-A2 (mini mal activ ity) a>0.5 2 and a<=0. 60 : A2 (sign ifica nt activ ity) a>0.6 0 and a<=0. 62 : A2-A3 (sign ifica nt activ ity) a>0.6 2 and a<=1. 00 : A3 (miriam re activ ity) Not Available [facility] [address] [place], [address], 12/02/2024 16:36:31 11/25/19 25 11/24/2024 LIVER FIBRO SIS, FIBRO TEST- ACTIT EST PANEL bilirubin total 0.3 mg/dL 0.2-1. 2 Not Available [facility] [address] [place], [address], 12/02/2024 16:36:31 11/25/1911/24/2024 LIVER FIBRO SIS, FIBRO TEST- ACTIT EST PANEL gamma glutamyl transferase (GGT) 22 U/L 3-70 Not Available [facility] [address] [place], [address], 12/02/2024 16:36:31 11/25/19 25 11/24/2024 LIVER FIBRO SIS, FIBRO TEST- ACTIT EST PANEL alanine aminotransfe rase (ALT) 10 U/L 6-29 Not Available [facility] [address] [place] [address], [id number], 12/02/2024 16:36:31 11/25/19 25 11/24/2024 LIVER FIBRO SIS, FIBRO TEST- ACTIT EST PANEL [id number] oglobulin 310 mg/dL 106-27 9 high Not Available [facility] [address] [place] [address], [id number], 12/02/2024 16:36:31 11/25/19 25 11/24/2024 LIVER FIBRO SIS, FIBRO TEST- ACTIT EST PANEL haptoglobin 78 mg/dL 43-212 Not Available [facility] [address] [place] [address], [address], 12/02/2024 16:36:31 11/25/19 25 11/24/2024 LIVER FIBRO SIS, FIBRO TEST- ACTIT EST PANEL apolipoprote in A1 143 mg/dL 101-19 8 Not Available [facility] [address] [place] [address], [address], 12/02/2024 16:36:31 11/25/19 25 11/24/2024 LIVER FIBRO SIS, FIBRO TEST- ACTIT EST PANEL reference id [id number] Not Available [facility] [address] [place] [address], [id number], 12/02/2024 16:36:31 11/25/19 25 11/24/2024 LIVER FIBRO SIS, FIBRO TEST- ACTIT EST PANEL footnote SEE NOTE The relia bilit y of resul ts is depen dent on compl iance with the prean alyti campos and jared tical condi tions recom tomeka d by [employer] ed[employer] fran. The tests have to be defer red for: acute hemol ysis, acute hepat itis, acute infla mmati on, extra hepat ic eze stasi s. The advic e of a speci alist shoul d be sough t for inter preta tion in chron ic hemol ysis and Gilbe rt's syndr ome. The test inter preta tion is not valid ated in liver trans plant patie nts. [place] [facility]deron extre me value s of one of the compo nents shoul d lead to cauti on in inter preti ng the resul ts. In case of disco rdanc e betwe en a biops y resul t and a test, it is recom tomeka d to seek the advic e of a speci alist . The cause s of these disco rdanc es could be due to a flaw of the test or to a flaw in the biops y: i.e. a liver biops y has a 33% varia bilit y rate for one fibro sis stage . Fibro Test is inter preta ble for chron ic hepat itis B and C, alcoh olic and non alcoh olic steat osis. ActiT est is inter preta ble for chron ic hepat itis B and C. The perfo rmanc e ramses cteri stics have been deter mined by [facility], [facility] . It has not been clear ed or appro wanda by the U.S. Food and Drug Admin istra tion. Perfo rmanc e ramses cteri stics refer to the jared tical perfo rmanc e of the test. [facility] , [facility], the assoc iated logo, [facility] tutpavithra and all assoc iated [facility] pérez are the selvin tered trade pérez of [facility]. All third constitution party pérez - (R) and (TM) - are the prope rty of their respe ctive retail marketing manager s. (C) 1999- 2013 [facility] [employer] porat ed. All right s reser wanda. Test Perfo rmed at: [facility] [address] [place] [id number] Alie carmen MD, PhD, JAMES Not Available [facility] [address] [place] [address], [id number], 12/02/2024 16:36:31 11/25/19 25 11/24/2024 LIVER FIBRO SIS, FIBRO TEST- ACTIT EST PANEL note See Report [facility], [address] [facility], [address], [place] [id number] Not Available [facility] [address] [place], [address], 12/02/2024 16:36:31 12/09/19 25 12/08/2024 CBC WITH AUTO DIFFE RENTI AL WBC 5.6 K/mcL 4.8-10 .8 Not Available [facility] [address] [place] [address], [id number], 12/08/2024 14:17:13 12/09/19 25 12/08/2024 CBC WITH AUTO DIFFE RENTI AL RBC 4.50 M/mcL 3.80-4 .80 Not Available [facility] [address] [place] [address], [address], 12/08/2024 14:17:13 12/09/19 25 12/08/2024 CBC WITH AUTO DIFFE RENTI AL hemoglobin 12.2 g/dL 11.5-1 6.0 Not Available [facility] [address] [place] [address], [address], 12/08/2024 14:17:13 12/09/19 25 12/08/2024 CBC WITH AUTO DIFFE RENTI AL hematocrit 38.9 % 35.0-4 7.0 Not Available [facility] [address] [place] [address], [address], 12/08/2024 14:17:13 12/09/19 25 12/08/2024 CBC WITH AUTO DIFFE RENTI AL MCV 86.3 fL 79.0-9 8.0 Not Available [facility] [address] [place] [address], [address], 12/08/2024 14:17:13 12/09/19 25 12/08/2024 CBC WITH AUTO DIFFE RENTI AL MCH 27.1 pcg 27.0-3 2.0 Not Available [facility] [address] [place] [address], [address], 12/08/2024 14:17:13 12/09/1912/08/2024 CBC WITH AUTO DIFFE RENTI AL MCHC 31.4 g/dL 32.0-3 7.0 low Not Available [facility] [address] [place], [address], 12/08/2024 14:17:13 12/09/1912/08/2024 CBC WITH AUTO DIFFE RENTI AL RDW 14.6 % 11.0-1 5.0 Not Available [facility] [address] [place], [address], 12/08/2024 14:17:13 12/09/1912/08/2024 CBC WITH AUTO DIFFE RENTI AL platelets 235 K/mcL 130-40 0 Not Available [facility] [address] [place], [address], 12/08/2024 14:17:13 12/09/1912/08/2024 CBC WITH AUTO DIFFE RENTI AL MPV 10.9 fL 7.0-11 .0 Not Available [facility] [address] [place], [address], 12/08/2024 14:17:13 12/09/1912/08/2024 CBC WITH AUTO DIFFE RENTI AL NRBC 0.0 % <1.0 Not Available [facility] [address] [place], [address], 12/08/2024 14:17:13 12/09/1912/08/2024 CBC WITH AUTO DIFFE RENTI AL NRBC absolute 0.00 K/mcL <0.10 Not Available [facility] [address] [place], [address], 12/08/2024 14:17:13 12/09/1912/08/2024 CBC WITH AUTO DIFFE RENTI AL neutrophils relative 41.0 % Not Available [facility] [address] [place], [address], 12/08/2024 14:17:13 12/09/19 25 12/08/2024 CBC WITH AUTO DIFFE RENTI AL lymphocytes relative 45.4 % Not Available [facility] [address] [place], [address], 12/08/2024 14:17:13 12/09/19 25 12/08/2024 CBC WITH AUTO DIFFE RENTI AL monocytes relative 8.1 % Not Available [facility] [address] [place], [address], 12/08/2024 14:17:13 12/09/19 25 12/08/2024 CBC WITH AUTO DIFFE RENTI AL eosinophils relative 4.8 % Not Available [facility] [address] [place], [address], 12/08/2024 14:17:13 12/09/19 25 12/08/2024 CBC WITH AUTO DIFFE RENTI AL basophils relative 0.5 % Not Available [facility] [address] [place], [address], 12/08/2024 14:17:13 12/09/19 25 12/08/2024 CBC WITH AUTO DIFFE RENTI AL immature granulocytes relative 0.2 % Not Available [facility] [address] [place], [address], 12/08/2024 14:17:13 12/09/19 25 12/08/2024 CBC WITH AUTO DIFFE RENTI AL neutrophils absolute 2.29 K/mcL 1.50-7 .00 Not Available [facility] [address] [place], [address], 12/08/2024 14:17:13 12/09/19 25 12/08/2024 CBC WITH AUTO DIFFE RENTI AL lymphocytes absolute 2.54 K/mcL 1.00-5 .00 Not Available [facility] [address] [place], [address], 12/08/2024 14:17:13 12/09/19 25 12/08/2024 CBC WITH AUTO DIFFE RENTI AL monocytes absolute 0.45 K/mcL 0.20-1 .00 Not Available [facility] [address] [place], [address], 12/08/2024 14:17:13 12/09/1912/08/2024 CBC WITH AUTO DIFFE RENTI AL eosinophils absolute 0.27 K/mcL 0.00-0 .50 Not Available [facility] [address] [place], [address], 12/08/2024 14:17:13 12/09/1912/08/2024 CBC WITH AUTO DIFFE RENTI AL basophils absolute 0.03 K/mcL 0.00-0 .20 Not Available [facility] [address] [place], [address], 12/08/2024 14:17:13 12/09/1912/08/2024 CBC WITH AUTO DIFFE RENTI AL immature granulocytes absolute 0.01 K/mcL 0.00-0 .03 Not Available [facility] [address] [place] [address], [address], 12/08/2024 14:17:13 12/09/1912/08/2024 CBC WITH AUTO DIFFE RENTI AL note See Report [facility], [address] [facility], [address], [place] [id number] Not Available [facility] [address] [place], [address], 12/08/2024 14:17:13 03/25/2003/25/2025 CBC WITH AUTO DIFFE RENTI AL WBC 6.1 K/mcL 4.8-10 .8 Not Available [facility] [address] [place], [address], 03/25/2025 14:20:33 03/25/2003/25/2025 CBC WITH AUTO DIFFE RENTI AL RBC 4.80 M/mcL 3.80-4 .80 Not Available [facility] [address] [place] [address], [address], 03/25/2025 14:20:33 03/25/2003/25/2025 CBC WITH AUTO DIFFE RENTI AL hemoglobin 12.2 g/dL 11.5-1 6.0 Not Available [facility] [address] [place], [address], 03/25/2025 14:20:33 03/25/2003/25/2025 CBC WITH AUTO DIFFE RENTI AL hematocrit 39.6 % 35.0-4 7.0 Not Available [facility] [address] [place], [address], 03/25/2025 14:20:33 03/25/2003/25/2025 CBC WITH AUTO DIFFE RENTI AL MCV 83.0 fL 79.0-9 8.0 Not Available [facility] [address] [place], [address], 03/25/2025 14:20:33 03/25/2003/25/2025 CBC WITH AUTO DIFFE RENTI AL MCH 25.6 pcg 27.0-3 2.0 low Not Available [facility] [address] [place], [address], 03/25/2025 14:20:33 03/25/2003/25/2025 CBC WITH AUTO DIFFE RENTI AL MCHC 30.8 g/dL 32.0-3 7.0 low Not Available [facility] [address] [place], [address], 03/25/2025 14:20:33 03/25/2003/25/2025 CBC WITH AUTO DIFFE RENTI AL RDW 14.7 % 11.0-1 5.0 Not Available [facility] [address] [place], [address], 03/25/2025 14:20:33 03/25/2003/25/2025 CBC WITH AUTO DIFFE RENTI AL platelets 226 K/mcL 130-40 0 Not Available [facility] [address] [place], [address], 03/25/2025 14:20:33 03/25/2003/25/2025 CBC WITH AUTO DIFFE RENTI AL MPV 10.4 fL 7.0-11 .0 Not Available [facility] [address] [place], [address], 03/25/2025 14:20:33 03/25/2003/25/2025 CBC WITH AUTO DIFFE RENTI AL NRBC 0.0 % <1.0 Not Available [facility] [address] [place], [address], 03/25/2025 14:20:33 03/25/2003/25/2025 CBC WITH AUTO DIFFE RENTI AL NRBC absolute 0.00 K/mcL <0.10 Not Available [facility] [address] [place], [address], 03/25/2025 14:20:33 03/25/2003/25/2025 CBC WITH AUTO DIFFE RENTI AL neutrophils relative 51.1 % Not Available [facility] [address] [place], [address], 03/25/2025 14:20:33 03/25/2003/25/2025 CBC WITH AUTO DIFFE RENTI AL lymphocytes relative 38.1 % Not Available [facility] [address] [place], [address], 03/25/2025 14:20:33 03/25/2003/25/2025 CBC WITH AUTO DIFFE RENTI AL monocytes relative 7.5 % Not Available [facility] [address] [place], [address], 03/25/2025 14:20:33 03/25/2003/25/2025 CBC WITH AUTO DIFFE RENTI AL eosinophils relative 2.6 % Not Available [facility] [address] [place], [address], 03/25/2025 14:20:33 03/25/2003/25/2025 CBC WITH AUTO DIFFE RENTI AL basophils relative 0.5 % Not Available [facility] [address] [place], [address], 03/25/2025 14:20:33 03/25/2003/25/2025 CBC WITH AUTO DIFFE RENTI AL immature granulocytes relative 0.2 % Not Available [facility] [address] [place], [address], 03/25/2025 14:20:33 03/25/2003/25/2025 CBC WITH AUTO DIFFE RENTI AL neutrophils absolute 3.13 K/mcL 1.50-7 .00 Not Available [facility] [address] [place], [address], 03/25/2025 14:20:33 03/25/2003/25/2025 CBC WITH AUTO DIFFE RENTI AL lymphocytes absolute 2.33 K/mcL 1.00-5 .00 Not Available [facility] [address] [place], [address], 03/25/2025 14:20:33 03/25/2003/25/2025 CBC WITH AUTO DIFFE RENTI AL monocytes absolute 0.46 K/mcL 0.20-1 .00 Not Available [facility] [address] [place], [address], 03/25/2025 14:20:33 03/25/2003/25/2025 CBC WITH AUTO DIFFE RENTI AL eosinophils absolute 0.16 K/mcL 0.00-0 .50 Not Available [facility] [address] [place], [address], 03/25/2025 14:20:33 03/25/2003/25/2025 CBC WITH AUTO DIFFE RENTI AL basophils absolute 0.03 K/mcL 0.00-0 .20 Not Available [facility] [address] [place], [address], 03/25/2025 14:20:33 03/25/2003/25/2025 CBC WITH AUTO DIFFE RENTI AL immature granulocytes absolute 0.01 K/mcL 0.00-0 .03 Not Available [facility] [address] [place], [address], 03/25/2025 14:20:33 03/25/2003/25/2025 CBC WITH AUTO DIFFE ASHVIN AL note See Report [facility] [address] [facility], [address], [place] [address] Not Available [facility] [address] [facility], [place], [address], 03/25/2025 14:20:33 04/30/20 24 04/28/2024 US, abdom en, compl ete No observ ation record ed. [email or web address] Not Available 2023 15:37:46 Result Notes None recorded. Problems Name Problem SNOMED Code Status Onset Date Resolution Date Notes Provider Name and Address Organization Details Recorded Time Viral hepatitis C 86386258 Active 2022 Viral hepatitis C; snomeddesc ription: Viral hepatitis C; Report Immunity to Registry: Yes; Notes: G4; F1. nonrespons e to [facility] for 3 months from August to November 2021. ; Unspecifi ed viral hepatitis C without hepatic coma; snomeddesc ription: Viral hepatitis C; Report Immunity to Registry: Yes; Notes: G4; F1. nonrespons e to [facility] for 3 months from August to November 2021. ; Not Available [facility] 4 06:57:57 History of bariatric surgical procedure 865558690 Active 2022 Bariatric surgery status; snomeddesc ription: History of bypass of stomach; Report Immunity to Registry: Yes; Not Available [facility] 4 06:57:57 History of bypass of stomach 928897268 Active 2022 History of bypass of stomach; snomeddesc ription: History of bypass of stomach; Report Immunity to Registry: Yes; Not Available [facility] 4 06:57:57 Problem Notes None recorded. Medical Equipment None Reported. Allergies Allergen ID Allergen Name Allergen Category Reaction Reaction Severity Criticality Documentation Date Start Date Code Code System Note Provider Name and Address Organization Details Recorded Time 524 hydrocort isone medicatio n Not available Not available Not available 08/21/20232022 5492 RxNorm Comme nt: adver se_ev ent_t ype: 16712 8002; ; Not Available [facility] 4 06:50:33 Medications Name Sig Start Date Stop Date Status Note LastModified by Organization Details LastModified Time d3-1000 25 mcg (1000 ut) caps active Not Available Not Available Not Available eql fiber supplemen t powd active Not Available Not Available Not Available magnesium 200 mg tabs active Not Available Not Available Not Available vitamin b-6 100 mg tabs active Not Available Not Available Not Available mag-oxide 200 mg tabs active Not Available Not Available Not Available multivita min childrens chew active Not Available Not Available Not Available vitamin d3 1.25 mg (37359 ut) caps active Not Available Not Available Not Available childrens chewable multivita min chew active Not Available Not Available Not Available melatonin 5 mg tabs active Not Available Not Available No t Available gnp vitamin b-6 100 mg tabs active Not Available Not Available Not Available melatonin maximum strength 5 mg tabs active Not Available Not Available No t Available amoxicill in 500 mg capsule TAKE TWO CAPSULES BY MOUTH two (2) times a day FOR 14 DAYS active Not Available Not Available No t Available vitamin A 2,400 mcg capsule TAKE TWO CAPSULES BY MOUTH ONCE DAILY active Not Available Not Available No t Available venlafaxi ne ER 37.5 mg capsule,e xtended release 24 hr active Not Available Not Available Not Available prednison e 10 mg tablet TAKE 1 TABLET BY MOUTH ONCE DAILY active Not Available Not Available No t Available venlafaxi ne ER 75 mg capsule,e xtended release 24 hr Take 1 capsule by mouth once a day active Not Available Not Available No t Available doxycycli ne hyclate 100 mg capsule TAKE 1 CAPSULE BY MOUTH two (2) times a day active Not Available Not Available No t Available ketoconaz ole 2 % shampoo APPLY TO THE AFFECTED AREA TOPICALL Y TWICE A WEEK. APPLY TO damp SKIN, lather, LEAVE ON 5 MINUTES AND RINSE active Not Available Not Available No t Available Carafate 100 mg/mL oral suspensio n Take 10 mL by mouth 4 times daily for 30 days. active Not Available Not Available No t Available erythromy paxton 500 mg tablet TAKE 1 TABLET BY MOUTH 3 (THREE) TIMES A DAY FOR 14 DAYS active Not Available Not Available No t Available ribavirin 200 mg capsule 3 cap po am and 2 cap po pm for 48 weeks 03/13 completed Duration : 30; VACCINE_ IND: no; SU_FULL_ NAME: Yumi winn; Not Available Not Available Not Available albuterol sulfate 2.5 mg/3 mL (0.083 %) solution for nebulizat ion INHALE THE CONTENT OF 1 VIAL (3mls) VIA NEBULIZE R machine EVERY 4 HOURS NEEDED FOR WHEEZING active Not Available Not Available No t Available Timmy-24 200 mg capsule,e xtended release TAKE 1 CAPSULE BY MOUTH EVERY DAY active Not Available Not Available No t Available trazodone 50 mg tablet active Not Available Not Available Not Available polyethyl karen glycol 3350 17 gram oral powder packet DISSOLVE 1 PACKET IN liquid AND TAKE ONCE DAILY NEEDED FOR CONSTIPA TION active Not Available Not Available No t Available cetirizin e 10 mg tablet active Not Available Not Available Not Available oxybutyni n chloride ER 10 mg tablet,ex tended release 24 hr TAKE 1 TABLET BY MOUTH ONCE DAILY active Not Available Not Available No t Available azithromy paxton 250 mg tablet TAKE DIRECTED PER PACKAGE INSTRUCT IONS active Not Available Not Available No t Available miconazol e nitrate 2 % topical cream apply in affected skin area daily 02/25 completed Duration : 14; VACCINE_ IND: no; SU_FULL_ NAME: Yumi winn; Not Available Not Available Not Available clarithro mycin 500 mg tablet Take 1 Tablet by mouth 2 times daily for 14 days. active Not Available Not Available No t Available meloxicam 15 mg tablet 15 MG TABS; Quantity : 30; Duration : 30; 0 refill(s ) 12/21 completed Duration : 30; VACCINE_ IND: no; Not Available Not Available Not Available ondansetr on HCl 4 mg tablet 1 tab po tid prn nause/vo miting 2024 active Not Available Not Available Not Avai lable famotidin e 40 mg tablet Take 1 tablet every day by oral route for 30 days, for GERD. 2023 active Not Available Not Available Not Avai lable prednison e 20 mg tablet TAKE 2 TABLETS BY MOUTH ONCE DAILY FOR 5 DAYS active Not Available Not Available No t Available prednison e 5 mg tablet Take 1 tablet (5 mg total) by mouth 1 (one) time each day. active Not Available Not Available No t Available venlafaxi ne ER 150 mg capsule,e xtended release 24 hr Take 1 capsule by mouth once a day Previous Psych Provider Dr. Sudarshan Aviles active Not Available Not Available No t Available hydroxyzi ne HCl 50 mg tablet Take 1 tablet (50 mg) by mouth every 12 hours as needed active Not Available Not Available No t Available omeprazol e 40 mg capsule,d elayed release Take 1 capsule every day by oral route in the morning for 30 days, for GERD. 2024 active Not Available Not Available Not Avai lable ondansetr on 8 mg disintegr ating tablet 1 tab po tid, prn 2024 active Not Available Not Available Not Avai lable theophyll ine ER 300 mg tablet,ex tended release,1 2 hr TAKE 1 TABLET BY MOUTH two (2) times a day active Not Available Not Available No t Available pantopraz ole 20 mg tablet,de layed release TAKE 1 TABLET BY MOUTH ONCE DAILY active Not Available Not Available No t Available amoxicill in 875 mg tablet TAKE 1 TABLET BY MOUTH two (2) times a day FOR 10 DAYS active Not Available Not Available No t Available famotidin e 20 mg tablet TAKE 1 TABLET BY MOUTH ONCE DAILY active Not Available Not Available No t Available triamcino lone acetonide 0.025 % topical cream APPLY TO THE AFFECTED AREA TOPICALL Y two (2) times a day FOR 14 DAYS active Not Available Not Available No t Available trazodone 100 mg tablet TAKE 1 TABLET BY MOUTH EVERY NIGHT active Not Available Not Available No t Available pantopraz ole 40 mg tablet,de layed release TAKE 1 TABLET BY MOUTH ONCE DAILY active Not Available Not Available No t Available trazodone 150 mg tablet active Not Available Not Available Not Available prednison e 50 mg tablet active Not Available Not Available Not Available naproxen 500 mg tablet,de layed release active Not Available Not Available Not Available lidocaine 5 % topical patch 5% Quantity : 30; Duration : 30; 0 refill(s ) active Not Available Not Available No t Available promethaz ine 25 mg tablet TAKE 1 TABLET BY MOUTH EVERY TWELVE HOURS NEEDED active Not Available Not Available No t Available ursodiol 300 mg capsule TAKE TWO CAPSULES BY MOUTH ONCE DAILY active Not Available Not Available No t Available Vitamin B-6 100 mg tablet TAKE 1 TABLET BY MOUTH ONCE DAILY active Not Available Not Available No t Available docusate sodium 100 mg capsule TAKE 1 CAPSULE BY MOUTH ONCE A DAY NEEDED active Not Available Not Available No t Available bismuth subsalicy late 262 mg chewable tablet CHEW AND SWALLOW 1 TABLET BY MOUTH two (2) times a day NEEDED FOR bloating /gerd active Not Available Not Available No t Available omeprazol e 20 mg capsule,d elayed release TAKE 1 CAPSULE BY MOUTH two (2) times a day active Not Available Not Available No t Available hydrocort isone 2.5 % topical cream active Not Available Not Available Not Available monteluka st 10 mg tablet TAKE 1 TABLET BY MOUTH ONCE DAILY AT BEDTIME active Not Available Not Available No t Available codeine 10 mg-guaife nesin 100 mg/5 mL oral liquid TAKE 2 TEASPOON FUL (10mls) BY MOUTH 3 (THREE) TIMES A DAY NEEDED active Not Available Not Available No t Available bisacodyl 5 mg tablet,de layed release active Not Available Not Available Not Available zaleplon 10 mg capsule Take 1 capsule (10 mg) by mouth daily at bedtime active Not Available Not Available No t Available lorazepam 1 mg tablet active Not Available Not Available Not Available polyethyl karen glycol 3350 17 gram/dose oral powder - Quantity : 510; Duration : 30; 0 refill(s ) 12/21 completed Duration : 30; VACCINE_ IND: no; Not Available Not Available Not Available zolpidem 10 mg tablet Take 1 tablet by mouth at bedtime active Not Available Not Available No t Available Vitamin D2 1,250 mcg (50,000 unit) capsule TAKE 1 CAPSULE BY MOUTH EVERY WEEK active Not Available Not Available No t Available ondansetr on 4 mg disintegr ating tablet DISSOLVE 1 TABLET UNDER THE TONGUE EVERY 6 HOURS NEEDED active Not Available Not Available No t Available clotrimaz ole 1 % topical cream active Not Available Not Available Not Available doxycycli ne hyclate 100 mg tablet TAKE 1 TABLET BY MOUTH EVERY TWELVE HOURS FOR 10 DAYS active Not Available Not Available No t Available tamoxifen 20 mg tablet Take 1 tablet (20 mg total) by mouth daily active Not Available Not Available No t Available prazosin 2 mg capsule TAKE 1 CAPSULE BY MOUTH ONCE DAILY AT BEDTIME active Not Available Not Available No t Available amoxicill in 875 mg-potass ium clavulana te 125 mg tablet TAKE 1 TABLET BY MOUTH EVERY TWELVE HOURS FOR 7 DAYS active Not Available Not Available No t Available Ventolin HFA 90 mcg/actua tion aerosol inhaler INHALE 2 PUFFS BY MOUTH INTO THE lungs EVERY 4 HOURS NEEDED FOR WHEEZING OR FOR SHORTNES S OF BREATH active Not Available Not Available No t Available simethico ne 80 mg chewable tablet Take 1 Tablet by mouth every 6 hours as needed for Flatulen ce for up to 30 days. active Not Available Not Available No t Available oxycodone 5 mg tablet TAKE 1 TO 2 TABLETS BY MOUTH EVERY 4 HOURS NEEDED FOR SEVERE PAIN (scale 7-10) active Not Available Not Available No t Available Lindsay-Lant a 200 mg-200 mg-20 mg/5 mL oral suspensio n TAKE 15mls BY MOUTH 4 (FOUR) TIMES DAILY (BEFORE MEALS AND NIGHTLY) active Not Available Not Available No t Available Vitamin D3 25 mcg (1,000 unit) capsule TAKE 1 CAPSULE BY MOUTH ONCE DAILY active Not Available Not Available No t Available ribavirin 200 mg tablet TAKE THREE TABLETS BY MOUTH TWICE DAILY FOR hcv active Not Available Not Available No t Available topiramat e 50 mg tablet TAKE 1 TABLET BY MOUTH two (2) times a day active Not Available Not Available No t Available Spiriva with [employer] r 18 mcg and inhalatio n capsules active Not Available Not Available Not Available Pain Relief Extra Strength (acetamin ophen) 500 mg tablet active Not Available Not Available Not Available pregabali n 25 mg capsule TAKE 1 CAPSULE BY MOUTH two (2) times a day active Not Available Not Available No t Available Rozerem 8 mg tablet Take 1 tablet by mouth every night at bedtime active Not Available Not Available No t Available cholecalc iferol (vitamin D3) 1,250 mcg (50,000 unit) capsule TAKE 1 CAPSULE BY MOUTH EACH WEEK active Not Available Not Available No t Available oxycodone 10 mg tablet TAKE 1 TABLET BY MOUTH two (2) times a day NEEDED active Not Available Not Available No t Available melatonin 5 mg tablet TAKE 1 TABLET BY MOUTH EVERY EVENING active Not Available Not Available No t Available GaviLyte- G 236 gram-22.7 4 gram-6.74 gram-5.86 gram oral solution active Not Available Not Available Not Available Pegasys 180 mcg/0.5 mL subcutane ous syringe 180 mcg/0.5 mL Quantity : 4; Duration : 28; 11 refill(s ) 08/14/ 2023 09/11 /2023 completed Frequenc y: qwk; Duration : 28; VACCINE_ IND: no; SU_FULL_ NAME: Yumi Valderramakeiko winn; Not Available Not Available Not Available lidocaine 5 % topical ointment APPLY TO THE AFFECTED AREA ON SKIN two (2) times a day NEEDED FOR PAIN active Not Available Not Available No t Available melatonin 10 mg tablet MELATONI N10 MG TABS; Quantity : 60; Duration : 30; 0 refill(s ) 12/21 completed Duration : 30; VACCINE_ IND: no; Not Available Not Available Not Available Myrbetriq 25 mg tablet,ex tended release TAKE 1 TABLET BY MOUTH ONCE DAILY active Not Available Not Available No t Available Children' s Multivita min chewable tablet CHEW AND SWALLOW 1 TABLET ONCE DAILY active Not Available Not Available No t Available Incruse Ellipta 62.5 mcg/actua tion powder for inhalatio n INHALE 1 PUFF BY MOUTH INTO THE lungs ONCE DAILY active Not Available Not Available No t Available Spiriva Respimat 1.25 mcg/actua tion solution for inhalatio n 1.25 mcg/inh Quantity : 4; Duration : 30; 0 refill(s ) 12/21 completed Duration : 30; VACCINE_ IND: no; Not Available Not Available Not Available Vosevi 400 mg-100 mg-100 mg tablet 400-100- 100 MG TABS; 1 tab po qd w food active Not Available Not Available No t Available magnesium 200 mg (as magnesium oxide) tablet Take 1 tablet by mouth daily as needed active Not Available Not Available No t Available Heplisav- B (PF) 20 mcg/0.5 mL intramusc ular syringe 20 mcg/0.5 mL Quantity : 1; Duration : 1; 1 refill(s ) 09/29 completed Frequenc y: x1; Duration : 1; VACCINE_ IND: no; VACCINE_ NAME: HepB-CpG ; SU_FULL_ NAME: Yumi Guidry pa; Not Available Not Available Not Available Flowflex COVID-19 Antigen Home Test kit USE DIRECTED , NEEDED active Not Available Not Available No t Available Antivert 25 mg chewable tablet 1 tab qd prn for vertigo 2024 active Not Available Not Available Not Avai lable Gas-X 250 mg capsule 1 mg po tid prn 2024 active Not Available Not Available Not Avai lable Vitals Date Recorded Body height Heart rate Respiratory rate Body temperature Body mass index (BMI) Body weight Systolic And Diastolic Provider Name and Address Organization Details Last Updated DateTime 5 160.02 cm 75 /min 12 /min 97.8 [degF] 25 kg/m2 92588.5 2 g 108/64 mm[Hg] Alis BLAKELY MD [facility] 5 14:58:29 Date Recorded Body height Heart rate Respiratory rate Body temperature Body mass index (BMI) Body weight Oxygen saturation Oxygen saturation in Arterial blood by Pulse oximetry Systolic And Diastolic Provider Name and Address Organization Details Last Updated DateTime 4 160.02 cm 83 /min 12 /min 98 [degF] 26.9 kg/m2 84243.0 4 g 100 % 100 % 112/76 mm[Hg] Alis BLAKELY MD [facility] 4 13:20:13 Date Recorded Body height Heart rate Body temperature Body mass index (BMI) Body weight Systolic And Diastolic Provider Name and Address Organization Details Last Updated DateTime 5 160.02 cm 84 /min 97.8 [degF] 26.4 kg/m2 68367.2 6 g 108/78 mm[Hg] Alis BLAKELY MD [facility] 5 15:14:06 Date Recorded Body height Body mass index (BMI) Body weight Heart rate Respiratory rate Body temperature Systolic And Diastolic Provider Name and Address Organization Details Last Updated DateTime 4 160.02 cm 27.3 kg/m2 38408.2 2 g 86 /min 12 /min 97.9 [degF] 110/80 mm[Hg] Alis BLAKELY MD [facility] 4 13:18:25 Social History None recorded. Functional Status None recorded. Mental Status None recorded. Family History Nothing Reported Notes:Migraine, Response Pro perty: Yes; , Asthma, Response Property: Yes; , Thyroid disease, Response Property: Yes; , Depression, Response Property: Yes; , Hypertension, Response Property: Yes; Medical History No medical history recorded. Gynecological HistoryNo gynecological history recorded. Obstetrics History GPAL:G 0 P 0 0 0 0 Past Encounters Encounter ID Performer Location Encounter Start Date Encounter Closed Date Diagnosis/Indication Diagnosis SNOMED-CT Code Diagnosis ICD10 Code Diagnosis IMO Codes Diagnosis Note [id number] Yumi Blakely MD Main Office [address] [place] [address] 03/24/2024 13:03:34 03/24/2024 13:37:22 Chronic hepatitis C 495215206 B18.2 labs orderedpas t hx of nonrespons e to tx due to inability to keep medication in setting of intractabl e vomiting that has resolved/o mrpoved. she should be able o tolerate medicines better.preeti winn determine HCV tx to be ordered once labs are back, and based on resistance susceptibi lity results. Vosevi, Epclusa, Harvoni are options.HC V VL ordered and HCV resistance test orderedtx to be selected based on test results.co mpliance reviewed to maximize probabilit y of SVR. cure cannot be guaranteed . Fatty stool 06228374 R19 .5 stool culture and fecal fat orderedshe has been seen by GI Steatotic liver disease 881846181 K76.0 diet and exercise [id number] Yumi Blakely MD Main Office [address] [place] [address] 05/27/2024 13:06:27 05/27/2024 14:15:01 Chronic hepatitis C 386884583 B18.2 past hx of nonrespons e to tx due to inability to keep medication in setting of intractabl e vomiting START Vosevi 1 tab po qd x 12 weeks; START Ribavirin 3 tabs po bid x 12 week; I recommende d her to start low dose of Ribavirin 1 tab qd, and increase daily tablet until 6 per day if well tolerated. to call if side effects or intoleranc e.watch for fatigue/ti redness, anemia, n/v/d among other with ribavirin. to call with conernscom pliance reviewed to maximize probabilit y of SVR. cure cannot be guaranteed .avoid and avoid being close to person in the same household. jeevan jacob reviewed Steatotic liver disease 053462985 K76.0 by u/sdiet and exercise Nausea and vomiting 1692 1999 R11.2 zofran 4-8 mg po tid prn for nausea and vomiting.t nury zofran 10-20 min prior to vosevi/Rib a Gastroesop hageal reflux disease 625840196 K21.9 [place] [id number] Yumi Blakely MD Main Office [address] [place] [phone] 07/30/2024 16:30:14 07/30/2024 18:49:05 Chronic hepatitis C 007072079 B18.2 past hx of nonrespons e to tx due to inability to keep medication in setting of intractabl e vomitingPT reports completed 3 months of Vosevi, and low dose Ribavitin. intoleranc e to full ribavitin doseget [facility] per report.onc e reviewed, will determine if further labs or further tx is needed.to call if side effects or intoleranc e. Steatotic liver disease K76.0 by u/sdiet and exerciseav oid weight gain Nausea and vomiting 1692 1999 R11.2 zofran 4-8 mg po tid prn for nausea and vomiting.t nury zofran 10-20 min prior to vosevi/Rib a [id number] Yumi Blakely MD Main Office [address] [place] [id number] 11/19/2024 14:40:39 11/19/2024 15:09:39 Chronic hepatitis C 871492904 B18.2 past hx of nonrespons e to tx due to inability to keep medication in setting of intractabl e vomitingPt will complete 3 months of Vosevi 1 tab po qd on December 08 2024.pt declined use of Ribavirin. labsstrict compliance reviewed with pt and family memberSVR Labs 12 weeks post tx completion at [facility] 03/10/2025. to call if side effects or intoleranc e. Steatotic liver disease K76.0 by u/sdiet and exerciseav oid weight gain Nausea and vomiting 1692 1999 R11.2 zofran 4-8 mg po tid prn for nausea and vomiting.t nury zofran 10-20 [place] [id number] Yumi Blakely MD Main Office [address] [facility] [place] [phone] 03/24/2025 15:01:31 03/24/2025 15:26:56 Chronic hepatitis C 845492009 B18.2 past hx of nonrespons e to tx due to inability to keep medication in setting of intractabl e vomitingco mpleted 3 months of Vosevi 1 tab po qd on approximat dari December 08, 2024. HCV VL 11/24/2024 nondetecte d.labs HCV VL PCR Ordered; SVR Labs 12 weeks post tx completion approximat [facility] 03/10/2025. to call if side effects or intoleranc e.pt to perform labs and will be in touch regarding the viral loadwill f/u if detected HCV VL.HCV ab will be positive; HCV VL should be test of choice to dx new infection Nausea and vomiting 1692 1999 R11.2 take zofran 10-20 mins prior to eatingalso having issues with gaswill increase the zofran to 8 mg tid prn as she was doing better in the past on the medication also having issues heartburn and will increase the omeprazole to 40mg dailypt aware the damage that persistent vomiting can do to her esophagusg as x refilled.f /u GIpt is due for a repeat EGD at [facility] in March; f/u GI Vertigo 559672687 R42 64417 antivert qd PRNf/u PCP for further eval.hydra tionavoid nasal congestion Health Concerns Section Related Observation LastModified by Organization Detai ls LastModified Time None Recorded Concern Status LastModified by Organization Details LastModified Time None Recorded Advance Directives Directive None Recorded Payers Insurance Date Sequence Insurance Name Policy Number Policy Mcfadden Covered Member ID Mcfadden Member ID Guarantor Name 03/30/2025 1 [facility] [employer] - TOGETHER (MEDICAID HMO) [id number] Sander Morris [id number] Sander Morris Notes Date Note Type Note Provider Name and Address Organization Details Recorded Time 03/24/2024 text/html ROS as noted in the HPI HCV G4; F1has not tolerated HCV tx in the past due to Hx intractable vomiting which has limited her ability to take meds po without vomiting, and has affected HCV tx among other tx in the past;however, she reports she got tx in [facility], and has not been vomiting in 2023, except for once every other month.she wants to be tx for HCV now that she is able to tolerate medications better with no vomiting.no recent labsno allergies to medications.med list reviewedno allergies.constipa tion: fatty liver. she has lost weight on purposeno ETOHno drugs.followed by GI.she has been on some supplements given to her in [facility] to help her overall health. Yumi Blakely MD [address] [place] [address], [phone], VALERIE BLAKELY MD [facility] 03/29/2024 12:44:02 05/27/2024 text/html ROS as noted in the HPI HCV G4; F1has not tolerated HCV tx in the past due to Hx intractable vomiting which has limited her ability to take meds po without vomiting, and has affected HCV tx among other tx in the past; SHe will start Vosevi and Ribavirin today.she is not .no allergies to medications.med list reviewedno allergies.no ETOHon zofran for nausea/vomiting.GE RD.no drugs.followed by GI.u/s 2023 fatty liver HCV VL ALT 51 AST 50; alb wnl;eGFR=92; amu/lipase nl; PT nl ; bili 0.3HCV VL 928779; no anemia.F1-2; G4 Yumi Blakely MD [address] [place] [address], [phone], VALERIE BLAKELY MD [facility] 05/28/2024 13:10:26 07/30/2024 text/html ROS as noted in the HPI HCV G4; F1 SOn in call with pt with pt consent; she called him to be able to understand better. she speaks limited Kinyarwanda.She says she did complete 90 days of Vosevi; and she reports was able to do some of the Ribavirin doses; and was able to increase dose over time. .She reports had labs tests last week [facility]; awaiting results.on zofran for n/v.she reports did not throw up HCV meds ; on zofran as qaysfi37/2024 u/s fatty liver. med list reviewedno ETOHno drugs.followed by GI. HCV VL ALT 51 AST 50; alb wnl;eGFR=92; amu/lipase nl; PT nl ; bili 0.3HCV VL 980244; no anemia.F1-2; G4 has not tolerated HCV tx in the past due to Hx intractable vomiting which has limited her ability to take meds po without vomiting, and has affected HCV tx among other tx in the past; she feels tired. no jaundiceno rashno edema Yumi Blakely MD [address] [place] [address], [phone], VALERIE - YUMI BLAKELY MD [facility] 07/30/2024 17:10:11 11/19/2024 text/html ROS as noted in the HPI HCV G4; F1Pt in room with a family member with her consent, who also helps with translation. [facility] reported pt requested the medication ribavirin to be discontinued. They do not have a note or reason for why she wanted it discontinued. Vosevi Deliveries to pt's home were 08/22/24,09/16/24 and 10/27/24. she will complete 12 weeks November 2024. She denies vomiting of medication. on zofran for n/v prn1 u/s fatty liver.med list reviewedno ETOHno drugs.followed by GI. HCV VL ALT 51 AST 50; alb wnl;eGFR=92; amu/lipase nl; PT nl ; bili 0.3HCV VL 108250; no anemia.F1-2; G4has not tolerated HCV tx in the past due to Hx intractable vomiting which has limited her ability to take meds po without vomiting, and has affected HCV tx among other tx in the past; there has been some language barriers as well. Yumi Blakely MD [address] [place], [phone], VALERIE BLAKELY MD [facility] 12/16/2024 09:35:08 03/24/2025 text/html ROS as noted in the HPI HCV G4; F1 no cirrhosis hx. Pt in room with a family member (oldest son) with her consent, who also helps with translation. Athraa undertands Kinyarwanda. .Vosevi Deliveries to pt's home were 08/22/24,09/16/24 and 10/27/24. EoT HCV VL nondetected 11/24/2024 completed 12 weeks at around December 08, 2024- no viral load detected at that time-will get repeat HCV VL to see if cure/SVR is achieved. on zofran for n/v prn- usually taking 3-4 times daily- still having vomiting; she was on 8 mg tid in the past; she is on 4 mg bid now.has issues with refluxstates that she vomits just after eating- usually occurs just after eatinggas-x helps.stopped omeprazole. she would be willing to re-start; she said another provider told her to stop it. vertigo. PCP following; she will get evaluated; she says was referred for tx.does not feel congested. 03/2024 u/s fatty liver. med list reviewed no ETOH no drugs. followed by GI. she will undergo endoscopy within the next month. 11/2024- h/h-wnl,10/2024- fibrosis score- F1, hep c- <12-NT, ferritin- 7, creatinine- 0.68, eGFR- 106, AST/ALT- 57/ HCV VL ALT 51 AST 50; alb wnl;eGFR=92; amu/lipase nl; PT nl ; bili 0.3 HCV VL 257772; no anemia. F1-2; G4 Yumi Blakely MD [address] [place] [address], [place], [phone], [place] - YUMI BLAKELY MD [facility] 03/29/2025 15:54:47 OBGyn Episode No OBEpisode recorded.
== END 2025-03-30 12:14 | disposition home or self-care (01) ==
LOC: HO.HSM 11:08
PROVIDERS: PCP Hospitalist; Visit Provider Nurse Practitioner
DX: G43.709 Chronic migraine without aura, not intractable, without status migrainosus (principal)
CPT/HCPCS: 99205

== ENCOUNTER → 2025-03-30 11:08 | Outpatient (BNVA) | payer OTHER, SELFPAY | PROVIDERS: PCP Hospitalist; Visit Provider Nurse Practitioner | DX: G43.709 Chronic migraine without aura, not intractable, without status migrainosus (principal) | CPT/HCPCS: 99202 ==